=== PATIENT | female | born 1950 | race African-American/Black ===

== ENCOUNTER 2023-04-15 14:58 | Emergency (ER) | payer MEDICARE, SELFPAY ==
[2023-04-15 15:03] VITALS: BP 147/76; PULSE 91; RESP 18; TEMP 36.7; O2SAT 100; BMI 19.4
--- NOTE | 2023-04-15 15:13 | XR_ITS ---
[facility] [id number] Patient Name: KATIE MONTERO MRN: [id number] date: 1950 Sex: F Assigned Patient Location: ER Current Patient Location: ED.MAIN Accession/Order Number: [id number] Exam Date: 04/15/2023 15:19 Report Date: 04/15/2023 15:32 At the request of: SOCO HENRY Procedure: XR wrist RT min 3V XR wrist RT min 3V, 04/15/2023 3:19 PM EDT, [place]001 INDICATION: atraumatic pain COMPARISON: None TECHNIQUE: 3 images are submitted. FINDINGS: The bones appear well mineralized. No acute fracture or subluxation is identified. The joint spaces are maintained. No destructive osseous process is identified. The visualized soft tissues appear unremarkable. XR/XR wrist RT min 3V IMPRESSION: No acute traumatic abnormality or malalignment. Electronically authenticated by: PIETER JOSEPH Date: 04/15/2023 15:32
--- NOTE | 2023-04-15 15:13 | ED.GENADUL1 ---
HPI - General Adult General Chief complaint: Extremity Injury, Upper Stated complaint: UPPER EXTREMITY PAIN RIGHT HAND AND ARM Time Seen by Provider: 04/15/23 15:01 Source: patient Mode of arrival: walk-in History of Present Illness HPI narrative: 72-year-old female presents for right wrist pain. It started yesterday and was worse today. It hurts to move it. No fever. She states it feels a bit swollen. 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 The pain is moderate and worse with movement. Related Data Home Medications Medication Instructions Recorded Confirmed clopidogrel 75 mg tablet 75 mg PO DAILY 04/15/23 04/15/23 lisinopril 20 mg tablet 20 mg PO DAILY 04/15/23 04/15/23 naproxen 375 mg tablet 375 mg PO Q12H 04/15/23 04/15/23 tizanidine 4 mg tablet 4 mg PO Q12H PRN muscle spasticity 04/15/23 04/15/23 Previous Rx's Medication Instructions Recorded acetaminophen 300 mg-codeine 30 mg 1 tab PO Q6H PRN pain #20 tabs 04/15/23 tablet Allergies Allergy/AdvReac Type Severity Reaction Status Date / Time ibuprofen AdvReac Intermediate Verified 04/15/23 15:03 Penicillins AdvReac Intermediate Verified 04/15/23 15:31 Review of Systems ROS Narrative A ten point review of systems is negative except as noted above. PFSH PFSH Social History Smoking status: Current every day smoker Exam Narrative Exam Narrative: Nurses note and vital signs reviewed and patient is not hypoxic. General: The patient appears well and in no apparent distress. Patient is resting comfortably on cart. Skin: Warm, dry, no pallor noted. There is no rash noted. Head: Normocephalic, atraumatic Eye: Normal conjunctiva, no drainage Ears, Nose, Mouth, and Throat: oral mucosa is moist. Nares patent. Cardiovascular: Regular Rate and Rhythm Respiratory: Patient is in no distress, no accessory muscle use, lungs are clear to auscultation, no wheezing, rales or rhonchi Back: non-tender GI: soft and nontender Musculoskeletal: right wrist is examined. There is some mild erythema and minimal swelling. Range of motion causes discomfort. Fingers are not swollen. No break in the skin. Neurological: A&O, normal speech Psychiatric: Cooperative Constitutional Vital Signs, click to edit/add: Last Vital Signs Temp 98.1 F 04/15/23 15:03 Pulse 91 H 04/15/23 15:03 Resp 18 04/15/23 15:03 BP 147/76 H 04/15/23 15:03 Pulse Ox 100 04/15/23 15:03 Course Vital Signs Vital signs: Vital Signs Temperature 98.1 F 04/15/23 15:03 Pulse Rate 91 H 04/15/23 15:03 Respiratory Rate 18 04/15/23 15:03 Blood Pressure 147/76 H 04/15/23 15:03 Pulse Oximetry 100 04/15/23 15:03 Temperature 98.1 F 04/15/23 15:03 Pulse Rate 91 H 04/15/23 15:03 Respiratory Rate 18 04/15/23 15:03 Blood Pressure 147/76 H 04/15/23 15:03 Pulse Oximetry 100 04/15/23 15:03 Medical Decision Making MDM Narrative Medical decision making narrative: X-ray shows no acute findings. Splint applied and application checked by me and found to be appropriate, she is neurovascularly intact. My clinical impression is that her symptoms are due to arthritis. I do not suspect an infection or gout. Treatment diagnosis and follow-up were discussed with the patient. Differential Diagnosis Differential Diagnosis: arthritis, cellulitis, gout, sprain Imaging Data wrist x-ray: Radiologist's impression: Procedure: XR wrist RT min 3V XR wrist RT min 3V, 04/15/2023 3:19 PM EDT, [place]001 INDICATION: atraumatic pain COMPARISON: None TECHNIQUE: 3 images are submitted. FINDINGS: The bones appear well mineralized. No acute fracture or subluxation is identified. The joint spaces are maintained. No destructive osseous process is identified. The visualized soft tissues appear unremarkable. IMPRESSION: No acute traumatic abnormality or malalignment. Electronically authenticated by: PIETER JOSEPH Date: 04/15/2023 15:32 Discharge Plan Discharge Chief Complaint: Extremity Injury, Upper Clinical Impression: Arthritis of wrist Patient Disposition: Home, Self-Care Time of Disposition Decision: 16:02 Condition: Good Mode of Transportation: Private Vehicle Prescriptions / Home Meds: New acetaminophen-codeine 300-30 mg tablet 1 tab PO Q6H PRN (Reason: pain) Qty: 20 0RF No Action tizanidine 4 mg tablet 4 mg PO Q12H PRN (Reason: muscle spasticity) naproxen 375 mg tablet 375 mg PO Q12H lisinopril 20 mg tablet 20 mg PO DAILY clopidogrel 75 mg tablet 75 mg PO DAILY Instructions: Osteoarthritis (ED) Stand Alone Forms: Portal Instructions Referrals: RUSTY CAGLE [Primary Care Provider] - 1 week
== END 2023-04-15 16:11 | disposition home or self-care (01) ==
PROVIDERS: Emergency Provider Emergency Medicine; PCP Family Medicine
DX: M19.031 Primary osteoarthritis, right wrist (principal); Z79.899 Other long term (current) drug therapy; F17.210 Nicotine dependence, cigarettes, uncomplicated
CPT/HCPCS: 73110; 99284

== ENCOUNTER 2025-02-01 11:57 | Inpatient (IN) | payer MEDICARE, MEDICAID, SELFPAY ==
--- OUTSIDE RECORDS SUMMARY | 2024-11-16 09:30 | XMS_ITS ---
Author Organization [facility] vices Address [address] [place] [id number] Care Team Providers Care Engineering Group Leader Name Role Phone Marifer Hernandez Unavailable [phone] REASON FOR VISIT AFTERNOON BABYSITTER Comp Exam 75 Encounters Encounter Location Date Provider Diagnosis [facility] [address], [place] [id number] 11/16/2024 Marifer Hernandez Plan Of Treatment No Information Progress Notes * Katty MONTEROB:1950 (74 yo F)Acc No.[id number]:11/16/2024 Patient: Parminder MARYELLENCaridad FRAGOSOa Provider: Parminder Hernandez DMD :1950 A ge:74 Y S ex:Female Date:11/16/2024 Address:[address] [id number] Subjective: * Chief Complaints: * 1 . AFTERNOON BABYSITTER Comp Exam 75. * Medical History: Objective: * Vitals: Assessment: Plan: * Treatment: * Billing Information: * Visit Code: * Procedure Codes: * Electronic signature of Shirley Hernandez DMD on 02/01/2025 at 12:09 PM EDT Sign off status: Pending * Provider: Parminder Hernandez DMD Date: 11/16/2024 Generated for Craig [email or web address]/[email or web address] on: 02/01/2025 12:09 PM EDT
--- OUTSIDE RECORDS SUMMARY | 2025-01-31 16:19 | XMS_ITS | Encounter Summary ---
Author Organization [facility] [facility] tem Address [id number] [address] [place] [address] Care Team Providers Care Account Liaison Hospice Name Role Phone Kev Mcmahon Primary Care Provider [phone] Reason for Visit * Reason Comments Heart Palpitations Pt states she had dy spnea and daughter called EMS. Per EMS, pt was tachycardiac with a rate of 205 BPM. EMS administered 6mg of adenosine with effect. Pt now is 104 bpm and feels much beter. Encounter Details Date Type Department Care Team (Late st Contact Info) Description 01/31/2025 4:19 PM EDT - 01/31/2025 6:56 PM EDT Emergency [facility] - Emergency [address] [place] [id number] Alfredo Odom MD [address] [place] [address] SVT (supraventricular tachycardia) (Primary Dx) Discharge Disposition: Home Social History Tobacco Use Types Packs/Day Years Used Date Smoking Tobacco: Former Cigarettes 0.3 60.7 1 962 - 03/01/2022 Smokeless Tobacco: Never Alcohol Use Standard Drinks/Week Comments Yes 4 (1 standard drink = 0.6 oz pur e alcohol) [facility] Utilities Answer Date Recorded In the past 12 months has [employer] electric, gas, oil, or water company threatened to shut off services in your home? No 09/23/2023 Social Connection and Isolat ion Panel [NHANES] Answer Date Recorded In a typical week, how many times do you talk on the phone with family, friends, or neighbors? More than three times a week 07/19/2022 How often do you get togethe r with friends or relatives? More than three times a week 07/19/2022 How often do you attend chur ch or yazdanism services? 1 to 4 times per year 07/19/2022 Do you belong to any clubs o r organizations such as protestant groups, unions, fraternal or athletic groups, or school groups? No 07/19/2022 How often do you attend meet ings of the clubs or organizations you belong to? Never 07/19/2022 Are you , , di vorced, , never , or living with a partner? 07/19/2022 AUDIT-C Answer Date Recorded Q1: How often do you have a drink containing alc ohol? Monthly or less 07/19/2022 Q2: How many drinks containi ng alcohol do you have on a typical day when you are drinking? 1 or 2 07/19/2022 Q3: How often do you have si x or more drinks on one occasion? Never 07/19/2022 Overall Financial Resource Strain (CARDIA) Answe r Date Recorded How hard is it for you to pa y for the very basics like food, housing, medical care, and heating? Not hard at all 07/19/2022 PHQ-2 Answer Date Recorded Total Score 2 12/11/2023 [facility] Occupat ional Health - Occupational Stress Questionnaire Answer Date Recorded Do you feel stress - tense, restless, nervous, or anxious, or unable to sleep at night because your mind is troubled all the time - these days? Not at all 07/19/2022 Exercise Vital Sign Answer Date Recorde d On average, how many days pe r week do you engage in moderate to strenuous exercise (like a brisk walk)? 4 days 03/20/2023 On average, how many minutes do you engage in exercise at this level? 10 min 03/20/2023 PRAPARE - Transportation Answer Date Re corded In the past 12 months, has l ack of transportation kept you from medical appointments or from getting medications? No 07/01 In the past 12 months, has l ack of transportation kept you from meetings, work, or from getting things needed for daily living? No 07/19/2022 Housing Instability Answer Date Recorde d Are you worried or concerned that in the next two months you may not have stable housing that you own, rent or stay in as a part of a household? No 07/19/2022 Childcare Answer Date Recorded Do problems getting child ca re make it difficult for you to work or study? No 07/19/2022 Employment Answer Date Recorded Do you need help finding a [facility] and/or a training program? No 07/19/2022 Hunger Screening Answer Date Recorded Within the past 12 months we worried whether our food would run out before we got money to buy more. Never True 01/31/2025 Within the past 12 months th e food we bought just didn't last and we didn't have money to get more. Never True 01/31/2025 Purpose - Life Answer Date Recorded I have a purpose and direction in my life. Stron gly Agree 07/19/2022 Comments No Sex and Gender Information Value Date Recorded Sex Assigned at Not on file Legal Sex Female 11:28 AM EDT Gender Identity Not on file Sexual Orientation Not on file documented as of this encounter Last Filed Vital Signs Vital Sign Reading Time Taken Comments Blood Pressure 136/59 01/31/2025 6:55 PM EDT Pulse 87 01/31/2025 6:55 PM EDT Temperature 37.3 C (99.2 F) 01/31/2025 4:21 PM EDT Respiratory Rate 17 01/31/2025 6:55 PM EDT Oxygen Saturation 98% 01/31/2025 6:55 PM EDT Inhaled Oxygen Concentration - - Weight 49.9 kg (110 lb) 01/31/2025 4:21 PM EDT Height 152.4 cm (5') 01/31/2025 4:21 PM EDT Body Mass Index 21.48 01/31/2025 4:21 PM EDT documented in this encounter Medications at Time of Discharge albuterol (PROVENTIL HFA;VENTOLIN HFA) 90 mcg/actuation inhalerIndications:Ch ronic obstructive pulmonary disease, unspecified ([facility]) inhale 2 puffs by mouth every 4 hours 8.5 g 4 albuterol (PROVENTIL,VENTOLIN) 2.5 mg /3 mL (0.083 %) nebulizer solutionIndications:C hronic obstructive pulmonary disease, unspecified COPD type ([facility]) Inhale 3 mL (2.5 mg total) by nebulization every 4 (four) hours as needed for wheezing. 75 mL 2 5 aspirin 81 mg Take 1 tablet (81 mg total) by mouth in the morning. lgilhvgejo-jrstvnnv-x ormoterol (BREZTRI AEROSPHERE) 160-9-4.8 mcg/actuation HFA aerosol inhalerIndications:Mi xed simple and mucopurulent chronic bronchitis ([facility]) Inhale 2 puffs in the morning and at bedtime. 10.7 g 5 3 cholecalciferol, vitamin D3, 25 mcg (1,000 unit) capsule Take 1 capsule (1,000 Units total) by mouth in the morning. 4 clopidogreL (PLAVIX) 75 mg tabletIndications:Tra nsient cerebral ischemic attack, unspecified TAKE 1 TABLET BY MOUTH EVERY DAY 90 tablet 1 3 dapagliflozin propanediol (FARXIGA) 10 mg tabletIndications:Sta ge 3a chronic kidney disease ([facility]) Take 1 tablet (10 mg total) by mouth in the morning. MUST BE SEEN IN OFFICE FOR ADDITIONAL REFILLS OR CAN REQUEST FROM PCP. 30 tablet 1 5 dilTIAZem CD (CARDIZEM CD) 180 mg 24 hr capsuleIndications:PS VT (paroxysmal supraventricular tachycardia) Take 1 capsule (180 mg total) by mouth in the morning. 30 capsule 2 3 docusate sodium (COLACE) 100 mg capsule Take 1 capsule (100 mg total) by mouth in the morning. 30 capsule 1 4 doxepin (SILENOR) 3 mg tablet Take 1 tablet (3 mg total) by mouth nightly. 30 tablet 2 4 food supplemt, lactose-reduced (ENSURE) liquid Take 237 mL by mouth in the morning. 30 mL 5 3 furosemide (LASIX) 20 mg tablet TAKE 1 TABLET BY MOUTH EVERY DAY IN THE MORNING 90 tablet 5 lisinopriL (PRINIVIL,ZESTRIL) 20 mg tabletIndications:Ess ential hypertension, benign TAKE 1 TABLET BY MOUTH EVERY DAY IN THE MORNING 30 tablet 5 nebulizer accessories miscIndications:Chron ic obstructive pulmonary disease with (acute) exacerbation (CMS-HCC) Use as directed with nebulizer 1 each 3 pantoprazole (PROTONIX) 40 mg EC tabletIndications:Gas tro-esophageal reflux disease without esophagitis take 1 tablet by mouth every day 90 tablet 4 polyethylene glycol (GLYCOLAX) 17 gram/dose powder Take 17 g by mouth in the morning. 595 g 1 4 potassium chloride (KLOR-CON M 10) 10 MEQ CR tabletIndications:Hyp okalemia TAKE 1 TABLET BY MOUTH EVERY MORNING. 90 tablet 5 rosuvastatin (CRESTOR) 20 mg tabletIndications:Mix ed hyperlipidemia Take 1 tablet (20 mg total) by mouth in the morning. 90 tablet 4 tiZANidine (ZANAFLEX) 4 mg tabletIndications:Low back pain TAKE 1 TABLET BY MOUTH EVERY 6 HOURS NEEDED FOR MUSCLE SPASMS. 360 tablet 5 documented as of this encounter ED Notes * Alfredo Odom MD - 01/31/2025 4:26 PM EDT Images from the original note were not included. [facility] - EMERGENCY Pt Name: Usha Pruitt Birthdate: 1950 Chief Complaint: Chief Complaint Patient presents with Heart Palpitations Pt states she had dyspnea and daughter called EMS. Per EMS, pt was tachycardiac with a rate of 205 BPM. EMS administered 6mg of adenosine with effect. Pt now is 104 bpm and feels much beter. History of Present Illness: Initial evaluation by Dr. Shaina Odom at 4:20 PM. Usha Pruitt is a 74 y.o. female who presents via EMS to the ED with chief complaint of heart palpitations. EMS reports pt woke up with shortness of breath, and tried taking her medications. EMS reports her initial heart rate was 205. EMS reports history of SVT on multiple occasions. Pt reports feeling a lot better , and the shortness of breath is gone. There are no other concerns at this time. 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 Past Medical History: Past Medical History: Diagnosis Date Acid reflux 09/02/2016 Carotid artery stenosis 09/02/2016 Carpal tunnel syndrome 03/31/2018 Chronic diastolic heart failure ([facility]) 09/19/2016 Chronic obstructive lung disease ([facility]) 09/02/2016 Dyslipidemia Hypokalemia 09/02/2016 Osteoporosis 11/19/2017 Paroxysmal supraventricular tachycardia ([facility]) 02/23/2019 Transient cerebral ischemia 09/02/2016 Numbness in Both Hands Past Surgical History: Past Surgical History: Procedure Laterality Date COLONOSCOPY N/A 12/25/2022 Performed by Angel Randolph DO at [facility] Family History: Family History Problem Relation Age of Onset Hypertension Mother Diabetes Mother Aneurysm Mother Cancer Father Glaucoma Father Breast cancer Sister Heart disease Brother Social History: Social History Socioeconomic History Marital status: Tobacco Use Smoking status: Former Current packs/day: 0.00 Average packs/day: 0.3 packs/day for 60.7 years (15.2 ttl pk-yrs) Types: Cigarettes Start date: 1962 Quit date: 03/01/2022 Years since quittin.9 Smokeless tobacco: Never Vaping Use Vaping status: Former Substances: Nicotine Substance and Sexual Activity Alcohol use: Yes Alcohol/week: 4.0 standard drinks of alcohol Types: 4 Cans of beer per week Drug use: Not Currently Frequency: 2.0 times per week Types: Marijuana Sexual activity: Not Currently Other Topics Concern Caffeine Use Yes Social Drivers of Health Financial Resource Strain: Low Risk (07/19/2022) Overall Financial Resource Strain (CARDIA) Difficulty of Paying Living Expenses: Not hard at all Food Insecurity: No Food Insecurity (03/19/2024) Hunger Screening Food Insecurity - Worry: Never True Food Insecurity - Inability: Never True Transportation Needs: No Transportation Needs (07/19/2022) PRAPARE - Transportation Lack of Transportation (Medical): No Lack of Transportation (Non-Medical): No Physical Activity: Insufficiently Active (03/20/2023) Exercise Vital Sign Days of Exercise per Week: 4 days Minutes of Exercise per Session: 10 min Stress: No Stress Concern Present (07/19/2022) [place] [place] of Occupational Health - Occupational Stress Questionnaire Feeling of Stress : Not at all Social Connections: Moderately Isolated (07/19/2022) Social Connection and Isolation Panel [NHANES] Frequency of Communication with Friends and Family: More than three times a week Frequency of Social Gatherings with Friends and Family: More than three times a week Attends Worship Services: 1 to 4 times per year Active Member of Clubs or Organizations: No Attends Club or Organization Meetings: Never Marital Status: Interpersonal Safety: Not At Risk (07/19/2022) Humiliation, Afraid, Rape, and Kick questionnaire Fear of Current or Ex-Partner: No Emotionally Abused: No Physically Abused: No Sexually Abused: No Housing Instability: Low Risk (07/19/2022) Housing Instability Housing Instability: No Review of Systems: Review of Systems Physical Exam: ED Triage Vitals [01/31/25 1621] Temp Heart Rate Resp BP SpO2 37.3 ??C (99.2 ??F) 105 18 123/69 97 % Temp Source Heart Rate Source Patient Position BP Location FiO2 (%) Oral -- Semi-fowlers Right arm -- Vitals: 01/31/25 1621 BP: 123/69 Temp: 37.3 ??C (99.2 ??F) TempSrc: Oral Pulse: 105 Resp: 18 SpO2: 97% Height: 152.4 cm (5') Weight: 49.9 kg (110 lb) Physical Exam Vitals reviewed. HENT: Head: Normocephalic and atraumatic. Eyes: Conjunctiva/sclera: Conjunctivae normal. Cardiovascular: Rate and Rhythm: Normal rate. Pulmonary: Effort: Pulmonary effort is normal. Breath sounds: Normal breath sounds. Abdominal: General: There is no distension. Palpations: Abdomen is soft. Musculoskeletal: General: Normal range of motion. Cervical back: Normal range of motion and neck supple. Skin: General: Skin is warm and dry. Neurological: General: No focal deficit present. Mental Status: She is alert and oriented to person, place, and time. GCS: GCS eye subscore is 4. GCS verbal subscore is 5. GCS motor subscore is 6. Procedure: Procedures Re-evaluation: Tameka Zuniga (scribe), documented on behalf and in the presence of Dr. Shaina Odom. 6:[address] Shaina Odom discussed discharge with pt, and pt is in agreement. Medical Decision Making Amount and/or Complexity of Data Reviewed Labs: ordered. Details: Labs notable for: white blood cell 16.2, neutrophils absolute 13.4, creatinine 1.50, glucose 119, eGFR (CKD-EPI) 36. ECG/medicine tests: ordered. Risk Prescription drug management. ED Course: Clinical Impressions as of 01/31/25 1705 SVT (supraventricular tachycardia) . ED Disposition None . Please note that portions of this note were completed with a voice recognition program. Efforts were made to edit the dictations but occasionally words are mis-transcribed. Tameka Panuto 01/31/25 1628 Tameka Panuto 01/31/25 1649 Tameka Panuto 01/31/25 1713 Tameka Panuto 01/31/25 1827 Alfredo Odom MD 01/31/25 1950 documented in this encounter Plan of Treatment Upcoming Encounters Date Type Department Care Team (Late st Contact Info) Description 02/07/2025 3:00 PM EDT Office Visit [facility] - Family Medicine [address] [place] [id number] Kev Mcmahon, DO [address] [place] [address] documented as of this encounter Goals Goal Patient Goal Type Associated Problems Recent Progress Patient-Stated? Author safe discharge to home General Yes Marguerite Anguiano, RN Note: Evaluation of progress towards goal: safe transition from hospital to home with [facility] and family support. documented as of this encounter Procedures Procedure Name Priority Date/Time Associated Diagnosis Comments TROP I, HIGH SENSITIVITY 1 HOUR STAT 01/31/2025 5:45 PM EDT TROPONIN I, HIGH SENSITIVITY 0 HOUR STAT 01/31/2025 4:30 PM EDT TROPONIN I, HIGH SENSITIVITY 0 HOUR STAT 01/31/2025 4:30 PM EDT CBC WITH AUTO DIFFERENTIAL STAT 01/31/2025 4:30 PM EDT APTT STAT 01/31/2025 4:30 PM EDT PROTIME & INR STAT 01/31/2025 4:30 PM EDT D-DIMER STAT 01/31/2025 4:30 PM EDT B-TYPE NATRIURETIC PEPTIDE STAT 01/31/2025 4:30 PM EDT MAGNESIUM STAT 01/31/2025 4:30 PM EDT COMPREHENSIVE METABOLIC PANEL STAT 01/31/2025 4:30 PM EDT ECG 12-LEAD STAT 01/31/2025 4:23 PM EDT documented in this encounter Results * Troponin I, High Sensitivity 1 Hour (01/31/2025 5:45 PM EDT) Pathologist [facility] TROPONIN I, HIGH SENSITIVITY 11 <16 ng/L 01/31/2025 6:22 PM EDT [facility] Blood Venous blood / Unknown Venipuncture / Unknown 01/31/2025 5:45 PM EDT 01/31/2025 5:49 PM EDT us Alfredo Odom MD LAB BLOOD ORDERABLES Final Resu lt [facility] [address] [place] [address], * Troponin I, High Sensitivity 0 Hour (01/31/2025 4:30 PM EDT) Pathologist [facility] TROPONIN I, HIGH SENSITIVITY 11 <16 ng/L 01/31/2025 5:14 PM EDT [facility] Blood Venous blood / Unknown Venipuncture / Unknown 01/31/2025 4:30 PM EDT 01/31/2025 4:38 PM EDT us Alfredo Odom MD LAB BLOOD ORDERABLES Final Resu lt Performing Organization Address [facility]/ZIP Co de Phone Number [address] [place] [address], [place] * Magnesium (01/31/2025 4:30 PM EDT) Pathologist [facility] MAGNESIUM 1.8 1.8 - 2.6 mg/dL 01/31/2025 5:07 PM EDT [facility] Blood Venous blood / Unknown Venipuncture / Unknown 01/31/2025 4:30 PM EDT 01/31/2025 4:38 PM EDT us Alfredo Odom MD LAB BLOOD ORDERABLES Final Resu lt Performing Organization Address [facility] Phone Number [address] [place] [address], [place] * D-Dimer (01/31/2025 4:30 PM EDT) Pathologist [facility] D DIMER 208 1 - 255 ug/mL 01/31/2025 5:16 PM EDT [facility] Comment:Results <255 ng/mL D DU: The presensence of a VTE can safely be excluded with a negative D-Dimer result and Wells score. A negative result doesn't exclude the possibility of DIC. The test should be repeated along with other diagnostic tests if the patient's symptoms persist or worsen. Blood Venous blood / Unknown Venipuncture / Unknown 01/31/2025 4:30 PM EDT 01/31/2025 4:38 PM EDT us Alfredo Odom MD LAB BLOOD ORDERABLES Final Resu lt Performing Organization Address [facility] Co de Phone Number [address] [place] [address], [place] * (ABNORMAL) Comprehensive metabolic panel (01/31/2025 4:30 PM EDT) SODIUM 131(L) 134 - 146 mmol/L 01/31/2025 5:07 PM EDT [facility] POTASSIUM 4.4 3.5 - 5.0 mmol/L 01/31/2025 5:07 PM EDT [facility] CHLORIDE 99 98 - 109 mmol/L 01/31/2025 5:07 PM EDT [facility] CARBON DIOXIDE 23 22 - 32 mmol/L 01/31/2025 5:07 PM EDT [facility] ANION GAP 9 5 - 15 mmol/L 01/31/2025 5:07 PM EDT [facility] BLOOD UREA NITROGEN 25 5 - 27 mg/dL 01/31/2025 5:07 PM EDT [facility] CREATININE 1.50(H) 0.40 - 1.00 mg/dL 01/31/2025 5:07 PM EDT [facility] Comment:METHOD TRACEABLE TO IDMS STANDARD GLUCOSE 119(H) 65 - 99 mg/dL 01/31/2025 5:07 PM EDT [facility] CALCIUM 9.1 8.5 - 10.5 mg/dL 01/31/2025 5:07 PM EDT [facility] TOTAL PROTEIN 8.0 6.0 - 8.0 g/dL 01/31/2025 5:07 PM EDT [facility] ALBUMIN 3.8 3.2 - 5.3 g/dL 01/31/2025 5:07 PM EDT [facility] ALKALINE PHOSPHATASE 93 39 - 130 U/L 01/31/2025 5:07 PM EDT [facility] AST 22 <=41 U/L 01/31/2025 5:07 PM EDT [facility] ALT 15 <=31 U/L 01/31/2025 5:07 PM EDT [facility] BILIRUBIN,TOTAL 0.9 0.3 - 1.2 mg/dL 01/31/2025 5:07 PM EDT [facility] EGFR Non-Race Dependent 36(L) >=60 ml/min/1.7 3sq.m 01/31/2025 5:07 PM EDT [facility] Comment: eGFR not reported due to non-numeric value for Creatinine. Reported eGFR is based on the CKD-EPI 2020 equation that does not use a race coefficient. Blood Venous blood / Unknown Venipuncture / Unknown 01/31/2025 4:30 PM EDT 01/31/2025 4:38 PM EDT us Alfredo Odom MD LAB BLOOD ORDERABLES Final Resu lt Performing Organization Address [facility] Co de Phone Number [address] [place] [address], [place] * B-type natriuretic peptide (01/31/2025 4:30 PM EDT) BNP 95 <=100 pg/mL 01/31/2025 5:16 PM EDT [facility] Blood Venous blood / Unknown Venipuncture / Unknown 01/31/2025 4:30 PM EDT 01/31/2025 4:38 PM EDT us Alfredo Odom MD LAB BLOOD ORDERABLES Final Resu lt Performing Organization Address [facility] Co de Phone Number [address] [place] [address], [place] * APTT (01/31/2025 4:30 PM EDT) APTT 34 26 - 37 sec 01/31/2025 5:16 PM EDT [facility] Blood Venous blood / Unknown Venipuncture / Unknown 01/31/2025 4:30 PM EDT 01/31/2025 4:38 PM EDT us Alfredo Odom MD LAB BLOOD ORDERABLES Final Resu lt Performing Organization Address City/[facility] Co de Phone Number [address] [place] [address], [place] * Protime & INR (01/31/2025 4:30 PM EDT) PROTIME 12.2 9.8 - 13.2 sec 01/31/2025 5:16 PM EDT [facility] INR 1.0 0.9 - 1.2 01/31/2025 5:16 PM EDT [facility] Blood Venous blood / Unknown Venipuncture / Unknown 01/31/2025 4:30 PM EDT 01/31/2025 4:38 PM EDT us Alfredo Odom MD LAB BLOOD ORDERABLES Final Resu lt Performing Organization Address [facility] Co de Phone Number [address] [place] [address], [place] * (ABNORMAL) CBC auto differential (01/31/2025 4:30 PM EDT) WBC 16.2(H) 4 - 11 x10E9/L 01/31/2025 4:44 PM EDT [facility] RBC Count 5.17 3.8 - 5.2 X10E12/L 01/31/2025 4:44 PM EDT [facility] Hemoglobin 15.7(H) 11.7 - 15.5 g/dL 01/31/2025 4:44 PM EDT [facility] Hematocrit 46.2 35 - 47 % 01/31/2025 4:44 PM EDT [facility] MCV 89 80 - 100 fL 01/31/2025 4:44 PM EDT [facility] MCH 30.3 27 - 34 pg 01/31/2025 4:44 PM EDT [facility] MCHC 33.9 32 - 36 g/dL 01/31/2025 4:44 PM EDT [facility] RDW 14.9 11.5 - 15 % 01/31/2025 4:44 PM EDT [facility] Platelet Count 327 150 - 450 X10E9/L 01/31/2025 4:44 PM EDT [facility] MPV 7.5 7 - 12 fL 01/31/2025 4:44 PM EDT [facility] Neutrophils % 82.7 % 01/31/2025 4:44 PM EDT [facility] Lymphocytes % 9.4 % 01/31/2025 4:44 PM EDT [facility] Monocytes % 7.1 % 01/31/2025 4:44 PM EDT [facility] Eosinophils % 0.4 % 01/31/2025 4:44 PM EDT [facility] Basophils % 0.4 % 01/31/2025 4:44 PM EDT [facility] Neutrophils Absolute (A) 13.4(H) 1.5 - 6.6 10*3/uL 01/31/2025 4:44 PM EDT [facility] Lymphocytes Absolute 1.5 1.0 - 3.5 10*3/uL 01/31/2025 4:44 PM EDT [facility] Monocytes Absolute 1.2(H) 0.0 - 0.9 10*3/uL 01/31/2025 4:44 PM EDT [facility] Eosinophils Absolute 0.1 0.0 - 0.4 10*3/uL 01/31/2025 4:44 PM EDT [facility] Basophils Absolute 0.1 0.0 - 0.2 10*3/uL 01/31/2025 4:44 PM EDT [facility] Differential Type AUTOMATED DIFFERENTIAL 01/31/2025 4:44 PM EDT [facility] Blood Venous blood / Unknown Venipuncture / Unknown 01/31/2025 4:30 PM EDT 01/31/2025 4:38 PM EDT us Alfredo Odom MD LAB BLOOD ORDERABLES Final Resu lt [facility] [address] [place] [address], [place] * ECG 12 lead (01/31/2025 4:23 PM EDT) 01/31/2025 4:23 PM EDT Narrative [facility] - 01/31/2025 5:41 PM EDT us Alfredo Odom MD ECG ORDERABLES Final Result [facility] documented in this encounter Visit Diagnoses Diagnosis SVT (supraventricular tachycardia)- Primary Other specified cardiac dysrhythmias documented in this encounter Administered Medications Inactive Administered Medications - up to 3 most recent administrations Medication Order MAR Action Action Date Dose Rate Site sodium chloride 0.9 % flush 3 mL 3 mL, intravenous, As needed, line care, before and after each intermittent use, Starting on Fri01/31/25 at 1619 documented in this encounter Active and Recently Administered Medications Times are shown in EDT. PRN Medication Order 01/29/2025 01/30/2025 01/31/2025 sodium chloride 0.9 % flush 3 mL 3 mL, intravenous, As needed, line care, before and after each intermittent use, Starting on Fri01/31/25 at 1619 documented in this encounter Additional Health Concerns Assessment Noted Time PHQ-9 Depression Total Score: 2 12/11/19 24 9:59 AM EDT documented as of this encounter Care Teams Account Liaison Hospice Relationship Specialty Start Date End Date Kev Mcmahon DO [address] [facility], [place] [address] PCP - General Family Medicine 01/31/25 documented as of this encounter
[2025-02-01] VITALS (25 sets, daily range): BP systolic 107–177; BP diastolic 67–79; PULSE 62–85; TEMP 36.5–36.8; O2SAT 92–100; BMI 17.7; BMI 20.2
--- OUTSIDE RECORDS SUMMARY | 2025-02-01 12:09 | XMS_ITS | Encounter Summary ---
Author Organization [employer] Sys [employer] Address [id number] [address] [place] [address] Care Team Providers Care Senior Hr Business Partner Name Role Phone Kev Mcmahon DO Primary Care Provider [phone] Reason for Visit * Reason Comments Med Refill Encounter Details Date Type Department Care Team ([facility] Contact Info) Description 02/03/2024 Refill [facility] [address] [place] [address] Kev Mcmahon, DO [address] [facility] [place], [place] [id number] Med Refill Social History Tobacco Use Types Packs/Day Years Used Date Smoking Tobacco: Former Cigarettes 0.3 60.7 1 962 - 03/01/2022 Smokeless Tobacco: Never Alcohol Use Standard Drinks/Week Comments Yes 4 (1 standard drink = 0.6 oz pur e alcohol) [facility] Utilities Answer Date Recorded In the past 12 months has [employer] electric, gas, oil, or water company threatened [...] often do you attend chur ch or jain services? 1 to 4 times per year 07/19/2022 Do you belong to any clubs o r organizations such as mu-ism groups, unions, fraternal or athletic groups, or [...] Answer Date Recorded Total Score 2 12/11/2023 [facility] of Occupat ional Health - Occupational Stress [...] Recorded Do you need help finding a [facility] career center and/or a training program? No 07/19/2022 Hunger Screening Answer Date Recorded Within the past 12 months we worried whether our food would run out before we got money to buy more. Never True 12/11/2023 Within the past 12 months th e food we bought just didn't last and we didn't have money to get more. Never True 12/11/2023 Purpose - Life Answer Date Recorded I have a purpose and direction in my life. Stron gly Agree 07/19/2022 Comments No Sex and Gender Information Value Date Recorded Sex Assigned at Not on file Legal Sex Female 11:28 AM EDT Gender Identity Not on file Sexual Orientation Not on file documented as of this encounter Miscellaneous Notes * Telephone Encounter - Marli Goodman RN - 02/03/2024 6:36 PM EDT Refill addressed on 02/09/24, Pharmacy confirmed receipt. Pt needs to be seen in March for furtherrefills. documented in this encounter Plan of Treatment Upcoming Encounters Date Type Department Care Team (Late st Contact Info) Description 02/07/2025 3:00 PM EDT Office Visit [facility] - Family Medicine [address] [address] Kev Mcmahon, [address], [place] [address] documented as of this encounter Goals Goal Patient Goal Type Associated Problems Recent Progress Patient-Stated? Author safe discharge to home General Yes Marguerite Anguiano, RN Note: Evaluation of progress towards goal: safe transition from hospital to home with [facility] and family support. documented as of this encounter Visit Diagnoses Diagnosis Essential hypertension, benign documented in this encounter Additional Health Concerns Assessment Noted Time PHQ-9 Depression Total Score: 2 12/11/19 24 9:59 AM EDT documented as of this encounter Care Teams Senior Hr Business Partner Relationship Specialty Start Date End Date Kev Mcmahon DO [address], [facility] [place] [address] PCP - General Family Medicine 01/31/25 documented as of this encounter
--- OUTSIDE RECORDS SUMMARY | 2025-02-01 12:09 | XMS_ITS | Encounter Summary ---
Author Organization [facility] Sys tem Address [id number] [address] [place] [address] Care Team Providers Care Cutting Machine Offbearer Name Role Phone DanielaKev ramirez Primary Care Provider [phone] Encounter Details Date Type Department Care Team (Late st Contact Info) Description 03/24/2023 Orders Only [facility] - Family Medicine [address] [place] [address] Eliza Ponce MA Hepatitis C virus infection without hepatic coma, unspecified chronicity Social History Tobacco Use Types Packs/Day Years Used Date Smoking Tobacco: Former Cigarettes 0.3 60.7 1 962 - 03/01/2022 Smokeless Tobacco: Never Alcohol Use Standard Drinks/Week Comments Yes 4 (1 standard drink = 0.6 oz pur e alcohol) Social Connection and Isolat ion Panel [NHANES] Answer Date Recorded In a typical week, how many times do you talk on the phone with family, friends, or neighbors? More than three times a week 07/19/2022 How often do you get togethe r with friends or relatives? More than three times a week 07/19/2022 How often do you attend chur ch or pentecostalism services? 1 to 4 times per year 07/19/2022 Do you belong to any clubs o r organizations such as anabaptism groups, unions, fraternal or athletic groups, or [...] 07/19/2022 PHQ-2 Answer Date Recorded Total Score 0 03/20/2023 [facility] of Occupat ional Health - Occupational [...] Recorded Do you need help finding a [facility] and/or a training program? No 07/19/2022 Purpose - Life Answer Date Recorded I have a purpose and direction in my life. Stron gly Agree 07/19/2022 Comments No Sex and Gender Information Value Date Recorded Sex Assigned at Not on file Legal Sex Female 11:28 AM EDT Gender Identity Not on file Sexual Orientation Not on file documented as of this encounter Plan of Treatment Upcoming Encounters Date Type Department Care Team (Late st Contact Info) Description 02/07/2025 3:00 PM EDT Office Visit [facility] - Family Medicine [address] [place] [address] Kev Mcmahon DO [address], [place] [address] documented as of this encounter Goals Goal Patient Goal Type Associated Problems Recent Progress Patient-Stated? Author safe discharge to home General Yes Marguerite Anguiano RN Note: Evaluation of progress towards goal: safe transition from hospital to home with [facility] and family support. documented as of this encounter Procedures Procedure Name Priority Date/Time Associated Diagnosis Comments AMB REFERRAL TO GASTROENTEROLOGY Routine 12/17/2022 3:01 PM EDT Hepatitis C virus infection without hepatic coma, unspecified chronicity documented in this encounter Results * Ambulatory referral to Gastroenterology (12/17/2022 3:01 PM EDT) us Kev Mcmahon DO OUTPATIENT REFERRAL ORDERABL ES Final Result MANUALLY TRANSCRIBED RESULTS documented in this encounter Visit Diagnoses Diagnosis Hepatitis C virus infection without hepatic coma, unspecified chronicity documented in this encounter Additional Health Concerns Assessment Noted Time PHQ-9 Depression Total Score: 0 03/20/20 23 4:09 PM EDT documented as of this encounter Care Teams Cutting Machine Offbearer Relationship Specialty Start Date End Date Kev Mcmahon DO [address] [place] [address] PCP - General Family Medicine 01/31/25 documented as of this encounter
--- OUTSIDE RECORDS SUMMARY | 2025-02-01 12:09 | XMS_ITS | Encounter Summary ---
Author Organization [facility] [employer] Address [id number] [address] [place] [address] Care Team Providers Care Jewelry Appraiser Name Role Phone Kev Mcmahon DO Primary Care Provider [phone] Reason for Visit * Reason Comments Med Change Request Encounter Details Date Type Department Care Team (Late st Contact Info) Description 03/20/2023 Refill [facility] - Family Medicine [address] [place] [address] Kev Mcmahon DO [address], [facility] [address] Social History Tobacco Use Types Packs/Day Years [...] often do you attend chur ch or buddhist services? 1 to 4 times per year 07/19/2022 Do you belong to any clubs o r organizations such as restoration groups, unions, fraternal or athletic groups, or [...] Answer Date Recorded Total Score 0 03/20/2023 [facility] of Occupat ional Health - Occupational Stress [...] Recorded Do you need help finding a [facility] career center and/or a training program? No 07/19/2022 Purpose - Life Answer Date Recorded I have a purpose and direction in my life. Stron katerina Agree 07/19/2022 Comments No Sex and Gender Information Value Date Recorded Sex Assigned at Not on file Legal Sex Female 11:28 AM EDT Gender Identity Not on file Sexual Orientation Not on file documented as of this encounter Miscellaneous Notes * Telephone Encounter - Kev Mcmahon DO - 03/20/2023 5:25 PM EDT Her ensure is not covered under part D. it may be covered under part B. She should contact her Medicare insurer and see if it would be covered under part B * Telephone Encounter - Alessandra Gibson CMA - 03/20/2023 5:25 PM EDT Patient stated that she is not going to worry about it. documented in this encounter Plan of Treatment Upcoming Encounters Date Type Department Care Team (Late st Contact Info) Description 02/07/2025 3:00 PM EDT Office Visit [facility] - Family Medicine [address] [place] [address] Kev Mcmahon DO [address] [facility] [place] [address] documented as of this encounter Goals Goal Patient Goal Type Associated Problems Recent Progress Patient-Stated? Author safe discharge to home General Yes Marguerite Anguiano, RN Note: Evaluation of progress towards goal: safe transition from hospital to home with [facility] and family support. documented as of this encounter Visit Diagnoses Not on filedocumented in this encounter Additional Health Concerns Assessment Noted Time PHQ-9 Depression Total Score: 0 03/20/20 23 4:09 PM EDT documented as of this encounter Care Teams Jewelry Appraiser Relationship Specialty Start Date End Date Kev Mcmahon DO [address], [facility] [address] PCP - General Family Medicine 01/31/25 documented as of this encounter
--- OUTSIDE RECORDS SUMMARY | 2025-02-01 12:09 | XMS_ITS | Encounter Summary ---
Author Organization [facility] Sys tem Address [id number] [address] [place] [address] Care Team Providers Care Supervisor Silvering Department Name Role Phone Kev Mcmahon DO Primary Care Provider [phone] Encounter Details Date Type Department Care Team ([facility] Contact Info) Description 04/16/2023 Orders Only [facility] Medicine - Family Medicine [address] [place] [address] Kev Mcmahon DO [address], [facility] [place] [address] Social History Tobacco Use Types Packs/Day Years [...] often do you attend chur ch or sabianist services? 1 to 4 times per year 07/19/2022 Do you belong to any clubs o r organizations such as gnosticist groups, unions, fraternal or athletic groups, or [...] Answer Date Recorded Total Score 0 03/20/2023 [facility] of Occupat ional Health - Occupational [...] Recorded Do you need help finding a [facility] career center and/or a training program? No [...] Medicine - Family Medicine [address] [place] [address] Kev Mcmahon DO [address] [place] [address] documented as of this encounter Goals Goal Patient Goal Type Associated Problems Recent Progress Patient-Stated? Author safe discharge to home General Yes Marguerite Anguiano, RN Note: Evaluation of progress towards goal: safe transition from hospital to home with [facility] and family support. documented as of this encounter Procedures Procedure Name Priority Date/Time Associated Diagnosis Comments XR WRIST RT MIN 3 VWS Routine 04/15/2023 6:01 PM EDT documented in this encounter Results * X-ray wrist right minimum 3 views (04/15/2023 6:01 PM EDT) Anatomical Region Laterality Modality MSK, Upper Extremities, Wrist Right Co mputed Radiography us Scanning Provider External IMG DIAGNOSTIC IMAGIN G ORDERABLES Final Result documented in this encounter Visit Diagnoses Not on filedocumented in this encounter Additional Health Concerns Assessment Noted Time PHQ-9 Depression Total Score: 0 03/20/20 23 4:09 PM EDT documented as of this encounter Care Teams Supervisor Silvering Department Relationship Specialty Start Date End Date Kev Mcmahon DO [address] [place] [address] PCP - General Family Medicine 01/31/25 documented as of this encounter
--- OUTSIDE RECORDS SUMMARY | 2025-02-01 12:09 | XMS_ITS | Patient Health Record ---
Author Organization [facility] Address [address] [place], [place] [address] Care Team Providers Care Bore Mill Operator Name Role Phone Marifer Hernandez Unavailable [phone] Reason For Referral No Information Problems Problem Type SNOMED Code ICD Code Onset Dates Problem Status W/U Status Risk Notes Problem Spasm of back muscles (644875824) Muscle spasm of back (M62.830) Active confirmed Problem Gastroesophageal reflux disease (170471013) GERD (gastroesopha geal reflux disease) (K21.9) Active confirmed Comment:RTO in 6 weeks or sooner if necessary., Problem Arthralgia of the pelvic region and thigh (307866954) Hip pain, acute, right (M25.551) Active confirmed Comment:-Not severe, likely arthritis -Not affecting gait or her daily life, just intermittenly uncomfortable -Prescribed ultram for pain due to not being able to take NSAIDs, Problem COPD - Chronic obstructive pulmonary disease (37810213) History of COPD (Z87.09) Active confirmed Problem Fatigue (61710357) Fatigue (R53.83) Active confirmed Comment:-going on for one month -Has strong family history of diabetes -Increased urination the last 3-4 days -Will obtain baseline labs, EKG, Problem Edema of lower extremity (060601824) Leg edema (R60.0) Active confirmed Comment:-+1 leg edema currently; has been on for years -No signs of electrolyte abnormalities -Taking it as needed -no cardiac symptoms, Problem Osteopenia of shoulder (M85.819) Active confirmed Comment:Per xray, Problem Pulmonary nodule (075932735) Pulmonary nodule (R91.1) Active confirmed Comment:Will order a CT scan to assess., Problem Right shoulder pain (6030221061) Right shoulder pain (M25.511) Active confirmed Comment:+muscle spasm present c/w cyclobenzaprine as needed encouraged use of acetaminophen, heat/ice, and topicals recheck in 4 weeks PVU, Problem Paroxysmal supraventricular tachycardia (38463744) Sustained SVT (I47.1) Active confirmed Comment:Continu e metoprolol. F/U with Cardiology as recommended., Problem COPD - Chronic obstructive pulmonary disease (02840750) COPD (chronic obstructive pulmonary disease) (J44.9) Active confirmed Comment:50+ pack year history daily cough and SOB lungs CTAB clinically likely COPD treat with LABA PVU, Problem Shoulder joint pain (940921363) Left shoulder pain, unspecified chronicity (M25.512) Active confirmed Comment:-Found to have osteopenia in the joint -Ultram causing dizziness -Cannot take NSAIDs due to carotid artery -Will switch to tylenol #3, Problem Chronic obstructive lung disease (49544286) COPD without exacerbation (J44.9) Active confirmed Comment:albuter o l helping but would prefer nebulizer. Has solution. Needs machine. Was using a friends who took it back., Problem Prescription renewal (274806062) Medication refill (Z76.0) Active confirmed Problem Left shoulder pain (7611969734) Left shoulder pain (M25.512) Active confirmed Comment:-Likely arthritis -Has difficulty with range of motion -Motrin has helped -NSAIDs contraindicated due to her carotid artery issues per her vascular surgeon -Will try 1/2 tab of ultram as needed -will get x-ray, Problem Chronic low back pain (finding) (625455111) Chronic lower back pain (M54.50) Active confirmed Comment:Tamara NORMAL neuromuscular exam today, other than mild spasms., Plan Of Treatment No Information Insurance Providers Payer Name Payer Address Payer Phone Subscriber Number Group Number Insured Name Patient Relationship to Insured Coverage Start Date Coverage End Date [employer] [address] [address] [place] [address] [id number] Usha Pruitt Self - patient is the insured 4 [employer] [facility] [address] [address] [place], [place] [id number] [phone] [id number] Usha Pruitt Self - patient is the insured 5 Medical (General) History Surgical History Surgery Date(Month/Year) D&C, ProblemStatus: Active,
--- OUTSIDE RECORDS SUMMARY | 2025-02-01 12:09 | XMS_ITS | Encounter Summary ---
Author Organization [employer] Address [id number] [address] [place] [address] Care Team Providers Care Paper Bag Making Machinist Name Role Phone Kev Mcmahon Primary Care Provider [phone] Reason for Visit * Reason Onset Date Comments Med Refill 06/12/2022 Encounter Details Date Type Department Care Team (Late Contact Info) Description 06/12/2022 Refill [facility] Internal Medicine - Family Medicine [address] [place] [address] Miryam Stewart MA Social History Tobacco Use Types Packs/Day Years Used Date Smoking Tobacco: Former Cigarettes 0.3 60.7 1 962 - 03/01/2022 Smokeless Tobacco: Never Alcohol Use Standard Drinks/Week Comments Yes 4 (1 standard drink = 0.6 oz pur e alcohol) Childcare Answer Date Recorded Childcare Unknown 12/03/2018 Employment Answer Date Recorded Employment Unknown 12/03/2018 Purpose - Life Answer Date Recorded Purpose and direction in life Unknown Comments No Sex and Gender Information Value Date Recorded Sex Assigned at Not on file Legal Sex Female 11:28 AM EDT Gender Identity Not on file Sexual Orientation Not on file documented as of this encounter Plan of Treatment Upcoming Encounters Date Type Department Care Team ([facility] Contact Info) Description 02/07/2025 3:00 PM EDT Office Visit [facility] - Family Medicine [address] [place] [address] Kev Mcmahon DO [address] [place] [address] documented as of this encounter Goals Goal Patient Goal Type Associated Problems Recent Progress Patient-Stated? Author safe discharge to home General Yes Marguerite Anguiano, ELÍAS Note: Evaluation of progress towards goal: safe transition from hospital to home with [facility] and family support. documented as of this encounter Visit Diagnoses Not on filedocumented in this encounter Additional Health Concerns Infection Onset Date Last Indicated Resolved Time COVID-19 Rule-Out 07/18/2022 07/18/2022 07/18/2022 5:34 PM EST COVID-19 Positive 07/18/2022 07/18/2022 08/08/2022 11:13 PM EST documented as of this encounter Care Teams Paper Bag Making Machinist Relationship Specialty Start Date End Date Kev Mcmahon DO [address] [place] [address] PCP - General Family Medicine 01/31/25 documented as of this encounter
--- OUTSIDE RECORDS SUMMARY | 2025-02-01 12:09 | XMS_ITS | Encounter Summary ---
Author Organization [employer] Address [id number] [address] [place] [address] Care Team Providers Care Internal Medicine Hospitalist Name Role Phone Kev Mcmahon DO Primary Care Provider [phone] Reason for Visit * Reason Comments Med Refill Encounter Details Date Type Department Care Team ([facility] Contact Info) Description 01/23/2024 Refill [facility] [address] [place] [address] Kev Mcmahon, DO [address] [facility], [facility] [place], [place] [address] Med Refill Social History Tobacco Use Types Packs/Day Years Used Date Smoking Tobacco: Former Cigarettes 0.3 60.7 1 962 - 03/01/2022 Smokeless Tobacco: Never Alcohol Use Standard Drinks/Week Comments Yes 4 (1 standard drink = 0.6 oz pur e alcohol) [facility] Utilities Answer Date Recorded In the past 12 months has [employer] electric, gas, oil, or water company threatened [...] often do you attend chur ch or faith services? 1 to 4 times per year 07/19/2022 Do you belong to any clubs o r organizations such as spiritism groups, unions, fraternal or athletic groups, or [...] Answer Date Recorded Total Score 2 12/11/2023 [facility] of Occupat ional Health - Occupational Stress [...] Recorded Do you need help finding a [facility] career center and/or a training program? [...] Telephone Encounter - Marli Goodman RN - 01/23/2024 12:39 PM EDT Pt has been a no show to the last 2 scheduled appointments documented in this encounter Plan of Treatment Upcoming Encounters Date Type Department Care Team (Late st Contact Info) Description 02/07/2025 3:00 PM EDT Office Visit [facility] - Family Medicine [address] [place] [address] Kev Mcmahon, DO [address], [place] [address] documented as of this encounter Goals Goal Patient Goal Type Associated Problems Recent Progress Patient-Stated? Author safe discharge to home General Yes Marguerite Anguiano, ELÍAS Note: Evaluation of progress towards goal: safe transition from hospital to home with [facility] and family support. documented as of this encounter Visit Diagnoses Diagnosis Essential hypertension, benign documented in this encounter Additional Health Concerns Assessment Noted Time PHQ-9 Depression Total Score: 2 12/11/19 24 9:59 AM EDT documented as of this encounter Care Teams Internal Medicine Hospitalist Relationship Specialty Start Date End Date Kev Mcmahon DO [address], [facility] [place] [address] PCP - General Family Medicine 01/31/25 documented as of this encounter
--- OUTSIDE RECORDS SUMMARY | 2025-02-01 12:10 | XMS_ITS | Clinical Summary ---
Author Organization [facility] tem Address [facility] [id number] [address] [place] [address] Care Team Providers Care Spare Hand Carding Name Role Phone Kev Mcmahon Primary Care Provider Allergies Active Allergy Reactions Criticality Noted Date Comments House Dust 03/09/2019 Penicillins Hives,Rash Low 02/23/2019 Medications aspirin 81 mg Take 1 tablet (81 mg total) by mouth in the morning. Active nebulizer accessories miscIndications:Chr onic obstructive pulmonary disease with (acute) exacerbation ([facility]) Use as directed with nebulizer 1 each 023 Active budesonide-glycopyr -formoterol (BREZTRI AEROSPHERE) 160-9-4.8 mcg/actuation HFA aerosol inhalerIndications: Mixed simple and mucopurulent chronic bronchitis ([facility]) Inhale 2 puffs in the morning and at bedtime. 10.7 g 5 023 Active dilTIAZem CD (CARDIZEM CD) 180 mg 24 hr capsuleIndications: PSVT (paroxysmal supraventricular tachycardia) Take 1 capsule (180 mg total) by mouth in the morning. 30 capsule 2 023 Active clopidogreL (PLAVIX) 75 mg tabletIndications:T ransient cerebral ischemic attack, unspecified TAKE 1 TABLET BY MOUTH EVERY DAY 90 tablet 1 023 Active food supplemt, lactose-reduced (ENSURE) liquid Take 237 mL by mouth in the morning. 30 mL 5 023 Active doxepin (SILENOR) 3 mg tablet Take 1 tablet (3 mg total) by mouth nightly. 30 tablet 2 024 Active cholecalciferol, vitamin D3, 25 mcg (1,000 unit) capsule Take 1 capsule (1,000 Units total) by mouth in the morning. 024 Active pantoprazole (PROTONIX) 40 mg EC tabletIndications:G noemi-esophageal reflux disease without esophagitis take 1 tablet by mouth every day 90 tablet 024 Active polyethylene glycol (GLYCOLAX) 17 gram/dose powder Take 17 g by mouth in the morning. 595 g 1 024 Active docusate sodium (COLACE) 100 mg capsule Take 1 capsule (100 mg total) by mouth in the morning. 30 capsule 1 024 Active albuterol (PROVENTIL HFA;VENTOLIN HFA) 90 mcg/actuation inhalerIndications: Chronic obstructive pulmonary disease, unspecified ([facility]) inhale 2 puffs by mouth every 4 hours 8.5 g 024 Active rosuvastatin (CRESTOR) 20 mg tabletIndications:M ixed hyperlipidemia Take 1 tablet (20 mg total) by mouth in the morning. 90 tablet 024 Active dapagliflozin propanediol (FARXIGA) 10 mg tabletIndications:S tage 3a chronic kidney disease ([facility]) Take 1 tablet (10 mg total) by mouth in the morning. MUST BE SEEN IN OFFICE FOR ADDITIONAL REFILLS OR CAN REQUEST FROM PCP. 30 tablet 1 025 Active albuterol (PROVENTIL,VENTOLIN ) 2.5 mg /3 mL (0.083 %) nebulizer solutionIndications :Chronic obstructive pulmonary disease, unspecified COPD type ([facility]) Inhale 3 mL (2.5 mg total) by nebulization every 4 (four) hours as needed for wheezing. 75 mL 2 025 Active potassium chloride (KLOR-CON M 10) 10 MEQ CR tabletIndications:H ypokalemia TAKE 1 TABLET BY MOUTH EVERY MORNING. 90 tablet 025 Active lisinopriL (PRINIVIL,ZESTRIL) 20 mg tabletIndications:E ssential hypertension, benign TAKE 1 TABLET BY MOUTH EVERY DAY IN THE MORNING 30 tablet 025 Active furosemide (LASIX) 20 mg tablet TAKE 1 TABLET BY MOUTH EVERY DAY IN THE MORNING 90 tablet 025 Active tiZANidine (ZANAFLEX) 4 mg tabletIndications:L ow back pain TAKE 1 TABLET BY MOUTH EVERY 6 HOURS NEEDED FOR MUSCLE SPASMS. 360 tablet 025 Active furosemide (LASIX) 20 mg tablet Take 1 tablet (20 mg total) by mouth every morning. 90 tablet 025 2024 Discontinued lisinopriL (PRINIVIL,ZESTRIL) 20 mg tabletIndications:E ssential hypertension, benign Take 1 tablet (20 mg total) by mouth in the morning. MUST BE SEEN IN OFFICE FOR ADDITIONAL REFILLS OR CAN REQUEST FROM PCP. 30 tablet 1 025 2024 Discontinued tiZANidine (ZANAFLEX) 4 mg tabletIndications:L ow back pain Take 1 tablet (4 mg total) by mouth every 6 (six) hours as needed for muscle spasms. 360 tablet 025 2024 Discontinued potassium chloride (KLOR-CON M10) 10 MEQ CR tabletIndications:H ypokalemia Take 1 tablet (10 mEq total) by mouth every morning. 90 tablet 025 2024 Discontinued Active Problems Problem Noted Date Diagnosed Date H/O supraventricular tachycardia 09/22/2023 Polyp of ascending colon 12/25/2022 Positive colorectal cancer screening using Colog uard test 12/13/2022 Hypertensive kidney disease with stage 3b chronic kidney disease 11/11/2022 Mixed simple and mucopurulent chronic bronchitis 10/11/2022 Acute kidney injury superimposed on CKD 07/18/19 23 Anxiety 03/15/2022 Overview (03/15/2022): At bedtime correction (current) use of inhaled steroids 01/202210/11/2022 Prsnl hx of TIA (TIA), and cereb infrc w/o resid deficits 03/07/2022 10/11/2022 Nicotine dependence, cigarettes, uncomplicated 0 03/07/2022 10/11/2022 correction (current) use of antithrombotics/antip latelets 03/07/2022 10/11/2022 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 03/07/2022 10/11/2022 Overweight with body mass index (BMI) 25.0-29.9 07/12/2021 Impaired fasting glucose 07/13/2020 Tobacco abuse 09/06/2019 Abnormal EKG 03/09/2019 Essential hypertension 03/09/2019 Stage 3 chronic kidney disease 12/04/2018 Carpal tunnel syndrome 03/31/2018 Osteoporosis 11/19/2017 Mixed hyperlipidemia 07/17/2017 Chronic diastolic heart failure 09/19/2016 Carotid artery stenosis 09/02/2016 Gastroesophageal reflux disease without esophagi tis 09/02/2016 Hypokalemia 09/02/2016 Low back pain 09/02/2016 Vitamin D deficiency 09/02/2016 Transient ischemic attack 09/02/2016 Chronic obstructive lung disease 09/02/2016 Dyslipidemia Resolved Problems Problem Noted Date Diagnosed Date Resolved Date Hyp hrt and chr kdny dis w/o hrt fail, w stg 5 chr kdny/ESRD 03/07/2022 10/11/2022 10/11/2022 Chronic obstructive pulmonar y disease with (acute) exacerbation 03/01/2022 11/11/2022 Claudication 03/01/2022 11/11/2022 Acute respiratory failure wi th hypoxia and hypercapnia 03/01/2022 11/11/2022 Essential hypertension 12/17/201904/01 PSVT (paroxysmal supraventri cular tachycardia) 02/23/2019 09/22/2023 Viral hepatitis C 12/15/2018 09/22/2023 Encounters Date Type Department Care Team Description 01/31/2025 4:19 PM EDT - 01/31/2025 6:56 PM EDT Emergency [facility] - Emergency [address] [place] [address] Alfredo Odom MD SVT (supraventricular tachycardia) (Primary Dx) Discharge Disposition: Home 01/31/2025 Travel 01/31/2025 Refill [facility] [address] [place] [address] Kev Mcmahon, DO Low back pain 01/20/2025 Refill [facility] [address] [place] [address] Kev Mcmahon, DO 01/19/2025 Refill [facility] [address] [place] [address] Kev Mcmahon, DO Essential hypertension, benign 01/13/2025 Refill [facility] [address] [place] [address] Kev Mcmahon, DO Hypokalemia 11/12/2024 Refill [facility] [address] [place] [address] Melissa, Sharri, CARE CONNECTOR Hypokalemia from Last 3 Months Immunizations Immunization Administration Dates Next Due Covid-19, Mrna, Lnp-s, Bivalent, Pf, 30mcg/0.3 m l 03/18/2022 Influenza, High-dose, Quadrivalent 03/18/2022 Pneumococcal Conjugate 13-Valent 02/25/2019() Tdap 05/23/2023 Family History Medical History Relation Name Comments Heart disease Brother Cancer Father Glaucoma Father Aneurysm Mother Diabetes Mother Hypertension Mother Breast cancer Sister Relation Name Status Comments Brother Father Mother Sister Social History Tobacco Use Types Packs/Day Years Used Date Smoking Tobacco: Former Cigarettes 0.3 60.7 1 962 - 03/01/2022 Smokeless Tobacco: Never Tobacco Cessation:Counseling Given: Not Answered Alcohol Use Standard Drinks/Week Comments Yes 4 (1 standard drink = 0.6 oz pur e alcohol) [facility] Utilities Answer Date Recorded In the past 12 months has [employer], gas, oil, or water theDrop threatened to shut off services in your [...] any clubs o r organizations such as restorationist groups, unions, fraternal or athletic groups, or [...] Answer Date Recorded Total Score 2 12/11/2023 [facility] [place] [facility] Occupat ional [facility] - Occupational Stress [...] Recorded Do you need help finding a [facility] career center and/or a training program? [...] on file Sexual Orientation Not on file Last Filed Vital Signs Vital Sign Reading [...] Mass Index 21.48 01/31/2025 4:21 PM EDT Plan of Treatment Upcoming Encounters Date Type Department Care Team (Late st Contact Info) Description 02/07/2025 3:00 PM EDT Office Visit [facility] [address] [place] [address] Kev Mcmahon DO [address] [place] [address] Health Maintenance Due Date Last Done Comments Medicare Annual Wellness Visit 1950 Zoster (Shingles) Vaccine (1 of 2) 1999 COVID-19 Vaccine (2023-2 5 season) 2024 03/18/2022, 12/20/2020, 11/22/2020 Depression Screening 12/10/2024 12/11/2023 Fall Risk Screening 12/10/2024 12/11/2023 Tobacco Screening 12/10/2024 12/11/2023 Influenza Vaccine 02/28/2025 03/18/2022 Colon Cancer Screening 3 Yea r Cologuard 12/04/2025 12/04/2022 DTaP,Tdap and Td Vaccines (2 - Td or Tdap) 05/23/2033 05/23/2023 Goals Goal Patient Goal Type Associated Problems Recent Progress Patient-Stated? Author safe discharge to home General Yes Marguerite Anguiano, RN Note: Evaluation of progress towards goal: safe transition from hospital to home with [facility] and family support. Medical Devices Not on file Procedures Procedure Name Priority Date/Time Associated Diagnosis Comments TROP I, HIGH SENSITIVITY 1 HOUR STAT 01/31/2025 5:45 PM EDT TROPONIN I, HIGH SENSITIVITY 0 HOUR STAT 01/31/2025 4:30 PM EDT TROPONIN I, HIGH SENSITIVITY 0 HOUR STAT 01/31/2025 4:30 PM EDT MAGNESIUM STAT 01/31/2025 4:30 PM EDT D-DIMER STAT 01/31/2025 4:30 PM EDT COMPREHENSIVE METABOLIC PANEL STAT 01/31/2025 4:30 PM EDT B-TYPE NATRIURETIC PEPTIDE STAT 01/31/2025 4:30 PM EDT APTT STAT 01/31/2025 4:30 PM EDT PROTIME & INR STAT 01/31/2025 4:30 PM EDT CBC WITH AUTO DIFFERENTIAL STAT 01/31/2025 4:30 PM EDT ECG 12-LEAD STAT 01/31/2025 4:23 PM EDT COLOGUARD NON-[facility] Routine 12/04/2022 9:30 AM EDT Special screening for malignant neoplasm of colon from Last 3 Months or Most Recently Relevant to Health Maintenance Results * Troponin I, High Sensitivity 1 Hour (01/31/2025 5:45 PM EDT) TROPONIN I, HIGH SENSITIVITY 11 <16 ng/L 01/31/2025 6:22 PM EDT [facility] Blood Venous blood / Unknown Venipuncture / Unknown 01/31/2025 5:45 PM EDT 01/31/2025 5:49 PM EDT Alfredo Odmo MD LAB BLOOD ORDERABLES Final Resu lt Performing Organization Address City/[facility]/ZIP Co de Phone Number [address] [place] [address], [place] * Troponin I, High Sensitivity 0 Hour (01/31/2025 4:30 PM EDT) TROPONIN I, HIGH SENSITIVITY 11 <16 ng/L 01/31/2025 5:14 PM EDT [facility] Blood Venous blood / Unknown Venipuncture / Unknown 01/31/2025 4:30 PM EDT 01/31/2025 4:38 PM EDT us Alfredo Odom MD LAB BLOOD ORDERABLES Final Resu lt [address] [place] [address], [place] * (ABNORMAL) CBC auto differential (01/31/2025 4:30 PM EDT) WBC 16.2(H) 4 - 11 x10E9/L 01/31/2025 4:44 PM EDT [facility] RBC Count 5.17 3.8 - 5.2 X10E12/L 01/31/2025 4:44 PM EDT [facility] Hemoglobin 15.7(H) 11.7 - 15.5 g/dL 01/31/2025 4:44 PM EDT [facility] Hematocrit 46.2 35 - 47 % 01/31/2025 4:44 PM EDT [facility] MCV 89 80 - 100 fL 01/31/2025 4:44 PM EDT [facility] MCH 30.3 27 - 34 pg 01/31/2025 4:44 PM EDT [facility] MCHC 33.9 32 - 36 g/dL 01/31/2025 4:44 PM EDT [facility] RDW 14.9 11.5 - 15 % 01/31/2025 4:44 PM EDT [facility] Platelet Count 327 150 - 450 X10E9/L 01/31/2025 4:44 PM EDT [facility] MPV 7.5 7 - 12 fL 01/31/2025 4:44 PM EDT [facility] Neutrophils % 82.7 % 01/31/2025 4:44 PM EDT [facility] Lymphocytes % 9.4 % 01/31/2025 4:44 PM EDT [facility] Monocytes % 7.1 % 01/31/2025 4:44 PM EDT [facility] Eosinophils % 0.4 % 01/31/2025 4:44 PM EDT [facility] Basophils % 0.4 % 01/31/2025 4:44 PM EDT [facility] Neutrophils Absolute (A) 13.4(H) 1.5 - 6.6 10*3/uL 01/31/2025 4:44 PM EDT [facility] Lymphocytes Absolute 1.5 1.0 - 3.5 10*3/uL 01/31/2025 4:44 PM EDT [facility] Monocytes Absolute 1.2(H) 0.0 - 0.9 10*3/uL 01/31/2025 4:44 PM EDT [facility] Eosinophils Absolute 0.1 0.0 - 0.4 10*3/uL 01/31/2025 4:44 PM EDT [facility] Basophils Absolute 0.1 0.0 - 0.2 10*3/uL 01/31/2025 4:44 PM EDT [facility] Differential Type AUTOMATED DIFFERENTIAL 01/31/2025 4:44 PM EDT [facility] Blood Venous blood / Unknown Venipuncture / Unknown 01/31/2025 4:30 PM EDT 01/31/2025 4:38 PM EDT us Alfredo Odom MD LAB BLOOD ORDERABLES Final Resu lt [address] [place] [address], [place] * APTT (01/31/2025 4:30 PM EDT) APTT 34 26 - 37 sec 01/31/2025 5:16 PM EDT [facility] Blood Venous blood / Unknown Venipuncture / Unknown 01/31/2025 4:30 PM EDT 01/31/2025 4:38 PM EDT us Alfredo Odom MD LAB BLOOD ORDERABLES Final Resu lt [address] [place] [address], [place] * Protime & INR (01/31/2025 4:30 PM EDT) PROTIME 12.2 9.8 - 13.2 sec 01/31/2025 5:16 PM EDT [facility] INR 1.0 0.9 - 1.2 01/31/2025 5:16 PM EDT [facility] Blood Venous blood / Unknown Venipuncture / Unknown 01/31/2025 4:30 PM EDT 01/31/2025 4:38 PM EDT us Alfredo Odom MD LAB BLOOD ORDERABLES Final Resu lt Performing Organization Address [facility] de Phone Number [address] [place] [address], [place] * D-Dimer (01/31/2025 4:30 PM EDT) D DIMER 208 1 - 255 ug/mL 01/31/2025 5:16 PM EDT [facility] Comment:Results <255 ng/mL D DU: The [...] ORDERABLES Final Resu lt Performing Organization Address [facility] de Phone Number [address] [place] [address], [place] * B-type natriuretic peptide (01/31/2025 4:30 PM EDT) BNP 95 <=100 pg/mL 01/31/2025 5:16 PM EDT [facility] Blood Venous blood / Unknown Venipuncture / Unknown 01/31/2025 4:30 PM EDT 01/31/2025 4:38 PM EDT us Alfredo Odom MD LAB BLOOD ORDERABLES Final Resu lt Performing Organization Address City/[facility]/ZIP Co de Phone Number [facility] [address] [place] [address] [place] [address], [place] * Magnesium (01/31/2025 4:30 PM EDT) MAGNESIUM 1.8 1.8 - 2.6 mg/dL 01/31/2025 5:07 PM EDT [facility] Blood Venous blood / Unknown Venipuncture / Unknown 01/31/2025 4:30 PM EDT 01/31/2025 4:38 PM EDT Alfredo Odom MD LAB BLOOD ORDERABLES Final Resu lt Performing Organization Address [facility] Co de Phone Number [address] [place] [address], [place] * (ABNORMAL) Comprehensive metabolic panel (01/31/2025 4:30 PM EDT) SODIUM 131(L) 134 - 146 mmol/L 01/31/2025 5:07 PM EDT [facility] POTASSIUM 4.4 3.5 - 5.0 mmol/L 01/31/2025 5:07 PM EDT [facility] CHLORIDE 99 98 - 109 mmol/L 01/31/2025 5:07 PM EDT [facility] CARBON DIOXIDE 23 22 - 32 mmol/L 01/31/2025 5:07 PM EDT [facility] ANION GAP 9 5 - 15 mmol/L 01/31/2025 5:07 PM EDT [facility] BLOOD UREA NITROGEN 25 5 - 27 mg/dL 01/31/2025 5:07 PM EDT [facility] CREATININE 1.50(H) 0.40 - 1.00 mg/dL 01/31/2025 5:07 PM EDT [facility] Comment:METHOD TRACEABLE TO IDMS STANDARD GLUCOSE 119(H) 65 - 99 mg/dL 01/31/2025 5:07 PM EDT [facility] CALCIUM 9.1 8.5 - 10.5 mg/dL 01/31/2025 5:07 PM EDT [facility] TOTAL PROTEIN 8.0 6.0 - 8.0 g/dL 01/31/2025 5:07 PM EDT [facility] ALBUMIN 3.8 3.2 - 5.3 g/dL 01/31/2025 5:07 PM EDT [facility] ALKALINE PHOSPHATASE 93 39 - 130 U/L 01/31/2025 5:07 PM EDT [facility] AST 22 <=41 U/L 01/31/2025 5:07 PM EDT [facility] ALT 15 <=31 U/L 01/31/2025 5:07 PM EDT [facility] BILIRUBIN,TOTAL 0.9 0.3 - 1.2 mg/dL 01/31/2025 5:07 PM EDT [facility] EGFR Non-Race Dependent 36(L) >=60 ml/min/1.7 3sq.m 01/31/2025 5:07 PM EDT [facility] Comment: eGFR not reported due to non-numeric value for Creatinine. Reported eGFR is based on the CKD-EPI 2020 equation that does not use a race coefficient. Blood Venous blood / Unknown Venipuncture / Unknown 01/31/2025 4:30 PM EDT 01/31/2025 4:38 PM EDT Alfredo Odom MD LAB BLOOD ORDERABLES Final Resu lt [facility] [address] [place] [address], [place] * ECG 12 lead (01/31/2025 4:23 PM EDT) 01/31/2025 4:23 PM EDT Narrative [facility] - 01/31/2025 5:41 PM EDT Alfredo Odom MD ECG ORDERABLES Final Result [facility] * (ABNORMAL) Cologuard Non-[facility] (12/04/2022 9:30 AM EDT) EXTERNAL COLOGUARD Positive( A) Negative 12/12/2022 5:07 AM EDT [facility] (CLIA #:[id number]) Comment: POSITIVE TEST RESULT. A positive Cologuard result should be followed with a colonoscopy or visual examination of the colon. The normal value (reference range) for this assay is negative. TEST DESCRIPTION: Composite algorithmic analysis of stool DNA-biomarkers with hemoglobin immunoassay. Quantitative values of individual biomarkers are not reportable and are not associated with individual biomarker result reference ranges. Cologuard is intended for colorectal cancer screening of adults of either sex, 45 years or older, who are at average-risk for colorectal cancer (CRC). Cologuard has been approved for use by the U.S. FDA. The performance of Cologuard was established in a cross sectional study of average-risk adults aged 50-84. Cologuard performance in patients ages 45 to 49 years was estimated by sub-group analysis of near-age groups. Colonoscopies performed for a positive result may find as the most clinically significant lesion: colorectal cancer [4.0%], advanced adenoma (including sessile serrated polyps greater than or equal to 1cm diameter) [20%] or non- advanced adenoma [31%]; or no colorectal neoplasia [45%]. These estimates are derived from a prospective cross-sectional screening study of 10,000 individuals at average risk for colorectal cancer who were screened with both Cologuard and colonoscopy. (Christine Varghese al, N Engl J Med 2014;370(14):8561-3596.) Cologuard may produce a false negative or false positive result (no colorectal cancer or precancerous polyp present at colonoscopy follow up). A negative Cologuard test result does not guarantee the absence of CRC or advanced adenoma (pre-cancer). The current Cologuard screening interval is every 3 years. ([place] [employer] Society and U.S. Multi-Society Task Force). Cologuard performance data in a 10,000 patient pivotal study using colonoscopy as the reference method can be accessed at the following location: [email or web address]/results. Additional description of the Cologuard test process, warnings and precautions can be found at www.[email or web address].[email or web address]. Stool specimen (specimen) Rectum structure / Unknown 12/04/2022 9:30 AM EDT 12/05/2022 3:18 PM EDT us Kve Mcmahon DO LAB ORDERABLES Final Result [facility] (CLIA #:[id number]) [address] [place] [address], from Last 3 Months or Most Recently Relevant to Health Maintenance Insurance MEDICAID [place] [employer] MEDICARE Advance Directives * Full Code (Latest Code Status on File) Date Activated Date Inactivated Comments 07/18/2022 6:57 PM 07/19/2022 2:46 PM * Full Code Date Activated Date Inactivated Comments 03/01/2022 4:08 PM 03/06/2022 4:50 PM * Full Code Date Activated Date Inactivated Comments 02/23/2019 1:52 PM 02/25/2019 1:12 PM Care Teams Spare Hand Carding Relationship Specialty Start Date End Date Kev Mcmahon DO [address] [facility], [place] [address] PCP - General Family Medicine 01/31/25
--- OUTSIDE RECORDS SUMMARY | 2025-02-01 12:10 | XMS_ITS | Encounter Summary ---
Author Organization [facility] [employer] Address [id number] [address] [place] [address] Care Team Providers Care Rail Doweling Machine Operator Name Role Phone RosyKev frazier Primary Care Provider [phone] Encounter Details Date Type Department Care Team ([facility] Contact Info) Description 03/11/2022 Telephone [facility] - Family Medicine [address] [place] [address] Miryam Stewart MA Social History Tobacco Use Types Packs/Day Years Used Date Smoking Tobacco: Every Day Cigarettes 0.3 63.6 Started: 1962 Smokeless Tobacco: Never Alcohol Use Standard Drinks/Week [...] on file Sexual Orientation Not on file COVID-19 Exposure Response Date Recorded In the last month, have you been in contact with someone who was confirmed or suspected to have Coronavirus / COVID-19? No / Unsure 03/01/2022 5:10 PM EDT documented as of this encounter Miscellaneous Notes * Telephone Encounter - Miryam Stewart MA - 03/11/2022 10:25 AM EDT Haydee from [facility] called and said she just admitted Usha into Home Health for nursing pt and aide. She said there was no Potassium on discharge instructions and the pt would like to know if she should continue taking it or not. * Telephone Encounter - Kev Mcmahon DO - 03/11/2022 10:25 AM EDT Yes-stay on it * Telephone Encounter - Miryam Stewart MA - 03/11/2022 10:25 AM EDT Haydee notified and understands. documented in this encounter Plan of Treatment Upcoming Encounters Date Type Department Care Team (Late st Contact Info) Description 02/07/2025 3:00 PM EDT Office Visit [facility] - Family Medicine [address] [place] [address] Kev Mcmahon DO [address], [place] [address] documented as of this encounter Goals Goal Patient Goal Type Associated Problems Recent Progress Patient-Stated? Author safe discharge to home General Yes Marguerite Anguiano, RN Note: Evaluation of progress towards goal: safe transition from hospital to home with c and family support. documented as of this encounter Visit Diagnoses Not on filedocumented in this encounter Additional Health Concerns Infection Onset Date Last Indicated Resolved Time COVID-19 Rule-Out 07/18/2022 07/18/2022 07/18/2022 5:34 PM EST COVID-19 Positive 07/18/2022 07/18/2022 08/08/2022 11:13 PM EST documented as of this encounter Care Teams Rail Doweling Machine Operator Relationship Specialty Start Date End Date Kev Mcmahon DO [address] [facility], [place] [address] PCP - General Family Medicine 01/31/25 documented as of this encounter
--- OUTSIDE RECORDS SUMMARY | 2025-02-01 12:10 | XMS_ITS | Encounter Summary ---
Author Organization [facility] [employer] Sys tem Address [facility] [id number] [address] [place] [address] Care Team Providers Care Fleet Dispatch Manager Name Role Phone RosyKev frazier Primary Care Provider +1 [phone] Encounter Details Date Type Department Care Team ([facility] Contact Info) Description 03/14/2022 Telephone [facility] Internal Medicine - Family Medicine [address] [place] [address] Miryam Stewart MA Social History Tobacco Use [...] have Coronavirus / COVID-19? No / Unsure 03/15/2022 8:50 AM EDT documented as of this encounter Miscellaneous Notes * Telephone Encounter - Miryam Stewart MA - 03/14/2022 2:23 PM EDT Unknown from Home Health called and wanted to let you know the following vitals. 7:23am 189/93 Heart Rate 67 9:36am 166/91 Heart Rate 75 11:42tp554/95 Heart Rate 82 * Telephone Encounter - Kev Mcmahon DO - 03/14/2022 2:23 PM EDT Ok. She has appt tomorrow so it is important that she keeps it documented in this encounter Plan of Treatment Upcoming Encounters Date Type Department Care Team (Late st Contact Info) Description 02/07/2025 3:00 PM EDT Office Visit [facility] - Family Medicine [address] [place] [address] Kev Mcmahon DO [address], [place] [address] documented as of this encounter Goals Goal Patient Goal Type Associated Problems Recent Progress Patient-Stated? Author safe discharge to home General Yes Marguerite Anguiano, ELÍAS Note: Evaluation of progress towards goal: safe transition from hospital to home with [facility] and family support. documented as of this encounter Visit Diagnoses Not on filedocumented in this encounter Additional Health Concerns Infection Onset Date Last Indicated Resolved Time COVID-19 Rule-Out 07/18/2022 07/18/2022 07/18/2022 5:34 PM EST COVID-19 Positive 07/18/2022 07/18/2022 08/08/2022 11:13 PM EST documented as of this encounter Care Teams Fleet Dispatch Manager Relationship Specialty Start Date End Date Kev Mcmahon DO [address], [place] [address] PCP - General Family Medicine 01/31/25 documented as of this encounter
--- OUTSIDE RECORDS SUMMARY | 2025-02-01 12:10 | XMS_ITS | Encounter Summary ---
Author Organization [employer] Sys [employer] Address [id number] [address] [place] [address] Care Team Providers Care Hide House Supervisor Name Role Phone DanielaKev ramirez Primary Care Provider +[phone] Reason for Visit * Reason Comments Med Refill Encounter Details Date Type Department Care Team ([facility] Contact Info) Description 05/17/2024 Refill [facility] Cardiology [address] [place] [address] Scot Martinez, RN [facility] [address] [place] [address] Med Refill Social History Tobacco Use Types Packs/Day Years Used Date Smoking Tobacco: Former Cigarettes 0.3 60.7 1 962 - 03/01/2022 Smokeless Tobacco: Never Alcohol Use Standard Drinks/Week Comments Yes 4 (1 standard drink = 0.6 oz pur e alcohol) [facility] Utilities Answer Date Recorded In the past 12 months has [employer] electric, gas, oil, or water company threatened [...] often do you attend chur ch or methodist services? 1 to 4 times per year 07/19/2022 Do you belong to any clubs o r organizations such as scientologist groups, unions, fraternal or athletic groups, or [...] Answer Date Recorded Total Score 2 12/11/2023 [facility] of Occupat ional Health - [...] got money to buy more. Never True 03/19/2024 Within the past 12 months th e food we bought just didn't last and we didn't have money to get more. Never True 03/19/2024 Purpose - Life Answer Date Recorded I have a purpose and direction in my life. Stron gly Agree 07/19/2022 Comments No Sex and Gender Information Value Date Recorded Sex Assigned at Not on file Legal Sex Female 11:28 AM EDT Gender Identity Not on file Sexual Orientation Not on file documented as of this encounter Miscellaneous Notes * Telephone Encounter - Katey Hendrix RN - 05/17/2024 2:02 PM EST Hasn't been in offc since Mar 2022 documented in this encounter Plan of Treatment Upcoming Encounters Date Type Department Care Team (Late st Contact Info) Description 02/07/2025 3:00 PM EDT Office Visit [facility] - Family Medicine [address] [place] [address] Kev Mcmhaon, [address], [facility] [place] [address] documented as of this encounter Goals Goal Patient Goal Type Associated Problems Recent Progress Patient-Stated? Author safe discharge to home General Yes Marguerite Anguiano, ELÍAS Note: Evaluation of progress towards goal: safe transition from hospital to home with [facility] and family support. documented as of this encounter Visit Diagnoses Diagnosis Essential hypertension, benign Stage 3a chronic kidney disease (CMS-HCC) documented in this encounter Additional Health Concerns Assessment Noted Time PHQ-9 Depression Total Score: 2 12/11/19 24 9:59 AM EDT documented as of this encounter Care Teams Hide House Supervisor Relationship Specialty Start Date End Date Kev Mcmahon DO [address], [facility] [place] [place] [address] PCP - General Family Medicine 01/31/25 documented as of this encounter
--- OUTSIDE RECORDS SUMMARY | 2025-02-01 12:10 | XMS_ITS | Encounter Summary ---
Author Organization [employer] s tem Address [id number] [address] [place] [address] Care Team Providers Care Sand Screener Name Role Phone Kev Mcmahon Primary Care Provider + [phone] Encounter Details Date Type Department Care Team (Latest Contact Info) Description 01/31/2025 Travel Social History Tobacco Use Types Packs/Day Years Used Date Smoking Tobacco: Former Cigarettes 0.3 60.7 1 962 - 03/01/2022 Smokeless Tobacco: Never Alcohol Use Standard Drinks/Week Comments Yes 4 (1 standard drink = 0.6 oz pur e alcohol) [facility] Utilities Answer Date Recorded In the past 12 months has [employer] electric, gas, oil, or water company threatened [...] often do you attend chur ch or protestant services? 1 to 4 times per year 07/19/2022 Do you belong to any clubs o r organizations such as temple groups, unions, fraternal or athletic groups, or [...] Answer Date Recorded Total Score 2 12/11/2023 [facility] of Occupat ional Health - Occupational [...] Recorded Do you need help finding a [facility] career center and/or a training program? [...] Medicine - Family Medicine [address] [place] [address] Kev Mcmahon DO [address] [facility] [place] [address] documented as of this encounter Goals Goal Patient Goal Type Associated Problems Recent Progress Patient-Stated? Author safe discharge to home General Yes Marguerite Anguiano, RN Note: Evaluation of progress towards goal: safe transition from hospital to home with [facility] and family support. documented as of this encounter Visit Diagnoses Not on filedocumented in this encounter Additional Health Concerns Assessment Noted Time PHQ-9 Depression Total Score: 2 12/11/19 24 9:59 AM EDT documented as of this encounter Care Teams Sand Screener Relationship Specialty Start Date End Date Kev Mcmahon DO [address] [facility], [place] [address] PCP - General Family Medicine 01/31/25 documented as of this encounter
--- OUTSIDE RECORDS SUMMARY | 2025-02-01 12:10 | XMS_ITS | Encounter Summary ---
Author Organization [facility] [employer] Sys [employer] Address [facility][id number] [address] [place] [address] Care Team Providers Care Radiologist Physician Name Role Phone DanielaKev ramirez Primary Care Provider + [phone] Reason for Visit * Reason Onset Date Comments Med Refill 11/18/2022 Encounter Details Date Type Department Care Team (Late st Contact Info) Description 11/18/2022 Telephone [facility] Medicine - Family Medicine [address] [place] [phone] Alessandra Gibson CMA Med Refill Social History Tobacco Use Types [...] often do you attend chur ch or mandaen services? 1 to 4 times per year 07/19/2022 Do you belong to any clubs o r organizations such as confucianist groups, unions, fraternal or athletic groups, or [...] PHQ-2 Answer Date Recorded Total Score 0 11/11/2022 [facility] of Occupat ional Health - Occupational Stress [...] to strenuous exercise (like a brisk walk)? 0 days 07/19/2022 On average, how many minutes do you engage in exercise at this level? 0 min 07/19/2022 [facility] - Transportation Answer Date Re corded [...] Recorded Do you need help finding a [facility] career [facility] and/or a training program? No [...] encounter Miscellaneous Notes * Telephone Encounter - Alessandra Gibson CMA - 11/18/2022 10:28 AM EDT Please refill Diltiazem she said she wa on this but I do not see in her list of medications. documented in this encounter Plan of Treatment Upcoming Encounters Date Type Department Care Team (Late st Contact Info) Description 02/07/2025 3:00 PM EDT Office Visit [facility] - Family Medicine [address] [place] [address] Kev Mcmahon DO [address], [facility] [place] [address] documented as of this encounter Goals Goal Patient Goal Type Associated Problems Recent Progress Patient-Stated? Author safe discharge to home General Yes Marguerite Anguiano, RN Note: Evaluation of progress towards goal: safe transition from hospital to home with [facility] and family support. documented as of this encounter Visit Diagnoses Not on filedocumented in this encounter Additional Health Concerns Assessment Noted Time PHQ-9 Depression Total Score: 0 11/12/19 23 10:31 AM EDT documented as of this encounter Care Teams Radiologist Physician Relationship Specialty Start Date End Date Kev Mcmahon DO [address], [facility] [place] [address] PCP - General Family Medicine 01/31/25 documented as of this encounter
--- OUTSIDE RECORDS SUMMARY | 2025-02-01 12:10 | XMS_ITS | Encounter Summary ---
Author Organization [employer] Sys [employer] Address [id number] [address] [place] [address] Care Team Providers Care Floor Helper Name Role Phone DanielaKev ramirez Primary Care Provider +[phone] Encounter Details Date Type Department Care Team ([facility] Contact Info) Description 04/04/2022 Telephone [facility] Internal Medicine - Family Medicine [address] [place] [address] Miryam Stewart MA Social History Tobacco Use [...] have Coronavirus / COVID-19? No / Unsure 04/01/2022 10:17 AM EDT documented as of this encounter Miscellaneous Notes * Telephone Encounter - Miryam Stewart MA - 04/04/2022 12:01 PM EDT Pt called wanting her xray results. I see the results in there but no notes so I wasn't sure if youhad a chance to review them or not. * Telephone Encounter - CHRIS Patrick - 04/04/2022 12:01 PM EDT Provider called pt. And notified of results, she confirmed understanding of results and she does have wrist brace ordered by [employer]. documented in this encounter Plan of Treatment Upcoming Encounters Date Type Department Care Team (Late st Contact Info) Description 02/07/2025 3:00 PM EDT Office Visit [facility] - Family Medicine [address] [place] [address] Kev Mcmahon DO [address], [place] [address] documented as of this encounter Goals Goal Patient Goal Type Associated Problems Recent Progress Patient-Stated? Author safe discharge to home General Yes Marguerite Anguiano, RN Note: Evaluation of progress towards goal: safe transition from hospital to home with [facility] and family support. documented as of this encounter Visit Diagnoses Not on filedocumented in this encounter Additional Health Concerns Infection Onset Date Last Indicated Resolved Time COVID-19 Rule-Out 07/18/2022 07/18/2022 07/18/2022 5:34 PM EST COVID-19 Positive 07/18/2022 07/18/2022 08/08/2022 11:13 PM EST documented as of this encounter Care Teams Floor Helper Relationship Specialty Start Date End Date Kev Mcmahon DO [address], [place] [address] PCP - General Family Medicine 01/31/25 documented as of this encounter
--- OUTSIDE RECORDS SUMMARY | 2025-02-01 12:10 | XMS_ITS | Encounter Summary ---
Author Organization [employer] Sys tem Address [id number] [address] [place] [address] Care Team Providers Care Cartoon Artist Name Role Phone Kev Mcmahon DO Primary Care Provider [phone] Reason for Visit * Reason Comments Med Refill Encounter Details Date Type Department Care Team ([facility] st Contact Info) Description 04/22/2022 Refill [facility] Medicine - Family Medicine [address] [place] [address] Kev Mcmahon DO [address], [facility] [place] [address] Unspecified diastolic (congestive) heart failure ([facility]); Gastro-esophageal reflux disease without esophagitis; Chronic obstructive pulmonary disease, unspecified ([facility]); Hypokalemia; Mixed hyperlipidemia Social History Tobacco Use Types Packs/Day Years [...] AM EDT documented as of this encounter Plan of Treatment Upcoming Encounters Date Type Department Care Team (Late st Contact Info) Description 02/07/2025 3:00 PM EDT Office Visit [facility] Medicine - Family Medicine [address] [place] [address] Kev Mcmahon DO [address] [facility] [address] documented as of this encounter Goals Goal Patient Goal Type Associated Problems Recent Progress Patient-Stated? Author safe discharge to home General Yes Marguerite Anguiano, RN Note: Evaluation of progress towards goal: safe transition from hospital to home with [facility] and family support. documented as of this encounter Visit Diagnoses Diagnosis Unspecified diastolic (congestive) heart failure (CMS-HCC) Gastro-esophageal reflux disease without esophagitis Chronic obstructive pulmonary disease, unspecified (CMS-HCC) Hypokalemia Hypopotassemia Mixed hyperlipidemia documented in this encounter Additional Health Concerns Infection Onset Date Last Indicated Resolved Time COVID-19 Rule-Out 07/18/2022 07/18/2022 07/18/2022 5:34 PM EST COVID-19 Positive 07/18/2022 07/18/2022 08/08/2022 11:13 PM EST documented as of this encounter Care Teams Cartoon Artist Relationship Specialty Start Date End Date Kev Mcmahon DO [address] [facility] [address] PCP - General Family Medicine 01/31/25 documented as of this encounter
--- OUTSIDE RECORDS SUMMARY | 2025-02-01 12:10 | XMS_ITS | Clinical Summary ---
Author Organization [employer] [facility] Address [address], [address] [place] [address] Care Team Providers Care Avionics Systems Integration Specialist Name Role Phone Unavailable Primary Care Provider Unavailabl e Allergies Active Allergy Reactions Criticality Noted Date Comments Penicillins Rash Low 09/01/2015 Medications clopidogrel (PLAVIX) 75 MG tablet Take 75 mg by mouth daily Active aspirin 81 MG tablet Take 81 mg by mouth daily Active POTASSIUM CHLORIDE ER PO Take 1 tablet by mouth 2 times daily Active NONFORMULARY Take 1 tablet by mouth daily Water pill Active acetylcysteine (MUCOMYST) 20 % nebulizer solution Take 3 mLs by mouth 2 times daily Take 3 mls twice daily x4 doses Active Social History Tobacco Use Types Packs/Day Years Used Date Smoking Tobacco: Never Assessed Comments Unknown Sex and Gender Information Value Date Recorded Sex Assigned at Not on file Legal Sex Female 12:30 PM EST Gender Identity Not on file Sexual Orientation Not on file Last Filed Vital Signs Vital Sign Reading Time Taken Comments Blood Pressure 118/65 09/01/2015 10:30 AM EST Pulse 82 09/01/2015 10:30 AM EST Temperature 36.5 C (97.7 F) 09/01/2015 10:30 AM EST Respiratory Rate 16 09/01/2015 10:30 AM EST Oxygen Saturation 100% 09/01/2015 10:30 AM EST Inhaled Oxygen Concentration - - Weight 62.4 kg (137 lb 9.1 oz) 09/01/2015 10:30 AM EST Height 152.4 cm (5') 09/01/2015 10:30 AM EST Body Mass Index 26.87 09/01/2015 10:30 AM EST Plan of Treatment Not on file Insurance [employer]IC[employer]
--- OUTSIDE RECORDS SUMMARY | 2025-02-01 12:10 | XMS_ITS | Encounter Summary ---
Author Organization [employer] Address [facility] [id number] [address] [place] [address] Care Team Providers Care Ham Facer Name Role Phone RosyKev frazier Primary Care Provider [phone] Encounter Details Date Type Department Care Team ([facility] Contact Info) Description 06/11/2022 Telephone [facility] Internal Medicine - Family Medicine [address] [place] [address] Miryam Stewart MA Social History Tobacco Use [...] Telephone Encounter - Miryam Stewart MA - 06/11/2022 1:55 PM EST She called and said she just took her last heart pill and it has no refills. She didn't know if it's something she needs refilled or if she is done with them. I told her more than likely they will need refilled but I will double check with you. The name was unclear. * Telephone Encounter - Kev Mcmahon DO - 06/11/2022 1:55 PM EST I am going to say yes on that question * Telephone Encounter - Miryam Stewart MA - 06/11/2022 1:55 PM EST Ok, do you know what medication she is talking about or do I need to call her for clarification? And will you be sending it in or do you want me to send you a refill request? * Telephone Encounter - Kev Mcmahon DO - 06/11/2022 1:55 PM EST You need to call if she takes lisinopril, rosuvastatin and Plavix (clopidogrel) * Telephone Encounter - Miryam Stewart MA - 06/11/2022 1:55 PM EST Clopidogrel refill requested. documented in this encounter Plan of Treatment Upcoming Encounters Date Type Department Care Team (Late st Contact Info) Description 02/07/2025 3:00 PM EDT Office Visit [facility] Medicine - Family Medicine [address] [place] [address] Kev Mcmahon DO [address], [place] [address] documented as of this encounter Goals Goal Patient Goal Type Associated Problems Recent Progress Patient-Stated? Author safe discharge to home General Yes Marguerite Anguiano, RN Note: Evaluation of progress towards goal: safe transition from hospital to home with [facility] and family support. documented as of this encounter Visit Diagnoses Not on filedocumented in this encounter Additional Health Concerns Infection Onset Date Last Indicated Resolved Time COVID-19 Rule-Out 07/18/2022 07/18/2022 07/18/2022 5:34 PM EST COVID-19 Positive 07/18/2022 07/18/2022 08/08/2022 11:13 PM EST documented as of this encounter Care Teams Ham Facer Relationship Specialty Start Date End Date Kev Mcmahon DO [address] [facility] [place] [address] PCP - General Family Medicine 01/31/25 documented as of this encounter
--- OUTSIDE RECORDS SUMMARY | 2025-02-01 12:10 | XMS_ITS | Encounter Summary ---
Author Organization [employer] Sys tem Address [facility] [id number] [address] [place] [address] Care Team Providers Care Special Distribution Clerk Name Role Phone Unavailable Primary Care Provider Unavailabl e Reason for Visit * Reason Comments Med Refill Encounter Details Date Type Department Care Team ([facility] st Contact Info) Description 01/19/2025 Refill [facility] Internal Medicine - Family Medicine [address] [place] [address] Kev Mcmahon, DO [address] [facility], [place] [address] Essential hypertension, benign Social History Tobacco Use Types Packs/Day Years Used Date Smoking Tobacco: Former Cigarettes 0.3 60.7 1 962 - 03/01/2022 Smokeless Tobacco: Never Alcohol Use Standard Drinks/Week Comments Yes 4 (1 standard drink = 0.6 oz pur e alcohol) [facility] Utilities Answer Date Recorded In the past 12 months has [employer], gas, oil, or water company threatened [...] often do you attend chur ch or caodaism services? 1 to 4 times per year 07/19/2022 Do you belong to any clubs o r organizations such as jewish groups, unions, fraternal or athletic groups, or [...] Answer Date Recorded Total Score 2 12/11/2023 [facility] of Occupat ional Health - Occupational Stress [...] Recorded Do you need help finding a [facility] career center and/or a training program? No [...] Internal Medicine - Family Medicine [address] [place] [address] Kev Mcmahon, DO [address] [facility], [place] [address] documented as of this encounter Goals Goal Patient Goal Type Associated Problems Recent Progress Patient-Stated? Author safe discharge to home General Yes Marguerite Anguiano, RN Note: Evaluation of progress towards goal: safe transition from hospital to home with [facility] and family support. documented as of this encounter Visit Diagnoses Diagnosis Essential hypertension, benign documented in this encounter Additional Health Concerns Assessment Noted Time PHQ-9 Depression Total Score: 2 12/11/19 24 9:59 AM EDT documented as of this encounter
--- OUTSIDE RECORDS SUMMARY | 2025-02-01 12:10 | XMS_ITS | Encounter Summary ---
Author Organization [employer] Address [facility] [id number] [address] [place] [address] Care Team Providers Care Domestic Violence Advocate Name Role Phone Unavailable Primary Care Provider Unavailabl e Reason for Visit * Reason Comments Med Refill Encounter Details Date Type Department Care Team ([facility] Contact Info) Description 01/20/2025 Refill [facility] Internal Medicine - Family Medicine [address] [place] [address] Kev Mcmahon, DO [address] [facility], [place] [address] Social History Tobacco Use Types Packs/Day Years Used Date Smoking Tobacco: Former Cigarettes 0.3 60.7 1 962 - 03/01/2022 Smokeless Tobacco: Never Alcohol Use Standard Drinks/Week Comments Yes 4 (1 standard drink = 0.6 oz pur e alcohol) [facility] Utilities Answer Date Recorded In the past 12 months has [employer], gas, oil, or water company threatened [...] week 07/19/2022 How often do you attend [facility] or evangelical services? 1 to 4 times per year 07/19/2022 Do you belong to any clubs o r organizations such as congregational groups, unions, fraternal or athletic groups, or [...] Answer Date Recorded Total Score 2 12/11/2023 [facility] of Occupat ional Health - Occupational Stress [...] Internal Medicine - Family Medicine [address] [place] [address] Kev Mcmahon, DO [address] [facility], [place] [address] documented as of this encounter Goals Goal Patient Goal Type Associated Problems Recent Progress Patient-Stated? Author safe discharge to home General Yes Marguerite Anguiano, RN Note: Evaluation of progress towards goal: safe transition from hospital to home with [facility] and family support. documented as of this encounter Visit Diagnoses Not on filedocumented in this encounter Additional Health Concerns Assessment Noted Time PHQ-9 Depression Total Score: 2 12/11/19 24 9:59 AM EDT documented as of this encounter
--- OUTSIDE RECORDS SUMMARY | 2025-02-01 12:10 | XMS_ITS | Encounter Summary ---
Author Organization [facility] Address [facility] [id number] [address] [place] [address] Care Team Providers Care Warp Knitter Helper Name Role Phone DanielaKev ramirez Primary Care Provider [phone] [phone] Reason for Visit * Reason Comments Med Refill Encounter Details Date Type Department Care Team ([facility] Contact Info) Description 09/24/2024 Refill [facility] [address] [place] [phone] Judit Blanc, INFORMATICS CONSULTANT-SVP CHIEF MARKETING OFFICER [address] [place], [place] [id number] Med Refill Social History Tobacco Use Types Packs/Day Years Used Date Smoking Tobacco: Former Cigarettes 0.3 60.7 1 962 - 03/01/2022 Smokeless Tobacco: Never Alcohol Use Standard Drinks/Week Comments Yes 4 (1 standard drink = 0.6 oz pur e alcohol) [facility] Utilities Answer Date Recorded In the past 12 months has [employer] electric, gas, oil, or water company threatened [...] often do you attend chur ch or christianity services? 1 to 4 times per year 07/19/2022 Do you belong to any clubs o r organizations such as sikhism groups, unions, fraternal or athletic groups, or [...] Answer Date Recorded Total Score 2 12/11/2023 [facility] of Occupat ional Health - Occupational [...] Recorded Do you need help finding a [facility] career center and/or a training [...] Telephone Encounter - Katey Hendrix RN - 09/24/2024 12:50 PM EDT Last seen Mar 2022. Needs appt or PCP to assume refills. documented in this encounter Plan of Treatment Upcoming Encounters Date Type Department Care Team (Late st Contact Info) Description 02/07/2025 3:00 PM EDT Office Visit [facility] - Family Medicine [address] [place] [address] Kev Mcmahon, DO [address], [place] [address] documented as of this encounter Goals Goal Patient Goal Type Associated Problems Recent Progress Patient-Stated? Author safe discharge to home General Yes Marguerite Anguiano, ELÍAS Note: Evaluation of progress towards goal: safe transition from hospital to home with [facility] and family support. documented as of this encounter Visit Diagnoses Diagnosis Stage 3a chronic kidney disease (CMS-HCC) Essential hypertension, benign documented in this encounter Additional Health Concerns Assessment Noted Time PHQ-9 Depression Total Score: 2 12/11/19 24 9:59 AM EDT documented as of this encounter Care Teams Warp Knitter Helper Relationship Specialty Start Date End Date Kev Mcmahon DO [address] [place], [facility] [place] [address] PCP - General Family Medicine 01/31/25 documented as of this encounter
--- OUTSIDE RECORDS SUMMARY | 2025-02-01 12:10 | XMS_ITS | Encounter Summary ---
Author Organization [facility] tem Address [facility] [id number] [address] [place] [address] Care Team Providers Care Scrap Materials Buyer Name Role Phone DanielaKev ramirez Primary Care Provider [phone] Reason for Visit * Reason Comments Med Refill Encounter Details Date Type Department Care Team ([facility] Contact Info) Description 10/05/2024 Refill [facility] [address] [place] [phone] Judit Blanc, FORMS ANALYSIS MANAGER-INTERIOR DESIGN PROGRAM CHAIR [address] [place], [place] [id number] Med Refill Social History Tobacco Use Types Packs/Day Years Used Date Smoking Tobacco: Former Cigarettes 0.3 60.7 1 962 - 03/01/2022 Smokeless Tobacco: Never Alcohol Use Standard Drinks/Week Comments Yes 4 (1 standard drink = 0.6 oz pur e alcohol) [facility] Utilities Answer Date Recorded In the past 12 months has [employer] electric, gas, oil, or water company threatened [...] often do you attend chur ch or yazidi services? 1 to 4 times per year 07/19/2022 Do you belong to any clubs o r organizations such as sabianism groups, unions, fraternal or athletic groups, or [...] Answer Date Recorded Total Score 2 12/11/2023 [facility] of Occupat ional Health - [...] Recorded Do you need help finding a [facility] career center and/or a training [...] encounter Miscellaneous Notes * Telephone Encounter - Malri Goodman RN - 10/05/2024 12:39 PM EDT Pt has been a no show for multiple appointments documented in this encounter Plan of Treatment Upcoming Encounters Date Type Department Care Team (Late st Contact Info) Description 02/07/2025 3:00 PM EDT Office Visit [facility] - Family Medicine [address] [place] [address] Kev Mcmahon, [address], [place] [address] documented as of this encounter Goals Goal Patient Goal Type Associated Problems Recent Progress Patient-Stated? Author safe discharge to home General Yes Marguerite Anguiano, ELÍAS Note: Evaluation of progress towards goal: safe transition from hospital to home with [facility] and family support. documented as of this encounter Visit Diagnoses Diagnosis Stage 3a chronic kidney disease (CMS-HCC) Essential hypertension, benign documented in this encounter Additional Health Concerns Assessment Noted Time PHQ-9 Depression Total Score: 2 12/11/19 24 9:59 AM EDT documented as of this encounter Care Teams Scrap Materials Buyer Relationship Specialty Start Date End Date Kev Mcmahon DO [address], [facility] [place] [address] PCP - General Family Medicine 01/31/25 documented as of this encounter
--- OUTSIDE RECORDS SUMMARY | 2025-02-01 12:10 | XMS_ITS | Encounter Summary ---
Author Organization [facility] Address [facility] [id number] [address] [place] [address] Care Team Providers Care Template Cutter Name Role Phone Kev Mcmahon DO Primary Care Provider [phone] Reason for Visit * Reason Comments Med Refill Encounter Details Date Type Department Care Team (Late st Contact Info) Description 01/31/2025 Refill [facility] - Family Medicine [address] [place] [phone] Kve Mcmahon DO [address], [facility] [address] Low back pain Social History Tobacco Use Types Packs/Day Years Used Date Smoking Tobacco: Former Cigarettes 0.3 60.7 1 962 - 03/01/2022 Smokeless Tobacco: Never Alcohol Use Standard Drinks/Week Comments Yes 4 (1 standard drink = 0.6 oz pur e alcohol) [facility] Utilities Answer Date Recorded In the past 12 months has [employer] electric, gas, oil, or water company threatened [...] often do you attend chur ch or rastafari services? 1 to 4 times per year 07/19/2022 Do you belong to any clubs o r organizations such as worship groups, unions, fraternal or athletic groups, or [...] Answer Date Recorded Total Score 2 12/11/2023 [facility] of Occupat ional Health - [...] Medicine - Family Medicine [address] [place] [address] Kev Mcmahon DO [address], [facility] [address] documented as of this encounter Goals Goal Patient Goal Type Associated Problems Recent Progress Patient-Stated? Author safe discharge to home General Yes Marguerite Anguiano RN Note: Evaluation of progress towards goal: safe transition from hospital to home with [facility] and family support. documented as of this encounter Visit Diagnoses Diagnosis Low back pain Lumbago documented in this encounter Additional Health Concerns Assessment Noted Time PHQ-9 Depression Total Score: 2 12/11/19 24 9:59 AM EDT documented as of this encounter Care Teams Template Cutter Relationship Specialty Start Date End Date Kev Mcmahon DO [address], [place] [address] PCP - General Family Medicine 01/31/25 documented as of this encounter
--- OUTSIDE RECORDS SUMMARY | 2025-02-01 12:10 | XMS_ITS | Encounter Summary ---
Author Organization [facility] [employer] Sys tem Address [facility] [id number] [address] [place] [address] Care Team Providers Care Cord Splicer Name Role Phone DanielaKev ramirez Primary Care Provider [phone] Reason for Visit * Reason Comments Med Change Request Encounter Details Date Type Department Care Team ([facility] Contact Info) Description 08/14/2024 Refill [facility] [address] [place] [phone] Judit Blanc, VULCANIZER OPERATOR-VARITYPE OPERATOR [address] [place] [id number] Med Change Request Social History Tobacco Use Types Packs/Day Years Used Date Smoking Tobacco: Former Cigarettes 0.3 60.7 1 962 - 03/01/2022 Smokeless Tobacco: Never Alcohol Use Standard Drinks/Week Comments Yes 4 (1 standard drink = 0.6 oz pur e alcohol) [facility] Utilities Answer Date Recorded In the past 12 months has [employer] electric, gas, oil, or water company threatened [...] any clubs o r organizations such as zoroastrianism groups, unions, fraternal or athletic groups, or [...] Answer Date Recorded Total Score 2 12/11/2023 [facility] of Occupat ional Health - Occupational [...] Recorded Do you need help finding a [facility] career center and/or a training [...] Telephone Encounter - Katey Hendrix RN - 08/14/2024 10:31 AM EST No larger quantity or further refills until has offc appt. documented in this encounter Plan of Treatment Upcoming Encounters Date Type Department Care Team (Late st Contact Info) Description 02/07/2025 3:00 PM EDT Office Visit [facility] - Family Medicine [address] [place] [address] Kev Mcmahon, [address], [place] [address] documented as of this encounter Goals Goal Patient Goal Type Associated Problems Recent Progress Patient-Stated? Author safe discharge to home General Yes Marguerite Anguiano, ELÍAS Note: Evaluation of progress towards goal: safe transition from hospital to home with [facility] and family support. documented as of this encounter Visit Diagnoses Diagnosis Essential hypertension, benign documented in this encounter Additional Health Concerns Assessment Noted Time PHQ-9 Depression Total Score: 2 12/11/19 9:59 AM EDT documented as of this encounter Care Teams Cord Splicer Relationship Specialty Start Date End Date Kev Mcmahon DO [address], [facility] [place] [address] PCP - General Family Medicine 01/31/25 documented as of this encounter
--- OUTSIDE RECORDS SUMMARY | 2025-02-01 12:10 | XMS_ITS | Encounter Summary ---
Author Organization [place] [facility] [facility] Address [id number] [address] [place] [address] Care Team Providers Care Dustless Operator Name Role Phone DanielaKev ramirez Primary Care Provider [phone] Encounter Details Date Type Department Care Team ([facility] Contact Info) Description 03/18/2022 Telephone [facility] - Family Medicine [address] [place] [address] Miryam Stewart MA Social History Tobacco Use [...] Telephone Encounter - Miryam Stewart MA - 03/18/2022 9:33 AM EDT Shania, [facility] Telehealth Nurse, called and said she did a visit with Usha and she said she is having blurred vision that comes and goes while watching TV, but she said it's not theusual blurred vision, it's a different blurred vision . She said her BP has been good. She said she is also having muscle cramping in her legs and side that she did not mention at her visit Friday. * Telephone Encounter - CHRIS Patrick - 03/18/2022 9:33 AM EDT She should make an appt with her eye doctor tano and if vision changes persist or change she shouldcall 911. She should also stay very hydrated - sometimes muscle cramping can be caused by lack of adequate hydration. * Telephone Encounter - Miryam Stewart MA - 03/18/2022 9:33 AM EDT Patient notified and understands. documented in this encounter Plan of Treatment Upcoming Encounters Date Type Department Care Team (Late st Contact Info) Description 02/07/2025 3:00 PM EDT [facility] [address] [place] [address] Kev Mcmahon, DO [address], [place] [address] documented as of this encounter Goals Goal Patient Goal Type Associated Problems Recent Progress Patient-Stated? Author safe discharge to home General Yes Marguerite Anguiano, RN Note: Evaluation of progress towards goal: safe transition from hospital to home with [facility] and family support. documented as of this encounter Visit Diagnoses Not on filedocumented in this encounter Additional Health Concerns Infection Onset Date Last Indicated Resolved Time COVID-19 Rule-Out 07/18/2022 07/18/2022 07/18/2022 5:34 PM EST COVID-19 Positive 07/18/2022 07/18/2022 08/08/2022 11:13 PM EST documented as of this encounter Care Teams Dustless Operator Relationship Specialty Start Date End Date Kev Mcmahon DO [address] [facility], [place] [address] PCP - General Family Medicine 01/31/25 documented as of this encounter
--- OUTSIDE RECORDS SUMMARY | 2025-02-01 12:11 | XMS_ITS | Encounter Summary ---
Author Organization [facility] Address [facility] [place]-[id number] [address] [place] [address] Care Team Providers Care Folder Tier Name Role Phone Kev Mcmahon DO Primary Care Provider [phone] Encounter Details Date Type Department Care Team (Late Contact Info) Description 06/25/2022 Telephone [facility] [address] [place] [phone] Agnes Simons CNA Social History Tobacco Use Types Packs/Day Years [...] Upcoming Encounters Date Type Department Care Team ([facility] Contact Info) Description 02/07/2025 3:00 PM EDT Office Visit [facility] - Family Medicine [address] [place] [address] Kev Mcmahon DO [address], [place] [address] documented as of this encounter Goals Goal Patient Goal Type Associated Problems Recent Progress Patient-Stated? Author safe discharge to home General Yes Marguerite Anguiano, RN Note: Evaluation of progress towards goal: safe transition from hospital to home with [facility] and family support. documented as of this encounter Visit Diagnoses Not on filedocumented in this encounter Additional Health Concerns Infection Onset Date Last Indicated Resolved Time COVID-19 Rule-Out 07/18/2022 07/18/2022 07/18/2022 5:34 PM EST COVID-19 Positive 07/18/2022 07/18/2022 08/08/2022 11:13 PM EST documented as of this encounter Care Teams Folder Tier Relationship Specialty Start Date End Date Kev Mcmahon DO [address], [facility] [place] [address] PCP - General Family Medicine 01/31/25 documented as of this encounter
--- OUTSIDE RECORDS SUMMARY | 2025-02-01 12:11 | XMS_ITS | Encounter Summary ---
Author Organization [facility] Sys tem Address [facility][id number] [address] [place] [address] Care Team Providers Care Machine Room Operator Name Role Phone Kev Mcmahon DO Primary Care Provider [phone] Encounter Details Date Type Department Care Team ([facility] st Contact Info) Description 09/03/2022 Orders Only [facility] Medicine - Family Medicine [address] [place] [address] Kev Mcmahon DO [address], [facility] [place] [address] Social History Tobacco Use Types Packs/Day Years [...] any clubs o r organizations such as anglican groups, unions, fraternal or athletic groups, or [...] PHQ-2 Answer Date Recorded Total Score 0 08/07/2022 [facility] of Occupat ional Health [...] have Coronavirus / COVID-19? No / Unsure 08/07/2022 10:48 AM EST documented as of this encounter Plan of Treatment Upcoming Encounters Date Type Department Care Team (Late st Contact Info) Description 02/07/2025 3:00 PM EDT Office Visit [facility] - Family Medicine [address] [place] [address] Kev Mcmahon DO [address] [facility], [facility] [place] [address] documented as of this encounter Goals Goal Patient Goal Type Associated Problems Recent Progress Patient-Stated? Author safe discharge to home General Yes Marguerite Anguiano, RN Note: Evaluation of progress towards goal: safe transition from hospital to home with [facility] and family support. documented as of this encounter Visit Diagnoses Not on filedocumented in this encounter Additional Health Concerns Assessment Noted Time PHQ-9 Depression Total Score: 0 08/07/19 23 11:03 AM EST documented as of this encounter Care Teams Machine Room Operator Relationship Specialty Start Date End Date Kev Mcmahon DO [address] [facility], [place] [address] PCP - General Family Medicine 01/31/25 documented as of this encounter
--- OUTSIDE RECORDS SUMMARY | 2025-02-01 12:11 | XMS_ITS | Encounter Summary ---
Author Organization [facility] Address [facility] [place][id number] [address] [place] [address] Care Team Providers Care Field Superintendent Name Role Phone Kev Mcmahon DO Primary Care Provider [phone] Reason for Visit * Reason Comments Med Refill Encounter Details Date Type Department Care Team (Late st Contact Info) Description 09/09/2022 Refill [facility] - Family Medicine [address] [place] [phone] Kev Mcmahon DO [address], [facility] [place] [address] Transient cerebral ischemic attack, unspecified Social History Tobacco Use Types Packs/Day Years [...] week 07/19/2022 How often do you attend [facility] or scientologist services? 1 to 4 times per year 07/19/2022 Do you belong to any clubs o r organizations such as christian groups, unions, fraternal or athletic groups, or [...] Answer Date Recorded Total Score 0 08/07/2022 [facility] of Occupat ional Health - [...] Recorded Do you need help finding a [facility] career center and/or a training program? No [...] Medicine - Family Medicine [address] [place] [address] Kev Mcmahon DO [address] [facility], [facility] [place] [address] documented as of this encounter Goals Goal Patient Goal Type Associated Problems Recent Progress Patient-Stated? Author safe discharge to home General Yes Marguerite Anguiano, RN Note: Evaluation of progress towards goal: safe transition from hospital to home with [facility] and family support. documented as of this encounter Visit Diagnoses Diagnosis Transient cerebral ischemic attack, unspecified documented in this encounter Additional Health Concerns Assessment Noted Time PHQ-9 Depression Total Score: 0 08/07/19 23 11:03 AM EST documented as of this encounter Care Teams Field Superintendent Relationship Specialty Start Date End Date Kev Mcmahon DO [address] [facility], [facility] [place] [address] PCP - General Family Medicine 01/31/25 documented as of this encounter
--- OUTSIDE RECORDS SUMMARY | 2025-02-01 12:11 | XMS_ITS | Encounter Summary ---
Author Organization [facility] [employer] Sys tem Address [facility] [place]-[id number] [address] [place] [address] Care Team Providers Care Field Sales Representative Name Role Phone SalomeKev Primary Care Provider [phone] Encounter Details Date Type Department Care Team ([facility] Contact Info) Description 09/03/2022 Telephone [facility] - Family Medicine [address] [place] [address] Rossana Multani CMA Social History Tobacco Use Types Packs/Day Years [...] often do you attend chur ch or druze services? 1 to 4 times per year [...] Answer Date Recorded Total Score 0 08/07/2022 [facility] of Occupat ional Health - Occupational Stress [...] AM EST documented as of this encounter Miscellaneous Notes * Telephone Encounter - Rossana Multani CMA - 09/03/2022 8:46 AM EST Mimi from [facility] called asking about a supply order and certificate of medical necessity that was for pt to get supplies such as gloves, chucks, etc for in home needs. I looked through chart and found generic Med nec order, but no info about [facility] as she had stated. Said she will fax over a new DME order tp be signed. * Telephone Encounter - Rossana Multani CMA - 09/03/2022 8:46 AM EST I put in incorrect number for Tabitha, called Usha they have not gotten anything. She is trying to find name of HH and nurse, so we can figure out what pt needs. * Telephone Encounter - Rossana Multani CMA - 09/03/2022 8:46 AM EST Called Tabitha back and spoke to her, she is going to see if [employer] has the correct fax number., * Telephone Encounter - Rossana Multani CMA - 09/03/2022 8:46 AM EST I spoke to Tabitha, Dr Mcmahon has no dx regarding incontinence supplies, so pt needs an appointment set up. Due to lack of mobility, she may want to do a video visit with her daughters help. Medicare does count this as a Face 2 face encounter, so we can address incontinence. Tabitha will reach out to family and let them know. documented in this encounter Plan of Treatment Upcoming Encounters Date Type Department Care Team (Late st Contact Info) Description 02/07/2025 3:00 PM EDT Office Visit [facility] - Family Medicine [address] [place] [address] Kev Mcmahon DO [address], [place] [address] documented as of this encounter Goals Goal Patient Goal Type Associated Problems Recent Progress Patient-Stated? Author safe discharge to home General Yes Marguerite Anguiano, RN Note: Evaluation of progress towards goal: safe transition from hospital to home with [facility] and family support. documented as of this encounter Visit Diagnoses Not on filedocumented in this encounter Additional Health Concerns Assessment Noted Time PHQ-9 Depression Total Score: 0 08/07/19 23 11:03 AM EST documented as of this encounter Care Teams Field Sales Representative Relationship Specialty Start Date End Date Kev Mcmahon DO [address], [place] [address] PCP - General Family Medicine 01/31/25 documented as of this encounter
--- OUTSIDE RECORDS SUMMARY | 2025-02-01 12:11 | XMS_ITS | Encounter Summary ---
Author Organization [facility] [employer] Sys tem Address [id number] [address] [place] [address] Care Team Providers Care Conference Services Manager Name Role Phone SalomeKev Primary Care Provider [phone] [phone] Encounter Details Date Type Department Care Team ([facility] Contact Info) Description 09/30/2022 Telephone [facility] Internal Medicine - Family Medicine [address] [place] [address] Sharlene Melendez CMA Social History Tobacco Use Types Packs/Day [...] often do you attend chur ch or religion services? 1 to 4 times per year 07/19/2022 Do you belong to any clubs o r organizations such as amish groups, unions, fraternal or athletic groups, or [...] Answer Date Recorded Total Score 0 08/07/2022 [facility] of Occupat ional Health - Occupational Stress [...] encounter Miscellaneous Notes * Telephone Encounter - Sharlene Melendez CMA - 09/30/2022 4:42 PM EDT This patient called because she needs tubing sent to [facility] for her breathing treatments documented in this encounter Plan of Treatment Upcoming Encounters Date Type Department Care Team (Late st Contact Info) Description 02/07/2025 3:00 PM EDT Office Visit [facility] Medicine - Family Medicine [address] [place] [address] Kev Mcmahon DO [address] [employer], [place] [address] documented as of this encounter Goals Goal Patient Goal Type Associated Problems Recent Progress Patient-Stated? Author safe discharge to home General Yes Marguerite Anguiano, ELÍAS Note: Evaluation of progress towards goal: safe transition from hospital to home with the [facility] and family support. documented as of this encounter Visit Diagnoses Not on filedocumented in this encounter Additional Health Concerns Assessment Noted Time PHQ-9 Depression Total Score: 0 08/07/19 23 11:03 AM EST documented as of this encounter Care Teams Conference Services Manager Relationship Specialty Start Date End Date Kev Mcmahon DO [address], [place] [address] PCP - General Family Medicine 01/31/25 documented as of this encounter
--- OUTSIDE RECORDS SUMMARY | 2025-02-01 12:11 | XMS_ITS | Encounter Summary ---
Author Organization [facility] Address [id number] [address] [place] [address] Care Team Providers Care President Finance Company Name Role Phone Kev Mcmahon DO Primary Care Provider [phone] Reason for Visit * Reason Comments Med Refill Encounter Details Date Type Department Care Team (Late st Contact Info) Description 10/10/2022 Refill [facility] Internal Medicine - Family Medicine [address] [place] [address] Kev Mcmahon DO [address], [facility] [place] [address] Low back pain Social History Tobacco Use [...] week 07/19/2022 How often do you attend [facility] or adventist services? 1 to 4 times per year 07/19/2022 Do you belong to any clubs o r organizations such as latter day groups, unions, fraternal or athletic groups, or [...] Date Recorded Total Score 0 08/07/2022 [facility] of Occupat ional Health - [...] Recorded Do you need help finding a [facility] career center and/or a training program? [...] Telephone Encounter - Kev Mcmahon DO - 10/10/2022 11:01 AM EDT Rx sent in. Patient is due for an appointment in early October. documented in this encounter Plan of Treatment Upcoming Encounters Date Type Department Care Team (Late st Contact Info) Description 02/07/2025 3:00 PM EDT Office Visit [facility] - Family Medicine [address] [place] [address] Kev Mcmahon DO [address], [place] [address] documented as of this encounter Goals Goal Patient Goal Type Associated Problems Recent Progress Patient-Stated? Author safe discharge to home General Yes Marguerite Anguiano, RN Note: Evaluation of progress towards goal: safe transition from hospital to home with [facility] and family support. documented as of this encounter Visit Diagnoses Diagnosis Low back pain Lumbago documented in this encounter Additional Health Concerns Assessment Noted Time PHQ-9 Depression Total Score: 0 08/07/19 23 11:03 AM EST documented as of this encounter Care Teams President Finance Company Relationship Specialty Start Date End Date Kev Mcmahon DO [address] [employer], [place] [address] PCP - General Family Medicine 01/31/25 documented as of this encounter
--- OUTSIDE RECORDS SUMMARY | 2025-02-01 12:11 | XMS_ITS | Encounter Summary ---
Author Organization [facility] Address [id number] [address] [place] [address] Care Team Providers Care Farm Advisor Name Role Phone Kev Mcmahon DO Primary Care Provider [phone] Reason for Visit * Reason Comments Med Refill Encounter Details Date Type Department Care Team (Late st Contact Info) Description 11/11/2022 Refill [facility] Internal Medicine - Family Medicine [address] [place] [phone] Kev Mcmahon DO [address], [facility] [address] Gastro-esophageal reflux disease without esophagitis Social History Tobacco Use Types Packs/Day Years [...] week 07/19/2022 How often do you attend [facility] or sikhism services? 1 to 4 times per year 07/19/2022 Do you belong to any clubs o r organizations such as scientology groups, unions, fraternal or athletic groups, or [...] Answer Date Recorded Total Score 0 11/11/2022 [facility] of [...] Medicine - Family Medicine [address] [place] [address] Kev Mcmahon DO [address] [employer], [facility] [address] documented as of this encounter Goals Goal Patient Goal Type Associated Problems Recent Progress Patient-Stated? Author safe discharge to home General Yes Marguerite Anguiano, ELÍAS Note: Evaluation of progress towards goal: safe transition from hospital to home with [facility] and family support. documented as of this encounter Visit Diagnoses Diagnosis Gastro-esophageal reflux disease without esophagitis documented in this encounter Additional Health Concerns Assessment Noted Time PHQ-9 Depression Total Score: 0 11/12/19 23 10:31 AM EDT documented as of this encounter Care Teams Farm Advisor Relationship Specialty Start Date End Date Kev Mcmahon DO [address] [facility], [facility] [address] PCP - General Family Medicine 01/31/25 documented as of this encounter
--- OUTSIDE RECORDS SUMMARY | 2025-02-01 12:11 | XMS_ITS | Encounter Summary ---
Author Organization [facility] [employer] Sys tem Address [id number] [address] [place] [address] Care Team Providers Care Dairy Tester Name Role Phone Kev Mcmahon DO Primary Care Provider [phone] Encounter Details Date Type Department Care Team ([facility] st Contact Info) Description 10/01/2022 Orders Only [facility] Internal Medicine - Family Medicine [address] [place] [address] Kev Mcmahon DO [address], [facility] [address] Chronic obstructive pulmonary disease with (acute) exacerbation ([facility]-HCC) (Primary Dx) Social History Tobacco Use Types Packs/Day Years [...] week 07/19/2022 How often do you attend [facility] or oriental orthodox services? 1 to 4 times per year 07/19/2022 Do you belong to any clubs o r organizations such as bahai groups, unions, fraternal or athletic groups, or [...] Answer Date Recorded Total Score 0 08/07/2022 [facility] of Occupat ional Health - [...] Recorded Do you need help finding a [facility] career center and/or a training [...] Medicine - Family Medicine [address] [place] [address] Kev Mcmahon DO [address] [employer], [facility] [address] documented as of this encounter Goals Goal Patient Goal Type Associated Problems Recent Progress Patient-Stated? Author safe discharge to home General Yes Marguerite Anguiano, ELÍAS Note: Evaluation of progress towards goal: safe transition from hospital to home with [facility] and family support. documented as of this encounter Visit Diagnoses Diagnosis Chronic obstructive pulmonary disease with (acute) exacerbation (CMS-HCC)- Primary documented in this encounter Additional Health Concerns Assessment Noted Time PHQ-9 Depression Total Score: 0 08/07/19 23 11:03 AM EST documented as of this encounter Care Teams Dairy Tester Relationship Specialty Start Date End Date Kev Mcmahon DO [address] [employer], [facility] [address] PCP - General Family Medicine 01/31/25 documented as of this encounter
--- OUTSIDE RECORDS SUMMARY | 2025-02-01 12:11 | XMS_ITS | Encounter Summary ---
Author Organization [facility] tem Address [id number] [address] [place] [address] Care Team Providers Care Entrepreneur Name Role Phone Kev Mcmahon DO Primary Care Provider [phone] Encounter Details Date Type Department Care Team (Late Contact Info) Description 06/25/2022 Telephone [facility] Cardiology [address] [place] [phone] Anderson Feng Social History Tobacco Use Types Packs/Day Years [...] Upcoming Encounters Date Type Department Care Team ([facility] Contact Info) Description 02/07/2025 3:00 PM EDT Office Visit [facility] - Family Medicine [address] [place] [address] Kev Mcmahon DO [address], [place] [address] documented as of this encounter Goals Goal Patient Goal Type Associated Problems Recent Progress Patient-Stated? Author safe discharge to home General Yes Marguerite Anguiano, RN Note: Evaluation of progress towards goal: safe transition from hospital to home with [facility] and family support. documented as of this encounter Visit Diagnoses Not on filedocumented in this encounter Additional Health Concerns Infection Onset Date Last Indicated Resolved Time COVID-19 Rule-Out 07/18/2022 07/18/2022 07/18/2022 5:34 PM EST COVID-19 Positive 07/18/2022 07/18/2022 08/08/2022 11:13 PM EST documented as of this encounter Care Teams Entrepreneur Relationship Specialty Start Date End Date Kev Mcmahon DO [address], [facility] [place] [address] PCP - General Family Medicine 01/31/25 documented as of this encounter
--- OUTSIDE RECORDS SUMMARY | 2025-02-01 12:11 | XMS_ITS | Encounter Summary ---
Author Organization [facility] s tem Address [id number] [address] [place] [address] Care Team Providers Care Mechanical Drafter Name Role Phone Kev Mcmahon Primary Care Provider [phone] Reason for Visit * Reason Onset Date Comments Med Refill 06/18/2022 Encounter Details Date Type Department Care Team (Late Contact Info) Description 06/18/2022 Refill [facility] Internal Medicine - Family Medicine [address] [place] [address] Miryam Stewart MA Social History Tobacco Use [...] Upcoming Encounters Date Type Department Care Team ([facility] Contact Info) Description 02/07/2025 3:00 PM EDT Office Visit [facility] - Family Medicine [address] [place] [address] Kev Mcmahon DO [address] [employer], [place] [address] documented as of this encounter Goals Goal Patient Goal Type Associated Problems Recent Progress Patient-Stated? Author safe discharge to home General Yes Marguerite Anguiano, ELÍAS Note: Evaluation of progress towards goal: safe transition from hospital to home with [facility] and family support. documented as of this encounter Visit Diagnoses Not on filedocumented in this encounter Additional Health Concerns Infection Onset Date Last Indicated Resolved Time COVID-19 Rule-Out 07/18/2022 07/18/2022 07/18/2022 5:34 PM EST COVID-19 Positive 07/18/2022 07/18/2022 08/08/2022 11:13 PM EST documented as of this encounter Care Teams Mechanical Drafter Relationship Specialty Start Date End Date Kev Mcmahon DO [address], [place] [address] PCP - General Family Medicine 01/31/25 documented as of this encounter
--- OUTSIDE RECORDS SUMMARY | 2025-02-01 12:11 | XMS_ITS | Encounter Summary ---
Author Organization [facility] Sys tem Address [id number] [address] [place] [address] Care Team Providers Care [employer] Consultant Name Role Phone RosyKev frazier Primary Care Provider [phone] Encounter Details Date Type Department Care Team ([facility] st Contact Info) Description 12/13/2022 Orders Only [facility] Internal Medicine - Family Medicine [address] [place] [phone] Angel Randolph [address] [place] [address] Positive colorectal cancer screening using Cologuard test (Primary Dx) Social History Tobacco Use Types [...] often do you attend chur ch or scientology services? 1 to 4 times per year 07/19/2022 Do you belong to any clubs o r organizations such as sikh groups, unions, fraternal or athletic groups, or [...] Answer Date Recorded Total Score 0 11/11/2022 [facility] of Occupat ional Health - Occupational [...] Recorded Do you need help finding a [facility] career center and/or a training program? [...] Medicine - Family Medicine [address] [place] [address] Kev Mcmahon DO [address], [facility] [place] [address] documented as of this encounter Goals Goal Patient Goal Type Associated Problems Recent Progress Patient-Stated? Author safe discharge to home General Yes Marguerite Anguiano, RN Note: Evaluation of progress towards goal: safe transition from hospital to home with [facility] and family support. documented as of this encounter Visit Diagnoses Diagnosis Positive colorectal cancer screening using Cologuard test- Primary documented in this encounter Additional Health Concerns Assessment Noted Time PHQ-9 Depression Total Score: 0 11/12/19 23 10:31 AM EDT documented as of this encounter Care Teams [employer] Consultant Relationship Specialty Start Date End Date Kev Mcmahon DO [address] [facility], [facility] [place] [address] PCP - General Family Medicine 01/31/25 documented as of this encounter
--- NOTE | 2025-02-01 12:58 | XR_ITS ---
The [address] [address] Patient Name: KATIE MONTERO MRN: [id number] date: 1950 Sex: F Assigned Patient Location: ER Current Patient Location: ER Accession/Order Number: [id number] Exam Date: 02/01/2025 13:37 Report Date: 02/01/2025 13:38 At the request of: LAUREN HARTLEY Procedure: XR chest 1V XR chest 1V 02/01/2025 1:32 PM SIGNS AND SYMPTOMS: ^short of breath ^Y PROTOCOL: Frontal radiograph of the chest COMPARISON: None FINDINGS: The trachea is midline. Atherosclerotic changes are noted in the thoracic aorta. There is a 3.8 cm masslike density in the right suprahilar region. There is interstitial prominence bilaterally. Calcified lymph nodes are noted in the mediastinum. The heart and mediastinal structures are within normal limits, otherwise. The bony thorax is intact. XR/XR chest 1V IMPRESSION: There is a 3.8 cm masslike density in the right suprahilar region. Interstitial prominence is noted bilaterally. Impression dictated by: Louie Barney M.D. 02/01/2025 1:38 PM Dictation Location: [place] [address] Electronically authenticated by: [id number] Y Date: 02/01/2025 13:38
--- NOTE | 2025-02-01 12:58 | ECG_ITS ---
[facility] Test Date: 2025-02-01 Pat Name: KATIE MONTERO Department: Room: - Gender: Female [employer] Judge: : 1950 Requested By: RUSTY CAGLE Order Number: [id number] Reading MD: ANNIE LIU M.D. Measurements Intervals [place] Rate: 84 P: 71 NM: 152 QRS: 83 QRSD: 74 T: 47 QT: 356 QTc: 397 Interpretive Statements 1100 Sinus rhythm 4068 Nonspecific Twave abnormality 6130 Right atrial enlargement 9150 abnormal ECG No previous ECG available for comparison Electronically Signed On 02-02-2025 6:53:18 EDT by ANNIE LIU M.D.
[2025-02-01] MEDS: IPRATROPIUM/ALBUTEROL SULFATE 3 ML AMPUL.NEB IH ×2 (13:16→21:02)
[2025-02-01 13:20] LABS: Hematocrit 44.1 % (36.0-48.0); Hemoglobin 15.0 g/dL (12.0-16.0); Immature Granulocytes Abs Auto 0.09 10^3/uL (0.00-0.03); Immature Granulocytes Pct Auto 0.5 % (0.0-0.5); Lymphocytes Absolute Auto 1.8 10^3/uL (1.2-3.8); Mean Corpuscular HGB Conc 34.0 g/dL (29.9-35.2); Mean Corpuscular Hemoglobin 30.5 pg (26.7-34.0); Mean Corpuscular Volume 89.6 fL (81.0-99.0); Platelet Count 282 10^3/uL (150-450); Red Blood Count 4.92 10^6/uL (4.20-5.40); White Blood Count 18.1 10^3/uL (4.0-11.0)
[2025-02-01] MEDS: MORPHINE SULFATE 4 MG/ML VIAL IV (13:45)
[2025-02-01] MEDS: METHYLPREDNISOLONE SOD SUCC PF 125 MG/2 ML VIAL IVP (13:45)
[2025-02-01 13:52] LABS: Anion Gap 14.7; Blood Urea Nitrogen 23.0 mg/dL (7.0-18.0); Calcium 10.0 mg/dL (8.5-10.1); Carbon Dioxide 27.2 mmol/L (21.0-32.0); Chloride 100 mmol/L (98-107); Estimated GFR (African America 45 (>=60 mL/min/1.73m^2); Estimated GFR (Non-African Ame 37 (>=60 mL/min/1.73m^2); Glucose 132 mg/dL (74-106); NT Pro B Type Natriuretic Pept 438.0 pg/mL (<=1800.0); Potassium 4.9 mmol/L (3.5-5.1); Sodium 137 mmol/L (136-145)
[2025-02-01 13:57] LABS: Lactate/Lactic Acid 3.1 mmol/L (0.4-2.0)
[2025-02-01] MEDS: SODIUM CHLORIDE 524 ML IV (14:43)
--- NOTE | 2025-02-01 14:55 | ED.SOB1 ---
HPI - SOB/Dyspnea General Chief Complaint: Shortness of Breath/Dyspnea Stated Complaint: SOB Time Seen by Provider: 02/01/25 12:09 Source: patient and family Mode of arrival: Wheelchair Related Data Home oxygen amount: none Home Medications ?Medication ?Instructions ?Recorded ?Confirmed clopidogrel 75 mg tablet 75 mg PO DAILY 04/15/23 02/01/25 lisinopril 20 mg tablet 20 mg PO DAILY 04/15/23 02/01/25 naproxen 375 mg tablet 375 mg PO Q12H 04/15/23 02/01/25 tizanidine 4 mg tablet 4 mg PO Q12H PRN muscle spasticity 04/15/23 02/01/25 furosemide 20 mg tablet 20 mg PO DAILY 02/01/25 02/01/25 potassium chloride 10 mEq 10 meq PO DAILY 02/01/25 02/01/25 tablet,extended release(part/cryst) Allergies Allergy/AdvReac Type Severity Reaction Status Date / Time ibuprofen Allergy Intermediate Rash Verified 02/01/25 12:07 Penicillins AdvReac Intermediate Unknown Verified 02/01/25 12:07 [facility] Medical History (Updated 02/01/25 @ 18:14 by TONY POOLE) Transient cerebral ischemia ?G45.9 - Transient cerebral ischemic attack, unspecified (ICD-10) Osteoporosis ?M81.0 - Age-related osteoporosis without current pathological fracture (ICD-10) Hypokalemia ?E87.6 - Hypokalemia (ICD-10) Dyslipidemia ?E78.5 - Hyperlipidemia, unspecified (ICD-10) Dyslipidemia (high LDL; low HDL) ?E78.5 - Hyperlipidemia, unspecified (ICD-10) Carotid artery stenosis ?I65.29 - Occlusion and stenosis of unspecified carotid artery (ICD-10) Carpal tunnel syndrome ?G56.00 - Carpal tunnel syndrome, unspecified upper limb (ICD-10) Acid reflux disease ?K21.9 - Gastro-esophageal reflux disease without esophagitis (ICD-10) SVT (supraventricular tachycardia) ?I47.10 - Supraventricular tachycardia, unspecified (ICD-10) Family History Father Family history of cancer Brother Family history of cancer Mother Family history of diabetes mellitus Family history of hypertension Social History Within the past year, how often did you have a drink containing alcohol: monthly or less Within the past year, how many standard drinks containing alcohol did you have on a typical day: 1 or 2 Within the past year, how often did you have six or more drinks on one occasion: never Total score: 0 Score interpretation: A score less than 3 is consistent with normal alcohol consumption. Smoking status: Current every day smoker Non-prescribed substance use: cannabis (any form) and crack/cocaine Previous occupational history: retired Highest level of school completed/degree received: 11th grade Little interest or pleasure in doing things: not at all Feeling down, depressed, or hopeless: not at all Feel stressed/tense/nervous/anxious/difficulty sleeping: not at all Exam Constitutional Vital Signs, click to edit/add: Last Vital Signs Temp 98.2 F 02/01/25 19:30 Pulse 75 02/01/25 19:30 Resp 18 02/01/25 19:30 BP 146/75 H 02/01/25 19:30 Pulse Ox 95 02/01/25 19:30 O2 Del Method Room Air 02/01/25 19:30 Documenting provider has reviewed patient's vital signs: yes General appearance: cooperative and frail appearing Nutritional appearance: cachectic Orientation/consciousness: Yes awake, Yes oriented to person, Yes oriented to place and Yes oriented to time Eye Common normals: PERRL, EOMs intact bilaterally and conjunctivae normal Lymph Lymphatic: no lymphadenopathy noted Chest Chest: tenderness Respiratory Common normals: normal respiratory effort Auscultation: rhonchi and wheezes Cardio Common normals: regular rate, regular rhythm and no murmurs GI Common normals: Normal to inspection, nondistended, normoactive bowel sounds present, soft to palpation and non-tender Extremity Common normals: normal to inspection, full ROM and normal capillary refill Neuro [place] Coma Scale: document GCS findings Common normals: oriented x3 and CN's II-XII intact bilaterally Sensorium/orientation: awake, alert, oriented to person, oriented to place and oriented to time Course Vital Signs Vital signs: Vital Signs Temperature 98.1 F 02/01/25 12:09 Pulse Rate 85 02/01/25 12:09 Respiratory Rate 18 02/01/25 12:09 Blood Pressure 107/67 02/01/25 12:09 Pulse Oximetry 98 02/01/25 12:09 Oxygen Delivery Method Room Air 02/01/25 12:09 Temperature 98.2 F 02/01/25 19:30 Pulse Rate 75 02/01/25 19:30 Respiratory Rate 18 02/01/25 19:30 Blood Pressure 146/75 H 02/01/25 19:30 Pulse Oximetry 95 02/01/25 19:30 Oxygen Delivery Method Room Air 02/01/25 19:30 MDM - SOB/Dyspnea MDM Narrative Medical decision making narrative: Patient presents to the ED with a complaint of shortness of breath and left-sided chest pain. She states it hurts mostly when she takes a deep breath but is very sharp. It occasionally shoots down the rest of her back. It is not positional or have to do with movement. She states yesterday she was having some chest pressure as well. She went to the emergency department in [place] and was treated for SVT. She was discharged home after beginning adenosine 6 mg which slowed down her heart rate. At that time she did not have an elevated D-dimer or troponin. Her labs reportedly were unremarkable on her workup other than a leukocytosis of 16. X-ray was not performed at that facility. Patient states she has also had some thick yellowish sputum production on cough. She does have a history of COPD and she is on breathing treatments. She did try to do a breathing treatment prior to coming in but still feels very wheezy. Her family member states she has been very fatigued and sleeping more than normal as well. She has found nothing that makes her better or worse but she has not taken any other medications at this time.. Patient is alert and oriented she is resting in her bed laying in a curled up position. She is appropriately interactive. Patient's heart is regular rate and rhythm. She does have crackles throughout her lung barfield and wheezing diffusely. Pulses are equal bilaterally in all 4 extremities no pedal edema. Abdomen is soft and nontender. She has no other positive exam findings. Patient has been afebrile. Patient received a breathing treatment and Solu-Medrol which did help with her wheezing symptoms. Chest x-ray was suggestive of an infiltrate and opacities. She does have a leukocytosis of 18 and a lactate of 3.1. She was started on IV fluids and antibiotics. She was given a dose of Rocephin. Patient was also given a dose of pain medication as her pain was significant. She did not have any midsternal chest pain or crushing pain. Patient is for troponin was 0.2. BNP was 438. She did General: Insufficiency which is chronic. Creatinine 1.38 BUN of 23 GFR 45. I discussed the findings with the patient and her family member and I believe the patient would benefit from admission for pneumonia and bacteria with leukocytosis, elevated lactate, tachypnea, source of infection present. Patient is agreeable to this plan of care she will be admitted in stable condition Differential Diagnosis Differential diagnosis: Likely acute exacerbation of chronic obstructive airways disease, congestive heart failure, community acquired pneumonia and asthma with exacerbation Medical Records Attestation: I reviewed the patient's medical records. Lab Data Attestation: I reviewed the patient's lab results. Labs: Lab Results 02/01/25 02/01/25 Range/Units 13:10 15:00 WBC 18.1 H (4.0-11.0) 10^3/uL RBC 4.92 (4.20-5.40) 10^6/uL Hgb 15.0 (12.0-16.0) g/dL Hct 44.1 (36.0-48.0) % MCV 89.6 (81.0-99.0) fL MCH 30.5 (26.7-34.0) pg MCHC 34.0 (29.9-35.2) g/dL RDW 14.4 (11.0-15.0) % Plt Count 282 (150-450) 10^3/uL MPV 9.2 L (9.5-13.5) fL Neut % (Auto) 80.6 H (43.0-75.0) % Lymph % (Auto) 9.8 L (20.5-60.0) % [place] % (Auto) 8.3 (1.7-12.0) % Eos % (Auto) 0.5 L (0.9-7.0) % Baso % (Auto) 0.3 (0.2-2.0) % Neut # (Auto) 14.6 H (1.4-6.5) 10^3/uL Lymph # (Auto) 1.8 (1.2-3.8) 10^3/uL [place] # (Auto) 1.5 H (0.3-0.8) 10^3/uL Eos # (Auto) 0.1 (0.0-0.7) 10^3/uL Baso # (Auto) 0.1 (0.0-0.1) 10^3/uL Abs Immat Gran (auto) 0.09 H (0.00-0.03) 10^3/uL Imm/Tot Granulo (auto) 0.5 (0.0-0.5) % Sodium 137 (136-145) mmol/L Potassium 4.9 (3.5-5.1) mmol/L Chloride 100 (98-107) mmol/L Carbon Dioxide 27.2 (21.0-32.0) mmol/L Anion Gap 14.7 BUN 23.0 H (7.0-18.0) mg/dL Creatinine 1.38 H (0.55-1.02) mg/dL Est GFR ( Amer) 45 L (>=60 mL/min/1.73m^2) Est GFR (Non-Af Amer) 37 L (>=60 mL/min/1.73m^2) BUN/Creatinine Ratio 16.7 Glucose 132 H (74-106) mg/dL Lactate 3.1 H* 1.2 (0.4-2.0) mmol/L Calcium 10.0 (8.5-10.1) mg/dL Troponin I High Sens 15.2 14.3 (4.0-51.3) pg/mL NT-Pro-B Natriuret Pep 438.0 (<=1800.0) pg/mL Imaging Data Chest x-ray: Radiologist's impression: ITS Impressions Chest X-Ray 02/01/25 12:58 IMPRESSION: There is a 3.8 cm masslike density in the right suprahilar region. Interstitial prominence is noted bilaterally. Impression dictated by: Louie Barney M.D. 02/01/2025 1:38 PM Dictation Location: [place] [address] Electronically authenticated by: [id number] Y Date: 02/01/2025 13:38 ECG Data Attestation: I personally reviewed and interpreted this ECG as follows: ECG interpretation date: 02/01/25 ECG interpretation time: 13:15 Prior ECG tracings: available for review (Present from yesterday's visit at the ED in [place]. She shows sinus tachycardia with right atrial enlargement.) Interpretation: Patient's EKG is a sinus rhythm. Heart rate of 84 bpm, MA interval 152, QRS of 74, QT/QTc of 356/397. She has nonspecific T wave abnormalities flattening I have reviewed the past medical, family, and social history sections including the medications and allergies listed in the above medical record. This chart has been completed using [email or web address] Dictation Software Electronically signed by: Lobito Jones PA-C V5 and V6 and aVF. Possible right atrial enlargement. This is also present on her previous EKG as noted above. There is no acute changes from yesterday's EKG. Critical Care Time Critical Care Time Critical Care Time: Yes Total Critical Care Time: 30 Attestation: Critical care 30 minutes separate of billable procedures due to diagnosis of sepsis with multiple consultations, evaluation of old medical records, and direct patient care. Discharge Plan Discharge Chief Complaint: Shortness of Breath/Dyspnea Clinical Impression: Acute exacerbation of chronic obstructive pulmonary disease, History of renal failure Pneumonia Qualifiers: Pneumonia type: due to unspecified organism Laterality: unspecified laterality Lung location: unspecified part of lung Qualified Code(s): J18.9 - Pneumonia, unspecified organism Sepsis Qualifiers: Sepsis type: sepsis due to unspecified organism Sepsis acute organ dysfunction status: without acute organ dysfunction Qualified Code(s): A41.9 - Sepsis, unspecified organism Patient Disposition: Admitted as Observation Time of Disposition Decision: 15:00 Condition: Good Discharge Date/Time: 02/01/25 16:38
[2025-02-01 15:26] LABS: Lactate/Lactic Acid 1.2 mmol/L (0.4-2.0)
[2025-02-01 17:18] LABS: Glucose Urine UA >=1000 mg/dL (NEGATIVE)
[2025-02-01 17:31] LABS: Cast Seen? NONE SEEN #/LPF (NONE SEEN); Crystals Seen? None Seen #/HPF (None Seen); Urine Culture Indicated NO
[2025-02-01 17:44] LABS: Cannabinoid Screen Urine POSITIVE (NEGATIVE); Methamphetamines Screen Urine NEGATIVE (NEGATIVE)
[2025-02-01 17:45] LABS: Tricyclic Antidepressant Urine NEGATIVE (NEGATIVE)
--- NOTE | 2025-02-01 18:08 | PM.HP ---
HPI H&P: HPI History of Present Illness Chief complaint: PNEUMONIA ACUTE COPD SEPSIS RENAL FAILURE Narrative: This is a 74-year-old woman who came to the emergency room here at [facility] today complaining of pain wrapping around the left side of her ribs. She was having an ax breaths of cough of thick yellow sputum. She was fatigued. In the ER her white blood count was 18. Her lactic acid was high at 3.1. After some IV fluids this improved to 1.2. Her respiratory rate was high at 26 to 34 breaths/min. She had a chest x-ray that shows a roundish area in the right suprahilar region of infiltrate but also some hazy changes in the bases of the lungs bilaterally. Blood cultures were taken. It turns out that yesterday the patient had a heart rate of 200 bpm. She says that the ambulance came. She describes them giving her adenosine and slowing the heart rate down. They drove her to the hospital in [place]. She said that she waited for a long time in the hospital in [place] and they tomas some blood work and then gave her no treatment and eventually discharged her home. In our ER today they got information from [place] and indicated the patient's white blood count was 16 in the [place] ER yesterday, but there was no x-rays of her chest done in the [place] ER yesterday. When I see the patient after her admission to room 214 she says that she is feeling much better. The strange pains wrapping around her ribs under rib cage in the back to the side on the left side are gone. She does have a deep and harsh and thick cough. She said that she had that cough at home for few days. She was beginning to feel lightheaded and fatigued and not thinking correctly. She says that she is feeling much better now after getting the steroids in the emergency room earlier today. She has been texting with family members to have them bring in a list of her home medications. She admits to a history of COPD and kidney illness but denies any other chronic medical issues and denies any surgeries. Social history: She told the admitting nurse that she had done some crack cocaine about a week ago. A drug screen was just done in the patient is positive for opiates, cocaine and cannabis. The patient does admit to occasional use of cannabis she said that she uses cocaine just rarely because normally she does not have much money for it. She denied using opiates at all and says that she has never used heroin or never injected drugs. She does smoke and about 2 cigarettes/day. She says that she does not drink any alcohol. Opioid HPI Opioid Management Most Recent Pain and Opioid Data: Last Pain Assessment Today, 16:58 Last ORT Total Score 4 Today, 16:58 Last ORT Risk Category Moderate Risk Today, 16:58 Ur Phencyclidine Scrn, (NEGATIVE) Negative Today, 17:00 Review of Systems ROS Narrative A 10 point review of systems was completed and is negative except as documented elsewhere in this history of present illness and this H&P. [facility] Medical History (Updated 02/01/25 @ 18:14 by TONY POOLE) Transient cerebral ischemia ?G45.9 - Transient cerebral ischemic attack, unspecified (ICD-10) Osteoporosis ?M81.0 - Age-related osteoporosis without current pathological fracture (ICD-10) Hypokalemia ?E87.6 - Hypokalemia (ICD-10) Dyslipidemia ?E78.5 - Hyperlipidemia, unspecified (ICD-10) Dyslipidemia (high LDL; low HDL) ?E78.5 - Hyperlipidemia, unspecified (ICD-10) Carotid artery stenosis ?I65.29 - Occlusion and stenosis of unspecified carotid artery (ICD-10) Carpal tunnel syndrome ?G56.00 - Carpal tunnel syndrome, unspecified upper limb (ICD-10) Acid reflux disease ?K21.9 - Gastro-esophageal reflux disease without esophagitis (ICD-10) SVT (supraventricular tachycardia) ?I47.10 - Supraventricular tachycardia, unspecified (ICD-10) Family History Father Family history of cancer Brother Family history of cancer Mother Family history of diabetes mellitus Family history of hypertension Social History Within the past year, how often did you have a drink containing alcohol: monthly or less Within the past year, how many standard drinks containing alcohol did you have on a typical day: 1 or 2 Within the past year, how often did you have six or more drinks on one occasion: never Total score: 0 Score interpretation: A score less than 3 is consistent with normal alcohol consumption. Smoking status: Current every day smoker Non-prescribed substance use: cannabis (any form) and crack/cocaine Previous occupational history: retired Highest level of school completed/degree received: 11th grade Little interest or pleasure in doing things: not at all Feeling down, depressed, or hopeless: not at all Feel stressed/tense/nervous/anxious/difficulty sleeping: not at all Meds Home Medications and Allergies Home Medications ?Medication ?Instructions ?Recorded ?Confirmed ?Type clopidogrel 75 mg tablet 75 mg PO DAILY 04/15/23 02/01/25 History lisinopril 20 mg tablet 20 mg PO DAILY 04/15/23 02/01/25 History naproxen 375 mg tablet 375 mg PO Q12H 04/15/23 02/01/25 History tizanidine 4 mg tablet 4 mg PO Q12H PRN muscle spasticity 04/15/23 02/01/25 History furosemide 20 mg tablet 20 mg PO DAILY 02/01/25 02/01/25 History potassium chloride 10 mEq 10 meq PO DAILY 02/01/25 02/01/25 History tablet,extended release(part/cryst) Allergies Allergy/AdvReac Type Severity Reaction Status Date / Time ibuprofen Allergy Intermediate Rash Verified 02/01/25 12:07 Penicillins AdvReac Intermediate Unknown Verified 02/01/25 12:07 Exam Narrative Exam Narrative: General: Lying in bed awake and alert but with a very thick deep and mucoid cough. She is able to expectorate some of the sputum. Eyes: EOMI. PERRLA. No scleral icterus. Nose: Nose appears to be normal externally. I do not see any perforation. Mouth: Mucous membranes are somewhat dry. Tongue is in the midline. Neck: Thyroid is smooth. No lymphadenopathy. Psychiatric: Pleasant interview and bright demeanor. Pulmonary: Very slight wheezing throughout all lung barfield. Some crackles that I hear in the left base. Difficult to auscultate any crackles in the middle on the right lung. Cardiac: Regular rate and rhythm to auscultation. No murmurs auscultation. GI: Ab soft, normal bowel sounds to auscultation throughout. Lower extremities: No pitting edema in ankles bilaterally. Skin: Skin is warm dry well-perfused and I do not see any rashes. Constitutional Vital Signs, click to edit/add: Last Vital Signs Temp 98.0 F 02/01/25 16:58 Pulse 62 02/01/25 16:58 Resp 18 02/01/25 16:58 BP 177/79 H 02/01/25 16:58 Pulse Ox 99 02/01/25 16:58 O2 Del Method Room Air 02/01/25 16:58 Results Labs Labs: Short CBC 02/01/25 Range/Units 13:10 WBC 18.1 H (4.0-11.0) 10^3/uL Hgb 15.0 (12.0-16.0) g/dL Hct 44.1 (36.0-48.0) % Plt Count 282 (150-450) 10^3/uL BMP 02/01/25 13:10 Sodium 137 Potassium 4.9 Chloride 100 Carbon Dioxide 27.2 BUN 23.0 H Creatinine 1.38 H Glucose 132 H Calcium 10.0 Urine 02/01/25 Range/Units 17:00 Urine Color Yellow (YELLOW) Urine Clarity Clear (CLEAR) Urine pH 6.0 (5.0-9.0) Ur Specific [place] 1.010 (1.005-1.025) Urine Protein Trace (NEG/TRACE) mg/dL Urine Glucose (UA) >=1000 A (NEGATIVE) mg/dL Assessment and Plan Assessment and Plan (1) Pneumonia: Qualifiers: Laterality: unspecified laterality Lung location: unspecified part of lung Pneumonia type: due to unspecified organism Qualified Code(s): J18.9 - Pneumonia, unspecified organism (2) Sepsis: Qualifiers: Sepsis type: sepsis due to unspecified organism Sepsis acute organ dysfunction status: without acute organ dysfunction Qualified Code(s): A41.9 - Sepsis, unspecified organism (3) COPD (chronic obstructive pulmonary disease): Qualifiers: COPD type: chronic bronchitis Chronic bronchitis type: mucopurulent Qualified Code(s): J41.1 - Mucopurulent chronic bronchitis Plan Assessment: Multilobar bacterial pneumonia, with a high white blood count of 18.1, and a lactic acid high at 3.1 and tachypnea. COPD at baseline. Does have a nebulizer machine at home and is carrying a metered-dose inhaler of albuterol in her purse. Episode yesterday of supraventricular tachycardia, apparently treated successfully by EMS in the field with IV adenosine. Intermittent cocaine use. Positivity for THC and opiates. Concern for sepsis on the basis of elevated lactic acid. So far no evidence of acute endorgan dysfunction. For pneumonia her curb 65 score is 3 points on the basis of elevated BUN, high respiratory rate, and age greater than 65. This is considered a severe risk group and hence inpatient hospital status is appropriate. Plan: Hospital admission, inpatient status. Continue IV Rocephin 1 g every 24 hours. Starting Zithromax 500 mg p.o. daily. DuoNebs scheduled 4 times a day. Albuterol unit dose every 4 hours as needed. Guaifenesin as mucolytic. Regular diet. Recheck labs in the morning. DVT prophylaxis with Lovenox 40 mg subcutaneously daily. Blood cultures were taken by the emergency room. I have ordered a sputum culture but uncertain if the patient will be able to actually expectorate the sputum.
[2025-02-01] MEDS: ENOXAPARIN SODIUM 40 MG/0.4 ML SYRINGE SUBQ (20:29)
[2025-02-01] MEDS: ACETAMINOPHEN 325 MG TABLET 650 MG PO (20:30)
[2025-02-01] MEDS: AZITHROMYCIN 250 MG TABLET 500 MG PO (20:30)
[2025-02-01] MEDS: ZOLPIDEM TARTRATE 10 MG TABLET PO (22:14)
[2025-02-02] VITALS (14 sets, daily range): BP systolic 115–178; BP diastolic 61–84; PULSE 53–170; TEMP 36.4–37.1; O2SAT 96–100
[2025-02-02] MEDS: IPRATROPIUM/ALBUTEROL SULFATE 3 ML AMPUL.NEB IH ×4 (05:59→20:38)
[2025-02-02 06:15] LABS: Hematocrit 40.1 % (36.0-48.0); Hemoglobin 13.6 g/dL (12.0-16.0); Immature Granulocytes Abs Auto 0.06 10^3/uL (0.00-0.03); Immature Granulocytes Pct Auto 0.4 % (0.0-0.5); Lymphocytes Absolute Auto 1.2 10^3/uL (1.2-3.8); Mean Corpuscular HGB Conc 33.9 g/dL (29.9-35.2); Mean Corpuscular Hemoglobin 30.4 pg (26.7-34.0); Mean Corpuscular Volume 89.5 fL (81.0-99.0); Platelet Count 278 10^3/uL (150-450); Red Blood Count 4.48 10^6/uL (4.20-5.40); White Blood Count 14.8 10^3/uL (4.0-11.0)
[2025-02-02 06:29] LABS: Anion Gap 13.0; Blood Urea Nitrogen 19.0 mg/dL (7.0-18.0); Calcium 9.6 mg/dL (8.5-10.1); Carbon Dioxide 26.5 mmol/L (21.0-32.0); Chloride 103 mmol/L (98-107); Estimated GFR (African America >60 (>=60 mL/min/1.73m^2); Estimated GFR (Non-African Ame 56 (>=60 mL/min/1.73m^2); Glucose 117 mg/dL (74-106); Magnesium 1.8 mg/dL (1.8-2.4); Potassium 5.5 mmol/L (3.5-5.1); Sodium 137 mmol/L (136-145)
[2025-02-02] MEDS: POTASSIUM CHLORIDE 10 MEQ ER TABLET PO (08:12)
[2025-02-02] MEDS: LISINOPRIL 20 MG TABLET PO (08:12)
[2025-02-02] MEDS: AZITHROMYCIN 250 MG TABLET 500 MG PO (08:12)
[2025-02-02] MEDS: FUROSEMIDE 20 MG TABLET PO (08:12)
[2025-02-02] MEDS: CLOPIDOGREL BISULFATE 75 MG TABLET PO (08:12)
[2025-02-02] MEDS: 0.9 % SODIUM CHLORIDE 250 ML 10.417 ML IV (08:35)
[2025-02-02] MEDS: MAGNESIUM SULFATE IN WATER 2 GM/50 ML PREMIX IV (08:35)
--- NOTE | 2025-02-02 08:55 | SWNOTE1 ---
SW met with pt to discuss dc needs and positive drug screen. Pt normally lives at home by herself, but her daughter is living with her now until she finds her own place. She voiced that it is going alright, they had a few blow outs, but they are at a good place now. Pt has an upstairs, but stays on the bottom floor and has everything she needs down on first floor. Pt has a walker, but only uses it when she is out of the home. Pt voiced she does have [facility] through [facility]. She stated her grand-daughter is her aide through [employer]. She comes Mon-Sat 5pm-7pm to assist. She would like to resume that at discharge. SW did ask about the positive drug screen for Cocaine, THC, and Opiates. Pt does admit to using Cocaine about a week ago and THC nearly daily. She voiced it is for recreational purposes. Pt stated she does plan to stop using. SW offered to bring her resources, pt declined and voiced she has the resources she needs and her daughter to assist as well. At this time pt has no further questions/concerns. SW to follow as needed. SW called [facility] and pt does have services through them from [employer] program. She does have an aide coming in a few hours nearly every day. [facility] would like updates and will need [facility] to resume care.
--- NOTE | 2025-02-02 09:05 | CM.NOTE ---
Rounds made with Dr. Nava, discussed with pt reason for admission, lab work,x-ray findings and plan of care. Pt will get CT chest today. No discharge today. Inpatient status.
[2025-02-02] MEDS: ACETAMINOPHEN 325 MG TABLET 650 MG PO (09:23)
--- NOTE | 2025-02-02 09:38 | CT_ITS ---
The [address] [address] Patient Name: KATIE MONTERO MRN: [id number] date: 1950 Sex: F Assigned Patient Location: [place] Current Patient Location: Accession/Order Number: [id number] Exam Date: 02/02/2025 10:11 Report Date: 02/02/2025 10:13 At the request of: MELCHOR COOPER DO Procedure: CT chest wo con CT CHEST WITHOUT IV CONTRAST: CLINICAL HISTORY: Abnormal x-ray. COMPARISON: Chest x-ray 02/01/2025 TECHNIQUE: Spiral images were obtained through the chest without IV contrast. This CT exam was performed using one or more following dose reduction techniques: Automated exposure control, adjustment of the mA and/or kV according to patient size, or use of iterative reconstruction technique. FINDINGS: Mediastinum:Thoracic aorta appears normal in caliber. Pulmonary trunk appears nondilated. No pleural effusion. Calcified mediastinal and left hilar lymph nodes. The esophagus is grossly unremarkable. Lungs:Emphysematous changes. Bibasilar scarring/atelectasis. No pneumothorax or pleural effusion. A mass is noted involving the right upper lobe measuring approximately 3.9 x 2.9 x 3.1 cm. Abd:No acute findings. Soft tissues/Bones: No acute findings. Osseous structures demonstrate degenerative change. CT/CT chest wo con IMPRESSION: Mass right upper lobe 3.9 x 2.9 x 3.1 cm corresponding to the abnormality seen on chest x-ray. Malignancy is suspected and further evaluation with PET/CT and tissue sampling is recommended. Impression dictated by: Kishan Michelle Jr., D.O. 02/02/2025 10:13 AM Dictation Location: [place] [address] Electronically authenticated by: [id number] Y Date: 02/02/2025 10:13
[2025-02-02] MEDS: SODIUM ZIRCONIUM CYCLOSILICATE 10 GM POWD.PACK 5 GM PO (10:40)
--- NOTE | 2025-02-02 11:42 | PM.PN ---
Progress Note: Subjective Subjective Interval history: Seen and evaluated this AM, she does endorse feeling better this AM after getting antibiotics since admission. She has been afebrile since admission Exam Constitutional Vital Signs, click to edit/add: Last Vital Signs Temp 97.8 F 02/02/25 11:27 Pulse 77 02/02/25 11:27 Resp 18 02/02/25 11:27 BP 141/75 02/02/25 11:27 Pulse Ox 96 02/02/25 11:27 O2 Del Method Room Air 02/02/25 11:27 Progress Note: Objective Labs Labs: Short CBC 02/01/25 02/02/25 Range/Units 13:10 05:27 WBC 18.1 H 14.8 H (4.0-11.0) 10^3/uL Hgb 15.0 13.6 (12.0-16.0) g/dL Hct 44.1 40.1 (36.0-48.0) % Plt Count 282 278 (150-450) 10^3/uL BMP 02/01/25 02/02/25 13:10 05:27 Sodium 137 137 Potassium 4.9 5.5 H Chloride 100 103 Carbon Dioxide 27.2 26.5 BUN 23.0 H 19.0 H Creatinine 1.38 H 0.97 Glucose 132 H 117 H Calcium 10.0 9.6 Urine 02/01/25 Range/Units 17:00 Urine Color Yellow (YELLOW) Urine Clarity Clear (CLEAR) Urine pH 6.0 (5.0-9.0) Ur Specific [place] 1.010 (1.005-1.025) Urine Protein Trace (NEG/TRACE) mg/dL Urine Glucose (UA) >=1000 A (NEGATIVE) mg/dL Progress Note: A&P Assessment and Plan (1) Pneumonia: Assessment and Plan: ? Continue with antibiotics, ceftriaxone and azithromycin every 24 hours ? DuoNebs as ordered ? Supportive care with cough suppressants ? Your white cell count was initially quite elevated at 18, and is trending down and is 15 today ? Her lactic acid is normalized ? She did receive the 30 cc/kg fluid bolus in the emergency room ? Her chest x-ray shows infiltrate in the right suprahilar region ? She has a notable smoking history of starting at age 12 and has smoked a pack every 2 to 3 days since then. ? Low-dose CT scan without contrast ordered today is consistent with a mass measuring 3.9 x 2.9 x 3.1 cm which is similar to the chest x-ray ? I did speak with pulmonology, given that she is currently being admitted and treated for pneumonia with improvement in her white cell count and her sepsis markers, recommended continuing treatment for pneumonia and will require as repeat CT scan in 4 to 6 weeks to evaluate if this is truly a mass or if it is an infectious etiology. Qualifiers: Laterality: unspecified laterality Lung location: unspecified part of lung Pneumonia type: due to unspecified organism Qualified Code(s): J18.9 - Pneumonia, unspecified organism (2) Sepsis: Assessment and Plan: See above Qualifiers: Sepsis acute organ dysfunction status: without acute organ dysfunction Sepsis type: sepsis due to unspecified organism Qualified Code(s): A41.9 - Sepsis, unspecified organism (3) COPD (chronic obstructive pulmonary disease): Assessment and Plan: Continue DuoNebs as ordered, Qualifiers: COPD type: chronic bronchitis Chronic bronchitis type: mucopurulent Qualified Code(s): J41.1 - Mucopurulent chronic bronchitis (4) Tobacco abuse: Assessment and Plan: ? Patient declined nicotine patch, if she changes her mind please reach out and I will have no problem ordering this for her Plan ? DVT prophylaxis addressed ? Regular diet ? Full code
--- NOTE | 2025-02-02 14:14 | SWNOTE1 ---
Updates sent to [facility].
--- NOTE | 2025-02-02 14:45 | SWNOTE1 ---
I attempted to have pt sign IMM paper, but pt was too upset over interaction with her daughters to sign at this time. SW will stop back in tomorrow.
--- NOTE | 2025-02-02 15:44 | RESP.RT ---
RN notified of increased HR
[2025-02-02] MEDS: METOPROLOL TARTRATE 5 MG/5 ML VIAL IVP (15:58)
--- NOTE | 2025-02-02 16:03 | ECG_ITS ---
[facility] Test Date: 2025-02-02 Pat Name: KATIE MONTERO Department: Room: 2141 Gender: Female [employer]: : 1950 Requested By: [id number] Order Number: [id number] Reading MD: ANNIE LIU M.D. Measurements Intervals [place] Rate: 161 P: VA: QRS: 74 QRSD: 73 T: 91 QT: 274 QTc: 449 Interpretive Statements ATRIAL FLUTTER/TACHYCARDIA WITH RAPID VENTRICULAR RESPONSE MODERATE ST DEPRESSION [0.05+ mV ST DEPRESSION] WARNING: DATA QUALITY MAY AFFECT INTERPRETATION Compared to ECG 02/01/2025 13:14:25 ST (T wave) deviation now present Sinus rhythm no longer present Electronically Signed On 02-02-2025 22:05:13 EDT by ANNIE LIU M.D.
[2025-02-02] MEDS: METOPROLOL TARTRATE 25 MG TABLET PO (20:52)
[2025-02-02] MEDS: NAPROXEN 250 MG TABLET 375 MG PO (20:53)
[2025-02-02] MEDS: ENOXAPARIN SODIUM 40 MG/0.4 ML SYRINGE SUBQ (20:55)
[2025-02-02] MEDS: TIZANIDINE HCL 4 MG TABLET PO (20:55)
[2025-02-02] MEDS: ZOLPIDEM TARTRATE 10 MG TABLET PO (21:00)
[2025-02-03] VITALS (12 sets, daily range): BP systolic 139–152; BP diastolic 66–78; PULSE 52–74; TEMP 36.3–36.6; O2SAT 94–98
[2025-02-03] MEDS: IPRATROPIUM/ALBUTEROL SULFATE 3 ML AMPUL.NEB IH ×2 (04:43→10:59)
[2025-02-03 05:45] LABS: Hematocrit 38.0 % (36.0-48.0); Hemoglobin 13.2 g/dL (12.0-16.0); Mean Corpuscular HGB Conc 34.7 g/dL (29.9-35.2); Mean Corpuscular Hemoglobin 30.9 pg (26.7-34.0); Mean Corpuscular Volume 89.0 fL (81.0-99.0); Platelet Count 288 10^3/uL (150-450); Red Blood Count 4.27 10^6/uL (4.20-5.40); White Blood Count 14.9 10^3/uL (4.0-11.0)
[2025-02-03 05:59] LABS: Anion Gap 13.3; Blood Urea Nitrogen 21.0 mg/dL (7.0-18.0); Calcium 9.4 mg/dL (8.5-10.1); Carbon Dioxide 27.0 mmol/L (21.0-32.0); Chloride 103 mmol/L (98-107); Estimated GFR (African America 56 (>=60 mL/min/1.73m^2); Estimated GFR (Non-African Ame 46 (>=60 mL/min/1.73m^2); Glucose 89 mg/dL (74-106); Magnesium 2.1 mg/dL (1.8-2.4); Potassium 4.3 mmol/L (3.5-5.1); Sodium 139 mmol/L (136-145)
[2025-02-03] MEDS: CLOPIDOGREL BISULFATE 75 MG TABLET PO (09:10)
[2025-02-03] MEDS: FUROSEMIDE 20 MG TABLET PO (09:10)
[2025-02-03] MEDS: AZITHROMYCIN 250 MG TABLET 500 MG PO (09:10)
[2025-02-03] MEDS: LISINOPRIL 20 MG TABLET PO (09:10)
--- NOTE | 2025-02-03 09:30 | CM.NOTE ---
Rounds made with Dr. Rubio, pt will discharge to home today on oral antibiotics. Pt will f/u with PCP and chief passenger ship steward/stewardess. Pt given order for outpatient repeat CT chest.
--- NOTE | 2025-02-03 10:00 | CM.NOTE ---
Out-patient CT order faxed to Centralized scheduling and called scheduling. Pt will need precert and Centralized scheduling will call patient with appt.
--- NOTE | 2025-02-03 10:28 | SWNOTE1 ---
Important Message from Medicare discussed with patient. Pt verbalized understanding and signed paper. Copy placed in chart and original given to pt.
--- NOTE | 2025-02-03 13:45 | CM.NOTE ---
Discussed with pt outpatient CT chest for follow-up. Centralized scheduling will reach out with appointment time. Pt verbaizes understanding.
--- NOTE | 2025-02-03 14:48 | CM.NOTE ---
Unable to schedule Roll Press Operator appointment at discharge d/t referral needing to come from PCP. Spoke with Dr. Rubio and he spoke with pulmonology. No appointment at this time, results of CT scan will go to PCP and f/u if needed with Roll Press Operator. Pt verbalizes understanding.
--- NOTE | 2025-02-03 15:11 | SWNOTE1 ---
Pt is ready for discharge today. [facility]INA faxed over CRF and dc med rec to [facility]. SINA to send dc summary once completed.
--- NOTE | 2025-02-03 15:35 | P.DS_ITS ---
DS: Providers Provider Date of admission: 02/01/25 16:38 Primary care physician: RUSTY MCMAHON DS: Diagnosis Discharge Diagnosis (1) Pneumonia: Qualifiers: Laterality: unspecified laterality Lung location: unspecified part of lung Pneumonia type: due to unspecified organism Qualified Code(s): J18.9 - Pneumonia, unspecified organism (2) Sepsis: Qualifiers: Sepsis acute organ dysfunction status: without acute organ dysfunction Sepsis type: sepsis due to unspecified organism Qualified Code(s): A41.9 - Sepsis, unspecified organism (3) COPD (chronic obstructive pulmonary disease): Qualifiers: COPD type: chronic bronchitis Chronic bronchitis type: mucopurulent Qualified Code(s): J41.1 - Mucopurulent chronic bronchitis (4) Tobacco abuse: DS: Summary Hospital Course Hospital Course: Miss Pruitt is a 74-year-old female who was admitted the hospital the afternoon of February 01 with a chief complaint of shortness of breath, fever chills at home, and productive cough. She was admitted to the hospital with concerns for right pneumonia as her chest x-ray of the emergency room showed right sided infiltrate and her white count was elevated 18. She was started on ceftriaxone and azithromycin for community-acquired pneumonia. She has a fairly significant smoking history of 1 pack every 2 to 3 days from age 12 to current age. She has never had a low-dose CT scan before. Given the specific and smoking history and the presentation of her infiltrate on chest x-ray, I did order a CT scan of the chest without contrast which was notable for mass versus infiltrate/infection. I did speak to pulmonology indirectly who got a chance to review the CT scan given that she presented with fever chills, cough, and elevated white count which was improving with antibiotics, recommended completing a course of antibiotics and repeating the CT scan in 4 to 6 weeks. At that point in time if the infiltrate has resolved and then there will be no further need for follow-up however if the infiltrate persists and there is likely a mass, then there will be a need for a pulmonology referral/follow-up for further guidance on her workup. I did discuss smoking cessation with her while she was admitted, she did improve from a clinical standpoint, her labs improved and she was subsequently dis charged home the afternoon of February 03 with a prescription for Augmentin and azithromycin. She did receive a physical copy of repeat CT scan with contrast of her chest. She will have follow-up with her PCP in the meantime. Time spent discussing smoking cessation with patient: more than 10 minutes Time Spent with Patient Time attestation: Total time spent providing and/or coordinating discharge services: Exam Constitutional Vital Signs, click to edit/add: Last Vital Signs Temp 97.4 F L 02/03/25 09:00 Pulse 63 02/03/25 14:01 Resp 20 02/03/25 11:01 BP 152/78 H 02/03/25 09:00 Pulse Ox 95 02/03/25 11:01 O2 Del Method Room Air 02/03/25 11:01 DS: Data Data Completed and Pending Labs on day of discharge: Labs from last 24 hours 02/03/25 05:22 WBC 14.9 H RBC 4.27 Hgb 13.2 Hct 38.0 MCV 89.0 MCH 30.9 MCHC 34.7 RDW 14.2 Plt Count 288 MPV 9.3 L Sodium 139 Potassium 4.3 Chloride 103 Carbon Dioxide 27.0 Anion Gap 13.3 BUN 21.0 H Creatinine 1.15 H Est GFR ( Amer) 56 L Est GFR (Non-Af Amer) 46 L BUN/Creatinine Ratio 18.3 Glucose 89 Calcium 9.4 Magnesium 2.1 Discharge Plan Discharge Disposition: Home, Self-Care Condition: Good Discharge Medications: New guaifenesin [Mucus Relief ER] 600 mg Tablet Extended Release 12hr 1,200 mg PO BID 10 Days Qty: 40 0RF metoprolol tartrate 25 mg tablet 25 mg PO Q12H PRN (Reason: Palpitations) 5 Days Qty: 10 0RF levofloxacin 750 mg tablet 750 mg PO DAILY 3 Days Qty: 3 0RF Continued tizanidine 4 mg tablet 4 mg PO Q12H PRN (Reason: muscle spasticity) naproxen 375 mg tablet 375 mg PO Q12H lisinopril 20 mg tablet 20 mg PO DAILY clopidogrel 75 mg tablet 75 mg PO DAILY furosemide 20 mg tablet 20 mg PO DAILY potassium chloride 10 mEq tablet,ER particles/crystals 10 meq PO DAILY rosuvastatin [Crestor] 20 mg tablet 20 mg PO .QD pantoprazole 40 mg tablet,delayed release (DR/EC) 40 mg PO .ACB polyethylene glycol 3350 17 gram/dose powder 17 g PO DAILY Ensure Liquid 1 ea PO .QD Activity: return to work once cleared by your PCP/specialist Diet: regular diet Print Language: Kazakh Patient Instructions: COPD (Chronic Obstructive Pulmonary Disease) (DC), Pneumonia (DC) Mold Filler Plastic Dolls/Byproducts Supervisor Instructions: Radiology order given to patient for out-patient CT scan. Centralized scheduling will call patient with appointment. Results will be sent to Dr. Mcmahon. [facility] Forms: Portal Instructions Follow Up Appointments: 02/07 @ 3pm with Dr. Mcmahon [address], [place] [phone] 02/15 @ 8:30am (8:15 arrival time) with [facility] [address], [address], [place] [phone]
--- NOTE | 2025-02-04 08:50 | SWNOTE1 ---
[facility] faxed dc summary to [facility] .
--- NOTE | 2025-02-04 13:01 | SWNOTE1 ---
S[facility] received a call from Junie at [facility] and she is the case repairer for pt. She requested dc summary to be sent to [facility]. SINA faxed dc summary for continuation of care.
--- NOTE | 2025-02-04 14:19 | CM.DCFOLLOWU ---
Person spoke with:patient How are you feeling?doing well, still some pain How is your pain? moderate, advised to monitor and to return to ED if symptoms worsen Did you understand your discharge instructions?yes Do you have any questions about your discharge instructions?no Were you given any prescriptions at discharge?yes Were you able to get your prescriptions filled?yes Do you understand how to take your medications as ordered?yes Do you have any questions about your follow up appointment and do you plan to keep your follow up appointment? no questions, reviewed follow ups with patient Is there anything else that you would like to discuss?no Questions/Comments/Concerns/Other:none
== END 2025-02-03 15:36 | disposition home health service (06) | DRG 871 ==
LOC: ER 15:52 → MS 16:45
PROVIDERS: Physician Assistant; Admitting Provider Hospitalist; Emergency Provider Emergency Medicine; PCP Family Medicine; Visit Provider Internal Medicine
DX: A41.9 Sepsis, unspecified organism (principal); J15.9 Unspecified bacterial pneumonia; J44.1 Chronic obstructive pulmonary disease with (acute) exacerbation; J44.0 Chronic obstructive pulmonary disease with (acute) lower respiratory infection; E87.20 Acidosis, unspecified; F17.210 Nicotine dependence, cigarettes, uncomplicated; Z79.02 Long term (current) use of antithrombotics/antiplatelets; Z79.1 Long term (current) use of non-steroidal anti-inflammatories (NSAID); Z79.899 Other long term (current) drug therapy; Z86.73 Personal history of transient ischemic attack (TIA), and cerebral infarction without residual deficits; Z88.0 Allergy status to penicillin; Z82.49 Family history of ischemic heart disease and other diseases of the circulatory system
CPT/HCPCS: 36415; 71045; 71250; 80048; 80307; 81001; 83605; 83735; 83880; 84484; 85025; 85027; 87040; 87070; 87205; 93005; 94640; 96365; 96375; 99291; 99406; J0696; J1650; J2270; J2919; J3475

== ENCOUNTER 2025-02-09 22:22 | Emergency (ER) | payer MEDICARE, MEDICAID, SELFPAY ==
[2025-02-09] VITALS (9 sets, daily range): BP systolic 137–147; BP diastolic 47–63; PULSE 69–75; TEMP 36.6; O2SAT 97–100; BMI 20.1
--- NOTE | 2025-02-09 22:31 | ED.GENADUL1 ---
HPI HPI - General Adult General Chief complaint: Shortness of Breath/Dyspnea Stated complaint: RIB PAIN Time Seen by Provider: 02/09/25 22:26 History of Present Illness HPI narrative: patient states she was recently admitted here with pneumonia. History of COPD. now presents complaining of right sided chest pain. States she was cooking when the pain started. Pain worsens with cough or change in position. No fever . No nausea or abdominal pain Related Data Home Medications ?Medication ?Instructions ?Recorded ?Confirmed clopidogrel 75 mg tablet 75 mg PO DAILY 04/15/23 02/09/25 lisinopril 20 mg tablet 20 mg PO DAILY 04/15/23 02/09/25 naproxen 375 mg tablet 375 mg PO Q12H 04/15/23 02/01/25 tizanidine 4 mg tablet 4 mg PO Q12H PRN muscle spasticity 04/15/23 02/09/25 furosemide 20 mg tablet 20 mg PO DAILY 02/01/25 02/09/25 potassium chloride 10 mEq 10 meq PO DAILY 02/01/25 02/09/25 tablet,extended release(part/cryst) food supplemt, lactose-reduced 1 ea PO .QD 02/02/25 02/09/25 (Ensure oral liquid) pantoprazole 40 mg tablet,delayed 40 mg PO .ACB 02/02/25 02/09/25 release polyethylene glycol 3350 17 17 g PO DAILY 02/02/25 02/09/25 gram/dose oral powder rosuvastatin 20 mg tablet (Crestor) 20 mg PO .QD 02/02/25 02/02/25 budesonide 160 mcg-glycopyr 9 2 inh inhalation DAILY 02/09/25 02/09/25 mcg-formot 4.8 mcg/actuation HFA inhaler (Breztri Aerosphere) dapagliflozin propanediol 10 mg 10 mg PO DAILY 02/09/25 02/09/25 tablet (Farxiga) hydrocodone 5 mg-acetaminophen 325 2 tab PO TID PRN pain 02/10/25 02/10/25 mg tablet Previous Rx's ?Medication ?Instructions ?Recorded guaifenesin 600 mg tablet, 1,200 mg (2 x 600 mg) PO BID 10 02/03/25 extended release 12 hr (Mucus days #40 tabs Relief ER) metoprolol tartrate 25 mg tablet 25 mg PO Q12H PRN Palpitations 5 02/03/25 days #10 tabs Allergies Allergy/AdvReac Type Severity Reaction Status Date / Time ibuprofen Allergy Intermediate Rash Verified 02/09/25 22:32 Penicillins AdvReac Intermediate Unknown Verified 02/09/25 22:32 Opioid HPI Opioid Management Most Recent Opioid Data: Last Pain Scale 9 02/09/25, 22:39 Last Pain Assessment 02/03/25, 01:21 Last ORT Total Score 4 02/01/25, 16:58 Last ORT Risk Category Moderate Risk 02/01/25, 16:58 Ur Phencyclidine Scrn, (NEGATIVE) Negative 02/01/25, 17:00 Review of Systems ROS Status of ROS 10 or more systems reviewed and unremarkable except as noted in history and below [facility] Medical History (Updated 02/10/25 @ 00:44 by Lalit Owen MD) Tobacco abuse ?Z72.0 - Tobacco use (ICD-10) COPD (chronic obstructive pulmonary disease) ?J44.9 - Chronic obstructive pulmonary disease, unspecified (ICD-10) History of renal failure ?Z87.448 - Personal history of other diseases of urinary system (ICD-10) Pneumonia ?J18.9 - Pneumonia, unspecified organism (ICD-10) Sepsis ?A41.9 - Sepsis, unspecified organism (ICD-10) Acute exacerbation of chronic obstructive pulmonary disease ?J44.1 - Chronic obstructive pulmonary disease with (acute) exacerbation (ICD-10) Transient cerebral ischemia ?G45.9 - Transient cerebral ischemic attack, unspecified (ICD-10) Osteoporosis ?M81.0 - Age-related osteoporosis without current pathological fracture (ICD-10) Hypokalemia ?E87.6 - Hypokalemia (ICD-10) Dyslipidemia ?E78.5 - Hyperlipidemia, unspecified (ICD-10) Dyslipidemia (high LDL; low HDL) ?E78.5 - Hyperlipidemia, unspecified (ICD-10) Carotid artery stenosis ?I65.29 - Occlusion and stenosis of unspecified carotid artery (ICD-10) Carpal tunnel syndrome ?G56.00 - Carpal tunnel syndrome, unspecified upper limb (ICD-10) Acid reflux disease ?K21.9 - Gastro-esophageal reflux disease without esophagitis (ICD-10) SVT (supraventricular tachycardia) ?I47.10 - Supraventricular tachycardia, unspecified (ICD-10) Family History Father Family history of cancer Brother Family history of cancer Mother Family history of diabetes mellitus Family history of hypertension Social History Within the past year, how often did you have a drink containing alcohol: monthly or less Within the past year, how many standard drinks containing alcohol did you have on a typical day: 1 or 2 Within the past year, how often did you have six or more drinks on one occasion: never Total score: 0 Score interpretation: A score less than 3 is consistent with normal alcohol consumption. Smoking status: Current every day smoker Non-prescribed substance use: cannabis (any form) and crack/cocaine Previous occupational history: retired Highest level of school completed/degree received: 11th grade Little interest or pleasure in doing things: not at all Feeling down, depressed, or hopeless: not at all Feel stressed/tense/nervous/anxious/difficulty sleeping: not at all Exam Constitutional Vital Signs, click to edit/add: Last Vital Signs Temp 97.9 F 02/09/25 22:28 Pulse 73 02/09/25 23:30 Resp 26 H 02/09/25 23:30 BP 147/63 H 02/09/25 23:30 Pulse Ox 98 02/10/25 00:35 O2 Del Method Room Air 02/10/25 00:35 Common normals: no apparent distress, average body habitus, oriented x3, no limitations, healthy appearing, alert and well nourished [facility] Common normals: normocephalic and head/scalp atraumatic Eye Common normals: EOMs intact bilaterally and conjunctivae normal Chest Other: right superior midaxillary chest wall tenderness Respiratory Common normals: normal respiratory effort Other: patient resist deep breath as pain worsens Cardio Common normals: regular rate, regular rhythm, S1 normal heart sound and S2 normal heart sound GI Common normals: Normal to inspection, nondistended, normoactive bowel sounds present, soft to palpation and non-tender Extremity Common normals: normal to inspection and full ROM Neuro Common normals: oriented x3, CN's II-XII intact bilaterally, moves all extremities and no focal motor deficits Psych Appearance: grossly normal Course Vital Signs Vital signs: Vital Signs Temperature 97.9 F 02/09/25 22:28 Pulse Rate 73 02/09/25 22:28 Respiratory Rate 16 02/09/25 22:28 Blood Pressure 137/47 L 02/09/25 22:28 Pulse Oximetry 100 02/09/25 22:28 Oxygen Delivery Method Room Air 02/09/25 22:28 Temperature 97.9 F 02/09/25 22:28 Pulse Rate 73 02/09/25 23:30 Respiratory Rate 26 H 02/09/25 23:30 Blood Pressure 147/63 H 02/09/25 23:30 Pulse Oximetry 98 02/10/25 00:35 Oxygen Delivery Method Room Air 02/10/25 00:35 Medical Decision Making MDM Narrative Medical decision making narrative: recent hospital admission last week. Found to have mass right chest. malignancy suspected. Patient now returns complaining of acute onset of right sided chest pain. cxray re demonstrates right chest mass. No pneumonia. d-dimer and troponin neg. Patient does have emphysema and became short of breath when walking to the bathroom. This improved after duoneb. Medicated with morphine for her pain and advised to follow up with pulmonary. Provided a prescription of [place] 5/325 # 15 Lab Data Labs: Lab Results 02/09/25 Range/Units 22:47 WBC 15.3 H (4.0-11.0) 10^3/uL RBC 3.94 L (4.20-5.40) 10^6/uL Hgb 12.1 (12.0-16.0) g/dL Hct 35.5 L (36.0-48.0) % MCV 90.1 (81.0-99.0) fL MCH 30.7 (26.7-34.0) pg MCHC 34.1 (29.9-35.2) g/dL RDW 14.8 (11.0-15.0) % Plt Count 296 (150-450) 10^3/uL MPV 8.7 L (9.5-13.5) fL Seg Neuts % (Manual) 66.0 (43.0-75.0) Lymphocytes % (Manual) 11.0 L (20.5-60.0) % Atypical Lymphs % (Man) 7.0 % Monocytes % (Manual) 10.0 (1.7-12.0) % Eosinophils % (Manual) 6.0 (0.9-7.0) % Basophils % (Manual) 0.0 L (0.2-2.0) % Neutrophils # (Manual) 10.09 H (1.4-6.5) 10^3/uL Lymphocytes # (Manual) 1.68 (1.20-3.80) 10^3/uL Abs Atypical Lymphs Man 1.07 Monocytes # (Manual) 1.53 H (0.30-0.80) 10^3/uL Eosinophils # (Manual) 0.91 H (0.00-0.70) 10^3/uL Basophils # (Manual) 0.00 (0.00-0.10) 10^3/uL D-Dimer 0.42 (<=0.59) mg/L FEU Sodium 141 (136-145) mmol/L Potassium 4.2 (3.5-5.1) mmol/L Chloride 105 (98-107) mmol/L Carbon Dioxide 31.0 (21.0-32.0) mmol/L Anion Gap 9.2 BUN 39.0 H (7.0-18.0) mg/dL Creatinine 1.20 H (0.55-1.02) mg/dL Est GFR ( Amer) 53 L (>=60 mL/min/1.73m^2) Est GFR (Non-Af Amer) 44 L (>=60 mL/min/1.73m^2) BUN/Creatinine Ratio 32.5 Glucose 102 (74-106) mg/dL Calcium 9.1 (8.5-10.1) mg/dL Total Bilirubin 0.4 (0.2-1.0) mg/dL AST 23 (15-37) U/L ALT 30 (14-59) U/L Alkaline Phosphatase 77 (46-116) U/L Troponin I High Sens 21.3 (4.0-51.3) pg/mL Total Protein 6.9 (6.4-8.2) g/dL Albumin 2.9 L (3.4-5.0) g/dL Globulin 4.0 g/dL Albumin/Globulin Ratio 0.7 Lipase 57.0 (16.0-77.0) U/L Imaging Data Chest x-ray: Radiologist's impression: ITS Impressions Chest X-Ray 02/09/25 22:34 IMPRESSION: Redemonstration of right upper lobe mass. Concern for malignancy. No consolidation.. Impression dictated by: Kemar Devi M.D. 02/09/2025 11:05 PM Dictation Location: [place] [address] Electronically authenticated by: [id number] Y Date: 02/09/2025 23:05 Discharge Plan Discharge Chief Complaint: Shortness of Breath/Dyspnea Clinical Impression: Lung mass Patient Disposition: Home, Self-Care Prescriptions / Home Meds: No Action dapagliflozin propanediol [Farxiga] 10 mg tablet 10 mg PO DAILY Breztri Aerosphere 160-9-4.8 mcg/actuation HFA aerosol inhaler 2 inh INHALATION DAILY hydrocodone-acetaminophen 5-325 mg tablet 2 tab PO TID PRN (Reason: pain) Patient Comments: started on 02/10/25 tizanidine 4 mg tablet 4 mg PO Q12H PRN (Reason: muscle spasticity) naproxen 375 mg tablet 375 mg PO Q12H lisinopril 20 mg tablet 20 mg PO DAILY clopidogrel 75 mg tablet 75 mg PO DAILY furosemide 20 mg tablet 20 mg PO DAILY potassium chloride 10 mEq tablet,ER particles/crystals 10 meq PO DAILY rosuvastatin [Crestor] 20 mg tablet 20 mg PO .QD pantoprazole 40 mg tablet,delayed release (DR/EC) 40 mg PO .ACB polyethylene glycol 3350 17 gram/dose powder 17 g PO DAILY Ensure Liquid 1 ea PO .QD guaifenesin [Mucus Relief ER] 600 mg Tablet Extended Release 12hr 1,200 mg PO BID 10 Days Qty: 40 0RF metoprolol tartrate 25 mg tablet 25 mg PO Q12H PRN (Reason: Palpitations) 5 Days Qty: 10 0RF Print Language: Mozambican Instructions: Noncardiac Chest Pain (ED) Additional Instructions: follow up with your doctor this week for referral to senior qa analyst Referrals: RUSTY CAGLE [Primary Care Provider, Family Practice] - 1 week
--- NOTE | 2025-02-09 22:34 | XR_ITS ---
[address] [address] Patient Name: KATIE MONTERO MRN: [id number] date: 1950 Sex: F Assigned Patient Location: ED.MAIN Current Patient Location: ED.MAIN Accession/Order Number: [id number] Exam Date: 02/09/2025 22:59 Report Date: 02/09/2025 23:05 At the request of: THIERNO KNOX MD Procedure: XR chest 1V Plain film chest Single view HISTORY: Chest pain COMPARISON: CT chest 02/02/2025 FINDINGS: SUPPORT DEVICES: None POSTSURGICAL CHANGES: None HEART: Within normal limits PULMONARY ELLIOTT: Within normal limits MEDIASTINUM: Unremarkable LUNGS AND PLEURA: Right upper lobe mass redemonstrated. Malignancy suspected. PET/CT imaging tissue sampling recommended. No pleural effusion. No pneumothorax. Mild interstitial changes. BONY STRUCTURES: Intact ADDITIONAL FINDINGS None XR/XR chest 1V IMPRESSION: Redemonstration of right upper lobe mass. Concern for malignancy. No consolidation.. Impression dictated by: Kemar Devi M.D. 02/09/2025 11:05 PM Dictation Location: [place] [address] Electronically authenticated by: [id number] Y Date: 02/09/2025 23:05
--- NOTE | 2025-02-09 22:34 | ECG_ITS ---
[facility] Test Date: 2025-02-09 Pat Name: KATIE MONTERO Department: Room: - Gender: Female Broadband Engineer: : 1950 Requested By: [id number] Order Number: [id number] Reading MD: ANNIE LIU M.D. Measurements Intervals [place] Rate: 73 P: 82 MD: 142 QRS: 79 QRSD: 72 T: 62 QT: 382 QTc: 408 Interpretive Statements 1100 Sinus rhythm 4068 Nonspecific [place] abnormality 6120 Possible right atrial enlargement 9130 borderline ECG Compared to ECG 02/02/2025 15:51:07 Atrial flutter no longer present ST (T wave) deviation no longer present Electronically Signed On 02-10-2025 19:25:57 EDT by ANNIE LIU M.D.
--- NOTE | 2025-02-09 22:43 | PC.NURSE ---
patient discharged friday after having been dx with pnumonia. states she did have left sided rib pain. that has resolved but tonight while cooking she started to have right sided sharp rib pain. patient denies needs. patient reports she did not go home on antibiotics. states she was given a steroid inhaler. stopped smoking cigarettes last friday. patient was also known to have a mass that was found while in ED. states sshe was told it could be related to her pneumonia. states that they were going to watch it and check again in a few weeks to see if it resolved.
[2025-02-09 23:00] LABS: Hematocrit 35.5 % (36.0-48.0); Hemoglobin 12.1 g/dL (12.0-16.0); Mean Corpuscular HGB Conc 34.1 g/dL (29.9-35.2); Mean Corpuscular Hemoglobin 30.7 pg (26.7-34.0); Mean Corpuscular Volume 90.1 fL (81.0-99.0); Platelet Count 296 10^3/uL (150-450); Red Blood Count 3.94 10^6/uL (4.20-5.40); White Blood Count 15.3 10^3/uL (4.0-11.0)
[2025-02-09 23:18] LABS: Alanine Aminotransferase 30 U/L (14-59); Albumin Globulin Ratio 0.7; Albumin Level 2.9 g/dL (3.4-5.0); Alkaline Phosphatase 77 U/L (46-116); Anion Gap 9.2; Aspartate Amino Transferase 23 U/L (15-37); Blood Urea Nitrogen 39.0 mg/dL (7.0-18.0); Calcium 9.1 mg/dL (8.5-10.1); Carbon Dioxide 31.0 mmol/L (21.0-32.0); Chloride 105 mmol/L (98-107); Estimated GFR (African America 53 (>=60 mL/min/1.73m^2); Estimated GFR (Non-African Ame 44 (>=60 mL/min/1.73m^2); Globulin 4.0 g/dL; Glucose 102 mg/dL (74-106); Potassium 4.2 mmol/L (3.5-5.1); Sodium 141 mmol/L (136-145); Total Protein 6.9 g/dL (6.4-8.2)
[2025-02-09 23:20] LABS: Segmented Neut Absolute Manual 10.09 10^3/uL (1.4-6.5); Segmented Neutrophils % Manual 66.0 (43.0-75.0)
[2025-02-09 23:21] LABS: Atypical Lymphocytes % Manual 7.0 %; Atypical Lymphocytes Abs Man 1.07; Basophils Abs Manual 0.00 10^3/uL (0.00-0.10); Basophils Percent Manual 0.0 % (0.2-2.0); Eosinophils Absolute Manual 0.91 10^3/uL (0.00-0.70); Eosinophils Percent Manual 6.0 % (0.9-7.0); Lymphocytes Absolute Manual 1.68 10^3/uL (1.20-3.80); Lymphocytes Percent Manual 11.0 % (20.5-60.0); Monocytes Absolute Manual 1.53 10^3/uL (0.30-0.80); Monocytes Percent Manual 10.0 % (1.7-12.0)
[2025-02-09 23:23] LABS: Lipase 57.0 U/L (16.0-77.0)
[2025-02-09] MEDS: MORPHINE SULFATE 4 MG/ML VIAL IV (23:38)
[2025-02-09] MEDS: METHYLPREDNISOLONE SOD SUCC PF 125 MG/2 ML VIAL IVP (23:38)
[2025-02-10] VITALS (9 sets, daily range): BP systolic 148; BP diastolic 76; PULSE 66–74; O2SAT 95–100
--- NOTE | 2025-02-10 00:35 | PC.NURSE ---
no resp distress observed
[2025-02-10] MEDS: IPRATROPIUM/ALBUTEROL SULFATE 3 ML AMPUL.NEB IH (00:54)
[2025-02-10] MEDS: HYDROCODONE/ACET 5-325 MG TABLET 2 TAB PO (01:04)
--- NOTE | 2025-02-15 09:39 | SWNOTE1 ---
SINA received a call from Mimi at [facility] and she received a call from pt that she was in the hospital last week. SINA checked hospital visits and pt was in the ED on the . Mimi requested those records as the [facility], [place] [facility] is requesting that [facility] tracks these visits to assist pt. SINA faxed to Mimi for continuity of care.
== END 2025-02-10 01:23 | disposition home or self-care (01) ==
PROVIDERS: Emergency Provider Internal Medicine; PCP Family Medicine
DX: R91.8 Other nonspecific abnormal finding of lung field (principal); J44.9 Chronic obstructive pulmonary disease, unspecified; R07.89 Other chest pain
CPT/HCPCS: 36415; 71045; 80053; 83690; 84484; 85007; 85027; 85378; 93005; 94640; 96374; 96375; 99285; J2270; J2919

== ENCOUNTER 2025-06-11 10:12 | Emergency (ER) | payer MEDICARE, MEDICAID, SELFPAY ==
--- OUTSIDE RECORDS SUMMARY | 2025-05-30 10:00 | XMS_ITS | Encounter Summary ---
Author Organization [facility] Address [address] [place] [address] Care Team Providers Care Test Clerk Name Role Phone Kev Mcmahon Primary Care Provider [phone] Gretchen Davis MD Unavailable Mary Jo Denton CNP Unavailable [phone] Surya Soto Unavailable [phone] Alfredo Machuca MD Unavailable Reason for Visit * Episode Based Medications (Routine) - AuthorizedSpecialtyDiagnoses / ProceduresReferred By ContactReferred To Contact Diagnoses Squamous cell lung cancer, right (CMS/HCC) Gretchen Davis MD [address] [place] [address] Phone: tel: fax: Gretchen Davis MD [address] [place] [address] Phone: tel: fax: Referral IDStatusReasonStart DateExpiration DateVisits RequestedVisits [id number]/25/20256/ Encounter Details DateTypeDepartmentCare Team (Latest Contact Info)Ghdoohrdhuo72/06/2024 10:[address] [facility] [address] [place] [address] Aster Diallo RN Squamous cell lung cancer, right (CMS/HCC) (Primary Dx) Social History Tobacco UseTypesPacks/DayYears UsedDateSmoking Tobacco: FormerCigarettes Smokeless Tobacco: NeverAlcohol UseStandard Drinks/WeekCommentsNot Currently0 (1 standard drink = 0.6 oz pure alcohol)[facility] UtilitiesAnswerDate RecordedIn the past 12 months has the reMail, gas, oil, or water [employer] threatened to shut off services in your home?No02/23/2025Overall Financial Resource Strain (CARDIA) AnswerDate RecordedHow hard is it for you to pay for the very basics like food, housing, medical care, and heating?Not hard at all02/23/2025PHQ-2AnswerDate RecordedPatient Health Questionnaire-2 Xlwuo499Humiliation, Afraid, Rape, and Kick questionnaireAnswerDate RecordedWithin the last year, have you been afraid of your partner or ex-partner?05/23/2025Within the last year, have you been humiliated or emotionally abused in other ways by your partner or ex-partner?05/23/2025Within the last year, have you been kicked, hit, slapped, or otherwise physically hurt by your partner or ex-partner?05/23/2025Within the last year, have you been raped or forced to have any kind of sexual activity by your partner or ex-partner?05/23/2025TransportationAnswerDate RecordedIn the past 12 months, has lack of transportation kept you from medical appointments or from getting medications?02/23/2025Lack of Transportation (Non-Medical)Not on file02/23/2025Housing Stability Vital SignAnswerDate RecordedIn the last 12 months, was there a time when you were not able to pay the mortgage or rent on time?02/23/2025Number of Times Moved in the Last Year Not on file02/23/2025t any time in the past 12 months, were you homeless or living in a group home (including now)?No02/23/2025Hunger Vital SignAnswerDate RecordedWithin the past 12 months, you worried that your food would run out before you got the money to buymore.Never true05/23/2025Within the past 12 months, the food you bought just didn't last and you didn't have money to get more.Never true05/23/2025CommentsNoSex and Gender InformationValueDate RecordedSex Assigned at DshsuUlursa11/27/2025 9:47 AM EDTLegal SexFemale 02/18/2025 9:12 AM EDTGender SbyzlgmrHwusig09/27/2025 9:47 AM EDTSexual OrientationHeterosexual or Mzbhsuoj21/27/2025 9:47 AM EDTdocumented as of this encounter Last Filed Vital Signs Vital SignReadingTime TakenCommentsBlood Yewwyofd914/6005/30/2025 11:01 AM EST Upvmr957205/30/2025 11:01 AM RQTEuvpphcccqt26.3 ??C (97.3 ??F)05/30/2025 11:01 AM ESTRespiratory Sfci575607/31/2024 11:01 AM ESTOxygen Xbewcmfnwi84%05/30/2025 11:01 AM ESTInhaled Oxygen Concentration--Mhgnhn33.9 kg (110 lb)05/30/2025 11:01 AM KXUQbqxfg800.4 cm (5')05/30/2025 11:01 AM EST4 lb weight loss since last visit one week agoBody Mass Index21.4805/30/2025 11:01 AM ESTdocumented in this encounter Plan of Treatment DateTypeDepartmentCare Team (Latest Contact Info)Dodsqwnmijg46/15/2025 10:[address] [facility] Infusion [address] [place] [address] Bertha Guillen, ELÍAS 06/13/2025 10:30 AM ESTOffice Visit [facility] Oncology [address] [place] [address] Mary Jo Denton, LANDFILL GAS TECHNICIAN [address] [place] [address] 06/13/2025 1:50 PM ESTAppointment [facility] Radiation Oncology [address] [place] [address] 06/14/2025 10:15 AM ESTOffice Visit [facility] Heart [facility] [address] [place] [facility] [place] [address] Alfredo Machuca MD [address] [place] [address] 06/14/2025 1:50 PM ESTAppointment [facility] Radiation Oncology [address] [place] [address] 09/12/2025 1:00 PM EDTAppointment [facility] Radiation Oncology [address] [place] [address] Surya Soto [address] [place] [address] documented as of this encounter Procedures Procedure NamePriorityDate/TimeAssociated DiagnosisCommentsCBC WITH AUTO TKDYCHHNIWKUVvzlsxs82/01/2025 10:22 AM EST Squamous cell lung cancer, right (CMS/HCC) CBC AND ISCTAYYODLVWCeympqq94/01/2025 10:22 AM EST Squamous cell lung cancer, right (CMS/HCC) documented in this encounter Results * (ABNORMAL) CBC auto differential (05/30/2025 10:22 AM EST)ComponentValueRef RangeTest MethodAnalysis TimePerformed AtPathologist SignatureAuto WBC2.60(L) 4.00 - 10.60 10*3/uL05/30/2025 11:28 AM [facility] ([facility])RBC4.13 3.80 - 5.00 10*6/uL05/30/2025 11:28 AM [facility] ([facility])Hemoglobin 12.412.0 - 15.0 g/dL05/30/2025 11:28 AM [facility] ([facility]) Vivomqkrpg36.636.0 - 45.0 %05/30/2025 11:28 AM [facility] ([facility]) MCV88.682.0 - 98.0 fL05/30/2025 11:28 AM [facility] ([facility])MCH30.0 27.0 - 33.0 pg05/30/2025 11:28 AM [facility] ([facility])MCHC33.932.0 - 35.0 g/dL05/30/2025 11:28 AM [facility] ([facility])RDW14.611.5 - 15.0 % 05/30/2025 11:28 AM [facility] ([facility])Neutrophils %71.140.0 - 72.0 %05/30/2025 11:28 AM [facility] ([facility])Lymphocytes %18.1(L)20.0 - 45.0 %05/30/2025 11:28 AM [facility] ([facility])Monocytes %7.35.0 - 12.0 %05/30/2025 11:28 AM [facility] ([facility])Eosinophils %0.40.0 - 6.0 %05/30/2025 11:28 AM [facility] ([facility])Basophils %0.40.0 - 1.0 %05/30/2025 11:28 AM [facility] ([facility])Neutrophils Absolute1.851.60 - 7.60 10*3/uL05/30/2025 11:28 AM [facility] ([facility])Lymphocytes Absolute0.47(L)1.20 - 4.00 10*3/uL05/30/2025 11:28 AM [facility] ([facility])Monocytes Absolute0.190.10 - 1.00 10*3/uL05/30/2025 11:28 AM [facility] ([facility])Eosinophils Absolute0.010.00 - 0.50 10*3/uL12/06/2024 11:28 AM [facility] ([facility])Basophils Absolute0.010.00 - 0.20 10*3/uL05/30/2025 11:28 AM [facility] ([facility])Szmvraodb322492 - 400 10*3/uL05/30/2025 11:28 AM [facility] ([facility])nRBC %0.00 %05/30/2025 11:28 AM [facility] ([facility])Immature Granulocytes %2.7(H)0.0 - 1.0 % 05/30/2025 11:28 AM [facility] ([facility])Immature Granulocytes Absolute0.070.00 - 0.20 10*3/uL05/30/2025 11:28 AM [facility] ([facility])Specimen (Source)Anatomical Location / LateralityCollection Method / VolumeCollection TimeReceived TimeBloodVenous blood specimen / UnknownExisting Catheter / Croahtn4205/30/2025 10:22 AM EST05/30/2025 10:22 AM EST Narrative Authorizing ProviderResult TypeResult StatusGretchen Davis MDLAB BLOOD ORDERABLESFinal ResultPerforming OrganizationAddressCity/State/ZIP CodePhone Number [facility] ([facility]) [address] [place] [address] documented in this encounter Visit Diagnoses Diagnosis Squamous cell lung cancer, right (CMS/HCC)- Primary documented in this encounter Administered Medications Medication OrderMAR ActionAction DateDoseRateSite CARBOplatin (Paraplatin) 115 mg in sodium chloride 0.9 % 111.5 mL IVPB 115 mg (rounded from 113.2 mg, Target AUC = 2), intravenous, at 243 mL/hr, Administer over 30 Minutes, Once, On Fri05/30/25 at 1315, For 1 dose, HAZARDOUS AGENT - Use appropriate precautions for handling and disposal. Irritant AUC multiplied by 150 = max dose per [facility] Protect from Light Indications:Squamous cell lung cancer, right (CMS/HCC)New Bag05/30/2025 1:46 PM TXC346 mg243 mL/hr dexAMETHasone (Decadron) 10 mg in sodium chloride 0.9 % 51 mL IVPB 10 mg, intravenous, at 112 mL/hr, Administer over 30 Minutes, Once, On Fri05/30/25 at 1145, For 1 dose, Administer 30 minutes prior to chemotherapy Indications:Squamous cell lung cancer, right (CMS/HCC)New Bag05/30/2025 12:10 PM EST10 mg112 mL/hr diphenhydrAMINE (BENADryl) injection 50 mg 50 mg, intravenous, Once, On Fri05/30/25 at 1145, For 1 dose, Administer 30 minutes prior to paclitaxel Indications:Squamous cell lung cancer, right (CMS/HCC)Given05/30/2025 12:08 PM EST50 mg famotidine (Pepcid) injection 20 mg 20 mg, intravenous, Administer over 2 Minutes, Once, On Fri05/30/25 at 1145, For 1 dose, Leqqmbtzrv98 minutes prior to paclitaxel, Indication: Other, Specify Indication: prevention of hypersensitivity Indications:Squamous cell lung cancer, right (CMS/HCC)Given05/30/2025 12:02 PM EST20 mg heparin lock flush 100 unit/mL syringe 500 Units 500 Units, intra-catheter, Once as needed, line care, Starting on Fri05/30/25 at 1144, Keep Vein Open - KVO Indications:Squamous cell lung cancer, right (CMS/HCC)Given05/30/2025 2:20 PM BNW715 Units PACLitaxel (Taxol) 66 mg, empty bag 1 each in sodium chloride 0.9 % 111 mL IVPB (non-DEHP) 66 mg (rounded from 66.6 mg = 45 mg/m2 ?? 1.48 m2 Treatment Plan BSA from Recorded weight), intravenous, at 121 mL/hr, Administer over 60 Minutes, Once, On Fri05/30/25 at 1215, For 1 dose, HAZARDOUS AGENT - Use appropriate precautions for handling and disposal. Use 0.22 micron filtered tubing Irritant Indications:Squamous cell lung cancer, right (CMS/HCC)New Bag05/30/2025 12:34 PM EST66 mg121 mL/hr palonosetron (Aloxi) injection 250 mcg 250 mcg, intravenous, Administer over 1 Minutes, Once, On Fri05/30/25 at 1145, For 1 dose, Administer 30 minutes prior to chemotherapy Indications:Squamous cell lung cancer, right (CMS/HCC)Given05/30/2025 12:04 PM FMN474 mcg sodium chloride 0.9 % infusion 20 mL/hr, intravenous, Continuous, Starting on Fri05/30/25 at 1145, Keep Vein Open - KVO Indications:Squamous cell lung cancer, right (CMS/HCC)New Bag05/30/2025 11:59 AM EST20 mL/hr20 mL/hrdocumented in this encounter Care Teams Team MemberRelationshipSpecialtyStart DateEnd Date Kev Mcmahon DO [address] [facility], [place] [address] PCP - GeneralFamily Medicine02/18/25 Gretchen Davis MD [address] [place] [address] Consulting PhysicianHematology and Oncology03/08/25 Mary Jo Denton, LANDFILL GAS TECHNICIAN [address] [place] [address] Consulting YzylogzyxBzlwqqul98/14/25 Surya Soto [address] [place] [address] Radiation Vkubreom67/23/25 Alfredo Machuca MD [address] [place] [address] Ginnxnoohhngzrdvz82/23/25documented as of this encounter
--- OUTSIDE RECORDS SUMMARY | 2025-05-30 13:50 | XMS_ITS | Encounter Summary ---
Author Organization [facility] Address [address] [place] [address] Care Team Providers Care Shoeblack Name Role Phone Kev Mcmahon DO Primary Care Provider Gretchen Davis MD Unavailable Mary Jo Denton CNP Unavailable [phone] Surya Soto Unavailable [phone] Alfredo Machuca MD Unavailable Encounter Details DateTypeDepartmentCare Team (Latest Contact Info)Vxpgwnnzqhx48/01/2025 1:50 PM EST - 05/30/2025 11:59 PM ESTHospital Encounter [facility] Rad[facility] Oncology [address] [place] [address] Discharge Disposition: Home or Self Care () Social History Tobacco UseTypesPacks/DayYears UsedDateSmoking Tobacco: FormerCigarettes Smokeless Tobacco: NeverAlcohol UseStandard Drinks/WeekCommentsNot Currently0 (1 standard drink = 0.6 oz pure alcohol)[facility] UtilitiesAnswerDate RecordedIn the past 12 months has the electric, gas, oil, or water company threatened to shut off services in your home?No02/23/2025Overall Financial Resource Strain (CARDIA) AnswerDate RecordedHow hard is it for you to pay for the very basics like food, housing, medical care, and heating?Not hard at all02/23/2025PHQ-2AnswerDate RecordedPatient Health Questionnaire-2 Xqmgn292Humiliation, Afraid, Rape, and Kick questionnaireAnswerDate RecordedWithin the last year, have you been afraid of your partner or ex-partner?No05/23/2025Within the last year, have you been humiliated or emotionally abused in other ways by your partner or ex-partner?No05/23/2025Within the last year, have you been kicked, hit, slapped, or otherwise physically hurt by your partner or ex-partner?No05/23/2025Within the last year, have you been raped or forced to have any kind of sexual activity by your partner or ex-partner?No05/23/2025TransportationAnswerDate RecordedIn the past 12 months, has lack of transportation kept you from medical appointments or from getting medications?No02/23/2025Lack of Transportation (Non-Medical)Not on file02/23/2025Housing Stability Vital SignAnswerDate RecordedIn the last 12 months, was there a time when you were not able to pay the mortgage or rent on time?No02/23/2025Number of Times Moved in the Last Year Not on file02/23/2025t any time in the past 12 months, were you homeless or living in a jail (including now)?No02/23/2025Hunger Vital SignAnswerDate RecordedWithin the past 12 months, you worried that your food would run out before you got the money to buymore.Never true05/23/2025Within the past 12 months, the food you bought just didn't last and you didn't have money to get more.Never true05/23/2025CommentsNoSex and Gender InformationValueDate RecordedSex Assigned at QwkyfLjzwcf92/27/2025 9:47 AM EDTLegal SexFemale 02/18/2025 9:12 AM EDTGender BtwdsxzxDhpvrx85/27/2025 9:47 AM EDTSexual OrientationHeterosexual or Rtzmzzmp53/27/2025 9:47 AM EDTdocumented as of this encounter Medications at Time of Discharge MedicationSigDispense QuantityRefillsLast FilledStart DateEnd Date acetylcysteine (Mucomyst) 200 mg/mL (20 %) nebulizer solution Take 3 mL by mouth. albuterol 2.5 mg /3 mL (0.083 %) nebulizer solution Inhale 2.5 mg every 4 (four) hours if needed for wheezing.10/22/2024 amiodarone (Pacerone) 200 mg tablet Indications:SVT (supraventricular tachycardia)Take 1 tablet (200 mg) by mouth two times daily. 180 tablet aspirin 81 mg EC tablet Take 81 mg by mouth in the morning. Breztri Aerosphere 160-9-4.8 mcg/actuation HFA aerosol inhaler INHALE 2 PUFFS IN THE MORNING AND AT BEDTIME cefdinir (Omnicef) 300 mg capsule TAKE 1 CAPSULE BY MOUTH IN THE MORNING AND 1 CAPSULE BEFORE BEDTIME. DO ALL THIS FOR 14 DOSES.05/09/2025 clopidogrel (Plavix) 75 mg tablet Take 75 mg by mouth in the morning.03/23/2025 dexAMETHasone (Decadron) 4 mg tablet Indications:Squamous cell lung cancer, right (CMS/HCC)Take 8 mg (two tablets) by mouth daily with breakfast on days 2 through 3 following chemotherapy adm inistration. 24 tablet 04/12/2025 doxepin 3 mg tablet Take 3 mg by mouth.05/09/2025 Farxiga 10 mg Take 1 tablet by mouth in the morning.02/03/2025 furosemide (Lasix) 20 mg tablet 20 mg in the morning. HYDROcodone-acetaminophen ([place]) 5-325 mg tablet Take 1 tablet by mouth every 8 (eight) hours if needed for severe pain (8-10 pain score).02/10/2025 lidocaine-prilocaine (Emla) 2.5-2.5 % cream APPLY TOPICALLY ONE TIME FOR 1 DOSE. APPLY TO PORT SITE AND COVER 30-45 MINS PRIOR TO NEEDLE SJDWOY0204/12/2025 lisinopril 20 mg tablet Take 30 mg by mouth in the morning.01/19/2025 metoprolol tartrate (Lopressor) 25 mg tablet Take 25 mg by mouth if needed in the morning and at bedtime (prn HR greater than 100 or palpitations).02/15/2025 nebulizer accessories misc Use as directed with soqogxmkx33/08/2025 pantoprazole (ProtoNix) 40 mg EC tablet Take 40 mg by mouth if needed each day.03/07/2025 potassium chloride CR (Klor-Con M10) 10 mEq ER tablet Take 10 mEq by mouth in the morning.01/13/2025 tiZANidine (Zanaflex) 4 mg tablet Take 4 mg by mouth every 6 (six) hours if needed for muscle spasms.01/31/2025 documented as of this encounter Plan of Treatment DateTypeDepartmentCare Team (Latest Contact Info)Rtlstiyjami80/15/2025 10:30 AM ESTInfusion [facility] [address] [place] [address] Bertha Guillen RN 06/13/2025 10:30 AM ESTOffice Visit [facility] [address] [place] [address] Mary Jo Denton, FOOD PRODUCTION MACHINE OPERATOR [address] [facility] [place] [address] 06/13/2025 1:50 PM ESTAppointment [facility] Rad[facility] Oncology [address] [place] [address] 06/14/2025 10:15 AM ESTOffice Visit [facility] [address] [place] [address] Alfredo Machuca MD [address] [place] [address] 06/14/2025 1:50 PM ESTAppointment [facility] Rad[facility] Oncology [address] [place] [address] 09/12/2025 1:[address] [facility] [address] [place] [address] Surya Soto [address] [place] [address] documented as of this encounter Procedures Procedure NamePriorityDate/TimeAssociated DiagnosisCommentsRAD ONC ARIA SESSION ZIFIMXSIkycrux10/01/2025 2:57 PM EST documented in this encounter Results * Rad Onc Aria Session Summary (05/30/2025 2:57 PM EST)ComponentValueRef Range Test MethodAnalysis TimePerformed AtPathologist SignatureCourse [id number] RADIATION ONCOLOGYCourse IntentCurative w/chemoARIA RADIATION ONCOLOGYCourse Start Date04/22/2025 8:56 PMARIA RADIATION ONCOLOGYSession Obfkms0JZKR RADIATION ONCOLOGYCourse First Treatment Date05/16/2025 2:02 PMARIA RADIATION ONCOLOGYCourse Last Treatment Date05/30/2025 2:18 PMARIA RADIATION ONCOLOGY Course Elapsed Stea36AUXR RADIATION ONCOLOGYReference Point IDRLng Med DIB ARIA RADIATION ONCOLOGYReference Point Dosage Given to Dphq61GjXPUY RADIATION ONCOLOGYReference Point Session Dosage Pmqkw0JyGSJI RADIATION ONCOLOGYPlan ID RLng Med DIBHARIA RADIATION ONCOLOGYPlan NameRLng Med DIBHARIA RADIATION ONCOLOGYPlan Fractions Treated to Qzme3UEPF RADIATION ONCOLOGYPlan Total Fractions Hgdfnqcuyh24ICFB RADIATION ONCOLOGYPlan Prescribed Dose Per Fraction 3GyARIA RADIATION ONCOLOGYPlan Total Prescribed Dose6,000cGyARIA RADIATION ONCOLOGYPlan Primary Reference PointRLng Med DIBHARIA RADIATION ONCOLOGY Specimen (Source)Anatomical Location / LateralityCollection Method / Volume Collection TimeReceived Time05/30/2025 2:57 PM EST Narrative Authorizing ProviderResult TypeResult StatusPhysician Radiation Oncology RADIATION ONCOLOGY ORDERABLESFinal ResultPerforming OrganizationAddress City/State/ZIP CodePhone Number ARIA RADIATION ONCOLOGY documented in this encounter Visit Diagnoses Not on filedocumented in this encounter Care Teams Team MemberRelationshipSpecialtyStart DateEnd Date Kev Mcmahon DO [address], [place] [address] PCP - GeneralFamily Medicine02/18/25 Gretchen Davis MD [address] [place] [address] Consulting PhysicianHematology and Oncology03/08/25 Mary Jo Denton, FOOD PRODUCTION MACHINE OPERATOR [address] [place] [address] Consulting PfmvxmgkwTfcgvyha80/14/25 Surya Soto [address] [place] [address] Radiation Sbizkvao39/23/25 Alfredo Machuca MD [address] [place] [address] Lgnpxjvjvaygiucjw77/23/25documented as of this encounter
--- OUTSIDE RECORDS SUMMARY | 2025-05-31 13:50 | XMS_ITS | Encounter Summary ---
Author Organization [facility] Address [address] [place] [address] Care Team Providers Care Wastewater Plant Civil Engineer Name Role Phone Kev Mcmahon DO Primary Care Provider Gretchen Davis MD Unavailable Mary Jo Denton CNP Unavailable [phone] Surya Soto Unavailable [phone] Alfredo Machuca MD Unavailable Encounter Details DateTypeDepartmentCare Team (Latest Contact Info)Ertwppkwopc90/02/2025 1:50 PM EST - 05/31/2025 11:59 PM ESTHospital Encounter [facility] Radiation Oncology [address] [place] [address] Discharge Disposition: Home or Self Care () Social History Tobacco UseTypesPacks/DayYears UsedDateSmoking Tobacco: FormerCigarettes Smokeless Tobacco: NeverAlcohol UseStandard Drinks/WeekCommentsNot Currently0 (1 standard drink = 0.6 oz pure alcohol)[facility] UtilitiesAnswerDate RecordedIn the past 12 months has the electric, gas, oil, or water company threatened to shut off services in your home?No02/23/2025Overall Financial Resource Strain (CARDIA) AnswerDate RecordedHow hard is it for you to pay for the very basics like food, housing, medical care, and heating?Not hard at all02/23/2025PHQ-2AnswerDate RecordedPatient Health Questionnaire-2 [id number], Afraid, Rape, and Kick questionnaireAnswerDate RecordedWithin the [...] true05/23/2025CommentsNoSex and Gender InformationValueDate RecordedSex Assigned at HetqtQgxkpk63/27/2025 9:47 AM EDTLegal SexFemale 02/18/2025 9:12 AM EDTGender PyzhpthkKwdaul37/27/2025 9:47 AM EDTSexual OrientationHeterosexual or Upoalkwo54/27/2025 9:47 AM EDTdocumented as of this encounter [...] tablet 20 mg in the morning. HYDROcodone-acetaminophen ([place]) 5-325 mg tablet Take 1 tablet by mouth every 8 (eight) hours if needed for severe pain (8-10 pain score).02/10/2025 lidocaine-prilocaine (Emla) 2.5-2.5 % cream APPLY TOPICALLY ONE TIME FOR 1 DOSE. APPLY TO PORT SITE AND COVER 30-45 MINS PRIOR TO NEEDLE ULLNTF7204/12/2025 lisinopril 20 mg tablet Take 30 mg by mouth in the morning.01/19/2025 metoprolol tartrate (Lopressor) 25 mg tablet Take 25 mg by mouth if needed in the morning and at bedtime (prn HR greater than 100 or palpitations).02/15/2025 nebulizer accessories misc Use as directed with /08/2025 pantoprazole (ProtoNix) 40 mg EC tablet Take 40 mg by mouth if needed each day.03/07/2025 potassium chloride CR (Klor-Con M10) 10 mEq ER tablet Take 10 mEq by mouth in the morning.01/13/2025 tiZANidine (Zanaflex) 4 mg tablet Take 4 mg by mouth every 6 (six) hours if needed for muscle spasms.01/31/2025 documented as of this encounter Plan of Treatment DateTypeDepartmentCare Team (Latest Contact Info)Efefllwcdim24/15/2025 10:30 AM ESTInfusion [facility] [address] [place] [address] Bertha Guillen RN 06/13/2025 10:30 AM ESTOffice Visit [facility] [address] [place] [address] Mary Jo Denton, ACTIVITIES AIDE [address] [facility] [place] [address] 06/13/2025 1:50 PM ESTAppointment [facility] Rad[facility] Oncology [address] [place] [address] 06/14/2025 10:15 AM ESTOffice Visit [facility] [address] [place] [address] Alfredo Machuca MD [address] [place] [address] 06/14/2025 1:50 PM ESTAppointment [facility] Radiation Oncology [address] [place] [address] 09/12/2025 1:00 PM EDTAppointment [facility] Rad[facility] On[facility] [address] [place] [address] Surya Soto [address] [place] [address] documented as of this encounter Procedures Procedure NamePriorityDate/TimeAssociated DiagnosisCommentsRAD ONC ARIA SESSION BVSWUVPXgnqpsb88/02/2025 2:59 PM EST documented in this encounter Results * Rad Onc Aria Session Summary (05/31/2025 2:59 PM EST)ComponentValueRef Range Test MethodAnalysis TimePerformed AtPathologist SignatureCourse [id number] RADIATION ONCOLOGYCourse IntentCurative w/chemoARIA RADIATION ONCOLOGYCourse Start Date04/22/2025 8:56 PMARIA RADIATION ONCOLOGYSession Hqirbc54DBQC RADIATION ONCOLOGYCourse First Treatment Date05/16/2025 2:02 PMARIA RADIATION ONCOLOGYCourse Last Treatment Date05/31/2025 2:24 PMARIA RADIATION ONCOLOGY Course Elapsed Hsvp17WZCL RADIATION ONCOLOGYReference Point IDRLng Med DIBH ARIA RADIATION ONCOLOGYReference Point Dosage Given to Fwrs93TlHFVT RADIATION ONCOLOGYReference Point Session Dosage Yhtkg3XhZIER RADIATION ONCOLOGYPlan ID RLng Med DIBHARIA RADIATION ONCOLOGYPlan NameRLng Med DIBHARIA RADIATION ONCOLOGYPlan Fractions Treated to Uxio68NJJT RADIATION ONCOLOGYPlan Total Fractions Luaikswsmq73FLTS RADIATION ONCOLOGYPlan Prescribed Dose Per Fraction 3GyARIA RADIATION ONCOLOGYPlan Total Prescribed Dose6,000cGyARIA RADIATION ONCOLOGYPlan Primary Reference PointRLng Med DIBHARIA RADIATION ONCOLOGY Specimen (Source)Anatomical Location / LateralityCollection Method / Volume Collection TimeReceived Time05/31/2025 2:59 PM EST Narrative Authorizing ProviderResult TypeResult StatusPhysician Radiation Oncology RADIATION ONCOLOGY ORDERABLESFinal ResultPerforming OrganizationAddress City/State/ZIP CodePhone Number [facility] RADIATION [facility]COL[facility] documented in this encounter Visit Diagnoses Not on filedocumented in this encounter Care Teams Team MemberRelationshipSpecialtyStart DateEnd Date Kev Mcmahon DO [address], [place] [address] PCP - GeneralFamily Medicine02/18/25 Gretchen Davis MD [address] [place] [address] Consulting PhysicianHematology and Oncology03/08/25 Mary Jo Denton, ACTIVITIES AIDE [address] [place] [address] Consulting RkjwaqcoeIysezsna53/14/25 Surya Soto [address] [place] [address] Radiation Evhobtjt50/23/25 Alfredo Machuca MD [address] [place] [address] Uejzipjtdyybirwmc25/23/25documented as of this encounter
--- OUTSIDE RECORDS SUMMARY | 2025-06-01 13:39 | XMS_ITS | Encounter Summary ---
Author Organization [facility] Address [address] [place] [address] Care Team Providers Care Electrical Controls Engineer Name Role Phone Kev Mcmahon DO Primary Care Provider [phone] Gretchen Davis MD Unavailable Mary Jo Denton CNP Unavailable [phone] Surya Soto Unavailable [phone] Alfredo Machuca MD Unavailable Encounter Details DateTypeDepartmentCare Team (Latest Contact Info)Sxlawieqqzv53/03/2025 1:39 PM EST - 06/01/2025 11:59 PM ESTHospital Encounter [facility] Rad[facility] Oncology [address] [place] [address] Discharge Disposition: Home or Self Care () Social History Tobacco UseTypesPacks/DayYears UsedDateSmoking Tobacco: FormerCigarettes Smokeless Tobacco: NeverAlcohol UseStandard Drinks/WeekCommentsNot Currently0 (1 standard drink = 0.6 oz pure alcohol)[facility] UtilitiesAnswerDate RecordedIn the past 12 months has the electric, gas, oil, or water company threatened to shut off services in your home?No02/23/2025Overall Financial Resource Strain (CARDIA) AnswerDate RecordedHow hard is it for you to pay for the very basics like food, housing, medical care, and heating?Not hard at all02/23/2025PHQ-2AnswerDate RecordedPatient Health Questionnaire-2 Skoqv359Humiliation, Afraid, Rape, and Kick questionnaireAnswerDate RecordedWithin the [...] were you homeless or living in a residential (including now)?No02/23/2025Hunger Vital SignAnswerDate RecordedWithin the past 12 months, you worried that your food would run out before you got the money to buymore.Never true05/23/2025Within the past 12 months, the food you bought just didn't last and you didn't have money to get more.Never true05/23/2025CommentsNoSex and Gender InformationValueDate RecordedSex Assigned at AszfuQqwhzy22/27/2025 9:47 AM EDTLegal SexFemale 02/18/2025 9:12 AM EDTGender BiutjszvXgcgsa44/27/2025 9:47 AM EDTSexual OrientationHeterosexual or Oehfelhe88/27/2025 9:47 AM EDTdocumented as of this encounter [...] tablet 20 mg in the morning. HYDROcodone-acetaminophen ([place]) 5-325 mg tablet Take 1 tablet by mouth every 8 (eight) hours if needed for severe pain (8-10 pain score).02/10/2025 lidocaine-prilocaine (Emla) 2.5-2.5 % cream APPLY TOPICALLY ONE TIME FOR 1 DOSE. APPLY TO PORT SITE AND COVER 30-45 MINS PRIOR TO NEEDLE KYMADR1704/12/2025 lisinopril 20 mg tablet Take 30 mg by mouth in the morning.01/19/2025 metoprolol tartrate (Lopressor) 25 mg tablet Take 25 mg by mouth if needed in the morning and at bedtime (prn HR greater than 100 or palpitations).02/15/2025 nebulizer accessories misc Use as directed with jirspfadn94/08/2025 pantoprazole (ProtoNix) 40 mg EC tablet Take 40 mg by mouth if needed each day.03/07/2025 potassium chloride CR (Klor-Con M10) 10 mEq ER tablet Take 10 mEq by mouth in the morning.01/13/2025 tiZANidine (Zanaflex) 4 mg tablet Take 4 mg by mouth every 6 (six) hours if needed for muscle spasms.01/31/2025 documented as of this encounter Plan of Treatment DateTypeDepartmentCare Team (Latest Contact Info)Nyiegvcbirp59/15/2025 10:30 AM ESTInfusion [facility] [address] [place] [address] Bertha Guillen RN 06/13/2025 10:30 AM ESTOffice Visit [facility] [address] [place] [address] Mary Jo Denton, HAND SALTER [address] [place] [address] 06/13/2025 1:50 PM ESTAppointment [facility] [address] [place] [address] 06/14/2025 10:15 AM ESTOffice Visit [facility] [address] [place] [address] Alfredo Machuca MD [address] [place] [address] 06/14/2025 1:50 PM ESTAppointment [facility] Rad[facility] On[facility] [address] [place] [address] 09/12/2025 1:00 PM EDTAppointment [facility] Rad[facility] On[facility] [address] [place] [address] Surya Soto [address] [place] [address] documented as of this encounter Procedures Procedure NamePriorityDate/TimeAssociated DiagnosisCommentsRAD ONC ARIA SESSION UQHMVDKVvpcjae25/03/2025 2:12 PM EST documented in this encounter Results * Rad Onc Aria Session Summary (06/01/2025 2:12 PM EST)ComponentValueRef Range Test MethodAnalysis TimePerformed AtPathologist SignatureCourse [id number] RADIATION ONCOLOGYCourse IntentCurative w/chemoARIA RADIATION ONCOLOGYCourse Start Date04/22/2025 8:56 PMARIA RADIATION ONCOLOGYSession Cnvtwf08OPEW RADIATION ONCOLOGYCourse First Treatment Date05/16/2025 2:02 PMARIA RADIATION ONCOLOGYCourse Last Treatment Date06/01/2025 1:37 PMARIA RADIATION ONCOLOGY Course Elapsed Ehhl14HXWR RADIATION ONCOLOGYReference Point IDRLng Med DIBH ARIA RADIATION ONCOLOGYReference Point Dosage Given to Pyqv93HaGULO RADIATION ONCOLOGYReference Point Session Dosage Afleg2QeQYVA RADIATION ONCOLOGYPlan ID RLng Med DIBHARIA RADIATION ONCOLOGYPlan NameRLng Med DIBHARIA RADIATION ONCOLOGYPlan Fractions Treated to Iupf06RPUX RADIATION ONCOLOGYPlan Total Fractions Jaucdascqy93AURV RADIATION ONCOLOGYPlan Prescribed Dose Per Fraction 3GyARIA RADIATION ONCOLOGYPlan Total Prescribed Dose6,000cGyARIA RADIATION ONCOLOGYPlan Primary Reference PointRLng Med DIBHARIA RADIATION ONCOLOGY Specimen (Source)Anatomical Location / LateralityCollection Method / Volume Collection TimeReceived Time06/01/2025 2:12 PM EST Narrative Authorizing ProviderResult TypeResult StatusPhysician Radiation Oncology MD RADIATION ONCOLOGY ORDERABLESFinal ResultPerforming OrganizationAddress City/State/ZIP CodePhone Number [facility] documented in this encounter Visit Diagnoses Not on filedocumented in this encounter Care Teams Team MemberRelationshipSpecialtyStart DateEnd Date Kev Mcmahon DO [address], [place] [address] PCP - GeneralFamily Medicine02/18/25 Gretchen Davis MD [address] [place] [address] Consulting PhysicianHematology and Oncology03/08/25 Mary Jo Denton, HAND SALTER [address] [place] [address] Consulting QspblzvgxMenrwbkz98/14/25 Surya Soto [address] [place] [address] Radiation Ifbffmep02/23/25 Alfredo Machuca MD [address] [place] [address] Lmoehlbxctrccskvf97/23/25documented as of this encounter
--- OUTSIDE RECORDS SUMMARY | 2025-06-02 13:50 | XMS_ITS | Encounter Summary ---
Author Organization [facility] Address [address] [place] [address] Care Team Providers Care Application Development Specialist Name Role Phone Kev Mcmahon DO Primary Care Provider [phone] Gretchen Davis MD Unavailable Mary Jo Denton CNP Unavailable [phone] Surya Soto Unavailable [phone] Alfredo Machuca MD Unavailable Encounter Details DateTypeDepartmentCare Team (Latest Contact Info)Dzbjkmdvane51/04/2025 1:50 PM EST - 06/02/2025 2:14 PM ESTHospital Encounter [facility] Rad[facility] Oncology [address] [place] [address] Discharge Disposition: Home or Self Care () Social History Tobacco UseTypesPacks/DayYears UsedDateSmoking Tobacco: FormerCigarettes Smokeless Tobacco: NeverAlcohol UseStandard Drinks/WeekCommentsNot Currently0 (1 standard drink = 0.6 oz pure alcohol)[facility] UtilitiesAnswerDate RecordedIn the past 12 months has the electric, gas, oil, or water company threatened to shut off services in your home?No02/23/2025Overall Financial Resource Strain (CARDIA) AnswerDate RecordedHow hard is it for you to pay for the very basics like food, housing, medical care, and heating?Not hard at all02/23/2025PHQ-2AnswerDate RecordedPatient Health Questionnaire-2 Vzbkv792Humiliation, Afraid, Rape, and Kick questionnaireAnswerDate RecordedWithin the [...] were you homeless or living in a mcfp (including now)?No02/23/2025Hunger Vital SignAnswerDate RecordedWithin the past 12 months, you worried that your food would run out before you got the money to buymore.Never true05/23/2025Within the past 12 months, the food you bought just didn't last and you didn't have money to get more.Never true05/23/2025CommentsNoSex and Gender InformationValueDate RecordedSex Assigned at BvikoSsmkwe56/27/2025 9:47 AM EDTLegal SexFemale 02/18/2025 9:12 AM EDTGender NjbfvixePpsdec69/27/2025 9:47 AM EDTSexual OrientationHeterosexual or Uekgqqrm99/27/2025 9:47 AM EDTdocumented as of this encounter [...] tablet 20 mg in the morning. HYDROcodone-acetaminophen ([place]) 5-325 mg tablet Take 1 tablet by mouth every 8 (eight) hours if needed for severe pain (8-10 pain score).02/10/2025 lidocaine-prilocaine (Emla) 2.5-2.5 % cream APPLY TOPICALLY ONE TIME FOR 1 DOSE. APPLY TO PORT SITE AND COVER 30-45 MINS PRIOR TO NEEDLE ZUVOHW2004/12/2025 lisinopril 20 mg tablet Take 30 mg by mouth in the morning.01/19/2025 metoprolol tartrate (Lopressor) 25 mg tablet Take 25 mg by mouth if needed in the morning and at bedtime (prn HR greater than 100 or palpitations).02/15/2025 nebulizer accessories misc Use as directed with kiklaxjsa73/08/2025 pantoprazole (ProtoNix) 40 mg EC tablet Take 40 mg by mouth if needed each day.03/07/2025 potassium chloride CR (Klor-Con M10) 10 mEq ER tablet Take 10 mEq by mouth in the morning.01/13/2025 tiZANidine (Zanaflex) 4 mg tablet Take 4 mg by mouth every 6 (six) hours if needed for muscle spasms.01/31/2025 documented as of this encounter Plan of Treatment DateTypeDepartmentCare Team (Latest Contact Info)Lwzwimevgzt96/15/2025 10:30 AM ESTInfusion [facility] [address] [place] [address] Bertha Guillen RN 06/13/2025 10:30 AM ESTOffice Visit [facility] [address] [place] [address] Mary Jo Denton, MACHINIST APPRENTICE WOOD [address] [facility] [address] 06/13/2025 1:50 PM ESTAppointment [facility] Rad[facility] Oncology [address] [place] [address] 06/14/2025 10:15 AM ESTOffice Visit [facility] Heart at [facility] [address] [place] [address] Alfredo Machuca MD [address] [place] [address] 06/14/2025 1:50 PM ESTAppointment [facility] Radiation Oncology [address] [place] [address] 09/12/2025 1:00 PM EDTAppointment [facility] Rad[facility] On[facility] [address] [place] [address] Surya Soto [address] [place] [address] documented as of this encounter Visit Diagnoses Not on filedocumented in this encounter Care Teams Team MemberRelationshipSpecialtyStart DateEnd Date SalomeKevDO [address] [facility], [place] [address] PCP - GeneralFamily Medicine02/18/25 Gretchen Davis MD [address] [place] [address] Consulting PhysicianHematology and Oncology03/08/25 Mary Jo Denton, MACHINIST APPRENTICE WOOD [address] [place] [address] Consulting SwluyvlgnXfcyjvao66/14/25 Surya Soto [address] [place] [address] Radiation Ertuxudk41/23/25 Alfredo Machuca MD [address] [place], [place] [address]pr[place] [address] Blurohbpozxwbrjml40/23/25documented as of this encounter
--- OUTSIDE RECORDS SUMMARY | 2025-06-02 14:15 | XMS_ITS | Encounter Summary ---
Author Organization [facility] Address [address] [place] [address] Care Team Providers Care Differential Repairer Name Role Phone Kev Mcmahon Primary Care Provider [phone] Gretchen Davis MD Unavailable Mary Jo Denton CNP Unavailable [phone] Surya Soto Unavailable Alfredo Machuca MD Unavailable Reason for Visit * ReasonCommentsOTV Encounter Details DateTypeDepartmentCare Team (Latest Contact Info)Aezlojefdxz12/04/2025 2:15 PM EST - 06/02/2025 11:59 PM ESTHospital Encounter [facility] Radiation Oncology [address] [place] [address] Surya Soto [address] [facility] [place] [place] [address] Squamous cell carcinoma of lung, right (CMS/HCC) (Primary Dx) Discharge Disposition: Home or Self Care () Social History Tobacco UseTypesPacks/DayYears UsedDateSmoking Tobacco: FormerCigarettes Smokeless Tobacco: NeverAlcohol UseStandard Drinks/WeekCommentsNot Currently0 (1 standard drink = 0.6 oz pure alcohol)[facility] UtilitiesAnswerDate RecordedIn the past 12 months has the electric, gas, oil, or water company threatened to shut off services in your home?No02/23/2025Overall Financial Resource Strain (CARDIA) AnswerDate RecordedHow hard is it for you to pay for the very basics like food, housing, medical care, and heating?Not hard at all02/23/2025PHQ-2AnswerDate RecordedPatient Health Questionnaire-2 [id number], Afraid, Rape, and Kick questionnaireAnswerDate RecordedWithin the [...] were you homeless or living in a long term (including now)?No02/23/2025Hunger Vital SignAnswerDate RecordedWithin the past 12 months, you worried that your food would run out before you got the money to buymore.Never true05/23/2025Within the past 12 months, the food you bought just didn't last and you didn't have money to get more.Never true05/23/2025CommentsNoSex and Gender InformationValueDate RecordedSex Assigned at DndzcNjmrwo58/27/2025 9:47 AM EDTLegal SexFemale 02/18/2025 9:12 AM EDTGender MferlwcwGpckcd97/27/2025 9:47 AM EDTSexual OrientationHeterosexual or Zajnspek94/27/2025 9:47 AM EDTdocumented as of this encounter Last Filed Vital Signs Vital SignReadingTime TakenCommentsBlood Viguxlmw619/6006/02/2025 3:09 PM EST Pulse--Waalfyhmiex38.6 ??C (97.8 ??F)06/02/2025 3:09 PM ESTRespiratory Rate16 06/02/2025 3:09 PM ESTOxygen Nzbazudeoy68%06/02/2025 3:09 PM ESTInhaled Oxygen Concentration--Weight--Height--Body Mass Index--documented in this encounter Medications at Time of [...] by mouth two times daily. 180 tablet / aspirin 81 mg EC tablet Take 81 mg by mouth in the morning. Jill Xolaphere 160-9-4.8 mcg/actuation HFA aerosol inhaler INHALE 2 [...] tablet 20 mg in the morning. HYDROcodone-acetaminophen ([place]) 5-325 mg tablet Take 1 tablet by mouth every 8 (eight) hours if needed for severe pain (8-10 pain score).02/10/2025 lidocaine-prilocaine (Emla) 2.5-2.5 % cream APPLY TOPICALLY ONE TIME FOR 1 DOSE. APPLY TO PORT SITE AND COVER 30-45 MINS PRIOR TO NEEDLE TXNKTX8604/12/2025 lisinopril 20 mg tablet Take 30 mg by mouth in the morning.01/19/2025 metoprolol tartrate (Lopressor) 25 mg tablet Take 25 mg by mouth if needed in the morning and at bedtime (prn HR greater than 100 or palpitations).02/15/2025 nebulizer accessories misc Use as directed with rwmpwssre34/08/2025 pantoprazole (ProtoNix) 40 mg EC tablet Take 40 mg by mouth if needed each day.03/07/2025 potassium chloride CR (Klor-Con M10) 10 mEq ER tablet Take 10 mEq by mouth in the morning.01/13/2025 tiZANidine (Zanaflex) 4 mg tablet Take 4 mg by mouth every 6 (six) hours if needed for muscle spasms.01/31/2025 documented as of this encounter Progress Notes * Surya Soto - 06/02/2025 2:15 PM EST Images from the original note were not included. [facility] Department of Radiation Oncology [address] [place] [address] Date of Service: 06/02/25 Patient Name: Usha Pruitt Patient : 1950 Radiation Oncology ON-TREATMENT VISIT NOTE Diagnosis: 75 y.o. 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 Dose Accrued: Radiation Treatments Active Plans [facility] Most recent treatment: Dose planned: 300 cGy (fraction 11 on 06/01/2025) Total: Dose planned: 6,000 cGy (20 fractions) Elapsed Days: 16 Reference Points [facility] Most recent treatment: Dose given: 300 cGy (on 06/01/2025) Total: Dose given: 3,300 cGy Elapsed Days: 16 Subjective: Patient is feeling tired, she also c/o stomach upset. When questioned, she says she hasmild cramping in lower abdomen, thinks it's related to her diet. She says her appetite has decreased, so she is eating simple and bland foods. She is tolerating daily treatment set-up and delivery without issues. No difficulty with breath hold technique. Tolerating chemotherapy relatively well so far; labs reviewed. Energy level is slightly decreased, but daily routine is largely unchanged. Patient denies worsening SoB, CP, rib cage pain, cough, difficult or painful swallowing. Current Medications[1] Objective: Wt Readings from Last 10 Encounters: 05/30/25 49.9 kg (110 lb) 05/24/25 52.6 kg (116 lb) 05/23/25 51.7 kg (114 lb) 05/19/25 52.5 kg (115 lb 12.8 oz) 05/16/25 51.3 kg (113 lb) 04/28/25 52.2 kg (115 lb) 04/26/25 52.2 kg (115 lb) 04/18/25 51 kg (112 lb 7 oz) 04/12/25 52.9 kg (116 lb 9.6 oz) 03/24/25 51.8 kg (114 lb 3.2 oz) There were no vitals taken for this visit. On exam, ECOG 1-2, well appearing, in NAD, sitting comfortably in a chair, grossly stable exam withno signs of RT induced toxicity. Daily images and weekly labs reviewed. Lab Results Component Value Date WBC 2.60 (L) 05/30/2025 HGB 12.4 05/30/2025 HCT 36.6 05/30/2025 MCV 88.6 05/30/2025 PLT 289 05/30/2025 Lab Results Component Value Date GLUCOSE 82 05/20/2025 CALCIUM 9.0 05/20/2025 NA 134 (L) 05/20/2025 K 4.9 05/20/2025 CO2 25 05/20/2025 CL 100 05/20/2025 BUN 34 (H) 05/20/2025 CREATININE 1.42 (H) 05/20/2025 Lab Results Component Value Date ALT 12 05/20/2025 AST 14 05/20/2025 ALKPHOS 69 05/20/2025 BILITOT 0.4 05/20/2025 Plan: Continue radiotherapy as planned. Tumor is shrinking, patient reassured and encouraged. She is now >50% done with the course. She conveyed a good understanding to everything. Surya Soto MD [1] Current Outpatient Medications: acetylcysteine (Mucomyst) 200 mg/mL (20 %) nebulizer solution, Take 3 mL by mouth., Disp: , Rfl: albuterol 2.5 mg /3 mL (0.083 %) nebulizer solution, Inhale 2.5 mg every 4 (four) hours if needed for wheezing., Disp: , Rfl: amiodarone (Pacerone) 200 mg tablet, Take 1 tablet (200 mg) by mouth two times daily., Disp: 180 tablet, Rfl: 3 aspirin 81 mg EC tablet, Take 81 mg by mouth in the morning. (Patient not taking: Reported on 05/19/2025), Disp: , Rfl: Breztri Aerosphere 160-9-4.8 mcg/actuation HFA aerosol inhaler, INHALE 2 PUFFS IN THE MORNING AND AT BEDTIME, Disp: , Rfl: cefdinir (Omnicef) 300 mg capsule, TAKE 1 CAPSULE BY MOUTH IN THE MORNING AND 1 CAPSULE BEFORE BEDTIME. DO ALL THIS FOR 14 DOSES., Disp: , Rfl: clopidogrel (Plavix) 75 mg tablet, Take 75 mg by mouth in the morning., Disp: , Rfl: dexAMETHasone (Decadron) 4 mg tablet, Take 8 mg (two tablets) by mouth daily with breakfast on days2 through 3 following chemotherapy administration., Disp: 24 tablet, Rfl: 0 doxepin 3 mg tablet, Take 3 mg by mouth., Disp: , Rfl: Farxiga 10 mg, Take 1 tablet by mouth in the morning., Disp: , Rfl: furosemide (Lasix) 20 mg tablet, 20 mg in the morning., Disp: , Rfl: HYDROcodone-acetaminophen ([place]) 5-325 mg tablet, Take 1 tablet by mouth every 8 (eight) hours if needed for severe pain (8-10 pain score). (Patient not taking: Reported on 05/19/2025), Disp: , Rfl: lidocaine-prilocaine (Emla) 2.5-2.5 % cream, APPLY TOPICALLY ONE TIME FOR 1 DOSE. APPLY TO PORT SITE AND COVER 30-45 MINS PRIOR TO NEEDLE ACCESS, Disp: , Rfl: lisinopril 20 mg tablet, Take 30 mg by mouth in the morning., Disp: , Rfl: metoprolol tartrate (Lopressor) 25 mg tablet, Take 25 mg by mouth if needed in the morning and at bedtime (prn HR greater than 100 or palpitations). (Patient not taking: Reported on 05/19/2025), Disp: , Rfl: nebulizer accessories misc, Use as directed with nebulizer, Disp: , Rfl: pantoprazole (ProtoNix) 40 mg EC tablet, Take 40 mg by mouth if needed each day. (Patient not taking: Reported on 05/19/2025), Disp: , Rfl: potassium chloride CR (Klor-Con M10) 10 mEq ER tablet, Take 10 mEq by mouth in the morning., Disp: , Rfl: tiZANidine (Zanaflex) 4 mg tablet, Take 4 mg by mouth every 6 (six) hours if needed for muscle spasms., Disp: , Rfl: documented in this encounter Plan of Treatment DateTypeDepartmentCare Team (Latest Contact Info)Rsotbdjlqlo27/15/2025 10:30 AM ESTInfusion [facility] [address] [place] [address] Bertha Guillen, ELÍAS 06/13/2025 10:30 AM ESTOffice Visit Olinda Aguirre [facility] Oncology [address] [place] [address] Mary Jo Denton, INSPECTOR FILTERS [address] [facility] [place] [address] 06/13/2025 1:50 PM ESTAppointment [facility] Radiation Oncology [address] [place] [address] 06/14/2025 10:15 AM ESTOffice Visit [facility] [address] [facility] [place] [id number] Alfredo Machuca MD [address] [facility] [place] [address] 06/14/2025 1:50 PM ESTAppointment [facility] Radiation Oncology [address] [place] [address] 09/12/2025 1:00 PM EDTAppointment [facility] Radiation Oncology [address] [place] [address] Surya Soto [address] [facility] [place] [address] documented as of this encounter Visit Diagnoses Diagnosis Squamous cell carcinoma of lung, right (CMS/HCC)- Primary documented in this encounter Care Teams Team MemberRelationshipSpecialtyStart DateEnd Date DanielajamesKev [address] [facility] [facility] [place] [address] PCP - GeneralFamily Medicine02/18/25 Gretchen Davis MD [address] [place] [address] Consulting PhysicianHematology and Oncology03/08/25 Mary Jo Denton, INSPECTOR FILTERS [address] [place] [address] Consulting DvzhepfpmBfpreqgc34/14/25 Surya Soto [address] [place] [address] Radiation Ydkgafgn49/23/25 Alfredo Machuca MD [address] [place] [id number] Aytqwmluwczeloihb76/23/25documented as of this encounter
--- OUTSIDE RECORDS SUMMARY | 2025-06-03 13:22 | XMS_ITS | Encounter Summary ---
Author Organization [facility] Address [address] [place] [address] Care Team Providers Care Hydro Excavation Operator Name Role Phone Kev Mcmahon DO Primary Care Provider [phone] Gretchen Davis MD Unavailable Mary Jo Denton CNP Unavailable [phone] Suyra Soto Unavailable [phone] Alfredo Machuca MD Unavailable Encounter Details DateTypeDepartmentCare Team (Latest Contact Info)Rhhsssjehlf56/05/2025 1:22 PM EST - 06/03/2025 11:59 PM ESTHospital Encounter [facility] Radiation Oncology [address] [place] [place] [address] Discharge Disposition: Home or Self Care () Social History Tobacco UseTypesPacks/DayYears UsedDateSmoking Tobacco: FormerCigarettes Smokeless Tobacco: NeverAlcohol UseStandard Drinks/WeekCommentsNot Currently0 (1 standard drink = 0.6 oz pure alcohol)[facility] UtilitiesAnswerDate RecordedIn the past 12 months has the electric, gas, oil, or water company threatened to shut off services in your home?No02/23/2025Overall Financial Resource Strain (CARDIA) AnswerDate RecordedHow hard is it for you to pay for the very basics like food, housing, medical care, and heating?Not hard at all02/23/2025PHQ-2AnswerDate RecordedPatient Health Questionnaire-2 [id number], Afraid, Rape, and Kick questionnaireAnswerDate RecordedWithin the [...] true05/23/2025CommentsNoSex and Gender InformationValueDate RecordedSex Assigned at KzdwwPbgnae80/27/2025 9:47 AM EDTLegal SexFemale 02/18/2025 9:12 AM EDTGender MsxuqcjaCxvhov83/27/2025 9:47 AM EDTSexual OrientationHeterosexual or Uxbuwlbi12/27/2025 9:47 AM EDTdocumented as of this encounter [...] tablet 20 mg in the morning. HYDROcodone-acetaminophen ([place]) 5-325 mg tablet Take 1 tablet by mouth every 8 (eight) hours if needed for severe pain (8-10 pain score).02/10/2025 lidocaine-prilocaine (Emla) 2.5-2.5 % cream APPLY TOPICALLY ONE TIME FOR 1 DOSE. APPLY TO PORT SITE AND COVER 30-45 MINS PRIOR TO NEEDLE NNZMNO1804/12/2025 lisinopril 20 mg tablet Take 30 mg by mouth in the morning.01/19/2025 metoprolol tartrate (Lopressor) 25 mg tablet Take 25 mg by mouth if needed in the morning and at bedtime (prn HR greater than 100 or palpitations).02/15/2025 nebulizer accessories misc Use as directed with oykiivngn44/08/2025 pantoprazole (ProtoNix) 40 mg EC tablet Take 40 mg by mouth if needed each day.03/07/2025 potassium chloride CR (Klor-Con M10) 10 mEq ER tablet Take 10 mEq by mouth in the morning.01/13/2025 tiZANidine (Zanaflex) 4 mg tablet Take 4 mg by mouth every 6 (six) hours if needed for muscle spasms.01/31/2025 documented as of this encounter Plan of Treatment DateTypeDepartmentCare Team (Latest Contact Info)Xpyafnzoarc76/15/2025 10:30 AM ESTInfusion [facility] [address] [place] [address] Bertha Guillen RN 06/13/2025 10:30 AM ESTOffice Visit [facility] On[facility] [address] [place] [address] Mary Jo Denton, WORKDAY MANAGER [address] [place] [address] 06/13/2025 1:50 PM ESTAppointment [facility] [address] [place] [address] 06/14/2025 10:15 AM ESTOffice Visit [facility] at [facility] [address] [place] [address] Alfredo Machuca MD [address] [place] [address] 06/14/2025 1:50 PM ESTAppointment [facility] Rad[facility] Oncology [address] [place] [address] 09/12/2025 1:00 PM EDTAppointment [facility] Radiation Oncology [address] [place] [address] Surya Soto [address] [facility] [place] [address] documented as of this encounter Procedures Procedure NamePriorityDate/TimeAssociated DiagnosisCommentsRAD ONC ARIA SESSION FJGKSLXSuwjklu41/05/2025 1:50 PM EST documented in this encounter Results * Rad Onc Aria Session Summary (06/03/2025 1:50 PM EST)ComponentValueRef Range Test MethodAnalysis TimePerformed AtPathologist SignatureCourse [id number] RADIATION ONCOLOGYCourse IntentCurative w/chemoARIA RADIATION ONCOLOGYCourse Start Date04/22/2025 8:56 PMARIA RADIATION ONCOLOGYSession [id number] RADIATION ONCOLOGYCourse First Treatment Date05/16/2025 2:02 PMARIA RADIATION ONCOLOGYCourse Last Treatment Date06/03/2025 1:14 PMARIA RADIATION ONCOLOGY Course Elapsed Gyic11YBNQ RADIATION ONCOLOGYReference Point IDRLng Med DIBH ARIA RADIATION ONCOLOGYReference Point Dosage Given to [id number] RADIATION ONCOLOGYReference Point Session Dosage [id number] RADIATION ONCOLOGYPlan ID RLng Med DIBHARIA RADIATION ONCOLOGYPlan NameRLng Med DIBHARIA RADIATION ONCOLOGYPlan Fractions Treated to [id number] RADIATION ONCOLOGYPlan Total Fractions Wqtretctqk80JBFY RADIATION ONCOLOGYPlan Prescribed Dose Per Fraction 3GyARIA RADIATION ONCOLOGYPlan Total Prescribed Dose6,000cGyARIA RADIATION ONCOLOGYPlan Primary Reference PointRLng Med DIBHARIA RADIATION ONCOLOGY Specimen (Source)Anatomical Location / LateralityCollection Method / Volume Collection TimeReceived Time06/03/2025 1:50 PM EST Narrative Authorizing ProviderResult TypeResult StatusPhysician Radiation Oncology RADIATION ONCOLOGY ORDERABLESFinal ResultPerforming OrganizationAddress City/State/ZIP CodePhone Number ARIA RADIATION ONCOLOGY documented in this encounter Visit Diagnoses Not on filedocumented in this encounter Care Teams Team MemberRelationshipSpecialtyStart DateEnd Date Kev Mcmahon DO [address] [place] [address] PCP - GeneralFamily Medicine02/18/25 Gretchen Davis MD [address] [place] [address] Consulting PhysicianHematology and Oncology03/08/25 Mary Jo Denton, WORKDAY MANAGER [address] [place] [address] Consulting XhipskfxnSrmpqoxi81/14/25 Surya Soto [address] [place] [address] Radiation Thlbgtpz45/23/25 Alfredo Machuca MD [address] [place] [address] Vnlouuthrfpgcqkbq54/23/25documented as of this encounter
--- OUTSIDE RECORDS SUMMARY | 2025-06-03 14:10 | XMS_ITS | Encounter Summary ---
Author Organization [facility] Address [address] [place] [address] Care Team Providers Care Regulatory Affairs Portfolio Leader Name Role Phone Kev Mcmahon DO Primary Care Provider [phone] Gretchen Davis MD Unavailable Mary Jo Denton FLYING II INSTRUCTOR Unavailable [phone] Surya Soto Unavailable Alfredo Machuca MD Unavailable Encounter Details DateTypeDepartmentCare Team (Latest Contact Info)Azlsfawpadz71/05/2025 2:10 PM ESTLab [facility] Draw Station [address] [place] [address] Squamous cell lung cancer, right (CMS/HCC) Social History Tobacco UseTypesPacks/DayYears UsedDateSmoking Tobacco: FormerCigarettes Smokeless Tobacco: NeverAlcohol UseStandard Drinks/WeekCommentsNot Currently0 (1 standard drink = 0.6 oz pure alcohol)[facility] UtilitiesAnswerDate RecordedIn the past 12 months has the electric, gas, oil, or water company threatened to shut off services in your home?No02/23/2025Overall Financial Resource Strain (CARDIA) AnswerDate RecordedHow hard is it for you to pay for the very basics like food, housing, medical care, and heating?Not hard at all02/23/2025PHQ-2AnswerDate RecordedPatient Health Questionnaire-2 [id number], Afraid, Rape, and Kick questionnaireAnswerDate RecordedWithin the [...] were you homeless or living in a fci (including now)?No02/23/2025Hunger Vital SignAnswerDate RecordedWithin the past 12 months, you worried that your food would run out before you got the money to buymore.Never true05/23/2025Within the past 12 months, the food you bought just didn't last and you didn't have money to get more.Never true05/23/2025CommentsNoSex and Gender InformationValueDate RecordedSex Assigned at YefnlUdwhxk20/27/2025 9:47 AM EDTLegal SexFemale 02/18/2025 9:12 AM EDTGender MuooajznOhlagq36/27/2025 9:47 AM EDTSexual OrientationHeterosexual or Ketuelxx72/27/2025 9:47 AM EDTdocumented as of this encounter Plan of Treatment DateTypeDepartmentCare Team (Latest Contact Info)Oyukkyewufh40/15/2025 10:30 AM ESTInfusion [facility] Infusion [address] [place] [address] Bertha Guillen RN 06/13/2025 10:30 AM ESTOffice Visit [facility] [address] [place] [address] Mary Jo Denton, FLYING II INSTRUCTOR [address] [facility] [place] [address] 06/13/2025 1:50 PM ESTAppointment [facility] Radiation Oncology [address] [place] [address] 06/14/2025 10:15 AM ESTOffice Visit [place] [address] [facility] [place] [address] Alfredo Machuca MD [address] [place] [address] 06/14/2025 1:50 PM ESTAppointment [facility] Radiation Oncology [address] [place] [address] 09/12/2025 1:00 PM EDTAppointment [facility]iation Oncology [address] [place] [address] Surya Soto [address] [facility] [place] [address] documented as of this encounter Procedures Procedure NamePriorityDate/TimeAssociated DiagnosisCommentsCBC WITH AUTO CZJUJBGGCPCCRmznoqc68/05/2025 2:04 PM EST Squamous cell lung cancer, right (CMS/HCC) CBC AND SMLQSJDHSURXZexwbzy16/05/2025 2:04 PM EST Squamous cell lung cancer, right (CMS/HCC) documented in this encounter Results * (ABNORMAL) CBC auto differential (06/03/2025 2:04 PM EST)ComponentValueRef RangeTest MethodAnalysis TimePerformed AtPathologist SignatureAuto WBC3.29(L) 4.00 - 10.60 10*3/uL06/03/2025 2:48 PM [facility] ([facility])RBC4.59 3.80 - 5.00 10*6/uL06/03/2025 2:48 PM [facility] ([facility])Hemoglobin 13.612.0 - 15.0 g/dL06/03/2025 2:48 PM [facility] ([facility])Hematocrit 40.736.0 - 45.0 %06/03/2025 2:48 PM [facility] ([facility])MCV88.782.0 - 98.0 fL06/03/2025 2:48 PM [facility] ([facility])MCH29.627.0 - 33.0 pg 06/03/2025 2:48 PM [facility] ([facility])MCHC33.432.0 - 35.0 g/dL 06/03/2025 2:48 PM [facility] ([facility])RDW15.011.5 - 15.0 %06/03/2025 2:48 PM [facility] ([facility])Neutrophils %71.840.0 - 72.0 %06/03/2025 2:48 PM [facility] ([facility])Lymphocytes %18.5(L)20.0 - 45.0 % 06/03/2025 2:48 PM [facility] ([facility])Monocytes %8.25.0 - 12.0 % 06/03/2025 2:48 PM [facility] ([facility])Eosinophils %0.00.0 - 6.0 % 06/03/2025 2:48 PM [facility] ([facility])Basophils %0.30.0 - 1.0 % 06/03/2025 2:48 PM [facility] ([facility])Neutrophils Absolute2.361.60 - 7.60 10*3/uL06/03/2025 2:48 PM [facility] ([facility])Lymphocytes Absolute0.61(L)1.20 - 4.00 10*3/uL06/03/2025 2:48 PM [facility] ([facility])Monocytes Absolute0.270.10 - 1.00 10*3/uL06/03/2025 2:48 PM [facility] ([facility])Eosinophils Absolute0.000.00 - 0.50 10*3/uL06/03/2025 2:48 PM [facility] ([facility])Basophils Absolute0.010.00 - 0.20 10*3/uL 06/03/2025 2:48 PM [facility] ([facility])Vfkqivynp534572 - 400 10*3/uL 06/03/2025 2:48 PM [facility] ([facility])nRBC %0.6(H)0 %06/03/2025 2:48 PM [facility] ([facility])Immature Granulocytes %1.2(H)0.0 - 1.0 % 06/03/2025 2:48 PM [facility] ([facility])Immature Granulocytes Absolute 0.040.00 - 0.20 10*3/uL06/03/2025 2:48 PM [facility] ([facility]) Specimen (Source)Anatomical Location / LateralityCollection Method / Volume Collection TimeReceived TimeBloodVenous blood specimen / UnknownExisting Catheter / Omivbfq7606/03/2025 2:04 PM EST06/03/2025 2:27 PM EST Narrative Authorizing ProviderResult TypeResult StatusGretchen Davis MDLAB BLOOD ORDERABLESFinal ResultPerforming OrganizationAddressCity/State/ZIP CodePhone Number [facility] ([facility]) [address] [place] [address] documented in this encounter Visit Diagnoses Diagnosis Squamous cell lung cancer, right (CMS/HCC) documented in this encounter Care Teams Team MemberRelationshipSpecialtyStart DateEnd Date Kev Mcmahon DO [address], [facility] [place], [place] [id number] PCP - GeneralFamily Medicine02/18/25 Gretchen Davis MD [address] [place] [address] Consulting PhysicianHematology and Oncology03/08/25 Mary Jo Denton, FLYING II INSTRUCTOR [address] [place] [address] Consulting GurnkeeqjCubcyubs69/14/25 Surya Stoo [address] [place] [address] Radiation Dogvtifr13/23/25 Alfredo Machuca MD [address] [place] [address] Iqbcnyqvatlihxkkp08/23/25documented as of this encounter
--- OUTSIDE RECORDS SUMMARY | 2025-06-06 10:30 | XMS_ITS | Encounter Summary ---
Author Organization [facility] Address [address] [place] [address] Care Team Providers Care Government Professor Name Role Phone Kev Mcmahon Primary Care Provider [phone] Gretchen Davis MD Unavailable [phone] Mary Jo Denton CNP Unavailable [phone] Surya Soto Unavailable [phone] Alfredo Machuca MD Unavailable Reason for Visit * Episode Based Medications (Routine) - AuthorizedSpecialtyDiagnoses / ProceduresReferred By ContactReferred To Contact Diagnoses Squamous cell lung cancer, right (CMS/HCC) Gretchen Davis MD [address] [place] [address] Phone: tel: fax: Gretchen Davis MD [address] [place] [address] Phone: tel: fax: Referral IDStatusReasonStart DateExpiration DateVisits RequestedVisits [id number]/25/20256/ Encounter Details DateTypeDepartmentCare Team (Latest Contact Info)Lkuxonlocxm77/01/2025 10:30 AM ESTInfusion [facility] Infusion [address] [place] [address] Smita Espinoza Squamous cell lung cancer, right (CMS/HCC) (Primary Dx) Social History Tobacco UseTypesPacks/DayYears UsedDateSmoking Tobacco: FormerCigarettes Smokeless Tobacco: NeverAlcohol UseStandard Drinks/WeekCommentsNot Currently0 (1 standard drink = 0.6 oz pure alcohol)[facility] UtilitiesAnswerDate RecordedIn the past 12 months has the [employer], gas, oil, or water [employer] threatened to shut off services in your home?No02/23/2025Overall Financial Resource Strain (CARDIA) AnswerDate RecordedHow hard is it for you to pay for the very basics like food, housing, medical care, and heating?Not hard at all02/23/2025PHQ-2AnswerDate RecordedPatient Health Questionnaire-2 Dxumk827Humiliation, Afraid, Rape, and Kick questionnaireAnswerDate RecordedWithin the [...] were you homeless or living in a skilled nursing (including now)?No02/23/2025Hunger Vital SignAnswerDate RecordedWithin the past 12 months, you worried that your food would run out before you got the money to buymore.Never true05/23/2025Within the past 12 months, the food you bought just didn't last and you didn't have money to get more.Never true05/23/2025CommentsNoSex and Gender InformationValueDate RecordedSex Assigned at YhubfHsodkr47/27/2025 9:47 AM EDTLegal SexFemale 02/18/2025 9:12 AM EDTGender VyjgtzxsAxbbqv29/27/2025 9:47 AM EDTSexual OrientationHeterosexual or Zvhjinfr95/27/2025 9:47 AM EDTdocumented as of this encounter Progress Notes * Smita Olga - 06/06/2025 10:30 AM EST On Friday the lab did not draw CMP and Mag, so pt had to wait for labs today two hours after being accessed, she was not happy and she was very impatient. It was explained to her that lab only tomas acbc, and I apologized for labs error. She rec'd Taxol And Carbo today after having premeds, she hadno issues. She asked for pain medications right away, though she had no pain today(she had some pain in the chest over the weekend, she said of a #5 achy). documented in this encounter Plan of Treatment DateTypeDepartmentCare Team (Latest Contact Info)Ovdhgjlghwl92/15/2025 10:30 AM ESTInfusion [facility] [address] [place] [address] Bertha Guillen, ELÍAS 06/13/2025 10:30 AM ESTOffice Visit [facility] Oncology [address] [place] [address] Mary Jo Denton, DERIVATIVES TRADER [address] [place] [address] 06/13/2025 1:50 PM ESTAppointment [facility] [address] [place] [address] 06/14/2025 10:15 AM ESTOffice Visit [facility] [address] [place] [address] Alfredo Machuca MD [address] [place] [address] 06/14/2025 1:50 PM ESTAppointment [facility] [address] [place] [address] 09/12/2025 1:00 PM EDTAppointment [facility] [address] [place] [address] Surya Soto [address] [place] [place] [address] documented as of this encounter Procedures Procedure NamePriorityDate/TimeAssociated DiagnosisCommentsMAGNESIUMRoutine 06/06/2025 10:55 AM EST Squamous cell lung cancer, right (CMS/HCC) COMPREHENSIVE METABOLIC CVFQWKejpvfw30/08/2025 10:55 AM EST Squamous cell lung cancer, right (CMS/HCC) documented in this encounter Results * (ABNORMAL) Comprehensive metabolic panel (06/06/2025 10:55 AM EST)Component ValueRef RangeTest MethodAnalysis TimePerformed AtPathologist SignatureSodium 127(L)136 - 145 mmol/L108/07/2024 1:03 PM [facility] ([facility]) Potassium4.43.5 - 5.1 mmol/L108/07/2024 1:03 PM [facility] ([facility]) Jobdbrie45(L)98 - 107 mmol/L108/07/2024 1:03 PM [facility] ([facility]) [id number] - 31 mmol/L108/07/2024 1:03 PM [facility] ([facility])Anion Gap13 7 - 20 mmol/L108/07/2024 1:03 PM [facility] ([facility])BUN29(H)7 - 25 mg/dL06/06/2025 1:03 PM [facility] ([facility])Creatinine1.83(H)0.60 - 1.20 mg/dL06/06/2025 1:03 PM [facility] ([facility])BUN/Creatinine Ratio 15.8108/07/2024 1:03 PM [facility] ([facility])Rkpwfpq247(H)70 - 100 mg/dL06/06/2025 1:03 PM [facility] ([facility])Calcium8.2(L)8.6 - 10.3 mg/dL06/06/2025 1:03 PM [facility] ([facility])RVT3922 - 39 U/L 06/06/2025 1:03 PM [facility] ([facility])ALT (SGPT)137 - 52 U/L 06/06/2025 1:03 [facility] ([facility])Alkaline Judptimlppk3708 - 104 U/L108/07/2024 1:03 [facility] ([facility])Total Protein6.26.0 - 8.3 g/dL06/06/2025 1:03 [facility] ([facility])Albumin3.4(L)3.5 - 5.7 g/dL06/06/2025 1:03 PM [facility] ([facility])Total Bilirubin0.40.3 - 1.0 mg/dL06/06/2025 1:03 [facility] ([facility])eGFR28.3(L)>60.0 mL/min/1.73m* 1:03 PM [facility] ([facility])Comment:[facility]???s estimated glomerular filtration rate (eGFR) will no longer include consideration of race in its calculation. The National Kidney Foundation???s eGFR Task Force developed new recommendations for the estimation of the glomerular filtration rate in the [place] They recommend immediate implementation of the new equation refit without the race variable in all laboratories because the calculation does not include race. In addition to not including race in the calculation and reporting, it included diversity in its development, and has acceptable performance characteristics and potential consequences that do not disproportionately affect any one group of individuals.Specimen (Source)Anatomical Location / LateralityCollection Method / VolumeCollection TimeReceived TimeBloodVenous blood specimen / UnknownExisting Catheter / Ulcpine6906/06/2025 10:55 AM EST06/06/2025 10:55 AM EST Narrative Authorizing ProviderResult TypeResult StatusGretchen Davis [facility] BLOOD ORDERABLESFinal ResultPerforming OrganizationAddressCity/State/ZIP CodePhone Number [facility] ([facility]) [address] [place] [address] * (ABNORMAL) Magnesium (06/06/2025 10:55 AM EST)ComponentValueRef RangeTest MethodAnalysis TimePerformed AtPathologist SignatureMagnesium1.8(L)1.9 - 2.7 mg/dL06/06/2025 1:03 PM [facility] ([facility])Specimen (Source) Anatomical Location / LateralityCollection Method / VolumeCollection Time Received TimeBloodVenous blood specimen / UnknownExisting Catheter / Unknown 06/06/2025 10:55 AM EST06/06/2025 10:55 AM EST Narrative Authorizing ProviderResult TypeResult StatusGretchen Davis [facility] BLOOD ORDERABLESFinal ResultPerforming OrganizationAddressCity/State/ZIP CodePhone Number [facility] ([facility]) [address] [place] [address] documented in this encounter Visit Diagnoses Diagnosis Squamous cell lung cancer, right (CMS/HCC)- Primary documented in this encounter Administered Medications Medication OrderMAR ActionAction DateDoseRateSite CARBOplatin (Paraplatin) 90 mg in sodium chloride 0.9 % 109 mL IVPB 90 mg (rounded from 91.2 mg, Target AUC = 2), intravenous, at 238 mL/hr, Administer over 30 Minutes, Once, On Fri06/06/25 at 1500, For 1 dose, HAZARDOUS AGENT - Use appropriate precautions for handling and disposal. Irritant AUC multiplied by 150 = max dose per [facility] Protect from Light Indications:Squamous cell lung cancer, right (CMS/HCC)New Bag06/06/2025 2:55 PM EST90 mg238 mL/hr dexAMETHasone (Decadron) 10 mg in sodium chloride 0.9 % 51 mL IVPB 10 mg, intravenous, at 112 mL/hr, Administer over 30 Minutes, Once, On Fri06/06/25 at 1330, For 1 dose, Administer 30 minutes prior to chemotherapy Indications:Squamous cell lung cancer, right (CMS/HCC)New Bag06/06/2025 1:33 PM EST10 mg112 mL/hr diphenhydrAMINE (BENADryl) injection 50 mg 50 mg, intravenous, Once, On Fri06/06/25 at 1330, For 1 dose, Administer 30 minutes prior to paclitaxel Indications:Squamous cell lung cancer, right (CMS/HCC)Given06/06/2025 1:29 PM EST50 mg famotidine (Pepcid) injection 20 mg 20 mg, intravenous, Administer over 2 Minutes, Once, On Fri06/06/25 at 1330, For 1 dose, Txobnfcfrv90 minutes prior to paclitaxel, Indication: Other, Specify Indication: prevention of hypersensitivity Indications:Squamous cell lung cancer, right (CMS/HCC)Given06/06/2025 1:30 PM EST20 mg heparin lock flush 100 unit/mL syringe 500 Units 500 Units, intra-catheter, Once as needed, line care, Starting on Fri06/06/25 at 1316, Keep Vein Open - KVO Indications:Squamous cell lung cancer, right (CMS/HCC)Given06/06/2025 3:30 PM AJE216 Units PACLitaxel (Taxol) 66 mg, in sodium chloride 0.9 % 111 mL IVPB (non-DEHP) 66 mg (rounded from 65.25 mg = 45 mg/m2 ?? 1.45 m2 Order-specific BSA), intravenous, at 121 mL/hr, Administer over 60 Minutes, Once, On Fri06/06/25 at 1400, For 1 dose, HAZARDOUS AGENT - Use appropriate precautions for handling and disposal. Use 0.22 micron filtered tubing Irritant Indications:Squamous cell lung cancer, right (CMS/HCC)New 06/06/2025 2:01 PM EST66 mg121 mL/hr palonosetron (Aloxi) injection 250 mcg 250 mcg, intravenous, Administer over 1 Minutes, Once, On Fri06/06/25 at 1330, For 1 dose, Administer 30 minutes prior to chemotherapy Indications:Squamous cell lung cancer, right (CMS/HCC)Given06/06/2025 1:27 PM JQK535 mcg sodium chloride 0.9 % infusion 20 mL/hr, intravenous, Continuous, Starting on Fri06/06/25 at 1330, Keep Vein Open - KVO Indications:Squamous cell lung cancer, right (CMS/HCC)New Bag06/06/2025 1:24 PM EST20 mL/hr20 mL/hrdocumented in this encounter Care Teams Team MemberRelationshipSpecialtyStart DateEnd Date Kev Mcmahon DO [address] [facility] [address] [place], [place] [id number] PCP - GeneralFamily Medicine02/18/25 Gretchen Davis MD [address] [place] [address] Consulting PhysicianHematology and Oncology03/08/25 Mary Jo Denton, DERIVATIVES TRADER [address] [place] [address] Consulting FprdsyjctEjjqclfo03/14/25 Surya Soto [address] [place] [address] Radiation Uikvpgkb35/23/25 Alfredo Machuca MD [address] [place], [place] [address] [address] Pmmuwhwavnjhlnlxf40/23/25documented as of this encounter
--- OUTSIDE RECORDS SUMMARY | 2025-06-06 13:50 | XMS_ITS | Encounter Summary ---
Author Organization [facility] Address [address] [place] [address] Care Team Providers Care Cp Bleacher Operator Name Role Phone Kev Mcmahon DO Primary Care Provider [phone] Gretchen Davis MD Unavailable Mary Jo Denton CNP Unavailable [phone] Surya Soto Unavailable [phone] Alfredo Machuca MD Unavailable Encounter Details DateTypeDepartmentCare Team (Latest Contact Info)Gkteslzlwrr38/08/2025 1:50 PM EST - 06/06/2025 11:59 PM ESTHospital Encounter [facility] Radiation Oncology [address] [place] [address] Discharge Disposition: Home or Self Care () Social History Tobacco UseTypesPacks/DayYears UsedDateSmoking Tobacco: FormerCigarettes Smokeless Tobacco: NeverAlcohol UseStandard Drinks/WeekCommentsNot Currently0 (1 standard drink = 0.6 oz pure alcohol)[facility] UtilitiesAnswerDate RecordedIn the past 12 months has the electric, gas, oil, or water company threatened to shut off services in your home?No02/23/2025Overall Financial Resource Strain (CARDIA) AnswerDate RecordedHow hard is it for you to pay for the very basics like food, housing, medical care, and heating?Not hard at all02/23/2025PHQ-2AnswerDate RecordedPatient Health Questionnaire-2 Hmibm475Humiliation, Afraid, Rape, and Kick questionnaireAnswerDate RecordedWithin the [...] true05/23/2025CommentsNoSex and Gender InformationValueDate RecordedSex Assigned at TznkrRcgqfx93/27/2025 9:47 AM EDTLegal SexFemale 02/18/2025 9:12 AM EDTGender JeiykpjzUepwjv21/27/2025 9:47 AM EDTSexual OrientationHeterosexual or Oktzxvwn39/27/2025 9:47 AM EDTdocumented as of this encounter [...] tablet 20 mg in the morning. HYDROcodone-acetaminophen ([place]) 5-325 mg tablet Take 1 tablet by mouth every 8 (eight) hours if needed for severe pain (8-10 pain score).02/10/2025 lidocaine-prilocaine (Emla) 2.5-2.5 % cream APPLY TOPICALLY ONE TIME FOR 1 DOSE. APPLY TO PORT SITE AND COVER 30-45 MINS PRIOR TO NEEDLE LGTKPA6004/12/2025 lisinopril 20 mg tablet Take 30 mg by mouth in the morning.01/19/2025 metoprolol tartrate (Lopressor) 25 mg tablet Take 25 mg by mouth if needed in the morning and at bedtime (prn HR greater than 100 or palpitations).02/15/2025 nebulizer accessories misc Use as directed with xzvzcqqug17/08/2025 pantoprazole (ProtoNix) 40 mg EC tablet Take 40 mg by mouth if needed each day.03/07/2025 potassium chloride CR (Klor-Con M10) 10 mEq ER tablet Take 10 mEq by mouth in the morning.01/13/2025 tiZANidine (Zanaflex) 4 mg tablet Take 4 mg by mouth every 6 (six) hours if needed for muscle spasms.01/31/2025 documented as of this encounter Plan of Treatment DateTypeDepartmentCare Team (Latest Contact Info)Onnhjwipyxa29/15/2025 10:30 AM ESTInfusion [facility] [address] [place] [address] Bertha Guillen RN 06/13/2025 10:30 AM ESTOffice Visit [facility] [address] [place] [address] Mary Jo Denton, BISQUE KILN DRAWER [address] [facility] [place] [address] 06/13/2025 1:50 PM ESTAppointment [facility] Radiation Oncology [address] [place] [address] 06/14/2025 10:15 AM ESTOffice Visit [facility] [address] [place] [address] Alfredo Machuca MD [address] [place] [address] 06/14/2025 1:50 PM ESTAppointment [facility] Radiation Oncology [address] [place] [address] 09/12/2025 1:00 PM EDTAppointment [facility] Radiation Oncology [address] [place] [address] Surya Soto [address] [facility] [place] [address] documented as of this encounter Procedures Procedure NamePriorityDate/TimeAssociated DiagnosisCommentsRAD ONC ARIA SESSION RILYMZCHpaylxw36/08/2025 4:16 PM EST documented in this encounter Results * Rad Onc Aria Session Summary (06/06/2025 4:16 PM EST)ComponentValueRef Range Test MethodAnalysis TimePerformed AtPathologist SignatureCourse [id number] RADIATION ONCOLOGYCourse IntentCurative w/chemoARIA RADIATION ONCOLOGYCourse Start Date04/22/2025 8:56 PMARIA RADIATION ONCOLOGYSession Bodavy02BGAJ RADIATION ONCOLOGYCourse First Treatment Date05/16/2025 2:02 PMARIA RADIATION ONCOLOGYCourse Last Treatment Date06/06/2025 3:38 PMARIA RADIATION ONCOLOGY Course Elapsed Ksjb67USSH RADIATION ONCOLOGYReference Point IDRLng Med DIBH ARIA RADIATION ONCOLOGYReference Point Dosage Given to Peyf31XmYILY RADIATION ONCOLOGYReference Point Session Dosage Qhtzn6MkLRZU RADIATION ONCOLOGYPlan ID RLng Med DIBHARIA RADIATION ONCOLOGYPlan NameRLng Med DIBHARIA RADIATION ONCOLOGYPlan Fractions Treated to Qvhz67PZQK RADIATION ONCOLOGYPlan Total Fractions Dwetxhnlws67OHFV RADIATION ONCOLOGYPlan Prescribed Dose Per Fraction 3GyARIA RADIATION ONCOLOGYPlan Total Prescribed Dose6,000cGyARIA RADIATION ONCOLOGYPlan Primary Reference PointRLng Med DIBHARIA RADIATION ONCOLOGY Specimen (Source)Anatomical Location / LateralityCollection Method / Volume Collection TimeReceived Time06/06/2025 4:16 PM EST Narrative Authorizing ProviderResult TypeResult StatusPhysician Radiation Oncology RADIATION ONCOLOGY ORDERABLESFinal ResultPerforming OrganizationAddress City/State/ZIP CodePhone Number [facility]IATION [facility]COL[facility] documented in this encounter Visit Diagnoses Not on filedocumented in this encounter Care Teams Team MemberRelationshipSpecialtyStart DateEnd Date Kev Mcmahon DO [address] [place] [address] PCP - GeneralFamily Medicine02/18/25 Gretchen Davis MD [address] [place] [address] Consulting PhysicianHematology and Oncology03/08/25 Mary Jo Denton, BISQUE KILN DRAWER [address] [place] [address] Consulting SxhlpbwcwHrygnxqm54/14/25 Surya Soto [address] [place] [address] Radiation Aaoechsv76/23/25 Alfredo Machuca MD [address] [place] [address] Ewwueebibyxqqatqa31/23/25documented as of this encounter
--- OUTSIDE RECORDS SUMMARY | 2025-06-07 13:49 | XMS_ITS | Encounter Summary ---
Author Organization [facility] Address [address] [place] [address] Care Team Providers Care Cosmetics Supervisor Name Role Phone Kev Mcmahon DO Primary Care Provider [phone] Gretchen Davis MD Unavailable Mary Jo Denton CNP Unavailable [phone] Surya Soto Unavailable [phone] Alfredo Machuca MD Unavailable Encounter Details DateTypeDepartmentCare Team (Latest Contact Info)Vrzkneovbpt71/09/2025 1:49 PM EST - 06/07/2025 11:59 PM ESTHospital Encounter [facility] Radiation Oncology [address] [place] [address] Discharge Disposition: Home or Self Care () Social History Tobacco UseTypesPacks/DayYears UsedDateSmoking Tobacco: FormerCigarettes Smokeless Tobacco: NeverAlcohol UseStandard Drinks/WeekCommentsNot Currently0 (1 standard drink = 0.6 oz pure alcohol)[facility] UtilitiesAnswerDate RecordedIn the past 12 months has the electric, gas, oil, or water company threatened to shut off services in your home?No02/23/2025Overall Financial Resource Strain (CARDIA) AnswerDate RecordedHow hard is it for you to pay for the very basics like food, housing, medical care, and heating?Not hard at all02/23/2025PHQ-2AnswerDate RecordedPatient Health Questionnaire-2 Lsgpw035Humiliation, Afraid, Rape, and Kick questionnaireAnswerDate RecordedWithin the [...] were you homeless or living in a penitentiary (including now)?No02/23/2025Hunger Vital SignAnswerDate RecordedWithin the past 12 months, you worried that your food would run out before you got the money to buymore.Never true05/23/2025Within the past 12 months, the food you bought just didn't last and you didn't have money to get more.Never true05/23/2025CommentsNoSex and Gender InformationValueDate RecordedSex Assigned at MhmciWxxyio40/27/2025 9:47 AM EDTLegal SexFemale 02/18/2025 9:12 AM EDTGender FlwyzgitWwlcke69/27/2025 9:47 AM EDTSexual OrientationHeterosexual or Drwqldas54/27/2025 9:47 AM EDTdocumented as of this encounter [...] tablet 20 mg in the morning. HYDROcodone-acetaminophen ([place]) 5-325 mg tablet Take 1 tablet by mouth every 8 (eight) hours if needed for severe pain (8-10 pain score).02/10/2025 lidocaine-prilocaine (Emla) 2.5-2.5 % cream APPLY TOPICALLY ONE TIME FOR 1 DOSE. APPLY TO PORT SITE AND COVER 30-45 MINS PRIOR TO NEEDLE WCSTAX2004/12/2025 lisinopril 20 mg tablet Take 30 mg by mouth in the morning.01/19/2025 metoprolol tartrate (Lopressor) 25 mg tablet Take 25 mg by mouth if needed in the morning and at bedtime (prn HR greater than 100 or palpitations).02/15/2025 nebulizer accessories misc Use as directed with zstexjupj58/08/2025 pantoprazole (ProtoNix) 40 mg EC tablet Take 40 mg by mouth if needed each day.03/07/2025 potassium chloride CR (Klor-Con M10) 10 mEq ER tablet Take 10 mEq by mouth in the morning.01/13/2025 tiZANidine (Zanaflex) 4 mg tablet Take 4 mg by mouth every 6 (six) hours if needed for muscle spasms.01/31/2025 documented as of this encounter Plan of Treatment DateTypeDepartmentCare Team (Latest Contact Info)Zkotwysltxy88/15/2025 10:30 AM ESTInfusion [facility] [address] [place] [address] Bertha Guillen RN 06/13/2025 10:30 AM ESTOffice Visit [facility] On[facility] [address] [place] [address] Mary Jo Denton, FORENSIC NURSE [address] [facility] [address] 06/13/2025 1:50 PM ESTAppointment [facility] Radiation Oncology [address] [place] [address] 06/14/2025 10:15 AM ESTOffice Visit [facility] [address] [place] [address] Alfredo Machuca MD [address] [place] [address] 06/14/2025 1:50 PM ESTAppointment [facility] Radiation Oncology [address] [place] [address] 09/12/2025 1:00 PM EDTAppointment [facility] Rad[facility] Oncology [address] [place] [address] Surya Soto [address] [facility] [place] [address] documented as of this encounter Procedures Procedure NamePriorityDate/TimeAssociated DiagnosisCommentsRAD ONC ARIA SESSION NFEVESFVwcbxni40/09/2025 2:07 PM EST documented in this encounter Results * Rad Onc Aria Session Summary (06/07/2025 2:07 PM EST)ComponentValueRef Range Test MethodAnalysis TimePerformed AtPathologist SignatureCourse [id number] RADIATION ONCOLOGYCourse IntentCurative w/chemoARIA RADIATION ONCOLOGYCourse Start Date04/22/2025 8:56 PMARIA RADIATION ONCOLOGYSession Kivjbl16LHVH RADIATION ONCOLOGYCourse First Treatment Date05/16/2025 2:02 PMARIA RADIATION ONCOLOGYCourse Last Treatment Date06/07/2025 1:31 PMARIA RADIATION ONCOLOGY Course Elapsed Rgji11GMTW RADIATION ONCOLOGYReference Point IDRLng Med DIBH ARIA RADIATION ONCOLOGYReference Point Dosage Given to Pupn30SgVJZV RADIATION ONCOLOGYReference Point Session Dosage Gjlwc6QcKRIT RADIATION ONCOLOGYPlan ID RLng Med DIBHARIA RADIATION ONCOLOGYPlan NameRLng Med DIBHARIA RADIATION ONCOLOGYPlan Fractions Treated to Mtkz05FCAP RADIATION ONCOLOGYPlan Total Fractions Pwcqryrhuy50THBA RADIATION ONCOLOGYPlan Prescribed Dose Per Fraction 3GyARIA RADIATION ONCOLOGYPlan Total Prescribed Dose6,000cGyARIA RADIATION ONCOLOGYPlan Primary Reference PointRLng Med DIBHARIA RADIATION ONCOLOGY Specimen (Source)Anatomical Location / LateralityCollection Method / Volume Collection TimeReceived Time06/07/2025 2:07 PM EST Narrative Authorizing ProviderResult TypeResult StatusPhysician Radiation Oncology RADIATION ONCOLOGY ORDERABLESFinal ResultPerforming OrganizationAddress City/State/ZIP CodePhone Number [facility] documented in this encounter Visit Diagnoses Not on filedocumented in this encounter Care Teams Team MemberRelationshipSpecialtyStart DateEnd Date Kev Mcmahon DO [address], [place] [address] PCP - GeneralFamily Medicine02/18/25 Gretchen Davis MD [address] [place] [address] Consulting PhysicianHematology and Oncology03/08/25 Mary Jo Denton, FORENSIC NURSE [address] [place] [address] Consulting HnsnhvwgiFwkojxdr91/14/25 Surya Soto [address] [place] [address] Radiation Qydhwetg99/23/25 Alfredo Machuca MD [address] [place] [address] Sxtnemcsibrsavogi11/23/25documented as of this encounter
--- OUTSIDE RECORDS SUMMARY | 2025-06-08 13:22 | XMS_ITS | Encounter Summary ---
Author Organization [facility] Address [address] [place] [address] Care Team Providers Care Event Representative Name Role Phone Kev Mcmahon DO Primary Care Provider [phone] Gretchen Davis MD Unavailable Mary Jo Denton CNP Unavailable [phone] Surya Soto Unavailable Alfredo Machuca MD Unavailable Encounter Details DateTypeDepartmentCare Team (Latest Contact Info)Xescetagtcc83/10/2025 1:22 PM EST - 06/08/2025 11:59 PM ESTHospital Encounter [facility] Rad[facility] Oncology [address] [place] [address] Discharge Disposition: Home or Self Care () Social History Tobacco UseTypesPacks/DayYears UsedDateSmoking Tobacco: FormerCigarettes Smokeless Tobacco: NeverAlcohol UseStandard Drinks/WeekCommentsNot Currently0 (1 standard drink = 0.6 oz pure alcohol)[facility] UtilitiesAnswerDate RecordedIn the past 12 months has the electric, gas, oil, or water company threatened to shut off services in your home?No02/23/2025Overall Financial Resource Strain (CARDIA) AnswerDate RecordedHow hard is it for you to pay for the very basics like food, housing, medical care, and heating?Not hard at all02/23/2025PHQ-2AnswerDate RecordedPatient Health Questionnaire-2 Tjyyq674Humiliation, Afraid, Rape, and Kick questionnaireAnswerDate RecordedWithin the [...] were you homeless or living in a care home (including now)?No02/23/2025Hunger Vital SignAnswerDate RecordedWithin the past 12 months, you worried that your food would run out before you got the money to buymore.Never true05/23/2025Within the past 12 months, the food you bought just didn't last and you didn't have money to get more.Never true05/23/2025CommentsNoSex and Gender InformationValueDate RecordedSex Assigned at TkdjhEiffit98/27/2025 9:47 AM EDTLegal SexFemale 02/18/2025 9:12 AM EDTGender JnbbzblfQwqkxm09/27/2025 9:47 AM EDTSexual OrientationHeterosexual or Ajspmvhx87/27/2025 9:47 AM EDTdocumented as of this encounter [...] tablet 20 mg in the morning. HYDROcodone-acetaminophen ([place]) 5-325 mg tablet Take 1 tablet by mouth every 8 (eight) hours if needed for severe pain (8-10 pain score).02/10/2025 lidocaine-prilocaine (Emla) 2.5-2.5 % cream APPLY TOPICALLY ONE TIME FOR 1 DOSE. APPLY TO PORT SITE AND COVER 30-45 MINS PRIOR TO NEEDLE YPEAES5404/12/2025 lisinopril 20 mg tablet Take 30 mg by mouth in the morning.01/19/2025 metoprolol tartrate (Lopressor) 25 mg tablet Take 25 mg by mouth if needed in the morning and at bedtime (prn HR greater than 100 or palpitations).02/15/2025 nebulizer accessories misc Use as directed with vxrtpejjl92/08/2025 pantoprazole (ProtoNix) 40 mg EC tablet Take 40 mg by mouth if needed each day.03/07/2025 potassium chloride CR (Klor-Con M10) 10 mEq ER tablet Take 10 mEq by mouth in the morning.01/13/2025 tiZANidine (Zanaflex) 4 mg tablet Take 4 mg by mouth every 6 (six) hours if needed for muscle spasms.01/31/2025 documented as of this encounter Plan of Treatment DateTypeDepartmentCare Team (Latest Contact Info)Hniwpyojxor43/15/2025 10:30 AM ESTInfusion [facility] [address] [place] [address] Bertha Guillen RN 06/13/2025 10:30 AM ESTOffice Visit [facility] [address] [place] [address] Mary Jo Denton, FARMWORKER RICE [address] [facility] [place] [address] 06/13/2025 1:50 PM ESTAppointment [facility] Rad[facility] Oncology [address] [place] [address] 06/14/2025 10:15 AM ESTOffice Visit [facility] Heart at [facility] [address] [place] [address] Alfredo Machuca MD [address] [place] [address] 06/14/2025 1:50 PM ESTAppointment [facility] Radiation Oncology [address] [place] [address] 09/12/2025 1:00 PM EDTAppointment [facility] Rad[facility] On[facility] [address] [place] [address] Surya Soto [address] [place] [address] documented as of this encounter Procedures Procedure NamePriorityDate/TimeAssociated DiagnosisCommentsRAD ONC ARIA SESSION KRETSQCUvkchcp86/10/2025 1:58 PM EST documented in this encounter Results * Rad Onc Aria Session Summary (06/08/2025 1:58 PM EST)ComponentValueRef Range Test MethodAnalysis TimePerformed AtPathologist SignatureCourse [id number] RADIATION ONCOLOGYCourse IntentCurative w/chemoARIA RADIATION ONCOLOGYCourse Start Date04/22/2025 8:56 PMARIA RADIATION ONCOLOGYSession Ecfmqo00KXYR RADIATION ONCOLOGYCourse First Treatment Date05/16/2025 2:02 PMARIA RADIATION ONCOLOGYCourse Last Treatment Date06/08/2025 1:23 PMARIA RADIATION ONCOLOGY Course Elapsed Jbtr58ZUOO RADIATION ONCOLOGYReference Point IDRLng Med DIBH ARIA RADIATION ONCOLOGYReference Point Dosage Given to Psxr24AzRYXL RADIATION ONCOLOGYReference Point Session Dosage Bbmwp6JfBRPU RADIATION ONCOLOGYPlan ID RLng Med DIBHARIA RADIATION ONCOLOGYPlan NameRLng Med DIBHARIA RADIATION ONCOLOGYPlan Fractions Treated to Ojcc68HQUK RADIATION ONCOLOGYPlan Total Fractions Uqmuichcie49FHMV RADIATION ONCOLOGYPlan Prescribed Dose Per Fraction 3GyARIA RADIATION ONCOLOGYPlan Total Prescribed Dose6,000cGyARIA RADIATION ONCOLOGYPlan Primary Reference PointRLng Med DIBHARIA RADIATION ONCOLOGY Specimen (Source)Anatomical Location / LateralityCollection Method / Volume Collection TimeReceived Time06/08/2025 1:58 PM EST Narrative Authorizing ProviderResult TypeResult StatusPhysician Radiation Oncology RADIATION ONCOLOGY ORDERABLESFinal ResultPerforming OrganizationAddress City/State/ZIP CodePhone Number [facility] documented in this encounter Visit Diagnoses Not on filedocumented in this encounter Care Teams Team MemberRelationshipSpecialtyStart DateEnd Date Kev Mcmahon DO [address], [place] [address] PCP - GeneralFamily Medicine02/18/25 Gretchen Davis MD [address] [place] [address] Consulting PhysicianHematology and Oncology03/08/25 Mary Jo Denton, FARMWORKER RICE [address] [place] [address] Consulting KppfbhwocMiftxdvj63/14/25 Surya Soto [address] [place] [address] Radiation Whgiberg34/23/25 Alfredo Machuca MD [address] [place] [address] Vuotfhwyypybrrjoh28/23/25documented as of this encounter
--- OUTSIDE RECORDS SUMMARY | 2025-06-09 09:23 | XMS_ITS | Encounter Summary ---
Author Organization [facility] Address [address] [place] [address] Care Team Providers Care Drilling Superintendent Name Role Phone Kev Mcmahon DO Primary Care Provider [phone] Gretchen Davis MD Unavailable Mary Jo Denton CNP Unavailable [phone] Surya Soto Unavailable [phone] Alfredo Machuca MD Unavailable Encounter Details DateTypeDepartmentCare Team (Latest Contact Info)Uphhbtltqef97/11/2025 9:23 AM EST - 06/09/2025 1:48 PM ESTHospital Encounter [facility] Rad[facility] Oncology [address] [place] [address] Discharge Disposition: Home or Self Care () Social History Tobacco UseTypesPacks/DayYears UsedDateSmoking Tobacco: FormerCigarettes Smokeless Tobacco: NeverAlcohol UseStandard Drinks/WeekCommentsNot Currently0 (1 standard drink = 0.6 oz pure alcohol)[facility] UtilitiesAnswerDate RecordedIn the past 12 months has the electric, gas, oil, or water company threatened to shut off services in your home?No02/23/2025Overall Financial Resource Strain (CARDIA) AnswerDate RecordedHow hard is it for you to pay for the very basics like food, housing, medical care, and heating?Not hard at all02/23/2025PHQ-2AnswerDate RecordedPatient Health Questionnaire-2 Zvsgy121Humiliation, Afraid, Rape, and Kick questionnaireAnswerDate RecordedWithin the [...] true05/23/2025CommentsNoSex and Gender InformationValueDate RecordedSex Assigned at YigziExuhyy17/27/2025 9:47 AM EDTLegal SexFemale 02/18/2025 9:12 AM EDTGender FvaogokwJaodam63/27/2025 9:47 AM EDTSexual OrientationHeterosexual or Qkxwztsc10/27/2025 9:47 AM EDTdocumented as of this encounter [...] tablet 20 mg in the morning. HYDROcodone-acetaminophen ([place]) 5-325 mg tablet Take 1 tablet by mouth every 8 (eight) hours if needed for severe pain (8-10 pain score).02/10/2025 lidocaine-prilocaine (Emla) 2.5-2.5 % cream APPLY TOPICALLY ONE TIME FOR 1 DOSE. APPLY TO PORT SITE AND COVER 30-45 MINS PRIOR TO NEEDLE AOCAJR1404/12/2025 lisinopril 20 mg tablet Take 30 mg by mouth in the morning.01/19/2025 metoprolol tartrate (Lopressor) 25 mg tablet Take 25 mg by mouth if needed in the morning and at bedtime (prn HR greater than 100 or palpitations).02/15/2025 nebulizer accessories misc Use as directed with cgtkeduwz72/08/2025 pantoprazole (ProtoNix) 40 mg EC tablet Take 40 mg by mouth if needed each day.03/07/2025 potassium chloride CR (Klor-Con M10) 10 mEq ER tablet Take 10 mEq by mouth in the morning.01/13/2025 tiZANidine (Zanaflex) 4 mg tablet Take 4 mg by mouth every 6 (six) hours if needed for muscle spasms.01/31/2025 documented as of this encounter Plan of Treatment DateTypeDepartmentCare Team (Latest Contact Info)Wllmdccdgkh85/15/2025 10:30 AM ESTInfusion [facility] [address] [place] [phone] Bertha Guillen RN 06/13/2025 10:30 AM ESTOffice Visit [facility] [address] [place] [phone] Mary Jo Denton, LUMP MACHINE OPERATOR [address] [place] [address] 06/13/2025 1:50 PM ESTAppointment [facility] On[facility] [address] [place] [phone] 06/14/2025 10:15 AM ESTOffice Visit [place] [facility] [address] [place] [address] Alfredo Machuca MD [address] [place] [address] 06/14/2025 1:50 PM ESTAppointment [facility] Rad[facility] Oncology [address] [place] [phone] 09/12/2025 1:00 PM EDTAppointment [facility] Radiation Oncology [address] [place] [address] Surya Soto [address] [place] [address] documented as of this encounter Visit Diagnoses Not on filedocumented in this encounter Care Teams Team MemberRelationshipSpecialtyStart DateEnd Date SalomeKevDO [address] [facility] [place] [address] PCP - GeneralFamily Medicine02/18/25 Gretchen Davis MD [address] [place] [address] Consulting PhysicianHematology and Oncology03/08/25 Mary Jo Denton, LUMP MACHINE OPERATOR [address] [place] [address] Consulting OygwmjmjwUkqbpyna11/14/25 Surya Soto [address] [place] [address] Radiation Knnnwlrb33/23/25 Alfredo Machuca MD [address] [place], [place] [address]pr[place] [address] Hminjbhvcrpglrkfd82/23/25documented as of this encounter
--- OUTSIDE RECORDS SUMMARY | 2025-06-09 13:49 | XMS_ITS | Encounter Summary ---
Author Organization [facility] Address [address] [place] [address] Care Team Providers Care Search Coordinator Name Role Phone Kev Mcmahon Primary Care Provider [phone] Gretchen Davis MD Unavailable [phone] Mary Jo Denton CNP Unavailable [phone] Surya Soto Unavailable [phone] Alfredo Machuca MD Unavailable Reason for Visit * ReasonCommentsOTV Encounter Details DateTypeDepartmentCare Team (Latest Contact Info)Vsirxufrupn24/11/2025 1:49 PM EST - 06/09/2025 11:59 PM ESTHospital Encounter [facility] Radiation Oncology [address] [place] [address] Surya Soto [address] [facility] [place] [address] Squamous cell carcinoma of lung, right (CMS/HCC) (Primary Dx) Discharge Disposition: Home or Self Care () Social History Tobacco UseTypesPacks/DayYears UsedDateSmoking Tobacco: FormerCigarettes Smokeless Tobacco: NeverAlcohol UseStandard Drinks/WeekCommentsNot Currently0 (1 standard drink = 0.6 oz pure alcohol)[facility] UtilitiesAnswerDate RecordedIn the past 12 months has the electric, gas, oil, or water company threatened to shut off services in your home?No02/23/2025Overall Financial Resource Strain (CARDIA) AnswerDate RecordedHow hard is it for you to pay for the very basics like food, housing, medical care, and heating?Not hard at all02/23/2025PHQ-2AnswerDate RecordedPatient Health Questionnaire-2 Zhepv590Humiliation, Afraid, Rape, and Kick questionnaireAnswerDate RecordedWithin the [...] were you homeless or living in a [place] (including now)?No02/23/2025Hunger Vital SignAnswerDate RecordedWithin the past 12 months, you worried that your food would run out before you got the money to buymore.Never true05/23/2025Within the past 12 months, the food you bought just didn't last and you didn't have money to get more.Never true05/23/2025CommentsNoSex and Gender InformationValueDate RecordedSex Assigned at KfvdnOjxqoz57/27/2025 9:47 AM EDTLegal SexFemale 02/18/2025 9:12 AM EDTGender QmsxkmlzSkjwxr34/27/2025 9:47 AM EDTSexual OrientationHeterosexual or Eulxihhx76/27/2025 9:47 AM EDTdocumented as of this encounter Last Filed Vital Signs Vital SignReadingTime TakenCommentsBlood Oyngncuy655/6006/09/2025 2:18 PM EST Qpfew76945/11/2025 2:18 PM UWENtroocuyiky37.1 ??C (98.7 ??F)06/09/2025 2:18 PM ESTRespiratory Vujb624808/10/2024 2:18 PM ESTOxygen Szcseoqplu00%06/09/2025 2:18 PM ESTInhaled Oxygen Concentration--Wjwzdt08.7 kg (114 lb)06/09/2025 2:18 PM EST statedHeight--Body Mass Index22.26107/31/2024 11:01 AM ESTdocumented in this encounter Medications at Time of [...] tablet 20 mg in the morning. HYDROcodone-acetaminophen (Ephrata) 5-325 mg tablet Take 1 tablet by mouth every 8 (eight) hours if needed for severe pain (8-10 pain score).02/10/2025 lidocaine-prilocaine (Emla) 2.5-2.5 % cream APPLY TOPICALLY ONE TIME FOR 1 DOSE. APPLY TO PORT SITE AND COVER 30-45 MINS PRIOR TO NEEDLE RJYCBY1204/12/2025 lisinopril 20 mg tablet Take 30 mg by mouth in the morning.01/19/2025 metoprolol tartrate (Lopressor) 25 mg tablet Take 25 mg by mouth if needed in the morning and at bedtime (prn HR greater than 100 or palpitations).02/15/2025 nebulizer accessories misc Use as directed with ungodxkcz08/08/2025 pantoprazole (ProtoNix) 40 mg EC tablet Take 40 mg by mouth if needed each day.03/07/2025 potassium chloride CR (Klor-Con M10) 10 mEq ER tablet Take 10 mEq by mouth in the morning.01/13/2025 tiZANidine (Zanaflex) 4 mg tablet Take 4 mg by mouth every 6 (six) hours if needed for muscle spasms.01/31/2025 documented as of this encounter Progress Notes * Surya Soto - 06/09/2025 2:15 PM EST Images from the original note were not included. [facility] at [facility] Department of Radiation Oncology [address] [place] [address] Date of Service: 06/09/25 Patient Name: Usha Pruitt Patient : 1950 Radiation Oncology ON-TREATMENT VISIT NOTE Diagnosis: 75 y.o. 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 Dose Accrued: Radiation Treatments Active Plans [facility] Most recent treatment: Dose planned: 300 cGy (fraction 17 on 06/09/2025) Total: Dose planned: 6,000 cGy (20 fractions) Elapsed Days: 24 Reference Points [facility] Most recent treatment: Dose given: 300 cGy (on 06/09/2025) Total: Dose given: 5,100 cGy Elapsed Days: 24 Subjective: Patient is feeling tired, she can't wait to finish the treatment. She has three more fractions to go. She is tolerating daily treatment set-up and delivery without issues. No difficulty with breath hold technique. Tolerating chemotherapy relatively well so far; labs reviewed. Energy level is decreased; she is also tired of the commute. Patient denies worsening SoB, CP, rib cage pain, cough, difficult or painful swallowing. Current Medications[1] Objective: Wt Readings from Last 10 Encounters: 06/09/25 51.7 kg (114 lb) 05/30/25 49.9 kg (110 lb) 05/24/25 52.6 kg (116 lb) 05/23/25 51.7 kg (114 lb) 05/19/25 52.5 kg (115 lb 12.8 oz) 05/16/25 51.3 kg (113 lb) 04/28/25 52.2 kg (115 lb) 04/26/25 52.2 kg (115 lb) 04/18/25 51 kg (112 lb 7 oz) 04/12/25 52.9 kg (116 lb 9.6 oz) BP 129/60 (BP Location: Left arm, Patient Position: Sitting, BP Cuff Size: Adult) Pulse 110 Temp 37.1 ??C (98.7 ??F) (Oral) Resp 18 Wt 51.7 kg (114 lb) Comment: stated SpO2 96% BMI 22.26 kg/m?? On exam, ECOG 3, looks tired, in NAD, sitting comfortably in a chair, no signs of RT induced toxicity. Daily images and weekly labs reviewed. Lab Results Component Value Date WBC 3.29 (L) 06/03/2025 HGB 13.6 06/03/2025 HCT 40.7 06/03/2025 MCV 88.7 06/03/2025 PLT 271 06/03/2025 Lab Results Component Value Date GLUCOSE 114 (H) 06/06/2025 CALCIUM 8.2 (L) 06/06/2025 NA 127 (L) 06/06/2025 K 4.4 06/06/2025 CO2 21 06/06/2025 CL 97 (L) 06/06/2025 BUN 29 (H) 06/06/2025 CREATININE 1.83 (H) 06/06/2025 Lab Results Component Value Date ALT 13 06/06/2025 AST 16 06/06/2025 ALKPHOS 56 06/06/2025 BILITOT 0.4 06/06/2025 Plan: Continue radiotherapy as planned. Tumor is shrinking, patient reassured. She is hyponatremic and has elevated Cr. Will contact [facility] team. She will need IV fluid hydration tomorrow and likely on Friday again. Surya Soto MD [1] Current Outpatient Medications: [...] times daily., Disp: 180 tablet, Rfl: 3 Breztri Aerosphere 160-9-4.8 mcg/actuation HFA aerosol inhaler, INHALE 2 PUFFS IN THE MORNING AND AT BEDTIME, Disp: , Rfl: clopidogrel (Plavix) 75 mg [...] mg in the morning., Disp: , Rfl: lidocaine-prilocaine (Emla) 2.5-2.5 % [...] bedtime (prn HR greater than 100 or palpitations)., Disp: , Rfl: pantoprazole (ProtoNix) 40 mg EC tablet, Take 40 mg by mouth if needed each day., Disp: , Rfl: potassium chloride CR (Klor-Con M10) 10 mEq ER tablet, Take 10 mEq by mouth in the morning., Disp: , Rfl: tiZANidine (Zanaflex) 4 mg tablet, Take 4 mg by mouth every 6 (six) hours if needed for muscle spasms., Disp: , Rfl: aspirin 81 mg EC tablet, Take 81 mg by mouth in the morning. (Patient not taking: Reported on 06/09/2025), Disp: , Rfl: cefdinir (Omnicef) 300 mg capsule, TAKE 1 CAPSULE BY MOUTH IN THE MORNING AND 1 CAPSULE BEFORE BEDTIME. DO ALL THIS FOR 14 DOSES. (Patient not taking: Reported on 06/09/2025), Disp: , Rfl: HYDROcodone-acetaminophen (Ephrata) 5-325 mg tablet, Take 1 tablet by mouth every 8 (eight) hours if needed for severe pain (8-10 pain score). (Patient not taking: Reported on 06/09/2025), Disp: , Rfl: nebulizer accessories [facility], Use as directed with nebulizer, Disp: , Rfl: documented in this encounter Plan of Treatment DateTypeDepartmentCare Team (Latest Contact Info)Gumqcovvxxe97/15/2025 10:30 AM ESTInfusion [facility] Infusion [address] [place] [address] Bertha Guillen RN 06/13/2025 10:30 AM ESTOffice Visit [facility] [address] [place] [address] Mary Jo Denton, DIABETES TRAINER [address] [facility] [place] [address] 06/13/2025 1:50 PM ESTAppointment [facility] Radiation Oncology [address] [place] [address] 06/14/2025 10:15 AM ESTOffice Visit [facility] [address] [place] [address] Alfredo Machuca MD [address] [place], [place] [address] [address] 06/14/2025 1:50 PM ESTAppointment [facility] Radiation Oncology [address] [place] [address] 09/12/2025 1:00 PM EDTAppointment [facility] Radiation Oncology [address] [place] [address] Surya Soto [address] [facility] [place] [address] documented as of this encounter Visit Diagnoses Diagnosis Squamous cell carcinoma of lung, right (CMS/HCC)- Primary documented in this encounter Care Teams Team MemberRelationshipSpecialtyStart DateEnd Date Kev Mcmahon DO [address] [facility], [place] [address] PCP - GeneralFamily Medicine02/18/25 Gretchen Davis MD [address] [facility] [place] [address] Consulting PhysicianHematology and Oncology03/08/25 Mary Jo Denton, IDNA [address] [place] [address] Consulting EcehwktumNppyrwnk07/14/25 Surya Soto [address] [place] [address] Radiation Bvjwmczo84/23/25 Alfredo Machuca MD [address] [place] [address] Wmybdkpseelxwcufi15/23/25documented as of this encounter
--- OUTSIDE RECORDS SUMMARY | 2025-06-10 13:00 | XMS_ITS | Encounter Summary ---
Author Organization [facility] Address [address] [place] [address] Care Team Providers Care Senior Oracle Database Administrator Name Role Phone Kev Mcmahon Primary Care Provider [phone] Gretchen Davis MD Unavailable [phone] Mary Jo Denton CNP Unavailable [phone] Surya Soto Unavailable [phone] Alfredo Machuca MD Unavailable Encounter Details DateTypeDepartmentCare Team (Latest Contact Info)Abrjtxayecy93/12/2025 1:00 PM ESTInfusion [facility] Infusion [address] [place] [address] Squamous cell lung cancer, right (CMS/HCC) (Primary Dx) Social History Tobacco UseTypesPacks/DayYears UsedDateSmoking Tobacco: FormerCigarettes Smokeless Tobacco: NeverAlcohol UseStandard Drinks/WeekCommentsNot Currently0 (1 standard drink = 0.6 oz pure alcohol)[facility] UtilitiesAnswerDate RecordedIn the past 12 months has the electric, gas, oil, or water company threatened to shut off services in your home?No02/23/2025Overall Financial Resource Strain (CARDIA) AnswerDate RecordedHow hard is it for you to pay for the very basics like food, housing, medical care, and heating?Not hard at all08/27/2025PHQ-2AnswerDate RecordedPatient Health Questionnaire-2 Cgnxu540Humiliation, Afraid, Rape, and Kick questionnaireAnswerDate RecordedWithin the [...] were you homeless or living in a nursing home (including now)?No02/23/2025Hunger Vital SignAnswerDate RecordedWithin the past 12 months, you worried that your food would run out before you got the money to buymore.Never true05/23/2025Within the past 12 months, the food you bought just didn't last and you didn't have money to get more.Never true05/23/2025CommentsNoSex and Gender InformationValueDate RecordedSex Assigned at RafvmZlogqx48/27/2025 9:47 AM EDTLegal SexFemale 02/18/2025 9:12 AM EDTGender JwkropzkKjvzoq52/27/2025 9:47 AM EDTSexual OrientationHeterosexual or Qztamprj87/27/2025 9:47 AM EDTdocumented as of this encounter Plan of Treatment DateTypeDepartmentCare Team (Latest Contact Info)Awnitlkhcsw58/15/2025 10:30 AM ESTInfusion [facility] Infusion [address] [place] [address] Bertha Guillen RN 06/13/2025 10:30 AM ESTOffice Visit [facility] On[facility] [address] [place] [address] Mary Jo Denton, SALES ACCOUNT LEADER [address] [facility] [place] [address] 06/13/2025 1:50 PM ESTAppointment [facility] Radiation Oncology [address] [place] [address] 06/14/2025 10:15 AM ESTOffice Visit [place] [address] [place] [address] Alfredo Machuca MD [address] [place] [address] [place] [address] 06/14/2025 1:50 PM ESTAppointment [facility] Radiation Oncology [address] [place] [address] 09/12/2025 1:00 PM EDTAppointment [facility] Radiation Oncology [address] [place] [address] Surya Soto [address] [facility] [place] [address] documented as of this encounter Procedures Procedure NamePriorityDate/TimeAssociated DiagnosisCommentsCBC WITH AUTO HZIBBSMNMJHXGpgodpt44/12/2025 1:20 PM EST Squamous cell lung cancer, right (CMS/HCC) MANUAL TIZGZPNHMJJBAgvftxw21/12/2025 1:20 PM EST Squamous cell lung cancer, right (CMS/HCC) CBC AND VAPJUWCEDSRIDdhrbqw03/12/2025 1:20 PM EST Squamous cell lung cancer, right (CMS/HCC) BNAAMYHTJKlbvfzx33/12/2025 1:20 PM EST Squamous cell lung cancer, right (CMS/HCC) COMPREHENSIVE METABOLIC EYLDJMtartik18/12/2025 1:20 PM EST Squamous cell lung cancer, right (CMS/HCC) documented in this encounter Results * (ABNORMAL) Manual Differential (06/10/2025 1:20 PM EST)ComponentValueRef Range Test MethodAnalysis TimePerformed AtPathologist SignatureMetamyelocytes %6.5 (H)0.0 - 0.0 %06/10/2025 5:23 PM [facility] ([facility])Atypical Lymphocytes %0.00.0 - 0.0 %06/10/2025 5:23 PM [facility] ([facility]) Neutrophils Absolute2.71.6 - 7.6 10*3/uL06/10/2025 5:23 PM [facility] ([facility])Lymphocytes Absolute0.10(L)1.20 - 4.00 10*3/uL06/10/2025 5:23 PM [facility] ([facility])Monocytes Absolute0.04(L)0.10 - 1.00 10*3/uL 06/10/2025 5:23 PM [facility] ([facility])Eosinophils Absolute0.000.00 - 0.50 10*3/uL06/10/2025 5:23 PM [facility] ([facility])Basophils Absolute 0.000.00 - 0.20 10*3/uL06/10/2025 5:23 PM [facility] ([facility]) Metamyelocytes Absolute0.20(H)0.00 10*3/uL06/10/2025 5:23 PM [facility] ([facility])Atypical Lymphs Absolute0.000.00 10*3/uL06/10/2025 5:23 PM [facility] ([facility])Giant ILVuJnfwjli51/12/2025 5:23 PM [facility] ([facility])Neutrophils %88.9(H)40.0 - 72.0 %06/10/2025 5:23 PM [facility] ([facility])Lymphocytes %3.3(L)20.0 - 45.0 %06/10/2025 5:23 PM [facility] ([facility])Monocytes %1.3(L)5.0 - 12.0 %06/10/2025 5:23 PM [facility] ([facility])Eosinophils %0.00.0 - 6.0 %06/10/2025 5:23 PM [facility] ([facility])Basophils %0.00.0 - 1.0 %06/10/2025 5:23 PM [facility] ([facility])Plasma Cells %00 %06/10/2025 5:23 PM [facility] ([facility])tZQEPetommh86/12/2025 5:23 PM [facility] ([facility])Specimen (Source)Anatomical Location / LateralityCollection Method / VolumeCollection TimeReceived TimeBloodVenous blood specimen / UnknownExisting Catheter / Rgfadqz1006/10/2025 1:20 PM EST06/10/2025 1:20 PM EST Narrative Authorizing ProviderResult TypeResult StatusDatrell Davis MDLAB BLOOD ORDERABLESFinal ResultPerforming OrganizationAddressCity/State/ZIP CodePhone Number [facility] ([facility]) [address] [place] [address] * (ABNORMAL) CBC auto differential (06/10/2025 1:20 PM EST)ComponentValueRef RangeTest MethodAnalysis TimePerformed AtPathologist SignatureAuto WBC3.00(L) 4.00 - 10.60 10*3/uL06/10/2025 5:06 PM [facility] ([facility])RBC3.85 3.80 - 5.00 10*6/uL06/10/2025 5:06 PM [facility] ([facility])Hemoglobin 11.5(L)12.0 - 15.0 g/dL06/10/2025 5:06 PM [facility] ([facility]) Ddxpsanefo82.4(L)36.0 - 45.0 %06/10/2025 5:06 PM [facility] ([facility]) MCV86.882.0 - 98.0 fL06/10/2025 5:06 PM [facility] ([facility])MCH29.9 27.0 - 33.0 pg06/10/2025 5:06 PM [facility] ([facility])MCHC34.432.0 - 35.0 g/dL06/10/2025 5:06 PM [facility] ([facility])RDW15.011.5 - 15.0 % 06/10/2025 5:06 PM [facility] ([facility])Tueygilrt137353 - 400 10*3/uL 06/10/2025 5:06 PM [facility] ([facility])nRBC %0.7(H)0 %06/10/2025 5:06 PM [facility] ([facility])Specimen (Source)Anatomical Location / LateralityCollection Method / VolumeCollection TimeReceived TimeBloodVenous blood specimen / UnknownExisting Catheter / Ybcgyze9106/10/2025 1:20 PM EST 06/10/2025 1:20 PM EST Narrative Authorizing ProviderResult TypeResult StatusGretchen Davis MDLAB BLOOD ORDERABLESFinal ResultPerforming OrganizationAddressCity/State/ZIP CodePhone Number [facility] ([facility]) [address] [place], [place] [id number] * (ABNORMAL) Magnesium (06/10/2025 1:20 PM EST)ComponentValueRef RangeTest MethodAnalysis TimePerformed AtPathologist SignatureMagnesium1.7(L)1.9 - 2.7 mg/dL06/10/2025 4:17 PM [facility] ([facility])Specimen (Source) Anatomical Location / LateralityCollection Method / VolumeCollection Time Received TimeBloodVenous blood specimen / UnknownExisting Catheter / Unknown 06/10/2025 1:20 PM EST06/10/2025 1:20 PM EST Narrative Authorizing ProviderResult TypeResult StatusDanae M Hamouda MDLAB BLOOD ORDERABLESFinal ResultPerforming OrganizationAddressCity/State/ZIP CodePhone Number [facility] ([facility]) [address] [place] [address] * (ABNORMAL) Comprehensive metabolic panel (06/10/2025 1:20 PM EST)Component ValueRef RangeTest MethodAnalysis TimePerformed AtPathologist SignatureSodium 130(L)136 - 145 mmol/L108/11/2024 4:17 PM [facility] ([facility]) Potassium4.53.5 - 5.1 mmol/L108/11/2024 4:17 PM [facility] ([facility]) Cxxnljub63(L)98 - 107 mmol/L108/11/2024 4:17 PM [facility] ([facility]) GX15910 - 31 mmol/L108/11/2024 4:17 PM [facility] ([facility])Anion Gap15 7 - 20 mmol/L108/11/2024 4:17 PM [facility] ([facility])BUN32(H)7 - 25 mg/dL06/10/2025 4:17 PM [facility] ([facility])Creatinine1.21(H)0.60 - 1.20 mg/dL06/10/2025 4:17 PM [facility] ([facility])BUN/Creatinine Ratio 26.412 4:17 PM [facility] ([facility])Xkitwvw073(H)70 - 100 mg/dL06/10/2025 4:17 PM [facility] ([facility])Calcium8.88.6 - 10.3 mg/dL06/10/2025 4:17 PM [facility] ([facility])AST73(H)13 - 39 U/L 06/10/2025 4:17 PM [facility] ([facility])ALT (SGPT)68(H)7 - 52 U/L 06/10/2025 4:17 PM [facility] ([facility])Alkaline Zvhizecjswh6970 - 104 U/L108/11/2024 4:17 PM [facility] ([facility])Total Protein6.66.0 - 8.3 g/dL06/10/2025 4:17 PM [facility] ([facility])Albumin3.4(L)3.5 - 5.7 g/dL06/10/2025 4:17 PM [facility] ([facility])Total Bilirubin0.2(L)0.3 - 1.0 mg/dL06/10/2025 4:17 PM [facility] ([facility])eGFR46.4(L)>60.0 mL/min/1.73m* 4:17 PM [facility] ([facility])Comment:[facility]???s estimated glomerular filtration rate (eGFR) will [...] TimeBloodVenous blood specimen / UnknownExisting Catheter / Rzxvbxo9706/10/2025 1:20 PM EST06/10/2025 1:20 PM EST Narrative Authorizing ProviderResult TypeResult StatusGretchen FARNSWORTH BLOOD ORDERABLESFinal ResultPerforming OrganizationAddressCity/State/ZIP CodePhone Number [facility] ([facility]) [address] [place] [address] documented in this encounter Visit Diagnoses Diagnosis Squamous cell lung cancer, right (CMS/HCC)- Primary documented in this encounter Administered Medications Medication OrderMAR ActionAction DateDoseRateSite heparin lock flush 100 unit/mL syringe 500 Units 500 Units, intra-catheter, Once as needed, line care, Starting on Fri06/10/25 at 1318, Keep Vein Open - KVO Indications:Squamous cell lung cancer, right (CMS/HCC)Given06/10/2025 4:40 PM ZSM846 Units sodium chloride 0.9 % infusion 1,000 mL 1,000 mL, intravenous, at 500 mL/hr, Administer over 2 Hours, Continuous, Starting on Fri06/10/25 at 1330, For 2 hours Indications:Squamous cell lung cancer, right (CMS/HCC)New Bag06/10/2025 2:37 PM EST1,000 mL500 mL/hrdocumented in this encounter Care Teams Team MemberRelationshipSpecialtyStart DateEnd Date Kev Mcmahon DO [address] [facility], [address] [place], [place] [id number] PCP - GeneralFamily Medicine02/18/25 Gretchen Davis MD [address] [place] [address] Consulting PhysicianHematology and Oncology03/08/25 Mary Jo Denton, SALES ACCOUNT LEADER [address] [place] [address] Consulting QwhvnrmfwCrxdwswr27/14/25 Surya Soto [address] [place] [address] Radiation Uweugxxx63/23/25 Alfredo Machuca MD [address] [place], [place] [address]pr[place] [place] [address] Klrssbtmpuscgilgq77/23/25documented as of this encounter
--- OUTSIDE RECORDS SUMMARY | 2025-06-10 13:04 | XMS_ITS | Encounter Summary ---
Author Organization [facility] Address [address] [place] [address] Care Team Providers Care Mobile Lounge Driver Or Operator Name Role Phone Kev Mcmahon DO Primary Care Provider [phone] Gretchen Davis MD Unavailable Mary Jo Denton CNP Unavailable [phone] Surya Soto Unavailable [phone] Alfredo Machuca MD Unavailable Encounter Details DateTypeDepartmentCare Team (Latest Contact Info)Aswmkcojhsl15/12/2025 1:04 PM EST - 06/10/2025 11:59 PM ESTHospital Encounter [facility] Radiation Oncology [address] [place] [address] Discharge Disposition: Home or Self Care () Social History Tobacco UseTypesPacks/DayYears UsedDateSmoking Tobacco: FormerCigarettes Smokeless Tobacco: NeverAlcohol UseStandard Drinks/WeekCommentsNot Currently0 (1 standard drink = 0.6 oz pure alcohol)[facility] UtilitiesAnswerDate RecordedIn the past 12 months has the electric, gas, oil, or water company threatened to shut off services in your home?No02/23/2025Overall Financial Resource Strain (CARDIA) AnswerDate RecordedHow hard is it for you to pay for the very basics like food, housing, medical care, and heating?Not hard at all02/23/2025PHQ-2AnswerDate RecordedPatient Health Questionnaire-2 Gmber197Humiliation, Afraid, Rape, and Kick questionnaireAnswerDate RecordedWithin the [...] true05/23/2025CommentsNoSex and Gender InformationValueDate RecordedSex Assigned at SwgtoKdxtrh39/27/2025 9:47 AM EDTLegal SexFemale 02/18/2025 9:12 AM EDTGender PworqdigQgnkjt38/27/2025 9:47 AM EDTSexual OrientationHeterosexual or Kveuqnef53/27/2025 9:47 AM EDTdocumented as of this encounter [...] tablet 20 mg in the morning. HYDROcodone-acetaminophen (Calhoun) 5-325 mg tablet Take 1 tablet by mouth every 8 (eight) hours if needed for severe pain (8-10 pain score).02/10/2025 lidocaine-prilocaine (Emla) 2.5-2.5 % cream APPLY TOPICALLY ONE TIME FOR 1 DOSE. APPLY TO PORT SITE AND COVER 30-45 MINS PRIOR TO NEEDLE ESSCUM5104/12/2025 lisinopril 20 mg tablet Take 30 mg by mouth in the morning.01/19/2025 metoprolol tartrate (Lopressor) 25 mg tablet Take 25 mg by mouth if needed in the morning and at bedtime (prn HR greater than 100 or palpitations).02/15/2025 nebulizer accessories misc Use as directed with eznfsshnc20/08/2025 pantoprazole (ProtoNix) 40 mg EC tablet Take 40 mg by mouth if needed each day.03/07/2025 potassium chloride CR (Klor-Con M10) 10 mEq ER tablet Take 10 mEq by mouth in the morning.01/13/2025 tiZANidine (Zanaflex) 4 mg tablet Take 4 mg by mouth every 6 (six) hours if needed for muscle spasms.01/31/2025 documented as of this encounter Plan of Treatment DateTypeDepartmentCare Team (Latest Contact Info)Essfsysldqp21/15/2025 10:30 AM ESTInfusion [facility] [address] [place] [address] Bertha Guillen RN 06/13/2025 10:30 AM ESTOffice Visit [facility] [address] [place] [address] Mary Jo Denton, ENTERPRISE ENGINEER [address] [facility] [place] [address] 06/13/2025 1:50 PM ESTAppointment [facility] Rad[facility] On[facility] [address] [place] [address] 06/14/2025 10:15 AM ESTOffice Visit [facility] [address] [place] [address] Alfredo Machuca MD [address] [place] [address] 06/14/2025 1:50 PM ESTAppointment [facility] Rad[facility] Oncology [address] [place] [address] 09/12/2025 1:00 PM EDTAppointment [facility] Rad[facility] On[facility] [address] [place] [address] Surya Soto [address] [facility] [place] [address] documented as of this encounter Procedures Procedure NamePriorityDate/TimeAssociated DiagnosisCommentsRAD ONC ARIA SESSION FQKQSKECqhteux96/12/2025 2:08 PM EST documented in this encounter Results * Rad Onc Aria Session Summary (06/10/2025 2:08 PM EST)ComponentValueRef Range Test MethodAnalysis TimePerformed AtPathologist SignatureCourse [id number] RADIATION ONCOLOGYCourse IntentCurative w/chemoARIA RADIATION ONCOLOGYCourse Start Date04/22/2025 8:56 PMARIA RADIATION ONCOLOGYSession Rcmmrc12CHLZ RADIATION ONCOLOGYCourse First Treatment Date05/16/2025 2:02 PMARIA RADIATION ONCOLOGYCourse Last Treatment Date06/10/2025 1:33 PMARIA RADIATION ONCOLOGY Course Elapsed [id number] RADIATION ONCOLOGYReference Point IDRLng Med DIBH ARIA RADIATION ONCOLOGYReference Point Dosage Given to Urxz32MnGZGK RADIATION ONCOLOGYReference Point Session Dosage Bkyfx4EfWHCJ RADIATION ONCOLOGYPlan ID RLng Med DIBHARIA RADIATION ONCOLOGYPlan NameRLng Med DIBHARIA RADIATION ONCOLOGYPlan Fractions Treated to Vttz47CBVL RADIATION ONCOLOGYPlan Total Fractions Ugeeahothz56CZZY RADIATION ONCOLOGYPlan Prescribed Dose Per Fraction 3GyARIA RADIATION ONCOLOGYPlan Total Prescribed Dose6,000cGyARIA RADIATION ONCOLOGYPlan Primary Reference PointRLng Med DIBHARIA RADIATION ONCOLOGY Specimen (Source)Anatomical Location / LateralityCollection Method / Volume Collection TimeReceived Time06/10/2025 2:08 PM EST Narrative Authorizing ProviderResult TypeResult StatusPhysician Radiation Oncology RADIATION ONCOLOGY ORDERABLESFinal ResultPerforming OrganizationAddress City/State/ZIP CodePhone Number ARIA RADIATION ONCOLOGY documented in this encounter Visit Diagnoses Not on filedocumented in this encounter Care Teams Team MemberRelationshipSpecialtyStart DateEnd Date Kev Mcmahon DO [address] [place] [address] PCP - GeneralFamily Medicine02/18/25 Gretchen Davis MD [address] [place] [address] Consulting PhysicianHematology and Oncology03/08/25 Mary Jo Denton, ENTERPRISE ENGINEER [address] [place] [address] Consulting JshblxyzdHbzvgbxy39/14/25 Surya Stoo [address] [place] [address] Radiation Ljysdler64/23/25 Alfredo Machuca MD [address] [place] [address] Emivrcowsyhaybvrf70/23/25documented as of this encounter
[2025-06-11] VITALS (16 sets, daily range): BP systolic 137–149; BP diastolic 78–100; PULSE 99–116; TEMP 37.7; O2SAT 91–100; BMI 22.5
--- NOTE | 2025-06-11 10:18 | XR_ITS ---
The [address] [address] Patient Name: KATIE MONTERO MRN: [id number] date: 1950 Sex: F Assigned Patient Location: ED.MAIN Current Patient Location: ER Accession/Order Number: [id number] Exam Date: 06/11/2025 10:55 Report Date: 06/11/2025 11:15 At the request of: SOCO HENRY MD Procedure: XR chest 1V XR chest 1V 06/11/2025 11:04 AM SIGNS AND SYMPTOMS: Shortness of breath PROTOCOL: Frontal radiograph of the chest COMPARISON: 02/09/2025 FINDINGS: The trachea is midline. The heart and mediastinal structures are within normal limits. There is a slightly smaller masslike consolidation in the right perihilar region. Hazy airspace opacities have developed near the left lung base. Calcified mediastinal lymph nodes are noted. A right-sided Npgzkd-s-Xetb is present. The bony thorax is intact. XR/XR chest 1V IMPRESSION: There is a slightly smaller masslike consolidation in the right perihilar region. Hazy airspace opacities have developed in the left lung base, new when compared to the prior exam. Impression dictated by: Louie Barney M.D. 06/11/2025 11:15 AM Dictation Location: [place] [address] Electronically authenticated by: [id number] Y Date: 06/11/2025 11:15
--- NOTE | 2025-06-11 10:18 | ECG_ITS ---
[facility] Test Date: 2025-06-11 Pat Name: KATIE MONTERO Department: Room: - Gender: Female Reporting Process Consultant: : 1950 Requested By: 1030 Order Number: [id number] Reading MD: ANNIE LIU M.D. Measurements Intervals Murray Rate: 105 P: 95 [place]: 156 QRS: 82 QRSD: 84 T: 78 QT: 330 QTc: 391 Interpretive Statements 1120 Sinus tachycardia 6130 Right atrial enlargement NONSPECIFIC ST DEPRESSION 9150 abnormal ECG Compared to ECG 02/09/2025 22:34:07 Sinus rhythm no longer present NONSPECIFIC ST DEPRESSION now present Electronically Signed On 06-12-2025 10:24:55 EST by ANNIE LIU M.D.
--- NOTE | 2025-06-11 10:20 | ED.GENADUL1 ---
HPI HPI - General Adult General Chief complaint: Shortness of Breath/Dyspnea Stated complaint: SOB Time Seen by Provider: 06/11/25 10:14 Source: patient Mode of arrival: ambulance Limitations: no limitations History of Present Illness HPI narrative: 75-year-old female presented to the emergency department for shortness of breath. She feels much better now. She was given an aerosol treatment by the paramedics. Her symptoms that started last night. She has not had a fever or productive cough. She does not complain of any chest pain. She has known lung cancer and had her last chemotherapy treatment a few days ago. She also had radiation therapy and no surgery. Related Data Home Medications ?Medication ?Instructions ?Recorded ?Confirmed clopidogrel 75 mg tablet 75 mg PO DAILY 04/15/23 02/09/25 lisinopril 20 mg tablet 20 mg PO DAILY 04/15/23 02/09/25 naproxen 375 mg tablet 375 mg PO Q12H 04/15/23 02/01/25 tizanidine 4 mg tablet 4 mg PO Q12H PRN muscle spasticity 04/15/23 02/09/25 furosemide 20 mg tablet 20 mg PO DAILY 02/01/25 02/09/25 potassium chloride 10 mEq 10 meq PO DAILY 02/01/25 02/09/25 tablet,extended release(part/cryst) food supplemt, lactose-reduced 1 ea PO .QD 02/02/25 02/09/25 (Ensure oral liquid) pantoprazole 40 mg tablet,delayed 40 mg PO .ACB 02/02/25 02/09/25 release polyethylene glycol 3350 17 17 g PO DAILY 02/02/25 02/09/25 gram/dose oral powder rosuvastatin 20 mg tablet (Crestor) 20 mg PO .QD 02/02/25 02/02/25 budesonide 160 mcg-glycopyr 9 2 inh inhalation DAILY 02/09/25 02/09/25 mcg-formot 4.8 mcg/actuation HFA inhaler (Breztri Aerosphere) dapagliflozin propanediol 10 mg 10 mg PO DAILY 02/09/25 02/09/25 tablet (Farxiga) hydrocodone 5 mg-acetaminophen 325 2 tab PO TID PRN pain 02/10/25 02/10/25 mg tablet Previous Rx's ?Medication ?Instructions ?Recorded guaifenesin 600 mg tablet, 1,200 mg (2 x 600 mg) PO BID 10 02/03/25 extended release 12 hr (Mucus days #40 tabs Relief ER) metoprolol tartrate 25 mg tablet 25 mg PO Q12H PRN Palpitations 5 02/03/25 days #10 tabs azithromycin 250 mg tablet See Rx Instructions PO .COMPLEX #6 06/11/25 (Zithromax Z-Nikos) tabs Allergies Allergy/AdvReac Type Severity Reaction Status Date / Time ibuprofen Allergy Intermediate Rash Verified 06/11/25 10:18 Penicillins AdvReac Intermediate Unknown Verified 06/11/25 10:18 Opioid HPI Opioid Management Most Recent Opioid Data: Last Pain Scale 9 02/09/25, 22:39 Last ORT Total Score 4 02/01/25, 16:58 Last ORT Risk Category Moderate Risk 02/01/25, 16:58 Ur Phencyclidine Scrn, (NEGATIVE) Negative 02/01/25, 17:00 Review of Systems ROS Narrative A ten point review of systems is negative except as noted above. [facility] Medical History (Updated 06/11/25 @ 12:21 by Jorge Luis Paul MD) Tobacco abuse ?Z72.0 - Tobacco use (ICD-10) COPD (chronic obstructive pulmonary disease) ?J44.9 - Chronic obstructive pulmonary disease, unspecified (ICD-10) History of renal failure ?Z87.448 - Personal history of other diseases of urinary system (ICD-10) Pneumonia ?J18.9 - Pneumonia, unspecified organism (ICD-10) Sepsis ?A41.9 - Sepsis, unspecified organism (ICD-10) Acute exacerbation of chronic obstructive pulmonary disease ?J44.1 - Chronic obstructive pulmonary disease with (acute) exacerbation (ICD-10) Transient cerebral ischemia ?G45.9 - Transient cerebral ischemic attack, unspecified (ICD-10) Osteoporosis ?M81.0 - Age-related osteoporosis without current pathological fracture (ICD-10) Hypokalemia ?E87.6 - Hypokalemia (ICD-10) Dyslipidemia ?E78.5 - Hyperlipidemia, unspecified (ICD-10) Dyslipidemia (high LDL; low HDL) ?E78.5 - Hyperlipidemia, unspecified (ICD-10) Carotid artery stenosis ?I65.29 - Occlusion and stenosis of unspecified carotid artery (ICD-10) Carpal tunnel syndrome ?G56.00 - Carpal tunnel syndrome, unspecified upper limb (ICD-10) Acid reflux disease ?K21.9 - Gastro-esophageal reflux disease without esophagitis (ICD-10) SVT (supraventricular tachycardia) ?I47.10 - Supraventricular tachycardia, unspecified (ICD-10) Family History Father Family history of cancer Brother Family history of cancer Mother Family history of diabetes mellitus Family history of hypertension Social History Within the past year, how often did you have a drink containing alcohol: monthly or less Within the past year, how many standard drinks containing alcohol did you have on a typical day: 1 or 2 Within the past year, how often did you have six or more drinks on one occasion: never Total score: 0 Score interpretation: A score less than 3 is consistent with normal alcohol consumption. Smoking status: Current every day smoker Non-prescribed substance use: cannabis (any form) and crack/cocaine Previous occupational history: retired Highest level of school completed/degree received: 11th grade Little interest or pleasure in doing things: not at all Feeling down, depressed, or hopeless: not at all Feel stressed/tense/nervous/anxious/difficulty sleeping: not at all Exam Narrative Exam Narrative: Nurses note and vital signs reviewed General:The patient appears well and in no apparent distress.Patient is resting comfortably on cart. She does not appear dyspneic. Skin:Warm, dry, no pallor noted.There is no rash noted. Head:Normocephalic, atraumatic Eye: Normal conjunctiva, no drainage Ears, Nose, Mouth, and Throat: oral mucosa is moist. Nares patent. Cardiovascular:Regular Rate and Rhythm Respiratory:Patient is in no distress, no accessory muscle use, she has bilateral breath sounds, slightly diminished on the right. Back:non-tender GI: Soft and nontender Musculoskeletal: The patient has no evidence of calf tenderness, no pitting edema, symmetrical pulses noted bilaterally Neurological:A&O, normal speech Psychiatric:Cooperative Constitutional Vital Signs, click to edit/add: Last Vital Signs Temp 99.9 F 06/11/25 10:13 Pulse 101 H 06/11/25 12:10 Resp 21 H 06/11/25 12:10 BP 149/78 H 06/11/25 10:18 Pulse Ox 100 06/11/25 10:20 O2 Del Method Room Air 06/11/25 10:13 Course Vital Signs Vital signs: Vital Signs Temperature 99.9 F 06/11/25 10:13 Pulse Rate 111 H 06/11/25 10:13 Respiratory Rate 18 06/11/25 10:13 Blood Pressure 149/78 H 06/11/25 10:13 Pulse Oximetry 96 06/11/25 10:13 Oxygen Delivery Method Room Air 06/11/25 10:13 Temperature 99.9 F 06/11/25 10:13 Pulse Rate 101 H 06/11/25 12:10 Respiratory Rate 21 H 06/11/25 12:10 Blood Pressure 149/78 H 06/11/25 10:18 Pulse Oximetry 100 06/11/25 10:20 Oxygen Delivery Method Room Air 06/11/25 10:13 Medical Decision Making MDM Narrative Medical decision making narrative: No evidence of PE. She has small area of pneumonia on CAT scan per radiologist and she is prescribed Zithromax. Treatment diagnosis and follow-up were discussed with the patient. Differential Diagnosis Differential Diagnosis: PE, pneumonia, pneumothorax Lab Data Lab results reviewed: Yes I reviewed the patient's lab results Labs: Lab Results 06/11/25 Range/Units 10:30 WBC 2.4 L (4.0-11.0) 10^3/uL RBC 3.97 L (4.20-5.40) 10^6/uL Hgb 11.9 L (12.0-16.0) g/dL Hct 34.7 L (36.0-48.0) % MCV 87.4 (81.0-99.0) fL MCH 30.0 (26.7-34.0) pg MCHC 34.3 (29.9-35.2) g/dL RDW 14.8 (11.0-15.0) % Plt Count 180 (150-450) 10^3/uL MPV 10.0 (9.5-13.5) fL Seg Neuts % (Manual) 73.0 (43.0-75.0) Band Neutrophils % 10.0 H (0-5) % Lymphocytes % (Manual) 6.0 L (20.5-60.0) % Atypical Lymphs % (Man) 2.0 % Monocytes % (Manual) 8.0 (1.7-12.0) % Eosinophils % (Manual) 0.0 L (0.9-7.0) % Basophils % (Manual) 0.0 L (0.2-2.0) % Metamyelocytes % 1.0 Neutrophils # (Manual) 1.75 (1.4-6.5) 10^3/uL Band Neutrophils # 0.2 (0.0-0.3) 10^3/uL Lymphocytes # (Manual) 0.14 L (1.20-3.80) 10^3/uL Abs Atypical Lymphs Man 0.04 Monocytes # (Manual) 0.19 L (0.30-0.80) 10^3/uL Eosinophils # (Manual) 0.00 (0.00-0.70) 10^3/uL Basophils # (Manual) 0.00 (0.00-0.10) 10^3/uL Metamyelocytes # 0.02 Nucleated RBCs 3 D-Dimer 1.62 H* (<=0.59) mg/L FEU Sodium 129 L (136-145) mmol/L Potassium 4.8 (3.5-5.1) mmol/L Chloride 95 L (98-107) mmol/L Carbon Dioxide 25.3 (21.0-32.0) mmol/L Anion Gap 13.5 BUN 17.0 (7.0-18.0) mg/dL Creatinine 1.33 H (0.55-1.02) mg/dL Est GFR ( Amer) 47 L (>=60 mL/min/1.73m^2) Est GFR (Non-Af Amer) 39 L (>=60 mL/min/1.73m^2) BUN/Creatinine Ratio 12.8 Glucose 104 (74-106) mg/dL Calcium 8.8 (8.5-10.1) mg/dL Troponin I High Sens 22.3 (4.0-51.3) pg/mL Imaging Data Chest x-ray: Radiologist's impression: ITS Impressions Chest X-Ray 06/11/25 10:18 IMPRESSION: There is a slightly smaller masslike consolidation in the right perihilar region. Hazy airspace opacities have developed in the left lung base, new when compared to the prior exam. Impression dictated by: Louie Barney M.D. 06/11/2025 11:15 AM Dictation Location: [employer] Electronically authenticated by: [id number] Y Date: 06/11/2025 11:15 Chest CTA 06/11/25 11:03 IMPRESSION: There is a 3 cm partially solid mass along the right hilum which is less solid in appearance when compared to the prior exam. Scattered areas of airspace opacification are noted in the left upper and bilateral lower lobes suspicious for an infectious or inflammatory process. Emphysematous changes are noted. There is no evidence of pulmonary embolism. Impression dictated by: Louie Barney M.D. 06/11/2025 12:03 PM Dictation Location: [employer] Electronically authenticated by: [id number] Y Date: 06/11/2025 12:03 ECG Data Attestation: I personally reviewed and interpreted this ECG as follows: (EKG on my interpretation shows normal sinus rhythm.) Discharge Plan Discharge Chief Complaint: Shortness of Breath/Dyspnea Clinical Impression: Pneumonia Patient Disposition: Home, Self-Care Time of Disposition Decision: 12:21 Condition: Good Mode of Transportation: Private Vehicle Prescriptions / Home Meds: New azithromycin [Zithromax Z-Nikos] 250 mg tablet See Rx Instructions .ROUTE .COMPLEX Qty: 6 0RF Rx Instructions: For 250 mg dose pack: take 500 mg today (day 1), then 250 mg for 4 days (days 2-5) No Action dapagliflozin propanediol [Farxiga] 10 mg tablet 10 mg PO DAILY Jill Aerosphere 160-9-4.8 mcg/actuation HFA aerosol inhaler 2 inh INHALATION DAILY hydrocodone-acetaminophen 5-325 mg tablet 2 tab PO TID PRN (Reason: pain) Patient Comments: started on 02/10/25 tizanidine 4 mg tablet 4 mg PO Q12H PRN (Reason: muscle spasticity) naproxen 375 mg tablet 375 mg PO Q12H lisinopril 20 mg tablet 20 mg PO DAILY clopidogrel 75 mg tablet 75 mg PO DAILY furosemide 20 mg tablet 20 mg PO DAILY potassium chloride 10 mEq tablet,ER particles/crystals 10 meq PO DAILY rosuvastatin [Crestor] 20 mg tablet 20 mg PO .QD pantoprazole 40 mg tablet,delayed release (DR/EC) 40 mg PO .ACB polyethylene glycol 3350 17 gram/dose powder 17 g PO DAILY Ensure Liquid 1 ea PO .QD guaifenesin [Mucus Relief ER] 600 mg Tablet Extended Release 12hr 1,200 mg PO BID 10 Days Qty: 40 0RF metoprolol tartrate 25 mg tablet 25 mg PO Q12H PRN (Reason: Palpitations) 5 Days Qty: 10 0RF Print Language: South [place] Instructions: Community Acquired Pneumonia (ED) Referrals: RUSTY CAGLE [Primary Care Provider, Family Practice] - 1 week
--- OUTSIDE RECORDS SUMMARY | 2025-06-11 10:33 | XMS_ITS | Clinical Summary ---
Author Organization [email or web address] [facility] tem Address [id number] [address] [place] [address] Care Team Providers Care Beet Worker Name Role Phone Kev Mcmahon DO Primary Care Provider [phone] Allergies Active AllergyReactionsCriticalityNoted DateCommentsHouse Dust03/09/2019 PenicillinsHives,DekmQmd7502/23/2019 Medications MedicationSigDispense QuantityRefillsLast FilledStart DateEnd DateStatus aspirin 81 mg Take 1 tablet (81 mg total) by mouth in the morning.Active potassium chloride (KLOR-CON M 10) 10 MEQ CR tablet Indications:HypokalemiaTAKE 1 TABLET BY MOUTH EVERY MORNING. 90 tablet 5Active furosemide (LASIX) 20 mg tablet TAKE 1 TABLET BY MOUTH EVERY DAY IN THE MORNING 90 tablet 5Active mvvztwnpat-tgdprubk-zmyzzmgtxc (BREZTRI AEROSPHERE) 160-9-4.8 mcg/actuation HFA aerosol inhaler Indications:Mixed simple and mucopurulent chronic bronchitis (CMS-HCC)Inhale 2 puffs in the morning and at bedtime. 10.7 g 505Active HYDROcodone-acetaminophen (NORCO) 5-325 mg per tablet TAKE 1-2 TABLETS BY MOUTH 3 TIMES A DAY, JMZTCF585Active metoprolol tartrate (LOPRESSOR) 25 mg tablet Indications:SVT (supraventricular tachycardia),PSVT (paroxysmal supraventricular tachycardia)Take 1 tablet (25 mg total) by mouth 2 (two) times a day as needed (for palpitations or if heart rate greater than 100). 60 tablet 5Active nebulizer accessories [facility] [place] Indications:Chronic obstructive pulmonary disease, unspecified COPD type ([facility])Use as directed with nebulizer 1 each 5Active pantoprazole (PROTONIX) 40 mg EC tablet Indications:Gastro-esophageal reflux disease without esophagitisTake 1 tablet (40 mg total) by mouth daily as needed (heartburn).5Active lisinopriL (PRINIVIL,ZESTRIL) 20 mg tablet Indications:Essential hypertension, benignTAKE 1 TABLET BY MOUTH EVERY DAY IN THE MORNING 30 tablet 5Active albuterol (PROVENTIL,VENTOLIN) 2.5 mg /3 mL (0.083 %) nebulizer solution Indications:Chronic obstructive pulmonary disease, unspecified COPD type ([facility])INHALE 3ML BY MOUTH VIA NEBULIZER EVERY 4 HOURS NEEDED FOR WHEEZING 75 mL 5Active clopidogreL (PLAVIX) 75 mg tablet TAKE 1 TABLET BY MOUTH EVERY DAY 90 tablet 5Active albuterol (PROVENTIL HFA;VENTOLIN HFA) 90 mcg/actuation inhaler Indications:Chronic obstructive pulmonary disease, unspecified ([facility])INHALE 2 PUFFS BY MOUTH EVERY 4 HOURS 8.5 g 5Active dapagliflozin propanediol (FARXIGA) 10 mg tablet Take 1 tablet (10 mg total) by mouth in the morning. 30 tablet 5Active tiZANidine (ZANAFLEX) 4 mg tablet Indications:Low back painTAKE 1 TABLET BY MOUTH EVERY 6 HOURS NEEDED FOR MUSCLE SPASMS. 360 tablet 5Active doxepin (SILENOR) 3 mg tablet Take 1 tablet (3 mg total) by mouth nightly as needed (insomnia). 30 tablet 5Active cefDINIR (OMNICEF) 300 mg capsule Take 1 capsule (300 mg total) by mouth in the morning and 1 capsule (300 mg total) before bedtime. Do all this for 14 doses. 14 capsule 11Expired Active Problems ProblemNoted DateDiagnosed DateUrge incontinence of urine05/09/2025Sleep hnuawlnhzvc61/10/2025Squamous cell carcinoma of right lung03/07/2025Lung mass 02/17/2025Ex-cigarette qqwoyl6602/07/2025H/O supraventricular tachycardia 09/22/2023olyp of ascending colon12/25/2022ositive colorectal cancer screening using Cologuard test12/13/2022Hypertensive kidney disease with stage 3b chronic kidney fptedju1411/11/2022Mixed simple and mucopurulent chronic bronchitis 10/11/2022cute kidney injury superimposed on CKD07/18/20221287Izsiftx44/16/2022 Overview (03/15/2022): At bedtime shelter (current) use of inhaled zwyunrww81/rsnl hx of TIA (TIA), and cereb infrc w/o resid rttsgwws43Nicotine dependence, cigarettes, fpkuhoazwyofz27Long term (current) use of antithrombotics/neqekmckqbbea13thscl heart disease of jackson coronary artery w/o ang pctrsImpaired fasting glucose 07/13/2020Tobacco abuse09/06/2019Abnormal EKG003/09/2019Essential hypertension 03/09/2019Stage 3 chronic kidney fazgzgf1312/04/2018Carpal tunnel syndrome 03/31/20185238Ngovkaovgcdp67/23/2018Mixed vwcuorcodsvdco29/18/2018Chronic diastolic heart snlvpxx7209/19/2016Carotid artery yksyqnyj26/06/2017Gastroesophageal reflux disease without imleupgvmpm95/06/4347Xucgakvannk31/06/2017Low back pain 09/02/2016Vitamin D vqzkgibfuf57/06/2017Transient ischemic tresjz7509/02/2016 Chronic obstructive lung anrxjcq2609/02/2016Dyslipidemia Resolved Problems ProblemNoted DateDiagnosed DateResolved DateHyp hrt and chr kdny dis w/o hrt fail, w stg 5 chr kdny/ESRD//hronic obstructive pulmonary disease with (acute) yqxtcyftawlt57/02/202205/laudication /cute respiratory failure with hypoxia and hypercapnia /Overweight with body mass index (BMI) 25.0-29.90/03/07/2025Essential jobwhxplkpxl60/19/202010/SVT (paroxysmal supraventricular tachycardia)Viral hepatitis C012/15/2018 09/22/2023 Encounters DateTypeDepartmentCare VeaiArmfmyeiswy05/19/2025Telephone [facility] [address] [place] [address] Ester Rich RN 05/16/2025Orders Only [facility] [address] [place] [phone] External, Scanning Provider 05/12/2025Telephone [facility] [address] [place] [address] Smita Pimentel, [facility] 05/09/2025 10:00 AM ESTOffice Visit [facility] [address] [place] [address] Kev Mcmahon, DO Left otitis media with effusion (Primary Dx); Urge incontinence of urine; Chronic obstructive pulmonary disease, unspecified COPD type ([facility]); Squamous cell carcinoma of right lung ([facility]); Sleep ptyeicpfrnv96/10/0773Mnidpx30/04/2025Telephone [facility] [address] [place] [address] Alessandra Gibson, [facility] 04/30/2025Refill [facility] [address] [place] [phone] Kev Mcmahon, DO Low back pain04/25/2025Telephone [facility] [address] [place] [address] Selvin Pruitt, [facility] 04/08/2025Telephone [facility] [address] [place] [address] Alessandra Gibson, [facility] Med [place]7503/25/2025Refill [facility] [address] [place] [address] Sharlene Melendez, [facility] 03/23/2025Refill [facility] [address] [place] [address] Kev Mcmahon, DO Chronic obstructive pulmonary disease, unspecified ([facility])03/23/2025Refill [facility] [address] [place] [address] Sharlene Melendez, [facility] 03/22/2025Refill [facility] [address] [place] [address] Kev Mcmahon, DO Chronic obstructive pulmonary disease, unspecified COPD type ([facility])03/18/2025 Refill [facility] [address] [place] [address] Kev Mcmahon, DO Essential hypertension, ltunxo6403/17/2025Results Follow-Up [facility] [address] [place] [address] Adela Flaherty, RN Wireless Telemetry (In Office)03/16/2025Orders Only [facility] [address] [place] [address] Kev Mcmahon, DO Chronic obstructive pulmonary disease, unspecified COPD type ([facility])03/15/2025 Telephone [facility] [address] [place] [address] Keegan Barbosa CNA from Last 3 Months Immunizations ImmunizationAdministration DatesNext DueCovid-19, Mrna, Lnp-s, Bivalent, Pf, 30mcg/0.3 ml03/18/2022Influenza, High-dose, Fxkjyczqudtc77/19/2022neumococcal Conjugate 13-Lficuh4602/25/2019()Tdap107/23/2022 Family History Medical HistoryRelationNameCommentsHeart diseaseBrotherCancerFatherGlaucoma FatherAneurysmMotherDiabetesMotherHypertensionMotherBreast cancerSisterRelation NameStatusCommentsBrotherDeceasedFatherDeceasedMotherDeceasedSister Social History Tobacco UseTypesPacks/DayYears UsedDateSmoking Tobacco: FormerCigarettes0.363.1 1961 - 01/31/2025Smokeless Tobacco: Never Tobacco Cessation:Counseling Given: Not Answered Alcohol UseStandard Drinks/WeekCommentsYes0 (1 standard drink = 0.6 oz pure alcohol)1 or 2 cans of beer a monthAHC UtilitiesAnswerDate RecordedIn the past 12 months has the [employer], gas, oil, or water [employer] threatened to shut off services in your home?No09/23/2023Social Connection and Isolation PanelAnswer Date RecordedIn a typical week, how many times do you talk on the phone with family, friends, or neighbors?More than three times a week07/19/2022How often do you get together with friends or relatives?More than three times a week 07/19/2022How often do you attend holiness or synagogue services?1 to 4 times per year07/19/2022o you belong to any clubs or organizations such as holiness groups, unions, fraternal or athletic groups, or school groups?No07/19/2022How often do you attend meetings of the clubs or organizations you belong to?Never07/19/2022 Are you , , , , never , or living with a partner?Vddjqlna58/20/2023UDIT-CAnswerDate RecordedQ1: How often do you have a drink containing alcohol?Monthly or less07/19/2022Q2: How many drinks containing alcohol do you have on a typical day when you are drinking?1 or Q3: How often do you have six or more drinks on one occasion?Never07/19/2022Overall Financial Resource Strain (CARDIA)AnswerDate RecordedHow hard is it for you to pay for the very basics like food, housing, medical care, and heating?Not hard at all07/19/2022HQ-2AnswerDate RecordedTotal Bcnto53707/09/2024[facility] [place] of Occupational Health - Occupational Stress QuestionnaireAnswerDate RecordedDo you feel stress - tense, restless, nervous, or anxious, or unable to sleep at night because yourmind is troubled all the time - these days?Not at all 07/19/2022Exercise Vital SignAnswerDate RecordedOn average, how many days per week do you engage in moderate to strenuous exercise (like a brisk walk)?4 days 03/20/2023On average, how many minutes do you engage in exercise at this level? 10 min03/20/2023RAPARE - TransportationAnswerDate RecordedIn the past 12 months, has lack of transportation kept you from medical appointments or from getting medications?No07/19/2022In the past 12 months, has lack of transportation kept you from meetings, work, or from getting things needed for daily living?No07/19/2022Housing InstabilityAnswerDate RecordedAre you worried or concerned that in the next two months you may not have stable housing that you own, rent or stay in as a part of a household?No07/19/2022hildcareAnswer Date RecordedDo problems getting child nurse make it difficult for you to work or study?No07/19/2022EmploymentAnswerDate RecordedDo you need help finding a local career center and/or a training program?No07/19/2022Hunger ScreeningAnswerDate RecordedWithin the past 12 months we worried whether our food would run out before we got money to buy more.Never True05/09/2025Within the past 12 months the food we bought just didn't last and we didn't have money to get more.Never True05/09/2025Purpose - LifeAnswerDate RecordedI have a purpose and direction in my life.Strongly Agree07/19/2022CommentsNoSex and Gender Information ValueDate RecordedSex Assigned at BirthNot on fileLegal JxtUgibcb15/06/2015 11:28 AM EDTGender IdentityNot on fileSexual OrientationNot on file Last Filed Vital Signs Vital SignReadingTime TakenCommentsBlood Ldaufvjq885/8211 10:24 AM EST Mfhap829505/09/2025 10:24 AM WQNQcgtxqmacmk39 ??C (98.6 ??F)05/09/2025 10:24 AM ESTRespiratory Hasj305403/07/2025 1:31 PM EDTOxygen Pqtcgkbubo16%05/09/2025 10:24 AM ESTInhaled Oxygen Concentration--Athjql61.9 kg (110 lb)05/09/2025 10:24 AM KBPJjdlyz087.4 cm (5')05/09/2025 10:24 AM ESTBody Mass Index21.4805/09/2025 10:24 AM EST Plan of Treatment DateTypeDepartmentCare Team (Latest Contact Info)Hqfpoxsnhoa27/11/2026 10:30 AM ESTOffice Visit [facility] [address] [place] [phone] Kev Mcmahon, DO [address], [place] [address] Health MaintenanceDue DateLast DoneCommentsMedicare Annual Wellness Visit 1950Zoster (Shingles) Vaccine (1 of 2)1968RSV ( or age 60+ yrs) (1 - 1-dose 75+ series)4COVID-19 Vaccine ( - 2024- season) 509/, 12/20/2020, 11/22/2020Influenza Cimgvpt5502/28/2025 2Depression Jwcerrmcw08Fall Risk Knwrrkmek73/10/2026 05/09/2025Tobacco Eatktmihb04DTaP,Tdap and Td Vaccines (2 - Td or Tdap) Goals GoalPatient Goal TypeAssociated ProblemsRecent ProgressPatient-Stated?Author safe discharge to home Marguerite Torres RN Note: Evaluation of progress towards goal: safe transition from hospital to home with [facility] and family support. Medical Devices Not on file Procedures Procedure NamePriorityDate/TimeAssociated DiagnosisCommentsCOMPREHENSIVE METABOLIC KEOISWtiigil13/13/2025 9:08 AM EST Malignant neoplasm of unspecified part of right bronchus or lung (CMS-HCC) ECG 12-XAZXGyqlrol97/30/2025 8:48 AM EDTfrom Last 3 Months Results * (ABNORMAL) Comprehensive metabolic panel (05/12/2025 9:08 AM EST)Component ValueRef RangeTest MethodAnalysis TimePerformed AtPathologist SignatureSODIUM 580299 - 146 mmol/L107/12/2024 1:44 PM [facility] POTASSIUM4.73.5 - 5.0 mmol/L107/12/2024 1:44 PM [facility] KVGLMGOSHWEWICSYLT49316 - 109 mmol/L107/12/2024 1:44 PM [facility] LABORATORYCARBON MFOOPHC4337 - 32 mmol/L107/12/2024 1:44 PM [facility] LABORATORYANION TBD492 - 15 mmol/L107/12/2024 1:44 PM [facility] LABORATORYBLOOD UREA SOTZZILM979 - 27 mg/dL05/12/2025 1:44 PM [facility] LABORATORYCREATININE1.46(H)0.40 - 1.00 mg/dL05/12/2025 1:44 PM [facility] LABORATORYComment:METHOD TRACEABLE TO IDMS AVFPILTUNXAXUUD136(H)65 - 99 mg/dL05/12/2025 1:44 PM EST [facility] RHYWFFLLVMYMJOTEE20.08.5 - 10.5 mg/dL05/12/2025 1:44 PM [facility] LABORATORYTOTAL PROTEIN8.06.0 - 8.0 g/dL 05/12/2025 1:44 PM [facility] LABORATORYALBUMIN3.73.2 - 5.3 g/dL05/12/2025 1:44 PM [facility] LABORATORYALKALINE BXAPSMZQLUT2043 - 130 U/L107/12/2024 1:44 PM [facility] RSAXCNPELVYUU67<=41 U/L107/12/2024 1:44 PM [facility] RJNOGUEYPIKVK71<=31 U/L107/12/2024 1:44 PM [facility] LABORATORYBILIRUBIN,TOTAL0.30.3 - 1.2 mg/dL05/12/2025 1:44 PM [facility]ORYEGFR Non-Race Ckwngmbvc18(L)>=60 ml/min/1.73sq.m 05/12/2025 1:44 PM [facility] LABORATORYComment: Reported eGFR is based on the CKD-EPI 2020 equation that does not use a race coefficient. Specimen (Source)Anatomical Location / LateralityCollection Method / Volume Collection TimeReceived TimeBloodVenous blood / UnknownVenipuncture / Unknown 05/12/2025 9:08 AM EST05/12/2025 9:08 AM EST Narrative Authorizing ProviderResult TypeResult StatusDatrell FARNSWORTH BLOOD ORDERABLESFinal ResultPerforming OrganizationAddressCity/State/ZIP CodePhone Number [facility] [address] [place] [address], [place] [phone] * ECG 12 lead (04/28/2025 8:48 AM EDT) Narrative Authorizing ProviderResult TypeResult StatusScanning Provider ExternalECG ORDERABLESFinal ResultPerforming OrganizationAddressCity/State/ZIP CodePhone Number MANUALLY TRANSCRIBED RESULTS from Last 3 Months Insurance Advance Directives * Full Code (Latest Code Status on File) Date ActivatedDate InactivatedComments07/18/2022 6:57 PM07/19/2022 2:46 PM * Full Code Date ActivatedDate InactivatedComments03/01/2022 4:08 PM03/06/2022 4:50 PM * Full Code Date ActivatedDate InactivatedComments02/23/2019 1:52 PM02/25/2019 1:12 PM Care Teams Team MemberRelationshipSpecialtyStart DateEnd Date Kev Mcmahon DO [address] [facility] [place] [address] PCP - GeneralFamily Medicine01/31/25
--- OUTSIDE RECORDS SUMMARY | 2025-06-11 10:33 | XMS_ITS | Encounter Summary ---
Author Organization [facility] Address [address] [place] [address] Care Team Providers Care Supervisor Forming And Tempering Name Role Phone Kev Mcmahon Primary Care Provider [phone] Gretchen Davis MD Unavailable Mary Jo Denton CNP Unavailable [phone] Surya Soto Unavailable [phone] Alfredo Machuca MD Unavailable Encounter Details DateTypeDepartmentCare Team (Latest Contact Info)Zkvxipvdjia92/05/2025Orders Only [facility] [address] [place] [address] Hellen Mauricio RN Social History Tobacco UseTypesPacks/DayYears UsedDateSmoking Tobacco: FormerCigarettes Smokeless Tobacco: NeverAlcohol UseStandard Drinks/WeekCommentsNot Currently0 (1 standard drink = 0.6 oz pure alcohol)[facility] UtilitiesAnswerDate RecordedIn the past 12 months has the electric, gas, oil, or water [employer] threatened to shut off services in your home?No02/23/2025Overall Financial Resource Strain (CARDIA) AnswerDate RecordedHow hard is it for you to pay for the very basics like food, housing, medical care, and heating?Not hard at all02/23/2025PHQ-2AnswerDate RecordedPatient Health Questionnaire-2 Wxoct869Humiliation, Afraid, Rape, and Kick questionnaireAnswerDate RecordedWithin the [...] were you homeless or living in a correction (including now)?No02/23/2025Hunger Vital SignAnswerDate RecordedWithin the past 12 months, you worried that your food would run out before you got the money to buymore.Never true05/23/2025Within the past 12 months, the food you bought just didn't last and you didn't have money to get more.Never true05/23/2025CommentsNoSex and Gender InformationValueDate RecordedSex Assigned at OgqpmRrjkls44/27/2025 9:47 AM EDTLegal SexFemale 02/18/2025 9:12 AM EDTGender JvmvkxxcGiaatp95/27/2025 9:47 AM EDTSexual OrientationHeterosexual or Rrmbtlrj90/27/2025 9:47 AM EDTdocumented as of this encounter Plan of Treatment DateTypeDepartmentCare Team (Latest Contact Info)Tyldahqjirk21/15/2025 10:30 AM ESTInfusion [facility] [address] [place] [address] Bertha Guillen, ELÍAS 06/13/2025 10:30 AM ESTOffice Visit [facility] On[facility] [address] [place] [address] Mary Jo Denton, SHOTWELD OPERATOR [address] [place] [address] 06/13/2025 1:50 PM ESTAppointment [facility] [address] [place] [address] 06/14/2025 10:15 AM ESTOffice Visit [facility] [address] [place] [address] Alfredo Machuca MD [address] [place] [address] 06/14/2025 1:50 PM ESTAppointment [facility] [address] [place] [address] 09/12/2025 1:00 PM EDTAppointment [facility] [address] [place] [address] Surya Soto [address] [place] [address] documented as of this encounter Visit Diagnoses Not on filedocumented in this encounter Care Teams Team MemberRelationshipSpecialtyStart DateEnd Date Kev Mcmahon DO [address] [facility], [place] [address] PCP - GeneralFamily Medicine02/18/25 Gretchen Davis MD [address] [place] [address] Consulting PhysicianHematology and Oncology03/08/25 Mary Jo Denton, DINA [address] [place] [address] Consulting DgcifdfxjSniltchp94/14/25 Surya Soto [address] [place] [address] Radiation Pyiwpoko38/23/25 Alfredo Machuca MD [address] [place] [address] Emilvqxczookfbcun40/23/25documented as of this encounter
--- OUTSIDE RECORDS SUMMARY | 2025-06-11 10:33 | XMS_ITS | Clinical Summary ---
Author Organization [facility] Address [address], [address] [place] [address] Care Team Providers Care Gear Tooth Grinding Machine Operator Name Role Phone Unavailable Primary Care Provider Unavailabl e Allergies Active AllergyReactionsCriticalityNoted OajxTzqpextkYfdtvsivahfHtpfXvi78/04/2016 Medications MedicationSigDispense QuantityRefillsLast FilledStart DateEnd DateStatus clopidogrel (PLAVIX) 75 MG tablet Take 75 mg by mouth dailyActive aspirin 81 MG tablet Take 81 mg by mouth dailyActive POTASSIUM CHLORIDE ER PO Take 1 tablet by mouth 2 times dailyActive NONFORMULARY Take 1 tablet by mouth daily Water pillActive acetylcysteine (MUCOMYST) 20 % nebulizer solution Take 3 mLs by mouth 2 times daily Take 3 mls twice daily x4 dosesActive Social History Tobacco UseTypesPacks/DayYears UsedDateSmoking Tobacco: Never Assessed CommentsUnknownSex and Gender InformationValueDate RecordedSex Assigned at Not on fileLegal LljDpcxeu99/10/2013 12:30 PM ESTGender IdentityNot on file Sexual OrientationNot on file Last Filed Vital Signs Vital SignReadingTime TakenCommentsBlood Hxjcmkpz608/65009/01/2015 10:30 AM EST Jelja2513 10:30 AM QHWPyixbcrdyig99.5 ??C (97.7 ??F)09/01/2015 10:30 AM ESTRespiratory Ynzp426509/01/2015 10:30 AM ESTOxygen Jzaqrxlcjz397%09/01/2015 10:30 AM ESTInhaled Oxygen Concentration--Jahgrb84.4 kg (137 lb 9.1 oz) 09/01/2015 10:30 AM IMKEgpena704.4 cm (5')09/01/2015 10:30 AM ESTBody Mass Index 26.8709/01/2015 10:30 AM EST Plan of Treatment Not on file Insurance * Guarantor: Donna Pruitt TypeRelation to PatientDate of BirthPhone Billing AddressPersonal/WqpoafBveg1950 [facility] [place] [address]
--- OUTSIDE RECORDS SUMMARY | 2025-06-11 10:33 | XMS_ITS | Clinical Summary ---
Author Organization [facility] [employer] [facility] Address [address] [place] [address] Care Team Providers Care Chronic Disease Manager Name Role Phone No, Pcp HELP DESK INTERN Primary Care Provider Unavailabl e Social History Tobacco UseTypesPacks/DayYears UsedDateSmoking Tobacco: Never Assessed CommentsUnknownSex and Gender InformationValueDate RecordedSex Assigned at Not on fileLegal EfmFpbbht63/26/2021 4:40 PM EDTGender IdentityNot on fileSexual OrientationNot on file Plan of Treatment Not on file Medical Devices Not on file Care Teams Team MemberRelationshipSpecialtyStart DateEnd Date No, Pcp, HELP DESK INTERN N/A Do not use PCP - Generalmily Medicine10/24/20
--- OUTSIDE RECORDS SUMMARY | 2025-06-11 10:33 | XMS_ITS | Encounter Summary ---
Author Organization [facility] Address [address] [place] [address] Care Team Providers Care Site Supervisor Name Role Phone DanielaKev ramirez Primary Care Provider [phone] Gretchen Davis MD Unavailable [phone] Mary Jo Denton CNP Unavailable [phone] Surya Soto Unavailable [phone] Alfredo Machuca MD Unavailable Encounter Details DateTypeDepartmentCare Team (Latest Contact Info)Yrdfqdymuvl57/04/2025Orders Only [facility] Radiation Oncology [address] [place] [address] Radiation Oncology, Physician, [address] [place], [place] [id number] Social History Tobacco UseTypesPacks/DayYears UsedDateSmoking Tobacco: FormerCigarettes Smokeless Tobacco: NeverAlcohol UseStandard Drinks/WeekCommentsNot Currently0 (1 standard drink = 0.6 oz pure alcohol)[facility] UtilitiesAnswerDate RecordedIn the past 12 months has the electric, gas, oil, or water company threatened to shut off services in your home?No02/23/2025Overall Financial Resource Strain (CARDIA) AnswerDate RecordedHow hard is it for you to pay for the very basics like food, housing, medical care, and heating?Not hard at all02/23/2025PHQ-2AnswerDate RecordedPatient Health Questionnaire-2 Tnhok864Humiliation, Afraid, Rape, and Kick questionnaireAnswerDate RecordedWithin the [...] were you homeless or living in a detention (including now)?No02/23/2025Hunger Vital SignAnswerDate RecordedWithin the past 12 months, you worried that your food would run out before you got the money to buymore.Never true05/23/2025Within the past 12 months, the food you bought just didn't last and you didn't have money to get more.Never true05/23/2025CommentsNoSex and Gender InformationValueDate RecordedSex Assigned at BmjosIintvy54/27/2025 9:47 AM EDTLegal SexFemale 02/18/2025 9:12 AM EDTGender HcrmbhzdKpfnbx28/27/2025 9:47 AM EDTSexual OrientationHeterosexual or Jnbjnseu17/27/2025 9:47 AM EDTdocumented as of this encounter Plan of Treatment DateTypeDepartmentCare Team (Latest Contact Info)Qmnbhsydtoj67/15/2025 10:30 AM ESTInfusion [facility] Infusion [address] [place] [address] Bertha Guillen RN 06/13/2025 10:30 AM ESTOffice Visit [facility] Oncology [address] [place] [address] Mary Jo Denton, ROLL FORMING MACHINE SET UP MECHANIC [address] [facility] [address] 06/13/2025 1:50 PM ESTAppointment [facility] Radiation Oncology [address] [place] [address] 06/14/2025 10:15 AM ESTOffice Visit [facility] [address] [place] [address] Alfredo Machuca MD [address] [place] [address] 06/14/2025 1:50 PM ESTAppointment [facility] Radiation Oncology [address] [place] [address] 09/12/2025 1:00 PM EDTAppointment [facility] Radiation Oncology [address] [place] [address] Surya Soto [address] [facility] [place] [address] documented as of this encounter Procedures Procedure NamePriorityDate/TimeAssociated DiagnosisCommentsRAD ONC ARIA SESSION BXVLTCFYhfigce27/04/2025 2:45 PM EST documented in this encounter Results * Rad Onc Aria Session Summary (06/02/2025 2:45 PM EST)ComponentValueRef Range Test MethodAnalysis TimePerformed AtPathologist SignatureCourse [id number] RADIATION ONCOLOGYCourse IntentCurative w/chemoARIA RADIATION ONCOLOGYCourse Start Date04/22/2025 8:56 PMARIA RADIATION ONCOLOGYSession Plizxl34GGKY RADIATION ONCOLOGYCourse First Treatment Date05/16/2025 2:02 PMARIA RADIATION ONCOLOGYCourse Last Treatment Date06/02/2025 2:11 PMARIA RADIATION ONCOLOGY Course Elapsed Dmzh68HCRC RADIATION ONCOLOGYReference Point IDRLng Med DIBH ARIA RADIATION ONCOLOGYReference Point Dosage Given to Qbuf49KvDBGT RADIATION ONCOLOGYReference Point Session Dosage Pdgbt8XvDJET RADIATION ONCOLOGYPlan ID RLng Med DIBHARIA RADIATION ONCOLOGYPlan NameRLng Med DIBHARIA RADIATION ONCOLOGYPlan Fractions Treated to Cyci70GLEP RADIATION ONCOLOGYPlan Total Fractions Nvsaajqrjl01VCAW RADIATION ONCOLOGYPlan Prescribed Dose Per Fraction 3GyARIA RADIATION ONCOLOGYPlan Total Prescribed Dose6,000cGyARIA RADIATION ONCOLOGYPlan Primary Reference PointRLng Med DIBHARIA RADIATION ONCOLOGY Specimen (Source)Anatomical Location / LateralityCollection Method / Volume Collection TimeReceived Time06/02/2025 2:45 PM EST Narrative Authorizing ProviderResult TypeResult StatusPhysician Radiation Oncology MD RADIATION ONCOLOGY ORDERABLESFinal ResultPerforming OrganizationAddress City/State/ZIP CodePhone Number ARIA RADIATION ONCOLOGY documented in this encounter Visit Diagnoses Not on filedocumented in this encounter Care Teams Team MemberRelationshipSpecialtyStart DateEnd Date Kev Mcmahon DO [address] [facility] [place] [address] PCP - GeneralFamily Medicine02/18/25 Gretchen Davis MD [address] [place] [address] Consulting PhysicianHematology and Oncology03/08/25 Mary Jo Denton, ROLL FORMING MACHINE SET UP MECHANIC [address] [place] [address] Consulting EmhmdzgrrZgbuiwuk61/14/25 Surya Soto [address] [place] [address] Radiation Kwbfnihb39/23/25 Alfredo Machuca MD [address] [place] [address] Exejmtpqyfdaacorc92/23/25documented as of this encounter
--- OUTSIDE RECORDS SUMMARY | 2025-06-11 10:33 | XMS_ITS | Encounter Summary ---
Author Organization [facility] Address [address] [place] [address] Care Team Providers Care Harness Cutter Name Role Phone DanielaKev ramirez Primary Care Provider Gretchen Davis MD Unavailable [phone] Mary Jo Denton SALES AND LEASING CONSULTANT Unavailable [phone] Surya Soto Unavailable Alfredo Machuca MD Unavailable Encounter Details DateTypeDepartmentCare Team (Latest Contact Info)Sxcopcnfocs06/05/2025Orders Only [facility] Infusion [address] [place] [address] Mary Jo Denton, SALES AND LEASING CONSULTANT [address] [place] [facility] [place] [address] Social History Tobacco UseTypesPacks/DayYears UsedDateSmoking Tobacco: FormerCigarettes Smokeless Tobacco: NeverAlcohol UseStandard Drinks/WeekCommentsNot Currently0 (1 standard drink = 0.6 oz pure alcohol)[facility] UtilitiesAnswerDate RecordedIn the past 12 months has the electric, gas, oil, or water company threatened to shut off services in your home?No02/23/2025Overall Financial Resource Strain (CARDIA) AnswerDate RecordedHow hard is it for you to pay for the very basics like food, housing, medical care, and heating?Not hard at all02/23/2025PHQ-2AnswerDate RecordedPatient Health Questionnaire-2 Xidzd334Humiliation, Afraid, Rape, and Kick questionnaireAnswerDate RecordedWithin the [...] true05/23/2025CommentsNoSex and Gender InformationValueDate RecordedSex Assigned at PvzkjYtbuyv40/27/2025 9:47 AM EDTLegal SexFemale 02/18/2025 9:12 AM EDTGender CpipmzlgCskqgh64/27/2025 9:47 AM EDTSexual OrientationHeterosexual or Hanghjji74/27/2025 9:47 AM EDTdocumented as of this encounter Progress Notes * Mary Jo Denton CNP - 06/03/2025 10:57 AM EST Remaining weekly cycles signed, pending labs Next appt coordinated with infusion 06/13/2025 documented in this encounter Plan of Treatment DateTypeDepartmentCare Team (Latest Contact Info)Wstwbnzjidl79/15/2025 10:30 AM ESTInfusion [facility] Infusion [address] [place] [address] Bertha Guillen RN 06/13/2025 10:30 AM ESTOffice Visit [facility] Oncology [address] [place] [address] Mary Jo Denton, [facility] [address] [facility] [place] [address] 06/13/2025 1:50 PM ESTAppointment [facility] Radiation Oncology [address] [place] [address] 06/14/2025 10:15 AM ESTOffice Visit [facility] [address] [place] [address] Alfredo Machuca MD [address] [place], [place] [address] [address] 06/14/2025 1:50 PM ESTAppointment [facility] Radiation Oncology [address] [place] [address] 09/12/2025 1:00 PM EDTAppointment [facility] Radiation Oncology [address] [place] [address] Surya Soto [address] [place] [address] documented as of this encounter Visit Diagnoses Not on filedocumented in this encounter Care Teams Team MemberRelationshipSpecialtyStart DateEnd Date Kev Mcmahon DO [address] [place] [address] PCP - GeneralFamily Medicine02/18/25 Gretchen Davis MD [address] [place] [address] Consulting PhysicianHematology and Oncology03/08/25 Mary Jo Denton, DINA [address] [place] [address] Consulting HwgpismvjQvmuywkx12/14/25 Surya Soto [address] [place] [address] Radiation Zqrztjxr87/23/25 Alfredo Machuca MD [address] [place], [place] [address] [address] Soyvsxpkuwpetjudd54/23/25documented as of this encounter
--- OUTSIDE RECORDS SUMMARY | 2025-06-11 10:33 | XMS_ITS | Patient Health Record ---
Author Organization [facility] Address [address] [place] [address] Care Team Providers Care Kindergarten Tutor Name Role Phone Smita Callaway CNP Primary Care Provider Unavail able Reason For Referral No Information Medications Medication SIG (Take, Route, Frequency, Duration) Notes Start Date End Date Status Furosemide FouiooCioncvswsrtEaoxyfDmji-MdhRxnzdjZjgij-43StpzhuBnhvmnorojcmal 600 MG-- Orally every 12 hrs; Duration: 2 days08/31/2015ActiveClopidogrel BisulfateActive tiZANidine HCl 2 MG1 capsule as needed Orally every 8 hrsActiveAcetylcysteine 600 MG-- Orally every 12 hrs; Duration: 2 days08/22/2015Active Social History Tobacco Use: Social History Observation Description Date Details (start date - stop date) Current Smoker NA - NA Tobacco Use/Smoking Question Answer Notes Patient is a current smoker How often do you smoke cigarettes?every day Plan Of Treatment Pending Test Test Name Order Date CTA Head and Neck 08/14/2015 Insurance Providers Payer Name Payer Address Payer Phone Subscriber Number Group Number Insured Name Patient Relationship to Insured Coverage Start Date Coverage End Date [employer] MEDICARE ADV PLAN [address] [address] [place] [phone] [id number] Yogi Pruitt - patient is the insured Medical (General) History Medical History History ICD Code ICAS CholesterolCHFHypokalemiaSurgical History Surgery Date(Month/Year) Tubal ligation 1971
--- OUTSIDE RECORDS SUMMARY | 2025-06-11 10:33 | XMS_ITS | Patient Health Record ---
Author Organization [facility] Address [address] [place], [place] [address] Care Team Providers Care Business Technology Architect Name Role Phone Marifer Hernandez Unavailable [phone] Reason For Referral No Information Social History Social History Additional DetailsCategorySocial InfoOptionsDetailsMigrated Social History Migrated Social History Alcohol Use, AttributeTitle: Drinks beer, COMMENTS: HAS NOT HAD ALCOHOL SINCE 02/19/2016, ProblemStatus: Active, , Barriers to Learning, AttributeTitle: None, ProblemStatus: Active, , Caffeine Use, COMMENTS: None, ProblemStatus: Active, , Cultural or gnosticism beliefs that would affect your care here?, AttributeTitle: No, ProblemStatus:Active, , Culture/Language Barrier, AttributeTitle: No, ProblemStatus: Active, , Current tobacco use, AttributeTitle: Current every day smoker, COMMENTS: Is not interested in trying to quit at this time., ProblemStatus: Active, , Current tobacco use, AttributeTitle: Has been smoking for 30+ years, COMMENTS: Is not interested intrying to quit at this time., ProblemStatus: Active, , Current tobacco use, AttributeTitle: Has never tried to quit, COMMENTS: Is not interested in tryingto quit at this time., ProblemStatus: Active, , Current tobacco use, AttributeTitle: Smokes < 1 pack of cigarettes per day, COMMENTS: Is not interested in trying to quit at this time., ProblemStatus: Active, , Current Work/Study Status, AttributeTitle: Retired, ProblemStatus: Active, , Drug Use, AttributeTitle: Recently quit drug use, ProblemStatus: Active, , Education Level, AttributeTitle: Grade 7-12, ProblemStatus: Active, , How often do you need to have someone help you read instructions?, AttributeTitle: Never, ProblemStatus: Active, , Learning preference , AttributeTitle: Doing or Practicing, ProblemStatus: Active, , Living Situation, AttributeTitle: Lives alone, ProblemStatus: Active, , Most Recent Primary Occupation, 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, ProblemStatus: Active, , No Caffeine Use, ProblemStatus: Inactive, , No Drug Use, ProblemStatus: Inactive, , Patient feels safe in relationships, ProblemStatus: Active Problems Problem Type SNOMED Code ICD Code Onset Dates Problem Status W/U Status Risk Notes Problem Spasm of back muscles (970324588) Muscle spasm of back (M62.830) ActiveconfirmedProblemGastroesophageal reflux disease (926598533)GERD (gastroesophageal reflux disease) (K21.9)ActiveconfirmedComment:RTO in 6 weeks or sooner if necessary.,ProblemArthralgia of the pelvic region and thigh (803719235)Hip pain, acute, right (M25.551)Activeconfirmed Comment:-Not severe, likely arthritis -Not affecting gait or her daily life, just intermittenly uncomfortable -Prescribed ultram for pain due to not being able to take NSAIDs, ProblemCOPD - Chronic obstructive pulmonary disease (49193136)History of COPD (Z87.09)ActiveconfirmedProblemFatigue (92558731)Fatigue (R53.83)Activeconfirmed Comment:-going on for one month -Has strong family history of diabetes -Increased urination the last 3-4 days -Will obtain baseline labs, EKG, ProblemEdema of lower extremity (576201206)Leg edema (R60.0)Activeconfirmed Comment:-+1 leg edema currently; has been on for years -No signs of electrolyte abnormalities -Taking it as needed -no cardiac symptoms, ProblemOsteopenia of shoulder (M85.819)ActiveconfirmedComment:Per xray,Problem Pulmonary nodule (919696709)Pulmonary nodule (R91.1)ActiveconfirmedComment:Will order a CT scan to assess.,ProblemRight shoulder pain (4818728844)Right shoulder pain (M25.511)Activeconfirmed Comment:+muscle spasm present c/w cyclobenzaprine as needed encouraged use of acetaminophen, heat/ice, and topicals recheck in 4 weeks PVU, ProblemParoxysmal supraventricular tachycardia (26026915)Sustained SVT (I47.1) ActiveconfirmedComment:Continue metoprolol. F/U with Cardiology as recommended., ProblemCOPD - Chronic obstructive pulmonary disease (76869304)COPD (chronic obstructive pulmonary disease) (J44.9)Activeconfirmed Comment:50+ pack year history daily cough and SOB lungs CTAB clinically likely COPD treat with LABA PVU, ProblemShoulder joint pain (635605209)Left shoulder pain, unspecified chronicity (M25.512)Activeconfirmed Comment:-Found to have osteopenia in the joint -Ultram causing dizziness -Cannot take NSAIDs due to carotid artery -Will switch to tylenol #3, ProblemChronic obstructive lung disease (67628482)COPD without exacerbation (J44.9)ActiveconfirmedComment:albuterol helping but would prefer nebulizer. Has solution. Needs machine. Was using a friends who took it back.,Problem Prescription renewal (141554935)Medication refill (Z76.0)ActiveconfirmedProblem Left shoulder pain (4442456463)Left shoulder pain (M25.512)Activeconfirmed Comment:-Likely arthritis -Has difficulty with range of motion -Motrin has helped -NSAIDs contraindicated due to her carotid artery issues per her vascular surgeon -Will try 1/2 tab of ultram as needed -will get x-ray, ProblemChronic low back pain (finding) (490893177)Chronic lower back pain (M54.50)ActiveconfirmedComment:Witn NORMAL neuromuscular exam today, other than mild spasms., Plan Of Treatment No Information Insurance Providers Payer Name Payer Address Payer Phone Subscriber Number Group Number Insured Name Patient Relationship to Insured Coverage Start Date Coverage End Date [employer] Medicare [address] [address] [place] [phone] [id number] Usha Pruitt Self - patient is the insured 4 [facility] [address] [address] [place], [place] [phone] [id number] Pruitt - patient is the [id number] 2024 Medical (General) History Surgical History Surgery Date(Month/Year) D&C, ProblemStatus: Active,
--- OUTSIDE RECORDS SUMMARY | 2025-06-11 10:34 | XMS_ITS | Encounter Summary ---
Author Organization [facility] Address [address] [place] [address] Care Team Providers Care Hr Operations Advisor Name Role Phone DanielaKev ramirez Primary Care Provider [phone] Gretchen Davis MD Unavailable [phone] Mary Jo Denton CNP Unavailable [phone] Surya Soto Unavailable [phone] Alfredo Machuca MD Unavailable Encounter Details DateTypeDepartmentCare Team (Latest Contact Info)Psxdrrfwgdy48/01/2025Orders Only [facility] Infusion [address] [place] [address] Pranav Chinchilla, PharmD, BCOP Social History Tobacco UseTypesPacks/DayYears UsedDateSmoking Tobacco: FormerCigarettes Smokeless Tobacco: NeverAlcohol UseStandard Drinks/WeekCommentsNot Currently0 (1 standard drink = 0.6 oz pure alcohol)[facility] UtilitiesAnswerDate RecordedIn the past 12 months has the [place] city [place], gas, oil, or water Workhint threatened to shut off services in your home?No02/23/2025Overall Financial Resource Strain (CARDIA) AnswerDate RecordedHow hard is it for you to pay for the very basics like food, housing, medical care, and heating?Not hard at all02/23/2025PHQ-2AnswerDate RecordedPatient Health Questionnaire-2 Spmlw164Humiliation, Afraid, Rape, and Kick questionnaireAnswerDate RecordedWithin the [...] were you homeless or living in a longterm (including now)?No02/23/2025Hunger Vital SignAnswerDate RecordedWithin the past 12 months, you worried that your food would run out before you got the money to buymore.Never true05/23/2025Within the past 12 months, the food you bought just didn't last and you didn't have money to get more.Never true05/23/2025CommentsNoSex and Gender InformationValueDate RecordedSex Assigned at XkatxTmpzgr20/27/2025 9:47 AM EDTLegal SexFemale 02/18/2025 9:12 AM EDTGender RndhscmkHzumzu62/27/2025 9:47 AM EDTSexual OrientationHeterosexual or Axtcrsli08/27/2025 9:47 AM EDTdocumented as of this encounter Plan of Treatment DateTypeDepartmentCare Team (Latest Contact Info)Exdcedjxraj21/15/2025 10:30 AM ESTInfusion [facility] In[facility] [address] [place] [address] Bertha Guillen, ELÍAS 06/13/2025 10:30 AM ESTOffice Visit [facility] Oncology [address] [place] [address] Mary Jo Denton, SANITARIAN [address] [facility] [place] [address] 06/13/2025 1:50 PM ESTAppointment [facility] Radiation Oncology [address] [place] [address] 06/14/2025 10:15 AM ESTOffice Visit [facility] [address] [place] [address] Alfredo Machuca MD [address] [place] [address] 06/14/2025 1:50 PM ESTAppointment [facility] Radiation Oncology [address] [place] [address] 09/12/2025 1:00 PM EDTAppointment [facility] Radiation Oncology [address] [place] [address] Surya Soto [address] [facility] [place] [address] documented as of this encounter Visit Diagnoses Not on filedocumented in this encounter Care Teams Team MemberRelationshipSpecialtyStart DateEnd Date Kev Mcmahon DO [address] [facility] [place] [address] PCP - GeneralFamily Medicine02/18/25 Gretchen Davis MD [address] [place] [address] Consulting PhysicianHematology and Oncology03/08/25 Mary Jo Denton, SANITARIAN [address] [place] [address] Consulting UouybuqwgPmvjbkab04/14/25 Surya Soto [address] [place] [address] Radiation Rywtsoou97/23/25 Alfredo Machuca MD [address] [place] [address] Yxytedczyceejvpyr91/23/25documented as of this encounter
--- OUTSIDE RECORDS SUMMARY | 2025-06-11 10:34 | XMS_ITS | Encounter Summary ---
Author Organization [facility] Address [address] [place] [address] Care Team Providers Care Telecommunications Field Technician Name Role Phone DanielaKev ramirez Primary Care Provider [phone] Gretchen Davis MD Unavailable [phone] Mary Jo Denton CNP Unavailable [phone] Surya Soto Unavailable [phone] Alfredo Machuca MD Unavailable Encounter Details DateTypeDepartmentCare Team (Latest Contact Info)Goqculychmw17/11/2025Orders Only [facility] Radiation Oncology [address] [place] [address] Radiation Oncology, Physician, [address] [place], [place] [id number] Social History Tobacco UseTypesPacks/DayYears UsedDateSmoking Tobacco: FormerCigarettes Smokeless Tobacco: NeverAlcohol UseStandard Drinks/WeekCommentsNot Currently0 (1 standard drink = 0.6 oz pure alcohol)[facility] UtilitiesAnswerDate RecordedIn the past 12 months has the electric, gas, oil, or water company threatened to shut off services in your home?No02/23/2025Overall Financial Resource Strain (CARDIA) AnswerDate RecordedHow hard is it for you to pay for the very basics like food, housing, medical care, and heating?Not hard at all02/23/2025PHQ-2AnswerDate RecordedPatient Health Questionnaire-2 [id number], Afraid, Rape, and Kick questionnaireAnswerDate RecordedWithin the [...] true05/23/2025CommentsNoSex and Gender InformationValueDate RecordedSex Assigned at GtqfwNlsgya68/27/2025 9:47 AM EDTLegal SexFemale 02/18/2025 9:12 AM EDTGender UlkitycmIamwcw70/27/2025 9:47 AM EDTSexual OrientationHeterosexual or Ynulruci93/27/2025 9:47 AM EDTdocumented as of this encounter Plan of Treatment DateTypeDepartmentCare Team (Latest Contact Info)Nzfhrqtehxd00/15/2025 10:[address] [facility] In[facility] [address] [place] [address] Bertha Guillen RN 06/13/2025 10:30 AM ESTOffice Visit [facility] Oncology [address] [place] [address] Mary Jo Denton, GLASS CURVATURE GAUGER [address] [facility] [place] [address] 06/13/2025 1:[address] [facility] Radiation Oncology [address] [place] [address] 06/14/2025 10:15 AM ESTOffice Visit [facility] [address] [place] [address] Alfredo Machuca MD [address] [place] [address] 06/14/2025 1:[address] [facility] Radiation Oncology [address] [place] [address] 09/12/2025 1:[address] [facility] Radiation Oncology [address] [place] [address] Surya Soto [address] [facility] [place] [address] documented as of this encounter Procedures Procedure NamePriorityDate/TimeAssociated DiagnosisCommentsRAD ONC ARIA SESSION DSLMFGXRpqaojg94/11/2025 2:09 PM EST documented in this encounter Results * Rad Onc Aria Session Summary (06/09/2025 2:09 PM EST)ComponentValueRef Range Test MethodAnalysis TimePerformed AtPathologist SignatureCourse [id number] RADIATION ONCOLOGYCourse IntentCurative w/chemoARIA RADIATION ONCOLOGYCourse Start Date04/22/2025 8:56 PMARIA RADIATION ONCOLOGYSession Irbyhp40XIQX RADIATION ONCOLOGYCourse First Treatment Date05/16/2025 2:02 PMARIA RADIATION ONCOLOGYCourse Last Treatment Date06/09/2025 1:34 PMARIA RADIATION ONCOLOGY Course Elapsed Yyjw09[facility] RADIATION ONCOLOGYReference Point IDRLng Med DIBH ARIA RADIATION ONCOLOGYReference Point Dosage Given to Sjdx37AlURIT RADIATION ONCOLOGYReference Point Session Dosage Nwrud8CoLLAJ RADIATION ONCOLOGYPlan ID RLng Med DIBHARIA RADIATION ONCOLOGYPlan NameRLng Med DIBHARIA RADIATION ONCOLOGYPlan Fractions Treated to Ohhj43JANX RADIATION ONCOLOGYPlan Total Fractions Rapoognldi59BGQC RADIATION ONCOLOGYPlan Prescribed Dose Per Fraction 3GyARIA RADIATION ONCOLOGYPlan Total Prescribed Dose6,000cGyARIA RADIATION ONCOLOGYPlan Primary Reference PointRLng Med DIBHARIA RADIATION ONCOLOGY Specimen (Source)Anatomical Location / LateralityCollection Method / Volume Collection TimeReceived Time06/09/2025 2:09 PM EST Narrative Authorizing ProviderResult TypeResult StatusPhysician Radiation Oncology MD RADIATION ONCOLOGY ORDERABLESFinal ResultPerforming OrganizationAddress City/State/ZIP CodePhone Number ARIA RADIATION ONCOLOGY documented in this encounter Visit Diagnoses Not on filedocumented in this encounter Care Teams Team MemberRelationshipSpecialtyStart DateEnd Date Kev Mcmahon DO [address] [facility], [place] [place] [address] PCP - GeneralFamily Medicine02/18/25 Gretchen Davis MD [address] [place] [phone] Consulting PhysicianHematology and Oncology03/08/25 Mary Jo Denton, GLASS CURV[employer] GAUGER [address] [place] [address] Consulting EzpevwxsmPlnohheu17/14/25 Surya Soto [address] [place] [address] Radiation Gkdnelwe11/23/25 Alfredo Machuca MD [address] [place] [address] Xqbnbklltvlymckdn29/23/25documented as of this encounter
--- OUTSIDE RECORDS SUMMARY | 2025-06-11 10:34 | XMS_ITS ---
Author Organization [facility] Address [address] [place] [address] Care Team Providers Care Grain Inspector Name Role Phone Kev Mcmahon DO Primary Care Provider [phone] Gretchen Davis MD Unavailable Mary Jo Denton CNP Unavailable [phone] Surya Soto Unavailable Alfredo Machuca MD Unavailable Active Problems ProblemNoted DateDiagnosed DateSquamous cell carcinoma of lung, right04/13/2025 Squamous cell lung cancer, right03/08/2025 Cancer Staging: Clinical stage from 02/24/2025:Stage IIIB(cT2b, cN2b(f), cM0) - Signed by Gretchen Davis MD on 03/25/2025 Gastroesophageal reflux ighaniq0202/24/2025SVT (supraventricular tachycardia) 5Crack cocaine use02/23/2025Marijuana use5Chronic obstructive pulmonary uqhvwlg6002/23/2025 Current Treatment and Therapy Plans OP Hydration and Electrolyte Replacement PRN Twice Weekly -Hematology / Oncology * Plan Start Date:05/23/2025 Plan Provider:Mary Jo Denton CNP Linked Problems Squamous cell lung cancer, r ight (CMS/HCC) Treatment Medications No medications scheduled. OP PACLitaxel / CARBOplatin Induction with Concurrent Radiation Weekly x 6 - NSCLC* Plan Start Date:03/23/2025 Plan Provider:Gretchen Davis MD Linked Problems Squamous cell lung cancer, r ight (CMS/HCC) Treatment MedicationsCurrent Day (Day 29, Cycle 1 - Planned for 06/08/2025)Next Day (Day 36, Cycle 1 - Planned for 06/15/2025)* * CARBOplatin (Paraplatin) in sodium chloride 0.9% 150 mL * PACLitaxel (Taxol) in 100 mL 0.9% sodium chloride IVPB * * CARBOplatin (Paraplatin) 90 mg in sodium chloride 0.9 % 259 mL IVPB * PACLitaxel (Taxol) 66 mg, empty bag 1 each in sodium chloride 0.9 % 111 mL IVPB * * CARBOplatin (Paraplatin) 90 mg in sodium chloride 0.9 % 259 mL IVPB * PACLitaxel (Taxol) 66 mg, empty bag 1 each in sodium chloride 0.9 % 111 mL IVPB Past Treatment and Therapy Plans No past plan information found. Current Radiation Episodes * IMRT: Right Lung, Right MediastinumOverview* First Treatment DateLatest Treatment DateTreatment SiteTechniqueGoalEpisode Wfrfihxg48/17/98289908/11/2024 * Right Lung * Right Mediastinum IMRTCurative * Linked Problems Squamous cell lung cancer, r ight Treatment Courses* Treatment PeriodFraction DoseFractionsTotal DosePlansPlanned RLng [place] 0240607/16/2024 - 5300 cGy18 / 206,000 cGyReference Points DeliveredRLnSarah Ville 7203607/16/2024 - 06/10/2025?5,400 cGy
--- OUTSIDE RECORDS SUMMARY | 2025-06-11 10:34 | XMS_ITS | Clinical Summary ---
Author Organization [facility] Address [address] [place] [address] Care Team Providers Care Deputy Bailiff Name Role Phone RosyKev frazier Primary Care Provider [phone] Gretchen Davis MD Unavailable Mary Jo Denton TUB WASHER Unavailable [phone] Surya Soto Unavailable Alfredo Machuca MD Unavailable Allergies Active AllergyReactionsCriticalityNoted DateCommentsHouse NtwlVdcho21/10/2019 House dust Penicillin KQavcGts97/22/2025 Medications MedicationSigDispense QuantityRefillsLast FilledStart DateEnd DateStatus albuterol 2.5 mg /3 mL (0.083 %) nebulizer solution Inhale 2.5 mg every 4 (four) hours if needed for wheezing.5Active Breztri Aerosphere 160-9-4.8 mcg/actuation HFA aerosol inhaler INHALE 2 PUFFS IN THE MORNING AND AT BEDTIMEActive Farxiga 10 mg Take 1 tablet by mouth in the morning.5Active HYDROcodone-acetaminophen (Strang) 5-325 mg tablet Take 1 tablet by mouth every 8 (eight) hours if needed for severe pain (8-10 pain score).5Active lisinopril 20 mg tablet Take 30 mg by mouth in the morning.01/19/2025tive metoprolol tartrate (Lopressor) 25 mg tablet Take 25 mg by mouth if needed in the morning and at bedtime (prn HR greater than 100 or palpitations).02/15/2025tive potassium chloride CR (Klor-Con M10) 10 mEq ER tablet Take 10 mEq by mouth in the morning.01/13/2025tive tiZANidine (Zanaflex) 4 mg tablet Take 4 mg by mouth every 6 (six) hours if needed for muscle spasms.01/31/2025 Active amiodarone (Pacerone) 200 mg tablet Indications:SVT (supraventricular tachycardia)Take 1 tablet (200 mg) by mouth two times daily. 180 tablet ctive acetylcysteine (Mucomyst) 200 mg/mL (20 %) nebulizer solution Take 3 mL by mouth.Active aspirin 81 mg EC tablet Take 81 mg by mouth in the morning.Active clopidogrel (Plavix) 75 mg tablet Take 75 mg by mouth in the morning.03/23/2025tive furosemide (Lasix) 20 mg tablet 20 mg in the morning.Active nebulizer accessories [facility] Use as directed with dbaublktp68/08/2025tive pantoprazole (ProtoNix) 40 mg EC tablet Take 40 mg by mouth if needed each day.03/07/2025tive dexAMETHasone (Decadron) 4 mg tablet Indications:Squamous cell lung cancer, right (CMS/HCC)Take 8 mg (two tablets) by mouth daily with breakfast on days 2 through 3 following chemotherapy adm inistration. 24 tablet 04/12/2025tive cefdinir (Omnicef) 300 mg capsule TAKE 1 CAPSULE BY MOUTH IN THE MORNING AND 1 CAPSULE BEFORE BEDTIME. DO ALL THIS FOR 14 DOSES.05/09/2025tive doxepin 3 mg tablet Take 3 mg by mouth.05/09/2025tive lidocaine-prilocaine (Emla) 2.5-2.5 % cream APPLY TOPICALLY ONE TIME FOR 1 DOSE. APPLY TO PORT SITE AND COVER 30-45 MINS PRIOR TO NEEDLE RXIWFM1304/12/2025tive prochlorperazine (Compazine) 10 mg tablet Indications:Squamous cell lung cancer, right (CMS/HCC)Take 1 tablet (10 mg) by mouth every 6 (six) hours if needed for nausea or vomiting. 30 tablet Expired Active Problems ProblemNoted DateDiagnosed DateSquamous cell carcinoma of lung, right04/13/2025 Squamous cell lung cancer, right03/08/2025 Cancer Staging: Clinical stage from 02/24/2025:Stage IIIB(cT2b, cN2b(f), cM0) - Signed by Gretchen Davis MD on 03/25/2025 Gastroesophageal reflux jnymfsy9502/24/2025SVT (supraventricular tachycardia) 5Crack cocaine use02/23/2025Marijuana use5Chronic obstructive pulmonary jufntce8002/23/2025 Encounters DateTypeDepartmentCare NymfYmftujfnpfh27/12/2025 1:04 PM EST - 06/10/2025 11:59 PM ESTHospital Encounter [facility] Radiation Oncology [address] [place] [phone] Discharge Disposition: Home or Self Care ()06/10/2025 1:00 PM ESTInfusion [facility] Infusion [address] [place] [phone] Squamous cell lung cancer, right (CMS/HCC) (Primary Dx)06/10/2025Orders Only [facility] Infusion [address] [place] [phone] Hellen Mauricio RN 06/09/2025 1:49 PM EST - 06/09/2025 11:59 PM ESTHospital Encounter [facility] Radiation Oncology [address] [place] [phone] Surya Soto Squamous cell carcinoma of lung, right (CMS/HCC) (Primary Dx) Discharge Disposition: Home or Self Care ()06/09/2025 9:23 AM EST - 06/09/2025 1:48 PM ESTHospital Encounter [facility] Radiation Oncology [address] [place] [phone] Discharge Disposition: Home or Self Care (01)06/09/2025[facility] [address] [place] [phone] Radiation Oncology, Physician, 06/08/2025 1:22 PM EST - 06/08/2025 11:59 PM ESTHospital Encounter [facility] Radiation Oncology [address] [place] [phone] Discharge Disposition: Home or Self Care (01)06/07/2025 1:49 PM EST - 06/07/2025 11:59 PM ESTHospital Encounter [facility] Radiation Oncology [address] [place] [phone] Discharge Disposition: Home or Self Care ()06/06/2025 1:50 PM EST - 06/06/2025 11:59 PM ESTHospital Encounter [facility] Radiation Oncology [address] [place] [phone] Discharge Disposition: Home or Self Care ()06/06/2025 10:30 AM ESTInfusion [facility] Infusion [address] [place] [phone] Smita Espinoza Squamous cell lung cancer, right (CMS/HCC) (Primary Dx)06/06/2025Results [facility] [address] [place] [phone] Gretchen Davis MD Magnesium, Comprehensive metabolic panel06/03/2025 2:10 PM ESTLab [facility] Draw Station [address] [place] [phone] Squamous cell lung cancer, right (CMS/HCC)06/03/2025 1:22 PM EST - 06/03/2025 11:59 PM ESTHospital Encounter [facility] Radiation Oncology [address] [place] [phone] Discharge Disposition: Home or Self Care ()06/03/2025Orders Only [facility] Infusion [address] [place] [phone] Hellen Mauricio, ELÍAS 06/03/2025Orders Only [facility] Infusion [address] [place] [phone] Mary Jo Denton, DINA 06/02/2025 2:15 PM EST - 06/02/2025 11:59 PM ESTHospital Encounter [facility] Radiation Oncology [address] [place] [phone] Surya Soto Squamous cell carcinoma of lung, right (CMS/HCC) (Primary Dx) Discharge Disposition: Home or Self Care ()06/02/2025 1:50 PM EST - 06/02/2025 2:14 PM ESTHospital Encounter [facility] Radiation Oncology [address] [place] [phone] Discharge Disposition: Home or Self Care ()06/02/2025Orders Only [facility] Radiation Oncology [address] [place] [phone] Radiation Oncology, Physician, 06/01/2025 1:39 PM EST - 06/01/2025 11:59 PM ESTHospital Encounter [facility] Radiation Oncology [address] [place] [phone] Discharge Disposition: Home or Self Care ()05/31/2025 1:50 PM EST - 05/31/2025 11:59 PM ESTHospital Encounter [facility] Radiation Oncology [address] [place] [phone] Discharge Disposition: Home or Self Care ()05/30/2025 1:50 PM EST - 05/30/2025 11:59 PM ESTHospital Encounter [facility] Radiation Oncology [address] [place] [phone] Discharge Disposition: Home or Self Care ()05/30/2025 10:00 AM ESTInfusion [facility] Infusion [address] [place] [phone] Aster Diallo, RN Squamous cell lung cancer, right (CMS/HCC) (Primary Dx)05/30/2025Orders Only [facility] Infusion [address] [place] [phone] Pranav Chinchilla, PharmD, OP 05/24/2025 1:23 PM EST - 05/24/2025 11:59 PM ESTHospital Encounter [facility] Radiation Oncology [address] [place] [phone] Surya Soto Squamous cell carcinoma of lung, right (CMS/HCC) (Primary Dx) Discharge Disposition: Home or Self Care ()05/24/2025 1:21 PM EST - 05/24/2025 1:22 PM ESTHospital Encounter [facility] Radiation Oncology [address] [place] [phone] Discharge Disposition: Home or Self Care ()05/24/2025Orders Only [facility] Radiation Oncology [address] [place] [phone] Radiation Oncology, Physician, 05/23/2025 1:30 PM ESTInfusion [facility] Infusion [address] [place] [phone] Judit Rodriguez Squamous cell lung cancer, right (CMS/HCC) (Primary Dx)05/23/2025 11:43 AM EST - 05/23/2025 11:59 PM ESTHospital Encounter [facility] Radiation Oncology [address] [place] [phone] Discharge Disposition: Home or Self Care ()05/23/2025Orders Only [facility] Infusion [address] [place] [phone] Mary Jo Denton, DINA 05/22/2025 7:54 AM EST - 05/22/2025 11:59 PM ESTHospital Encounter [facility] Radiation Oncology [address] [place] [phone] Discharge Disposition: Home or Self Care ()05/20/2025 1:15 PM ESTLab [facility] Draw Station [address] [place] [phone] Squamous cell lung cancer, right (CMS/HCC)05/20/2025 1:11 PM EST - 05/20/2025 11:59 PM ESTHospital Encounter [facility] Radiation Oncology [address] [place] [phone] Discharge Disposition: Home or Self Care ()05/19/2025 2:09 PM EST - 05/19/2025 11:59 PM ESTHospital Encounter [facility] Radiation Oncology [address] [place] [phone] Surya Soto Squamous cell lung cancer, right (CMS/HCC) (Primary Dx) Discharge Disposition: Home or Self Care ()05/19/2025 1:50 PM EST - 05/19/2025 2:08 PM ESTHospital Encounter [facility] Radiation Oncology [address] [place] [phone] Discharge Disposition: Home or Self Care ()05/19/2025Orders Only [facility] Radiation Oncology [address] [place] [phone] Radiation Oncology, Physician, 05/18/2025 1:50 PM EST - 05/18/2025 11:59 PM ESTHospital Encounter [facility] Radiation Oncology [address] [place] [phone] Discharge Disposition: Home or Self Care ()05/17/2025 1:50 PM EST - 05/17/2025 11:59 PM ESTHospital Encounter [facility] Radiation Oncology [address] [place] [phone] Discharge Disposition: Home or Self Care ()05/16/2025 1:50 PM EST - 05/16/2025 11:59 PM ESTHospital Encounter [facility] Radiation Oncology [address] [place] [phone] Discharge Disposition: Home or Self Care ()05/16/2025 10:00 AM ESTInfusion [facility] Infusion [address] [place] [phone] Trina Fonseca Squamous cell lung cancer, right (CMS/HCC) (Primary Dx)05/12/2025Orders Only [facility] Infusion [address] [place] [phone] Hellen Mauricio, ELÍAS 05/11/2025 5:30 PM EST - 05/11/2025 11:59 PM ESTHospital Encounter [facility] Radiation Oncology [address] [place] [phone] Discharge Disposition: Home or Self Care ()05/09/2025Orders Only [facility] Infusion [address] [place] [phone] Hellen Mauricio, ELÍAS 05/06/2025 11:38 AM EST - 05/06/2025 11:59 PM ESTHospital Encounter [facility] Radiation Oncology [address] [place] [phone] Discharge Disposition: Home or Self Care ()05/06/2025Orders Only [facility] Infusion [address] [place] [phone] Pranav Chinchilla, PharmD, BCOP 05/06/2025Orders Only [facility] Oncology [address] [place] [phone] Gretchen Davis MD 04/28/2025 9:25 AM EDT - 04/28/2025 11:[address] [facility] Emergency [address] [place] [phone] Remi Pinto DO COPD exacerbation (CMS/HCC) (Primary Dx); Shortness of breath Discharge Disposition: Home or Self Care ()04/28/20257035Yibpnm94/28/2025 9:[address] [facility] Surgery Clinic [address] [place] [phone] Jaida Garcia MD Squamous cell lung cancer, right (CMS/HCC) (Primary Dx)04/21/2025 11:19 AM EDT - 04/21/2025 11:[address] [facility] D[facility] CT Imaging [address] [place] [phone] Squamous cell lung cancer, right (CMS/HCC) Discharge Disposition: Home or Self Care ()04/21/2025Orders Only [facility] [address] [place] [phone] Surya Soto 04/19/2025bstract [facility] AUTHORIZATION DEPARTMENT [address] [place] [phone] Surya Soto 04/18/2025 1:30 PM EDT - 04/18/2025 3:[address] [facility] Main Operating Room [address] [place] [phone] Jaida Garcia MD PORT A CATH PLACEMENT; WITH FLURO AND LLDAHFLDUJ91/20/2025 12:48 PM EDT Anesthesia Event [facility] Main Operating Room [address] [place] [phone] Jass Allen MD Winkler, Dillon, MD 04/18/2025 12:46 PM EDT - 04/18/2025 11:[address] [facility] X-Ray Imaging [address] [place] [address] Port-A-Cath in place Discharge Disposition: Home or Self Care ()04/18/2025 11:49 AM EDT - 04/18/2025 3:[address] [facility] Main Operating Room [address] [place] [address] Jaida Garcia MD Squamous cell carcinoma of lung, right (CMS/HCC) Discharge Disposition: Home or Self Care ()04/18/2025Orders Only [facility] Infusion [address] [place] [phone] Hellen Mauricio RN 04/18/20255886Lbhfdc52/15/4464Xbpeub56/15/2025Orders Only [facility] Surgery Clinic [address] [place] [address] Marli Cedeño MA Squamous cell carcinoma of lung, right (CMS/HCC) (Primary Dx)04/12/2025 1:00 PM EDTOffice Visit [facility] [address] [place] [phone] Mary Jo Denton CNP Squamous cell lung cancer, right (CMS/HCC) (Primary Dx); Encounter for lufvwanfc39/14/2025 9:00 AM EDT - 04/12/2025 11:59 PM EDTHospital Encounter [facility] Radiation Oncology [address] [place] [phone] Surya Soto Squamous cell lung cancer, right (CMS/HCC) Discharge Disposition: Home or Self Care ()04/08/2025[facility] [address] [place] [address] Beatriz Covarrubias, RN SVT (supraventricular tachycardia)04/08/2025[facility] [address] [place] [phone] Tiffanie Freeman MA SVT (supraventricular tachycardia)04/08/2025[facility] [address] [place] [address] Beatriz Covarrubias, RN 04/03/2025[facility] Internal Medicine [address] [place] [phone] Tino Arevalo MD SVT (supraventricular tachycardia)04/01/2025Patient Outreach [facility] [address] [place] [phone] Felicia Rosado LISW-S 03/31/2025Orders Only [facility] Infusion [address] [place] [phone] Hellen Mauricio RN 03/29/2025[facility] Internal Medicine [address] [place] [phone] Tino Arevalo MD SVT (supraventricular tachycardia)03/25/2025Results Follow-Up [facility] [address] [place] [phone] Gretchen Davis MD PET/CT skull base to mid thigh FDG03/25/2025Patient Outreach [facility] [address] [place] [phone] Renee Vaz LSW 03/24/2025 3:00 PM EDTOffice Visit [facility] [address] [place] [phone] Gretchen Davis MD Squamous cell lung cancer, right (CMS/HCC) (Primary Dx); History of smoking 25-50 pack years; Stage 3a chronic kidney disease (CMS/HCC); Simple chronic bronchitis (CMS/HCC)03/24/2025 12:57 PM EDT - 03/24/2025 11:[address] [facility] D[facility] CT Imaging [address] [place] [phone] Discharge Disposition: Home or Self Care ()03/24/2025 12:57 PM EDT - 03/24/2025 11:59 PM EDTHospital Encounter [facility] Imaging [address] [place] [phone] Squamous cell lung cancer, right (CMS/HCC) Discharge Disposition: Home or Self Care ()03/16/2025 8:30 AM EDT - 03/16/2025 11:[address] [facility] MR Imaging [address] [place] [address] [place] [address] Squamous cell lung cancer, right (CMS/HCC) Discharge Disposition: Home or Self Care ()from Last 3 Months Family History Medical HistoryRelationNameCommentsBrain cancerBrotherLung cancerFatherLeukemia GrandsonBreast cancerSisterRelationNameStatusCommentsBrotherFatherGrandsonAlive Sister Social History Tobacco UseTypesPacks/DayYears UsedDateSmoking Tobacco: FormerCigarettes Smokeless Tobacco: Never Tobacco Cessation:Counseling Given: Not Answered Alcohol UseStandard Drinks/WeekCommentsNot Currently0 (1 standard drink = 0.6 oz pure alcohol)[facility] UtilitiesAnswerDate RecordedIn the past 12 months has the [employer], oil, or water txtr threatened to shut off services in your home?No02/23/2025Overall Financial Resource Strain (CARDIA)AnswerDate Recorded How hard is it for you to pay for the very basics like food, housing, medical care, and heating?Not hard at all02/23/2025PHQ-2AnswerDate RecordedPatient Health Questionnaire-2 Edhuv571Humiliation, Afraid, Rape, and Kick questionnaireAnswerDate RecordedWithin the last year, have you been afraid of your partner or ex-partner?No05/23/2025Within the last year, have you been humiliated or emotionally abused in other ways by your partner or ex-partner?No 05/23/2025Within the last year, have you been kicked, hit, slapped, or otherwise physically hurt by your partner or ex-partner?No05/23/2025Within the last year, have you been raped or forced to have any kind of sexual activity by your part ner or ex-partner?No05/23/2025TransportationAnswerDate RecordedIn the past 12 months, has lack of transportation kept you from medical appointments or from getting medications?No02/23/2025Lack of Transportation (Non-Medical)Not on file 02/23/2025Housing Stability Vital SignAnswerDate RecordedIn the last 12 months, was there a time when you were not able to pay the mortgage or rent on time?No 02/23/2025Number of Times Moved in the Last YearNot on file02/23/2025t any time in the past 12 months, were you homeless or living in a care home (including now)? No02/23/2025Hunger Vital SignAnswerDate RecordedWithin the past 12 months, you worried that your food would run out before you got the money to buymore.Never true05/23/2025Within the past 12 months, the food you bought just didn't last and you didn't have money to get more.Never true05/23/2025CommentsNoSex and Gender InformationValueDate RecordedSex Assigned at RxjreHaupbn88/27/2025 9:47 AM EDTLegal MccCfjeoz06/22/2025 9:12 AM EDTGender UarkocewPnyzpu70/27/2025 9:47 AM EDTSexual OrientationHeterosexual or Qkdjrqnh78/27/2025 9:47 AM EDT Last Filed Vital Signs Vital SignReadingTime TakenCommentsBlood Wrkyuuxg672/6006/09/2025 2:18 PM EST Qgwyg87385/11/2025 2:18 PM NCHMlndeiypygh22.1 ??C (98.7 ??F)06/09/2025 2:18 PM ESTRespiratory Hoxs403008/10/2024 2:18 PM ESTOxygen Wqzsganxfj12%06/09/2025 2:18 PM ESTInhaled Oxygen Concentration--Qnpzln40.7 kg (114 lb)06/09/2025 2:18 PM EST vpsfeuVnkjua089.4 cm (5')05/30/2025 11:01 AM EST4 lb weight loss since last visit one week agoBody Mass Index22.26107/31/2024 11:01 AM EST Plan of Treatment DateTypeDepartmentCare Team (Latest Contact Info)Fvlloyzesrt18/15/2025 10:30 AM ESTInfusion [facility] Infusion [address] [place] [phone] Bertha Guillen, ELÍAS 06/13/2025 10:30 AM ESTOffice Visit [facility] [address] [place] [phone] Mary Jo Denton, TUB WASHER [address] [facility] [address] 06/13/2025 1:50 PM ESTAppointment [facility]cology [address] [place] [phone] 06/14/2025 10:15 AM ESTOffice Visit [facility] [address] [place] [address] Alfredo Machuca MD [address] [place] [phone] 06/14/2025 1:50 PM ESTAppointment [facility] [address] [place] [phone] 09/12/2025 1:00 PM EDTAppointment [facility]cology [address] [place] [phone] Surya Soto [address] [place] [address] Health MaintenanceDue DateLast DoneCommentsMedicare Annual Wellness (AWV) 1950Pneumococcal Vaccine: 50+ Years (1 of 2 - PCV)1968Zoster Vaccines (1 of 2)1968COVID-19 Vaccine (4 - 2024- season)2025 03/18/2022, 12/20/2020, 11/22/2020Influenza Vaccine (#1) Depression Kqaawpncs60Fall Risk Ggfzpavor47 Adult Sefxnkc06FIT-SDCPhqradgdasef09/07/2023FITDiscontinued 0417RtabqwcigvcUoqgbegshlye97/28/2023olorectal Cancer Screening DiscontinuedCT ColonographyDiscontinuedFOBTDiscontinuedHIB VaccinesAged OutNo longer eligible based on patient's age to complete this topicHPV VaccinesAged OutNo longer eligible based on patient's age to complete this topicIPV Vaccines Aged OutNo longer eligible based on patient's age to complete this topic Meningococcal B VaccineAged OutNo longer eligible based on patient's age to complete this topicMeningococcal VaccineAged OutNo longer eligible based on patient's age to complete this topicRotavirus VaccinesAged OutNo longer eligible based on patient's age to complete this topicSigmoidoscopyDiscontinued Medical Devices ImplantedTypeAreaManufacturerDevice IdentifierShelf Expiration DateModel / Serial / LotAccess Port,W/8f Catheter - [id number] Implanted:Qty: 1 on 04/18/2025 by Jaida Garcia [facility] CampusCatheterN/A: ChestBARD ACCESS [id number] / / [id number] Procedures Procedure NamePriorityDate/TimeAssociated DiagnosisCommentsRAD ONC ARIA SESSION WPDMWIKXcmxzup28/12/2025 2:08 PM EST MANUAL TDCUGWCBXUODWehxppj91/12/2025 1:20 PM EST Squamous cell lung cancer, right (CMS/HCC) CBC WITH AUTO DJXLJPFSCJSEHctcwkz36/12/2025 1:20 PM EST Squamous cell lung cancer, right (CMS/HCC) CBC AND GXMODNRZSTEBQyxwjjg44/12/2025 1:20 PM EST Squamous cell lung cancer, right (CMS/HCC) COMPREHENSIVE METABOLIC IVHDFPdtgmxf89/12/2025 1:20 PM EST Squamous cell lung cancer, right (CMS/HCC) KNWDUDJCTMsivjzw91/12/2025 1:20 PM EST Squamous cell lung cancer, right (CMS/HCC) RAD ONC ARIA SESSION CYCQVCXPoawlmp77/11/2025 2:09 PM EST RAD ONC ARIA SESSION WWMZGRGXkucsqp18/10/2025 1:58 PM EST RAD ONC ARIA SESSION UGSZQSQUorhhyt36/09/2025 2:07 PM EST RAD ONC ARIA SESSION ADFOPDILqyvlpn04/08/2025 4:16 PM EST COMPREHENSIVE METABOLIC LUTDPQxecdzq95/08/2025 10:55 AM EST Squamous cell lung cancer, right (CMS/HCC) GXBILPRBXWsistor54/08/2025 10:55 AM EST Squamous cell lung cancer, right (CMS/HCC) CBC WITH AUTO MJVMOJPYTOJDTzfhtiq01/05/2025 2:04 PM EST Squamous cell lung cancer, right (CMS/HCC) CBC AND QUSJSJXQTHKJMjvxyap26/05/2025 2:04 PM EST Squamous cell lung cancer, right (CMS/HCC) RAD ONC ARIA SESSION LLLSROHGdfwypu15/05/2025 1:50 PM EST RAD ONC ARIA SESSION JHMIEYQNojdzti72/04/2025 2:45 PM EST RAD ONC ARIA SESSION OQBDDNOPwbpqkl96/03/2025 2:12 PM EST RAD ONC ARIA SESSION BCOQBOCSmwxxna46/02/2025 2:59 PM EST RAD ONC ARIA SESSION CLBGNRZHxwuntt14/01/2025 2:57 PM EST CBC WITH AUTO CWPMBBXJTGKLPuwzpxn79/01/2025 10:22 AM EST Squamous cell lung cancer, right (CMS/HCC) CBC AND ZGIRANNPFBTGTbfprmz50/01/2025 10:22 AM EST Squamous cell lung cancer, right (CMS/HCC) RAD ONC ARIA SESSION NZWJNJGVklbalt81/25/2025 2:06 PM EST RAD ONC ARIA SESSION EHNUEUKRvcfmhn86/24/2025 1:16 PM EST RAD ONC ARIA SESSION MFSXMAQOrumtgc83/23/2025 8:40 AM EST RAD ONC ARIA SESSION YIZPMDOKiczmqm99/21/2025 1:43 PM EST CBC WITH AUTO QJAWXHVOVRSDNxonzjz98/21/2025 1:14 PM EST Squamous cell lung cancer, right (CMS/HCC) CBC AND WMFBGBTFDVGHBbjnpzs08/21/2025 1:14 PM EST Squamous cell lung cancer, right (CMS/HCC) ZEJFPFDKKUddcona45/21/2025 1:14 PM EST Squamous cell lung cancer, right (CMS/HCC) COMPREHENSIVE METABOLIC BQPSTAbyjhdi07/21/2025 1:14 PM EST Squamous cell lung cancer, right (CMS/HCC) RAD ONC ARIA SESSION DRCHAGUKgexavy20/20/2025 2:15 PM EST RAD ONC ARIA SESSION RHSSHWJHrmktnj11/19/2025 2:15 PM EST RAD ONC ARIA SESSION HXFFZUKImhkgli76/18/2025 2:12 PM EST RAD ONC ARIA SESSION DEBDHPBFwgmnen25/17/2025 2:40 PM EST CBC WITH AUTO UMRJXKZMLSBCNyilefy92/17/2025 10:13 AM EST Squamous cell lung cancer, right (CMS/HCC) TEZTSAFRXFebvmps74/17/2025 10:13 AM EST Squamous cell lung cancer, right (CMS/HCC) CBC AND OJEHGAYRWDUCQhptqou39/17/2025 10:13 AM EST Squamous cell lung cancer, right (CMS/HCC) HIGH SENSITIVITY TROPONIN ISTAT1 10:49 AM EDT XR CHEST 1 HOZMOMHI39/30/2025 10:11 AM EDT ECG 12-VSZMBFMR88/30/2025 9:54 AM EDT CBC WITH AUTO RQAFRAAJUAENXQNE92/30/2025 9:47 AM EDT HIGH SENSITIVITY TROPONIN ISTAT1 9:47 AM EDT COMPREHENSIVE METABOLIC TTSATAIUE58/30/2025 9:47 AM EDT CBC AND KTDLLYRTHPPLOYYI77/30/2025 9:47 AM EDT RAD ONC TREATMENT PLANNING CT EMISAZEQRGRalupjb65/23/2025 11:59 AM EDT Squamous cell lung cancer, right (CMS/HCC) XR CHEST 1 SWPUXmzdfov44/20/2025 2:46 PM EDT FL LESS THAN 1 HOUR THFCUZVTYEAWLIXoadyuj43/20/2025 1:46 PM EDT Port-A-Cath in place INSERTION, TUNNELED CENTRAL VENOUS DEVICE, WITH PORT04/18/2025 12:50 PM EDT Squamous cell carcinoma of lung, right (CMS/HCC) POCT GLUCOSE METER UNSOLICITED VSBNEUBTceiknc08/20/2025 12:27 PM EDT PET/CT BONE SKULL BASE TO MID ZJNXTKqepvks30/25/2025 2:57 PM EDT Squamous cell lung cancer, right (CMS/HCC) POCT GLUCOSE METER UNSOLICITED BNZVIAKZifxwzp68/25/2025 1:12 PM EDT MR BRAIN W AND WO JIIPBGIOEcmvekv15/17/2025 9:25 AM EDT Squamous cell lung cancer, right (CMS/HCC) from Last 3 Months Results * Rad Onc Aria Session Summary (06/10/2025 2:08 PM EST)ComponentValueRef Range Test MethodAnalysis TimePerformed AtPathologist SignatureCourse [id number] RADIATION ONCOLOGYCourse IntentCurative w/chemoARIA RADIATION ONCOLOGYCourse Start Date04/22/2025 8:56 PMARIA RADIATION ONCOLOGYSession Msbdew20XDFY RADIATION ONCOLOGYCourse First Treatment Date05/16/2025 2:02 PMARIA RADIATION ONCOLOGYCourse Last Treatment Date06/10/2025 1:33 PMARIA RADIATION ONCOLOGY Course Elapsed Xjan29JXVB RADIATION ONCOLOGYReference Point IDRLng Med DIBH ARIA RADIATION ONCOLOGYReference Point Dosage Given to Bbaw87FrHOBL RADIATION ONCOLOGYReference Point Session Dosage Xneza3YoUIJT RADIATION ONCOLOGYPlan ID RLng Med DIBHARIA RADIATION ONCOLOGYPlan NameRLng Med DIBHARIA RADIATION ONCOLOGYPlan Fractions Treated to Vnvw77SXOQ RADIATION ONCOLOGYPlan Total Fractions Zflwvfefdm93IYSA RADIATION ONCOLOGYPlan Prescribed Dose Per Fraction 3GyARIA RADIATION ONCOLOGYPlan Total Prescribed Dose6,000cGyARIA RADIATION ONCOLOGYPlan Primary Reference PointRLng [facility] RADIATION ONCOLOGY Specimen (Source)Anatomical Location / LateralityCollection Method / Volume Collection TimeReceived Time06/10/2025 2:08 PM EST Narrative Authorizing ProviderResult TypeResult StatusPhysician Radiation Oncology MD RADIATION ONCOLOGY ORDERABLESFinal ResultPerforming OrganizationAddress City/State/ZIP CodePhone Number [facility] RADIATION ONCOLOGY * (ABNORMAL) CBC auto differential (06/10/2025 1:20 PM EST) Only the most recent of6 resultswithin the time period is included. ComponentValueRef RangeTest MethodAnalysis TimePerformed AtPathologist Signature Auto WBC3.00(L)4.00 - 10.60 10*3/uL06/10/2025 5:06 PM [facility] ([facility])RBC3.853.80 - 5.00 10*6/uL06/10/2025 5:06 PM [facility] ([facility])Melplzmzgc58.5(L)12.0 - 15.0 g/dL06/10/2025 5:06 PM [facility] ([facility])Fpjxxwrvhj68.4(L)36.0 - 45.0 %06/10/2025 5:06 PM [facility] ([facility])MCV86.882.0 - 98.0 fL06/10/2025 5:06 PM [facility] ([facility])MCH 29.927.0 - 33.0 pg06/10/2025 5:06 PM [facility] ([facility])MCHC34.432.0 - 35.0 g/dL06/10/2025 5:06 PM [facility] ([facility])RDW15.011.5 - 15.0 % 06/10/2025 5:06 PM [facility] ([facility])Yzsvlaftx737562 - 400 10*3/uL 06/10/2025 5:06 PM [facility] ([facility])nRBC %0.7(H)0 %06/10/2025 5:06 PM [facility] ([facility])Specimen (Source)Anatomical Location / LateralityCollection Method / VolumeCollection TimeReceived TimeBloodVenous blood specimen / UnknownExisting Catheter / Zqfxvyg6506/10/2025 1:20 PM EST 06/10/2025 1:20 PM EST Narrative Authorizing ProviderResult TypeResult StatusGretchen Davis MDLAB BLOOD ORDERABLESFinal ResultPerforming OrganizationAddressCity/State/ZIP CodePhone Number [facility] ([facility]) [address] [place] [address] * (ABNORMAL) Manual Differential (06/10/2025 1:20 PM EST)ComponentValueRef Range Test MethodAnalysis TimePerformed AtPathologist SignatureMetamyelocytes %6.5 (H)0.0 - 0.0 %06/10/2025 5:23 PM [facility] ([facility])Atypical Lymphocytes %0.00.0 - 0.0 %06/10/2025 5:23 PM [facility] ([facility]) Neutrophils Absolute2.71.6 - 7.6 10*3/uL06/10/2025 5:23 PM [facility] ([facility])Lymphocytes Absolute0.10(L)1.20 - 4.00 10*3/uL06/10/2025 5:23 PM [facility] ([facility])Monocytes Absolute0.04(L)0.10 - 1.00 10*3/uL 06/10/2025 5:23 PM [facility] ([facility])Eosinophils Absolute0.000.00 - 0.50 10*3/uL06/10/2025 5:23 PM [facility] ([facility])Basophils Absolute 0.000.00 - 0.20 10*3/uL06/10/2025 5:23 PM [facility] ([facility]) Metamyelocytes Absolute0.20(H)0.00 10*3/uL06/10/2025 5:23 PM [facility] ([facility])Atypical Lymphs Absolute0.000.00 10*3/uL06/10/2025 5:23 PM [facility] ([facility])Giant POFrJnurogt22/12/2025 5:23 PM [facility] ([facility])Neutrophils %88.9(H)40.0 - 72.0 %06/10/2025 5:23 PM [facility] ([facility])Lymphocytes %3.3(L)20.0 - 45.0 %06/10/2025 5:23 PM [facility] ([facility])Monocytes %1.3(L)5.0 - 12.0 %06/10/2025 5:23 PM [facility] ([facility])Eosinophils %0.00.0 - 6.0 %06/10/2025 5:23 PM [facility] ([facility])Basophils %0.00.0 - 1.0 %06/10/2025 5:23 PM [facility] ([facility])Plasma Cells %00 %06/10/2025 5:23 PM [facility] ([facility])lMNPCokwfil05/12/2025 5:23 PM [facility] ([facility])Specimen (Source)Anatomical Location / LateralityCollection Method / VolumeCollection TimeReceived TimeBloodVenous blood specimen / UnknownExisting Catheter / Qvntdyu8106/10/2025 1:20 PM EST06/10/2025 1:20 PM EST Narrative Authorizing ProviderResult TypeResult StatusGretchen FARNSWORTH BLOOD ORDERABLESFinal ResultPerforming OrganizationAddressCity/State/ZIP CodePhone Number [facility]) [address] [place], [place] [id number] * (ABNORMAL) Magnesium (06/10/2025 1:20 PM EST) Only the most recent of4 resultswithin the time period is included. ComponentValueRef RangeTest MethodAnalysis TimePerformed AtPathologist Signature Magnesium1.7(L)1.9 - 2.7 mg/dL06/10/2025 4:17 PM [facility] ([facility]) Specimen (Source)Anatomical Location / LateralityCollection Method / Volume Collection TimeReceived TimeBloodVenous blood specimen / UnknownExisting Catheter / Fzzwmov0206/10/2025 1:20 PM EST06/10/2025 1:20 PM EST Narrative Authorizing ProviderResult TypeResult StatusGretchen FARNSWORTH BLOOD ORDERABLESFinal ResultPerforming OrganizationAddressCity/State/ZIP CodePhone Number [facility]) [address] [place] [address] * (ABNORMAL) Comprehensive metabolic panel (06/10/2025 1:20 PM EST) Only the most recent of4 resultswithin the time period is included. ComponentValueRef RangeTest MethodAnalysis TimePerformed AtPathologist Signature Wpztmu815(L)136 - 145 mmol/L108/11/2024 4:17 PM [facility] ([facility]) Potassium4.53.5 - 5.1 mmol/L108/11/2024 4:17 PM [facility] ([facility]) Suaajroz11(L)98 - 107 mmol/L108/11/2024 4:17 PM [facility] ([facility])CO2 2321 - 31 mmol/L108/11/2024 4:17 PM [facility] ([facility])Anion Ppl824 - 20 mmol/L108/11/2024 4:17 PM [facility] ([facility])BUN32(H)7 - 25 mg/dL 06/10/2025 4:17 PM [facility] ([facility])Creatinine1.21(H)0.60 - 1.20 mg/dL06/10/2025 4:17 PM [facility] ([facility])BUN/Creatinine Ratio26.4 06/10/2025 4:17 PM [facility] ([facility])Sshipxt553(H)70 - 100 mg/dL 06/10/2025 4:17 PM [facility] ([facility])Calcium8.88.6 - 10.3 mg/dL 06/10/2025 4:17 PM [facility] ([facility])AST73(H)13 - 39 U/L108/11/2024 4:17 PM [facility] ([facility])ALT (SGPT)68(H)7 - 52 U/L108/11/2024 4:17 PM [facility] ([facility])Alkaline Eeeffxjabtg4486 - 104 U/L108/11/2024 4:17 PM [facility] ([facility])Total Protein6.66.0 - 8.3 g/dL06/10/2025 4:17 PM [facility] ([facility])Albumin3.4(L)3.5 - 5.7 g/dL06/10/2025 4:17 PM EST [facility] ([facility])Total Bilirubin0.2(L)0.3 - 1.0 mg/dL06/10/2025 4:17 PM [facility] ([facility])eGFR46.4(L)>60.0 mL/min/1.73m* 4:17 PM [facility] ([facility])Comment:[facility]???s estimated glomerular filtration rate (eGFR) will no [...] disproportionately affect any one group of individuals.Specimen (Source) Anatomical Location / LateralityCollection Method / VolumeCollection Time Received TimeBloodVenous blood specimen / UnknownExisting Catheter / Unknown 06/10/2025 1:20 PM EST06/10/2025 1:20 PM EST Narrative Authorizing ProviderResult TypeResult StatusGretchen Davis MDLAB BLOOD ORDERABLESFinal ResultPerforming OrganizationAddressCity/State/ZIP CodePhone Number [facility] ([facility]) [address] [place] [address] * Rad Onc Aria Session Summary (06/09/2025 2:09 PM EST)ComponentValueRef Range Test MethodAnalysis TimePerformed AtPathologist SignatureCourse [id number] RADIATION ONCOLOGYCourse IntentCurative w/chemoARIA RADIATION ONCOLOGYCourse Start Date04/22/2025 8:56 PMARIA RADIATION ONCOLOGYSession Qgbnnb18SAEI RADIATION ONCOLOGYCourse First Treatment Date05/16/2025 2:02 PMARIA RADIATION ONCOLOGYCourse Last Treatment Date06/09/2025 1:34 PMARIA RADIATION ONCOLOGY Course Elapsed Locq95DQQN RADIATION ONCOLOGYReference Point IDRLng Med DIBH ARIA RADIATION ONCOLOGYReference Point Dosage Given to Qiek53YlUKNW RADIATION ONCOLOGYReference Point Session Dosage Zgczk5BzPZVA RADIATION ONCOLOGYPlan ID RLng Med DIBHARIA RADIATION ONCOLOGYPlan NameRLng Med DIBHARIA RADIATION ONCOLOGYPlan Fractions Treated to Ierv95SSNY RADIATION ONCOLOGYPlan Total Fractions Ulporrlwsk19YVNN RADIATION ONCOLOGYPlan Prescribed Dose Per Fraction 3GyARIA RADIATION ONCOLOGYPlan Total Prescribed Dose6,000cGyARIA RADIATION ONCOLOGYPlan Primary Reference PointRLng Med DIBHARIA RADIATION ONCOLOGY Specimen (Source)Anatomical Location / LateralityCollection Method / Volume Collection TimeReceived Time06/09/2025 2:09 PM EST Narrative Authorizing ProviderResult TypeResult StatusPhysician Radiation Oncology RADIATION ONCOLOGY ORDERABLESFinal ResultPerforming OrganizationAddress City/State/ZIP CodePhone Number [facility] RADIATION [facility]COLOG[facility] * Rad Onc Aria Session Summary (06/08/2025 1:58 PM EST)ComponentValueRef Range Test MethodAnalysis TimePerformed AtPathologist SignatureCourse PI0BMVS RADIATION ONCOLOGYCourse IntentCurative w/chemoARIA RADIATION ONCOLOGYCourse Start Date04/22/2025 8:56 PMARIA RADIATION ONCOLOGYSession Ifrzsg78UCLO RADIATION ONCOLOGYCourse First Treatment Date05/16/2025 2:02 PMARIA RADIATION ONCOLOGYCourse Last Treatment Date06/08/2025 1:23 PMARIA RADIATION ONCOLOGY Course Elapsed Pfut66VLMG RADIATION ONCOLOGYReference Point IDRLng Med DIB ARIA RADIATION ONCOLOGYReference Point Dosage Given to Tdhj56UrTJAW RADIATION ONCOLOGYReference Point Session Dosage Pljqf3XjOLDV RADIATION ONCOLOGYPlan ID RLng Med DIBHARIA RADIATION ONCOLOGYPlan NameRLng Med DIBHARIA RADIATION ONCOLOGYPlan Fractions Treated to Tbpj39GXBR RADIATION ONCOLOGYPlan Total Fractions Xhvrqbdyzy56BRLL RADIATION ONCOLOGYPlan Prescribed Dose Per Fraction 3GyARIA RADIATION ONCOLOGYPlan Total Prescribed Dose6,000cGyARIA RADIATION ONCOLOGYPlan Primary Reference PointRLng Med DIBHARIA RADIATION ONCOLOGY Specimen (Source)Anatomical Location / LateralityCollection Method / Volume Collection TimeReceived Time06/08/2025 1:58 PM EST Narrative Authorizing ProviderResult TypeResult StatusPhysician Radiation Oncology RADIATION ONCOLOGY ORDERABLESFinal ResultPerforming OrganizationAddress City/State/ZIP CodePhone Number [facility] RADIATION [facility]COL[facility] * Rad Onc Aria Session Summary (06/07/2025 2:07 PM EST)ComponentValueRef Range Test MethodAnalysis TimePerformed AtPathologist SignatureCourse [id number] RADIATION ONCOLOGYCourse IntentCurative w/chemoARIA RADIATION ONCOLOGYCourse Start Date04/22/2025 8:56 PMARIA RADIATION ONCOLOGYSession Idtdrn55VNYH RADIATION ONCOLOGYCourse First Treatment Date05/16/2025 2:02 PMARIA RADIATION ONCOLOGYCourse Last Treatment Date06/07/2025 1:31 PMARIA RADIATION ONCOLOGY Course Elapsed Fyrg58TAON RADIATION ONCOLOGYReference Point IDRLng Med DIBH ARIA RADIATION ONCOLOGYReference Point Dosage Given to Bjhm14JxCCZA RADIATION ONCOLOGYReference Point Session Dosage Oihvl1GrBHRA RADIATION ONCOLOGYPlan ID RLng Med DIBHARIA RADIATION ONCOLOGYPlan NameRLng Med DIBHARIA RADIATION ONCOLOGYPlan Fractions Treated to Wewj20HBPB RADIATION ONCOLOGYPlan Total Fractions Yfgkjtseee53OISP RADIATION ONCOLOGYPlan Prescribed Dose Per Fraction 3GyARIA RADIATION ONCOLOGYPlan Total Prescribed Dose6,000cGyARIA RADIATION ONCOLOGYPlan Primary Reference PointRLng Med DIBHARIA RADIATION ONCOLOGY Specimen (Source)Anatomical Location / LateralityCollection Method / Volume Collection TimeReceived Time06/07/2025 2:07 PM EST Narrative Authorizing ProviderResult TypeResult StatusPhysician Radiation Oncology MD RADIATION ONCOLOGY ORDERABLESFinal ResultPerforming OrganizationAddress City/State/ZIP CodePhone Number [facility] * Rad Onc Aria Session Summary (06/06/2025 4:16 PM EST)ComponentValueRef Range Test MethodAnalysis TimePerformed AtPathologist SignatureCourse [id number] RADIATION ONCOLOGYCourse IntentCurative w/chemoARIA RADIATION ONCOLOGYCourse Start Date04/22/2025 8:56 PMARIA RADIATION ONCOLOGYSession Hweqvf92MXER RADIATION ONCOLOGYCourse First Treatment Date05/16/2025 2:02 PMARIA RADIATION ONCOLOGYCourse Last Treatment Date06/06/2025 3:38 PMARIA RADIATION ONCOLOGY Course Elapsed Xcyl59PRNN RADIATION ONCOLOGYReference Point IDRLng Med DIBH ARIA RADIATION ONCOLOGYReference Point Dosage Given to Emir09QnUPDI RADIATION ONCOLOGYReference Point Session Dosage Zlnfk0ScRSXA RADIATION ONCOLOGYPlan ID RLng Med DIBHARIA RADIATION ONCOLOGYPlan NameRLng Med DIBHARIA RADIATION ONCOLOGYPlan Fractions Treated to Oqcf69ZJDA RADIATION ONCOLOGYPlan Total Fractions Jzsfdpmddm53FIMZ RADIATION ONCOLOGYPlan Prescribed Dose Per Fraction 3GyARIA RADIATION ONCOLOGYPlan Total Prescribed Dose6,000cGyARIA RADIATION ONCOLOGYPlan Primary Reference PointRLng Med DIBHARIA RADIATION ONCOLOGY Specimen (Source)Anatomical Location / LateralityCollection Method / Volume Collection TimeReceived Time06/06/2025 4:16 PM EST Narrative Authorizing ProviderResult TypeResult StatusPhysician Radiation Oncology RADIATION ONCOLOGY ORDERABLESFinal ResultPerforming OrganizationAddress City/State/ZIP CodePhone Number [facility] * Rad Onc Aria Session Summary (06/03/2025 1:50 PM EST)ComponentValueRef Range Test MethodAnalysis TimePerformed AtPathologist SignatureCourse [id number] RADIATION ONCOLOGYCourse IntentCurative w/chemoARIA RADIATION ONCOLOGYCourse Start Date04/22/2025 8:56 PMARIA RADIATION ONCOLOGYSession Ypqsyw09OOUG RADIATION ONCOLOGYCourse First Treatment Date05/16/2025 2:02 PMARIA RADIATION ONCOLOGYCourse Last Treatment Date06/03/2025 1:14 PMARIA RADIATION ONCOLOGY Course Elapsed Jfky82XCUQ RADIATION ONCOLOGYReference Point IDRLng Med [facility] ARIA RADIATION ONCOLOGYReference Point Dosage Given to Pxif01ZhLNFR RADIATION ONCOLOGYReference Point Session Dosage Zqjhf9FyPSZJ RADIATION ONCOLOGYPlan ID RLng Med DIBHARIA RADIATION ONCOLOGYPlan NameRLng Med DIBHARIA RADIATION ONCOLOGYPlan Fractions Treated to Afaz10SQDI RADIATION ONCOLOGYPlan Total Fractions Btcvvlbyov59SDFG RADIATION ONCOLOGYPlan Prescribed Dose Per Fraction 3GyARIA RADIATION ONCOLOGYPlan Total Prescribed Dose6,000cGyARIA RADIATION ONCOLOGYPlan Primary Reference PointRLng Med DIBHARIA RADIATION ONCOLOGY Specimen (Source)Anatomical Location / LateralityCollection Method / Volume Collection TimeReceived Time06/03/2025 1:50 PM EST Narrative Authorizing ProviderResult TypeResult StatusPhysician Radiation Oncology RADIATION ONCOLOGY ORDERABLESFinal ResultPerforming OrganizationAddress City/State/ZIP CodePhone Number [facility] * Rad Onc Aria Session Summary (06/02/2025 2:45 PM EST)ComponentValueRef Range Test MethodAnalysis TimePerformed AtPathologist SignatureCourse BP7ZWTM RADIATION ONCOLOGYCourse IntentCurative w/chemoARIA RADIATION ONCOLOGYCourse Start Date04/22/2025 8:56 PMARIA RADIATION ONCOLOGYSession Qkzygm21LNDA RADIATION ONCOLOGYCourse First Treatment Date05/16/2025 2:02 PMARIA RADIATION ONCOLOGYCourse Last Treatment Date06/02/2025 2:11 PMARIA RADIATION ONCOLOGY Course Elapsed Wyuu97MRYM RADIATION ONCOLOGYReference Point IDRLng Med DIBH ARIA RADIATION ONCOLOGYReference Point Dosage Given to Bnua57LfYBNQ RADIATION ONCOLOGYReference Point Session Dosage Qcxqs1QcFPDK RADIATION ONCOLOGYPlan ID RLng Med DIBHARIA RADIATION ONCOLOGYPlan NameRLng Med DIBHARIA RADIATION ONCOLOGYPlan Fractions Treated to Lvjx38HXXG RADIATION ONCOLOGYPlan Total Fractions Tyovvettsn43KUTA RADIATION ONCOLOGYPlan Prescribed Dose Per Fraction 3GyARIA RADIATION ONCOLOGYPlan Total Prescribed Dose6,000cGyARIA RADIATION ONCOLOGYPlan Primary Reference PointRLng Med DIBHARIA RADIATION ONCOLOGY Specimen (Source)Anatomical Location / LateralityCollection Method / Volume Collection TimeReceived Time06/02/2025 2:45 PM EST Narrative Authorizing ProviderResult TypeResult StatusPhysician Radiation Oncology MD RADIATION ONCOLOGY ORDERABLESFinal ResultPerforming OrganizationAddress City/State/ZIP CodePhone Number [facility] * Rad Onc Aria Session Summary (06/01/2025 2:12 PM EST)ComponentValueRef Range Test MethodAnalysis TimePerformed AtPathologist SignatureCourse [id number] RADIATION ONCOLOGYCourse IntentCurative w/chemoARIA RADIATION ONCOLOGYCourse Start Date04/22/2025 8:56 PMARIA RADIATION ONCOLOGYSession Nvhsuw80RNPY RADIATION ONCOLOGYCourse First Treatment Date05/16/2025 2:02 PMARIA RADIATION ONCOLOGYCourse Last Treatment Date06/01/2025 1:37 PMARIA RADIATION ONCOLOGY Course Elapsed Tbfy26FHSE RADIATION ONCOLOGYReference Point IDRLng Med DIBH ARIA RADIATION ONCOLOGYReference Point Dosage Given to [id number] RADIATION ONCOLOGYReference Point Session Dosage [id number] RADIATION ONCOLOGYPlan ID RLng Med DIBHARIA RADIATION ONCOLOGYPlan NameRLng Med DIBHARIA RADIATION ONCOLOGYPlan Fractions Treated to [id number] RADIATION ONCOLOGYPlan Total Fractions [id number] RADIATION ONCOLOGYPlan Prescribed Dose Per Fraction 3GyARIA RADIATION ONCOLOGYPlan Total Prescribed Dose6,000cGyARIA RADIATION ONCOLOGYPlan Primary Reference PointRLng Med DIBHARIA RADIATION ONCOLOGY Specimen (Source)Anatomical Location / LateralityCollection Method / Volume Collection TimeReceived Time06/01/2025 2:12 PM EST Narrative Authorizing ProviderResult TypeResult StatusPhysician Radiation Oncology RADIATION ONCOLOGY ORDERABLESFinal ResultPerforming OrganizationAddress [facility]/State/ZIP CodePhone Number NEGAR RADIATION ONCOLOGY * Rad Onc [facility] Session Summary (05/31/2025 2:59 PM EST)ComponentValueRef Range Test MethodAnalysis TimePerformed AtPathologist SignatureCourse [id number] RADIATION ONCOLOGYCourse IntentCurative w/chemoARIA RADIATION ONCOLOGYCourse Start Date04/22/2025 8:56 PMARIA RADIATION ONCOLOGYSession [id number] RADIATION ONCOLOGYCourse First Treatment Date05/16/2025 2:02 PMARIA RADIATION ONCOLOGYCourse Last Treatment Date05/31/2025 2:24 PMARIA RADIATION ONCOLOGY Course Elapsed [id number] RADIATION ONCOLOGYReference Point IDRLng Med DIBH ARIA RADIATION ONCOLOGYReference Point Dosage Given to [id number] RADIATION ONCOLOGYReference Point Session Dosage [id number] RADIATION ONCOLOGYPlan ID RLng Med DIBHARIA RADIATION ONCOLOGYPlan NameRLng Med DIBHARIA RADIATION ONCOLOGYPlan Fractions Treated to [id number] RADIATION ONCOLOGYPlan Total Fractions [id number] RADIATION ONCOLOGYPlan Prescribed Dose Per Fraction 3GyARIA RADIATION ONCOLOGYPlan Total Prescribed Dose6,000cGyARIA RADIATION ONCOLOGYPlan Primary Reference PointRLng Med [facility] RADIATION ONCOLOGY Specimen (Source)Anatomical Location / LateralityCollection Method / Volume Collection TimeReceived Time05/31/2025 2:59 PM EST Narrative Authorizing ProviderResult TypeResult StatusPhysician Radiation Oncology RADIATION ONCOLOGY ORDERABLESFinal ResultPerforming OrganizationAddress City/State/ZIP CodePhone Number NEGAR RADIATION ONCOLOGY * Rad Onc Aria Session Summary (05/30/2025 2:57 PM EST)ComponentValueRef Range Test MethodAnalysis TimePerformed AtPathologist SignatureCourse [id number] RADIATION ONCOLOGYCourse IntentCurative w/chemoARIA RADIATION ONCOLOGYCourse Start Date04/22/2025 8:56 PMARIA RADIATION ONCOLOGYSession Ldnnxh8TOHG RADIATION ONCOLOGYCourse First Treatment Date05/16/2025 2:02 PMARIA RADIATION ONCOLOGYCourse Last Treatment Date05/30/2025 2:18 PMARIA RADIATION ONCOLOGY Course Elapsed Saux21SXRJ RADIATION ONCOLOGYReference Point IDRLng Med [facility] ARIA RADIATION ONCOLOGYReference Point Dosage Given to Eogs23YxXXSS RADIATION ONCOLOGYReference Point Session Dosage Smosu0HgEDHZ RADIATION ONCOLOGYPlan ID RLng Med DIBHARIA RADIATION ONCOLOGYPlan NameRLng Med DIBHARIA RADIATION ONCOLOGYPlan Fractions Treated to Asph5CFTW RADIATION ONCOLOGYPlan Total Fractions Ltpmqpkgvh25DZMT RADIATION ONCOLOGYPlan Prescribed Dose Per Fraction 3GyARIA RADIATION ONCOLOGYPlan Total Prescribed Dose6,000cGyARIA RADIATION ONCOLOGYPlan Primary Reference PointRLng Med [facility]IBHARIA RADIATION ONCOLOGY Specimen (Source)Anatomical Location / LateralityCollection Method / Volume Collection TimeReceived Time05/30/2025 2:57 PM EST Narrative Authorizing ProviderResult TypeResult StatusPhysician Radiation Oncology RADIATION ONCOLOGY ORDERABLESFinal ResultPerforming OrganizationAddress City/State/ZIP CodePhone Number ARIA RADIATION ONCOLOGY * Rad Onc Aria Session Summary (05/24/2025 2:06 PM EST)ComponentValueRef Range Test MethodAnalysis TimePerformed AtPathologist SignatureCourse [id number] RADIATION ONCOLOGYCourse IntentCurative w/chemoARIA RADIATION ONCOLOGYCourse Start Date04/22/2025 8:56 PMARIA RADIATION ONCOLOGYSession Jpoclw6MQHY RADIATION ONCOLOGYCourse First Treatment Date05/16/2025 2:02 PMARIA RADIATION ONCOLOGYCourse Last Treatment Date05/24/2025 1:31 PMARIA RADIATION ONCOLOGY Course Elapsed Xmep9CXNQ RADIATION ONCOLOGYReference Point IDRLng Med DIBHARIA RADIATION ONCOLOGYReference Point Dosage Given to Chaq17NrSHVJ RADIATION ONCOLOGYReference Point Session Dosage Esxdb6PcQBCN RADIATION ONCOLOGYPlan ID RLng Med DIBHARIA RADIATION ONCOLOGYPlan NameRLng Med DIBHARIA RADIATION ONCOLOGYPlan Fractions Treated to Zpqm9DSYS RADIATION ONCOLOGYPlan Total Fractions Nzlylvjale59DEHW RADIATION ONCOLOGYPlan Prescribed Dose Per Fraction 3GyARIA RADIATION ONCOLOGYPlan Total Prescribed Dose6,000cGyARIA RADIATION ONCOLOGYPlan Primary Reference PointRLng Med DIBHARIA RADIATION ONCOLOGY Specimen (Source)Anatomical Location / LateralityCollection Method / Volume Collection TimeReceived Time05/24/2025 2:06 PM EST Narrative Authorizing ProviderResult TypeResult StatusPhysician Radiation Oncology RADIATION ONCOLOGY ORDERABLESFinal ResultPerforming OrganizationAddress City/State/ZIP CodePhone Number [facility]GAR RADIATION ONCOLOGY * Rad Onc Aria Session Summary (05/23/2025 1:16 PM EST)ComponentValueRef Range Test MethodAnalysis TimePerformed AtPathologist SignatureCourse [id number] RADIATION ONCOLOGYCourse IntentCurative w/chemoARIA RADIATION ONCOLOGYCourse Start Date04/22/2025 8:56 PMARIA RADIATION ONCOLOGYSession Nflwxg7VQOB RADIATION ONCOLOGYCourse First Treatment Date05/16/2025 2:02 PMARIA RADIATION ONCOLOGYCourse Last Treatment Date05/23/2025 12:39 PMARIA RADIATION ONCOLOGY Course Elapsed Sehw1MEKT RADIATION ONCOLOGYReference Point IDRLng Med DIBHARIA RADIATION ONCOLOGYReference Point Dosage Given to Fsnv33XqTNLA RADIATION ONCOLOGYReference Point Session Dosage Xjfnn8XxPQWV RADIATION ONCOLOGYPlan ID RLng Med DIBHARIA RADIATION ONCOLOGYPlan NameRLng Med DIBHARIA RADIATION ONCOLOGYPlan Fractions Treated to Tmcc8YEQY RADIATION ONCOLOGYPlan Total Fractions Bgjdaifzoc04URTB RADIATION ONCOLOGYPlan Prescribed Dose Per Fraction 3GyARIA RADIATION ONCOLOGYPlan Total Prescribed Dose6,000cGyARIA RADIATION ONCOLOGYPlan Primary Reference PointRLng Med DIBHARIA RADIATION ONCOLOGY Specimen (Source)Anatomical Location / LateralityCollection Method / Volume Collection TimeReceived Time05/23/2025 1:16 PM EST Narrative Authorizing ProviderResult TypeResult StatusPhysician Radiation Oncology RADIATION ONCOLOGY ORDERABLESFinal ResultPerforming OrganizationAddress City/State/ZIP CodePhone Number NEGAR RADIATION ONCOLOGY * Rad Onc Aria Session Summary (05/22/2025 8:40 AM EST)ComponentValueRef Range Test MethodAnalysis TimePerformed AtPathologist SignatureCourse [id number] RADIATION ONCOLOGYCourse IntentCurative w/chemoARIA RADIATION ONCOLOGYCourse Start Date04/22/2025 8:56 PMARIA RADIATION ONCOLOGYSession Olukhw1NPWH RADIATION ONCOLOGYCourse First Treatment Date05/16/2025 2:02 PMARIA RADIATION ONCOLOGYCourse Last Treatment Date05/22/2025 8:06 AMARIA RADIATION ONCOLOGY Course Elapsed Ufau4VQDF RADIATION ONCOLOGYReference Point IDRLng Med DIBHARIA RADIATION ONCOLOGYReference Point Dosage Given to Smvz66ZaWSVR RADIATION ONCOLOGYReference Point Session Dosage Ihghe1KkZRSV RADIATION ONCOLOGYPlan ID RLng Med DIBHARIA RADIATION ONCOLOGYPlan NameRLng Med DIBHARIA RADIATION ONCOLOGYPlan Fractions Treated to Dspj1GNFT RADIATION ONCOLOGYPlan Total Fractions Rxhargnumb03SSOD RADIATION ONCOLOGYPlan Prescribed Dose Per Fraction 3GyARIA RADIATION ONCOLOGYPlan Total Prescribed Dose6,000cGyARIA RADIATION ONCOLOGYPlan Primary Reference PointRLng Med DIBHARIA RADIATION ONCOLOGY Specimen (Source)Anatomical Location / LateralityCollection Method / Volume Collection TimeReceived Time05/22/2025 8:40 AM EST Narrative Authorizing ProviderResult TypeResult StatusPhysician Radiation Oncology RADIATION ONCOLOGY ORDERABLESFinal ResultPerforming OrganizationAddress City/State/ZIP CodePhone Number ARIA RADIATION ONCOLOGY * Rad Onc Aria Session Summary (05/20/2025 1:43 PM EST)ComponentValueRef Range Test MethodAnalysis TimePerformed AtPathologist SignatureCourse [id number] RADIATION ONCOLOGYCourse IntentCurative w/chemoARIA RADIATION ONCOLOGYCourse Start Date04/22/2025 8:56 PMARIA RADIATION ONCOLOGYSession Gghvpx8UCTG RADIATION ONCOLOGYCourse First Treatment Date05/16/2025 2:02 PMARIA RADIATION ONCOLOGYCourse Last Treatment Date05/20/2025 1:09 PMARIA RADIATION ONCOLOGY Course Elapsed Elfr8UEXP RADIATION ONCOLOGYReference Point IDRLng Med DIBHARIA RADIATION ONCOLOGYReference Point Dosage Given to Zbmu63AfVZOI RADIATION ONCOLOGYReference Point Session Dosage Rpikk9AuEROU RADIATION ONCOLOGYPlan ID RLng Med DIBHARIA RADIATION ONCOLOGYPlan NameRLng Med DIBHARIA RADIATION ONCOLOGYPlan Fractions Treated to Bgiv7HWCO RADIATION ONCOLOGYPlan Total Fractions Ydciiwtcfj44XSYO RADIATION ONCOLOGYPlan Prescribed Dose Per Fraction 3GyARIA RADIATION ONCOLOGYPlan Total Prescribed Dose6,000cGyARIA RADIATION ONCOLOGYPlan Primary Reference PointRLng Med DIBHARIA RADIATION ONCOLOGY Specimen (Source)Anatomical Location / LateralityCollection Method / Volume Collection TimeReceived Time05/20/2025 1:43 PM EST Narrative Authorizing ProviderResult TypeResult StatusPhysician Radiation Oncology RADIATION ONCOLOGY ORDERABLESFinal ResultPerforming OrganizationAddress City/State/ZIP CodePhone Number ABBYA RADIATION ONCOLOGY * Rad Onc Aria Session Summary (05/19/2025 2:15 PM EST)ComponentValueRef Range Test MethodAnalysis TimePerformed AtPathologist SignatureCourse [id number] RADIATION ONCOLOGYCourse IntentCurative w/chemoARIA RADIATION ONCOLOGYCourse Start Date04/22/2025 8:56 PMARIA RADIATION ONCOLOGYSession Gxgtez1SYLY RADIATION ONCOLOGYCourse First Treatment Date05/16/2025 2:02 PMARIA RADIATION ONCOLOGYCourse Last Treatment Date05/19/2025 1:41 PMARIA RADIATION ONCOLOGY Course Elapsed Xtgb2LZTE RADIATION ONCOLOGYReference Point IDRLng Med DIBHARIA RADIATION ONCOLOGYReference Point Dosage Given to Ljil95SyOELD RADIATION ONCOLOGYReference Point Session Dosage Mplob1UwQHMY RADIATION ONCOLOGYPlan ID RLng Med DIBHARIA RADIATION ONCOLOGYPlan NameRLng Med DIBHARIA RADIATION ONCOLOGYPlan Fractions Treated to Eadb3WCWF RADIATION ONCOLOGYPlan Total Fractions Kvwwkoysug47OVJG RADIATION ONCOLOGYPlan Prescribed Dose Per Fraction 3GyARIA RADIATION ONCOLOGYPlan Total Prescribed Dose6,000cGyARIA RADIATION ONCOLOGYPlan Primary Reference PointRLng Med DIBHARIA RADIATION ONCOLOGY Specimen (Source)Anatomical Location / LateralityCollection Method / Volume Collection TimeReceived Time05/19/2025 2:15 PM EST Narrative Authorizing ProviderResult TypeResult StatusPhysician Radiation Oncology MD RADIATION ONCOLOGY ORDERABLESFinal ResultPerforming OrganizationAddress City/State/ZIP CodePhone Number ARIA RADIATION ONCOLOGY * Rad Onc Aria Session Summary (05/18/2025 2:15 PM EST)ComponentValueRef Range Test MethodAnalysis TimePerformed AtPathologist SignatureCourse [id number] RADIATION ONCOLOGYCourse IntentCurative w/chemoARIA RADIATION ONCOLOGYCourse Start Date04/22/2025 8:56 PMARIA RADIATION ONCOLOGYSession Stlumj2WLBH RADIATION ONCOLOGYCourse First Treatment Date05/16/2025 2:02 PMARIA RADIATION ONCOLOGYCourse Last Treatment Date05/18/2025 1:37 PMARIA RADIATION ONCOLOGY Course Elapsed Vrbc6HADH RADIATION ONCOLOGYReference Point IDRLng Med DIBHARIA RADIATION ONCOLOGYReference Point Dosage Given to Oezc6MdAGWX RADIATION ONCOLOGYReference Point Session Dosage Ttvwl2KeWMGN RADIATION ONCOLOGYPlan ID RLng Med DIBHARIA RADIATION ONCOLOGYPlan NameRLng Med DIBHARIA RADIATION ONCOLOGYPlan Fractions Treated to Jxrl8TLKJ RADIATION ONCOLOGYPlan Total Fractions Dxegpglpzx20SZBJ RADIATION ONCOLOGYPlan Prescribed Dose Per Fraction 3GyARIA RADIATION ONCOLOGYPlan Total Prescribed Dose6,000cGyARIA RADIATION ONCOLOGYPlan Primary Reference PointRLng Med DIBHARIA RADIATION ONCOLOGY Specimen (Source)Anatomical Location / LateralityCollection Method / Volume Collection TimeReceived Time05/18/2025 2:15 PM EST Narrative Authorizing ProviderResult TypeResult StatusPhysician Radiation Oncology RADIATION ONCOLOGY ORDERABLESFinal ResultPerforming OrganizationAddress City/State/ZIP CodePhone Number NEGAR RADIATION ONCOLOGY * Rad Onc Aria Session Summary (05/17/2025 2:12 PM EST)ComponentValueRef Range Test MethodAnalysis TimePerformed AtPathologist SignatureCourse [id number] RADIATION ONCOLOGYCourse IntentCurative w/chemoARIA RADIATION ONCOLOGYCourse Start Date04/22/2025 8:56 PMARIA RADIATION ONCOLOGYSession Dgwfmq2MGXX RADIATION ONCOLOGYCourse First Treatment Date05/16/2025 2:02 PMARIA RADIATION ONCOLOGYCourse Last Treatment Date05/17/2025 1:38 PMARIA RADIATION ONCOLOGY Course Elapsed Wulu9JRBZ RADIATION ONCOLOGYReference Point IDRLng Med DIBHARIA RADIATION ONCOLOGYReference Point Dosage Given to Vjfs0MmJCPD RADIATION ONCOLOGYReference Point Session Dosage Enmju9GlAJRV RADIATION ONCOLOGYPlan ID RLng Med DIBHARIA RADIATION ONCOLOGYPlan NameRLng Med DIBHARIA RADIATION ONCOLOGYPlan Fractions Treated to Flyi3AICH RADIATION ONCOLOGYPlan Total Fractions Hnefpxeutv03LXPV RADIATION ONCOLOGYPlan Prescribed Dose Per Fraction 3GyARIA RADIATION ONCOLOGYPlan Total Prescribed Dose6,000cGyARIA RADIATION ONCOLOGYPlan Primary Reference PointRLng Med DIBHARIA RADIATION ONCOLOGY Specimen (Source)Anatomical Location / LateralityCollection Method / Volume Collection TimeReceived Time05/17/2025 2:12 PM EST Narrative Authorizing ProviderResult TypeResult StatusPhysician Radiation Oncology RADIATION ONCOLOGY ORDERABLESFinal ResultPerforming OrganizationAddress City/State/ZIP CodePhone Number NEGAR RADIATION ONCOLOGY * Rad Onc Aria Session Summary (05/16/2025 2:40 PM EST)ComponentValueRef Range Test MethodAnalysis TimePerformed AtPathologist SignatureCourse [id number] RADIATION ONCOLOGYCourse IntentCurative w/chemoARIA RADIATION ONCOLOGYCourse Start Date04/22/2025 8:56 PMARIA RADIATION ONCOLOGYSession Ziexjk0BKOD RADIATION ONCOLOGYCourse First Treatment Date05/16/2025 2:02 PMARIA RADIATION ONCOLOGYCourse Last Treatment Date05/16/2025 2:04 PMARIA RADIATION ONCOLOGY Course Elapsed Dvdl8TXCD RADIATION ONCOLOGYReference Point IDRLng Med DIBHARIA RADIATION ONCOLOGYReference Point Dosage Given to Vkzd5QjTEWH RADIATION ONCOLOGYReference Point Session Dosage Cwjcx3WlJSZB RADIATION ONCOLOGYPlan ID RLng Med DIBHARIA RADIATION ONCOLOGYPlan NameRLng Med DIBHARIA RADIATION ONCOLOGYPlan Fractions Treated to Rvpp8SBAS RADIATION ONCOLOGYPlan Total Fractions Jhkxwkzavu19RRNB RADIATION ONCOLOGYPlan Prescribed Dose Per Fraction 3GyARIA RADIATION ONCOLOGYPlan Total Prescribed Dose6,000cGyARIA RADIATION ONCOLOGYPlan Primary Reference PointRLng Med DIBHARIA RADIATION ONCOLOGY Specimen (Source)Anatomical Location / LateralityCollection Method / Volume Collection TimeReceived Time05/16/2025 2:40 PM EST Narrative Authorizing ProviderResult TypeResult StatusPhysician Radiation Oncology MD RADIATION ONCOLOGY ORDERABLESFinal ResultPerforming OrganizationAddress City/State/ZIP CodePhone Number [facility] RADIATION ONCOLOGY * Repeat HS Troponin I (04/28/2025 10:49 AM EDT) Only the most recent of2 resultswithin the time period is included. ComponentValueRef RangeTest MethodAnalysis TimePerformed AtPathologist Signature High Sensitivity Troponin I6<15 ng/L1 11:20 AM [facility] ([facility])Specimen (Source)Anatomical Location / LateralityCollection Method / VolumeCollection TimeReceived TimeBloodVenous blood specimen / UnknownExisting Catheter / Sehtpqp3404/28/2025 10:49 AM EDT1 10:53 AM EDT Narrative Authorizing ProviderResult TypeResult StatusTimothy Steenhoff DOLAB BLOOD ORDERABLESFinal ResultPerforming OrganizationAddressCity/State/ZIP CodePhone Number [facility] ([facility]) [address] [place] [address] * XR chest 1 view (04/28/2025 10:11 AM EDT) Only the most recent of2 resultswithin the time period is included. Anatomical RegionLateralityModalityChestComputed RadiographySpecimen (Source) Anatomical Location / LateralityCollection Method / VolumeCollection Time Received Time04/28/2025 10:14 AM EDT Impressions 04/28/2025 10:15 AM EDT Impression: No acute change. Electronically signed: Remi Phillips. Narrative 04/28/2025 10:15 AM EDT History: Shortness of breath. Portable upright chest: 04/28/2025 Comparison: 04/18/2025 Findings: A single portable upright image of the chest was obtained. ??A right upper lung mass persists. A Port-A-Cath extends to the mid SVC region. There is no new lung infiltrate. Mediastinal contours are stable. No pneumothorax or pleural effusion is evident. Procedure Note Remi Phillisp MD - 04/28/2025 History: Shortness of breath. Portable upright chest: 04/28/2025 Comparison: 04/18/2025 Findings: A single portable upright image of the chest was obtained. A right upperlung mass persists. A Port-A-Cath extends to the mid SVC region. There is nonew lung infiltrate. Mediastinal contours are stable. No pneumothorax or pleuraleffusion is evident. IMPRESSION: Impression: No acute change. Electronically signed: Remi Phillips. Authorizing ProviderResult TypeResult StatusTimavelino Pinto DOIMG XR PROCEDURESFinal Result * ECG 12 lead (04/28/2025 9:54 AM EDT)ComponentValueRef RangeTest MethodAnalysis TimePerformed AtPathologist SignatureVentricular Gymu75GOWPI MUSEAtrial Rate74 BPMGE MUSEPR Wvpvhoav474raMH MUSEQRS AFCXOVWZ28kjSI MUSEQT Uiyeaylj244xpSN MUSEQTC CALCULATION(BAZETT)470msGE MUSEP Bots04ausspanDP MUSER-Fulx901ouytxqw GE MUSET Wave Gyku19tezruplLL MUSESpecimen (Source)Anatomical Location / LateralityCollection Method / VolumeCollection TimeReceived Time04/28/2025 9:34 AM EDT1 12:03 PM EDT Impressions GE MUSE - 04/28/2025 12:03 PM EDT Normal sinus rhythm Biatrial enlargement Right axis deviation Pulmonary disease pattern Septal infarct (cited on or before 23-FEB-2025) Abnormal ECG When compared with ECG of 23-FEB-2025 13:25, Questionable change in initial forces of Anteroseptal leads Nonspecific T wave abnormality no longer evident in Inferior lead Confirmed by Raphael VALDEZ SAMER J. ([id number]) on 04/28/2025 12:03:08 PM Narrative Procedure Note Rach Valdez MD - 04/28/2025 IMPRESSION: Normal sinus rhythm Biatrial enlargement Right axis deviation Pulmonary disease pattern Septal infarct (cited on or before 23-FEB-2025) Abnormal ECG When compared with ECG of 23-FEB-2025 13:25, Questionable change in initial forces of Anteroseptal leads Nonspecific T wave abnormality no longer evident in Inferior lead Confirmed by Raphael VALDEZ SAMER J. (57) on 04/28/2025 12:03:08 PM Authorizing ProviderResult TypeResult StatusTimavelino Jessicaoff DOECG ORDERABLES Final ResultPerforming OrganizationAddressCity/State/ZIP CodePhone Number [facility] MUSE * Rad Onc Treatment Planning CT Simulation (04/21/2025 11:59 AM EDT)Specimen (Source)Anatomical Location / LateralityCollection Method / VolumeCollection TimeReceived Time Narrative IMAGING - 04/21/2025 11:59 AM EDT This procedure was auto-finalized. (SEE POSTPROCEDURE NOTE) Authorizing ProviderResult TypeResult StatusMersalfreda HadziahmetovicIMG CT PROCEDURESFinal ResultPerforming OrganizationAddressCity/State/ZIP CodePhone Number IMAGING * [place] LESS THAN 1 HOUR INTRAOPERATIVE (04/18/2025 1:46 PM EDT)Anatomical Region LateralityModalityX-Ray AngiographySpecimen (Source)Anatomical Location / LateralityCollection Method / VolumeCollection TimeReceived Time04/18/2025 1:50 PM EDT Impressions 04/18/2025 1:50 PM EDT * Intraoperative fluoroscopy provided. Reference air kerma = 0.1176 mGy. Electronically signed: Tino Curiel MD. Narrative 04/18/2025 1:50 PM EDT CLINICAL INFORMATION: Port-A-Cath. Procedure Note Tino Curiel MD - 04/18/2025 CLINICAL INFORMATION: Port-A-Cath. IMPRESSION: *Intraoperative fluoroscopy provided. Reference air kerma = 0.1176 mGy. Electronically signed: Tino Curiel MD. Authorizing ProviderResult TypeResult StatusJaida Garcia MDIMG FLUOROSCOPY PROCEDURESFinal Result * POCT glucose meter (04/18/2025 12:27 PM EDT) Only the most recent of2 resultswithin the time period is included. ComponentValueRef RangeTest MethodAnalysis TimePerformed AtPathologist Signature Glucose PBD6775 - 105 mg/dL04/18/2025 12:45 PM [facility] ([facility] Comment:miwardSpecimen (Source)Anatomical Location / LateralityCollection Method / VolumeCollection TimeReceived TimeBloodCapillary blood specimen / Unknown 04/18/2025 12:27 PM EDT1 12:45 PM EDT Narrative [facility] ([facility]) - 04/18/2025 12:45 PM EDT Waived Testing in the ED is performed under the ED CLIA certificate #[id number]. Authorizing ProviderResult TypeResult Benny Garcia MDLAB BLOOD ORDERABLES Final ResultPerforming OrganizationAddressCity/State/ZIP CodePhone Number [facility] ([facility]) [address] [place] [address] * PET/CT skull base to mid thigh FDG (03/24/2025 2:57 PM EDT)Anatomical Region LateralityModalityBodyPositron Emission Tomography (PET)Specimen (Source) Anatomical Location / LateralityCollection Method / VolumeCollection Time Received Time03/25/2025 8:31 AM EDT Impressions 03/25/2025 8:37 AM EDT * Large FDG avid right upper lobe mass measuring 4.2 x 2.8 cm with metastatic FDG avid right paratracheal lymph node measuring 2.4 x 1.9 cm. * No additional sites of FDG avid metastatic disease. * Emphysema. * Diffusely enlarged thyroid gland. Electronically signed: Kaden Watson MD. Narrative 03/25/2025 8:37 AM EDT STUDY: PET-CT CLINICAL HISTORY: Newly diagnosed squamous cell carcinoma, 4R positive COMPARISON: CT chest 02/02/2025 TECHNIQUE: PET/CT was performed following intravenous administration of 10.19 mCi F-18 FDG with images obtained from the skull base through the mid thighs. Fasting glucose was 81 mg/dL at the time of administration. CT was performed utilizing free breathing technique and nondiagnostic collimation for the purposes attenuation correction and localization of radiotracer activity. FINDINGS: Physiologic FDG distribution in the head and neck. Bilateral carotid artery calcifications. Enlarged thyroid gland. Emphysema. There is a large FDG avid mass in the posterior aspect of the right upper lobe measuring 4.2 x 2.8 cm (SUV max 10.9). No additional FDG avid lung nodules or masses. There is a large right paratracheal lymph node measuring 2.4 x 1.9 cm with increased activity (SUV max 13.9). No additional FDG avid thoracic lymph nodes. Coronary artery calcifications. Sequela of old granulomatous disease. Physiologic tracer distribution in the abdomen. No FDG avid abdominal or pelvic lymph nodes. Cholelithiasis. Diffuse atherosclerotic disease. No FDG avid osseous lesions. Procedure Note Kaden Watson MD - 03/25/2025 STUDY: PET-CT CLINICAL HISTORY: Newly diagnosed squamous cell carcinoma, 4R positive COMPARISON: CT chest 02/02/2025 TECHNIQUE: PET/CT was performed following intravenous administration of10.19 mCi F-18 FDG with images obtained from the skull base through the midthighs. Fasting glucose was 81 mg/dL at the time of administration. CT wasperformed utilizing free breathing technique and nondiagnostic collimation for the purposes attenuation correction and localization of radiotraceractivity. FINDINGS: Physiologic FDG distribution in the head and neck. Bilateral carotidartery calcifications. Enlarged thyroid gland. Emphysema. There is a large FDGavid mass in the posterior aspect of the right upper lobe measuring 4.2 x 2.8cm (SUV max 10.9). No additional FDG avid lung nodules or masses. There is a largeright paratracheal lymph node measuring 2.4 x 1.9 cm with increased activity(SUV max 13.9). No additional FDG avid thoracic lymph nodes. Coronary artery calcifications. Sequela of old granulomatous disease. Physiologic tracer distribution in the abdomen. No FDG avid abdominal or pelvic lymphnodes. Cholelithiasis. Diffuse atherosclerotic disease. No FDG avid osseouslesions. IMPRESSION: *Large FDG avid right upper lobe mass measuring 4.2 x 2.8 cm with metastatic FDG avid right paratracheal lymph node measuring 2.4 x 1.9cm. *No additional sites of FDG avid metastatic disease. *Emphysema. *Diffusely enlarged thyroid gland. Electronically signed: Kaden Watson MD. Authorizing ProviderResult TypeResult StatusGretchen Davis MDMinh CT PROCEDURES Final Result * MR brain w and wo contrast (03/16/2025 9:25 AM EDT)Anatomical RegionLaterality ModalityBrainMagnetic ResonanceSpecimen (Source)Anatomical Location / LateralityCollection Method / VolumeCollection TimeReceived Time03/16/2025 11:23 AM EDT Impressions 03/16/2025 11:27 AM EDT 1. No evidence of intracranial metastatic disease. 2. No acute infarct, hemorrhage, or mass lesion. 3. Sequelae of chronic microangiopathy. Electronically signed: Mane Nuno. Narrative 03/16/2025 11:27 AM EDT MR BRAIN W AND WO CONTRAST: 03/16/2025 PROVIDED HISTORY: * 74 years old Female * Non-small cell lung cancer (NSCLC), staging * newly dx NSCLC, brain imaging for staging. COMPARISON: None. TECHNIQUE: Multiplanar and multisequence MR performed using routine brain protocol. Examination performed prior to and following the uneventful intravenous administration of contrast. FINDINGS: No abnormal restricted diffusion. No acute intracranial hemorrhage. No pathological intracranial enhancement. T2/FLAIR hyperintensities in the periventricular, subcortical, and deep white matter, including confluent regions in the centrum semiovale bilaterally. No acute signal abnormality of the brainstem, cerebellum, visualized upper cervical cord. Ventricular caliber/morphology is within normal limits. No significant shift of midline structures. Basal cisterns are patent. Dural venous sinuses are within normal limits for technique. Major intracranial arterial vasculature within normal limits for technique. No acute abnormality of the orbits. Mild paranasal sinus mucosal thickening. Left mastoid air cell effusion. Procedure Note Mane Nuno MD - 03/16/2025 MR BRAIN W AND WO CONTRAST: 03/16/2025 PROVIDED HISTORY: *74 years old Female *Non-small cell lung cancer (NSCLC), staging *newly dx NSCLC, brain imaging for staging. COMPARISON: None. TECHNIQUE: Multiplanar and multisequence MR performed using routine brain protocol. Examination performed prior to and following the uneventful intravenous administration of contrast. FINDINGS: No abnormal restricted diffusion. No acute intracranial hemorrhage. No pathological intracranial enhancement. T2/FLAIR hyperintensities in the periventricular, subcortical, and deepwhite matter, including confluent regions in the centrum semiovale bilaterally.No acute signal abnormality of the brainstem, cerebellum, visualized uppercervical cord. Ventricular caliber/morphology is within normal limits. No significantshift of midline structures. Basal cisterns are patent. Dural venous sinuses are within normal limits for technique. Majorintracranial arterial vasculature within normal limits for technique. No acute abnormality of the orbits. Mild paranasal sinus mucosalthickening. Left mastoid air cell effusion. IMPRESSION: 1.No evidence of intracranial metastatic disease. 2.No acute infarct, hemorrhage, or mass lesion. 3.Sequelae of chronic microangiopathy. Electronically signed: Mane Nuno. Authorizing ProviderResult TypeResult StatusDatrell Davis MDIMG MRI PROCEDURES Final Result from Last 3 Months Insurance Advance Directives * Full Code (Latest Code Status on File) Date ActivatedDate SblzdqwycqaBwymsroi88/20/2025 12:04 04/18/2025 5:19 PM * Full Code Date ActivatedDate InactivatedComments02/23/2025 4:11 PM02/24/2025 6:15 PM * Full Code Date ActivatedDate InactivatedComments02/23/2025 2:41 PM02/23/2025 3:31 PM Care Teams Team MemberRelationshipSpecialtyStart DateEnd Date Kev Mcmahon DO [address], [facility] [place] [address] PCP - GeneralFamily Medicine02/18/25 Gretchen Davis MD [address] [place] [address] Consulting PhysicianHematology and Oncology03/08/25 Mary Jo Denton, TUB WASHER [address] [place] [address] Consulting GgyujupqfSazdwvgg13/14/25 Surya Soto [address] [place] [address] Radiation Gcedqfzd44/23/25 Alfredo Machuca MD [address] [place], [place] [address]pr[place] [address] Jmfqxhhgndgnikelf13/23/25
--- OUTSIDE RECORDS SUMMARY | 2025-06-11 10:34 | XMS_ITS | Encounter Summary ---
Author Organization [facility] Address [address] [place] [address] Care Team Providers Care Joinery Patternmaker Name Role Phone Kev Mcmahon Primary Care Provider [phone] Gretchen Davis MD Unavailable Mary Jo Denton SUPERVISOR CHASSIS ASSEMBLY Unavailable [phone] Surya Soto Unavailable [phone] Alfredo Machuca MD Unavailable Encounter Details DateTypeDepartmentCare Team (Latest Contact Info)Npgpjukqjih31/12/2025Orders Only [facility] Infusion [address] [place] [address] Hellen Mauricio RN Social History Tobacco UseTypesPacks/DayYears UsedDateSmoking Tobacco: FormerCigarettes Smokeless Tobacco: NeverAlcohol UseStandard Drinks/WeekCommentsNot Currently0 (1 standard drink = 0.6 oz pure alcohol)[facility] UtilitiesAnswerDate RecordedIn the past 12 months has the electric, gas, oil, or water [employer] threatened to shut off services in your home?No02/23/2025Overall Financial Resource Strain (CARDIA) AnswerDate RecordedHow hard is it for you to pay for the very basics like food, housing, medical care, and heating?Not hard at all02/23/2025PHQ-2AnswerDate RecordedPatient Health Questionnaire-2 [id number], Afraid, Rape, and Kick questionnaireAnswerDate RecordedWithin the [...] were you homeless or living in a long-term (including now)?No02/23/2025Hunger Vital SignAnswerDate RecordedWithin the past 12 months, you worried that your food would run out before you got the money to buymore.Never true05/23/2025Within the past 12 months, the food you bought just didn't last and you didn't have money to get more.Never true05/23/2025CommentsNoSex and Gender InformationValueDate RecordedSex Assigned at WgvnaIfbewk91/27/2025 9:47 AM EDTLegal SexFemale 02/18/2025 9:12 AM EDTGender KlrlwsdxRnorxn53/27/2025 9:47 AM EDTSexual OrientationHeterosexual or Bgcnuuuq52/27/2025 9:47 AM EDTdocumented as of this encounter Plan of Treatment DateTypeDepartmentCare Team (Latest Contact Info)Gwvfywcpekz34/15/2025 10:30 AM ESTInfusion [facility] Infusion [address] [place] [address] Bertha Guillen, ELÍAS 06/13/2025 10:30 AM ESTOffice Visit [facility] N. [facility] Oncology [address] [place] [address] Mary Jo Denton, SUPERVISOR CHASSIS ASSEMBLY [address] [place] [address] 06/13/2025 1:50 PM ESTAppointment [facility] Radiation Oncology [address] [place] [address] 06/14/2025 10:15 AM ESTOffice Visit [facility] [address] [place] [address] Alfredo Machuca MD [address] [place] [address] 06/14/2025 1:50 PM ESTAppointment [facility] Radiation Oncology [address] [place] [address] 09/12/2025 1:00 PM EDTAppointment [facility] Radiation Oncology [address] [place] [address] Surya Soto [address] [facility] [place] [address] documented as of this encounter Visit Diagnoses Not on filedocumented in this encounter Care Teams Team MemberRelationshipSpecialtyStart DateEnd Date Kev Mcmahon DO [address] [facility], [place] [address] PCP - GeneralFamily Medicine02/18/25 Gretchen Davis MD [address] [place] [address] Consulting PhysicianHematology and Oncology03/08/25 Mary Jo Denton, DINA [address] [place] [address] Consulting AwvsiqpbzJesjxgxu36/14/25 Surya Soto [address] [place] [address] Radiation Etdzoqql73/23/25 Alfredo Machuca MD [address] [place] [address] Biczapwgyxntwykba29/23/25documented as of this encounter
--- OUTSIDE RECORDS SUMMARY | 2025-06-11 10:34 | XMS_ITS | Encounter Summary ---
Author Organization [facility] Address [address] [place] [address] Care Team Providers Care Store Specialist Name Role Phone Kev Mcmahon DO Primary Care Provider [phone] Gretchen Davis MD Unavailable [phone] Denton LINUX DEVOPS ENGINEER Unavailable [phone] Surya Soto Unavailable [phone] Alfredo Machuca MD Unavailable Encounter Details DateTypeDepartmentCare Team (Latest Contact Info)Hafiukrvkey22/08/2025Results Follow-Up [facility] [address] [place] [address] Gretchen Davis MD [address] [place] [address] Magnesium, Comprehensive metabolic panel Social History Tobacco UseTypesPacks/DayYears UsedDateSmoking Tobacco: FormerCigarettes Smokeless Tobacco: NeverAlcohol UseStandard Drinks/WeekCommentsNot Currently0 (1 standard drink = 0.6 oz pure alcohol)[facility] UtilitiesAnswerDate RecordedIn the past 12 months has the electric, gas, oil, or water company threatened to shut off services in your home?No02/23/2025Overall Financial Resource Strain (CARDIA) AnswerDate RecordedHow hard is it for you to pay for the very basics like food, housing, medical care, and heating?Not hard at all02/23/2025PHQ-2AnswerDate RecordedPatient Health Questionnaire-2 [id number], Afraid, Rape, and Kick questionnaireAnswerDate RecordedWithin the [...] true05/23/2025CommentsNoSex and Gender InformationValueDate RecordedSex Assigned at YdgqyHovpng79/27/2025 9:47 AM EDTLegal SexFemale 02/18/2025 9:12 AM EDTGender UbtauabeDokpto85/27/2025 9:47 AM EDTSexual OrientationHeterosexual or Qivgrmvi42/27/2025 9:47 AM EDTdocumented as of this encounter Miscellaneous Notes * Result Encounter Note - Gretchen Davis MD - 06/06/2025 4:04 PM EST I reviewed the result. An appointment for follow up to review with Usha Pruitt is scheduled. documented in this encounter Plan of Treatment DateTypeDepartmentCare Team (Latest Contact Info)Cstnoxiefwb91/15/2025 10:30 AM ESTInfusion [facility] [address] [place] [id number] Bertha Guillen RN 06/13/2025 10:30 AM ESTOffice Visit [facility] On[facility] [address] [place] [address] Mary Jo Denton, LINUX DEVOPS ENGINEER [address] [facility] [place] [address] 06/13/2025 1:50 PM ESTAppointment [facility] Radiation Oncology [address] [place] [address] 06/14/2025 10:15 AM ESTOffice Visit [place] [address] [place] [facility] [address] Alfredo Machuca MD [address] [place] [address] 06/14/2025 1:50 PM ESTAppointment [facility] Radiation Oncology [address] [place] [address] 09/12/2025 1:00 PM EDTAppointment [facility] Radiation Oncology [address] [place] [place] [address] Surya Soto [address] [place] [address] documented as of this encounter Visit Diagnoses Not on filedocumented in this encounter Care Teams Team MemberRelationshipSpecialtyStart DateEnd Date SalomeKev [address] [facility], [place] [address] PCP - GeneralFamily Medicine02/18/25 Gretchen Davis MD [address] [place] [address] Consulting PhysicianHematology and Oncology03/08/25 Mary Jo Denton, LINUX DEVOPS ENGINEER [address] [place] [address] Consulting WexwdhaxhMjnbopva20/14/25 Surya Soto [address] [place] [address] Radiation Advyiusd11/23/25 Alfredo Machuca MD [address] [place], [place] [address]pram[place] [address] Hsrubmiefuizsqogu20/23/25documented as of this encounter
[2025-06-11 10:42] LABS: Hematocrit 34.7 % (36.0-48.0); Hemoglobin 11.9 g/dL (12.0-16.0); Mean Corpuscular HGB Conc 34.3 g/dL (29.9-35.2); Mean Corpuscular Hemoglobin 30.0 pg (26.7-34.0); Mean Corpuscular Volume 87.4 fL (81.0-99.0); Platelet Count 180 10^3/uL (150-450); Red Blood Count 3.97 10^6/uL (4.20-5.40); White Blood Count 2.4 10^3/uL (4.0-11.0)
--- NOTE | 2025-06-11 10:43 | PC.NURSE ---
pt refused port access and asked that we gained peripheral access iv established
[2025-06-11 11:00] LABS: Atypical Lymphocytes % Manual 2.0 %; Atypical Lymphocytes Abs Man 0.04; Band Neutrophils Absolute 0.2 10^3/uL (0.0-0.3); Basophils Abs Manual 0.00 10^3/uL (0.00-0.10); Basophils Percent Manual 0.0 % (0.2-2.0); Eosinophils Absolute Manual 0.00 10^3/uL (0.00-0.70); Eosinophils Percent Manual 0.0 % (0.9-7.0); Lymphocytes Absolute Manual 0.14 10^3/uL (1.20-3.80); Lymphocytes Percent Manual 6.0 % (20.5-60.0); Metamyelocytes Absolute Manual 0.02; Monocytes Absolute Manual 0.19 10^3/uL (0.30-0.80); Monocytes Percent Manual 8.0 % (1.7-12.0); Segmented Neut Absolute Manual 1.75 10^3/uL (1.4-6.5); Segmented Neutrophils % Manual 73.0 (43.0-75.0)
[2025-06-11 11:01] LABS: Anion Gap 13.5; Blood Urea Nitrogen 17.0 mg/dL (7.0-18.0); Calcium 8.8 mg/dL (8.5-10.1); Carbon Dioxide 25.3 mmol/L (21.0-32.0); Chloride 95 mmol/L (98-107); Estimated GFR (African America 47 (>=60 mL/min/1.73m^2); Estimated GFR (Non-African Ame 39 (>=60 mL/min/1.73m^2); Glucose 104 mg/dL (74-106); Potassium 4.8 mmol/L (3.5-5.1); Sodium 129 mmol/L (136-145)
--- NOTE | 2025-06-11 11:03 | CT_ITS ---
[address] [address] Patient Name: KATIE MONTERO MRN: [id number] date: 1950 Sex: F Assigned Patient Location: ER Current Patient Location: Accession/Order Number: [id number] Exam Date: 06/11/2025 11:25 Report Date: 06/11/2025 12:03 At the request of: SOCO HENRY MD Procedure: CT angio chest CT angio chest 06/11/2025 11:31 AM SIGN AND SYMPTOMS: ^Short of breath, cancer, elevated D-dimer TECHNIQUE: Multidetector CT axial slices of the chest were obtained with IV contrast. Multiplanar and 3-D reformats were performed and viewed on a separate workstation and reviewed to further define anatomy and possible pathology. CT was performed with one or more of the following dose reduction techniques: Automated exposure control, adjustment of the mA and/or kV according to patient size, or use of iterative reconstruction technique. COMPARISON: 02/02/2025. FINDINGS: Lower neck: Thyroid gland within normal limits, no supraclavicle adenopathy. Vessels: Atherosclerotic changes are noted in the thoracic aorta, origins of great vessels, and coronary arteries. There is no evidence of pulmonary embolism. Mediastinum and Mary: Calcified mediastinal lymph nodes are present. Heart: Normal size. No pericardial effusion. Airways: Within normal limits Lungs: There is a 3 cm partially solid mass along the right hilum which is less solid in appearance when compared to the prior exam. Scattered areas of airspace opacification are noted in the left upper and bilateral lower lobes suspicious for an infectious or inflammatory process. Emphysematous changes are noted. Pleura: Within normal limits. Chest Wall: Within normal limits. Upper Abdomen: Within normal limits. Bones: Within normal limits. CT/CT angio chest IMPRESSION: There is a 3 cm partially solid mass along the right hilum which is less solid in appearance when compared to the prior exam. Scattered areas of airspace opacification are noted in the left upper and bilateral lower lobes suspicious for an infectious or inflammatory process. Emphysematous changes are noted. There is no evidence of pulmonary embolism. Impression dictated by: Louie Barney M.D. 06/11/2025 12:03 PM Dictation Location: RADIO-PC-17 Electronically authenticated by: [id number] Y Date: 06/11/2025 12:03
== END 2025-06-11 12:42 | disposition home or self-care (01) ==
PROVIDERS: Emergency Provider Emergency Medicine; PCP Family Medicine
DX: J18.9 Pneumonia, unspecified organism (principal); C34.90 Malignant neoplasm of unspecified part of unspecified bronchus or lung; Z79.60 Long term (current) use of unspecified immunomodulators and immunosuppressants; F17.200 Nicotine dependence, unspecified, uncomplicated; R06.02 Shortness of breath
CPT/HCPCS: 36415; 71045; 71275; 80048; 84484; 85007; 85027; 85378; 93005; 99285; Q9967